=== PATIENT | male | born 1965 | race Caucasian/White ===

== ENCOUNTER 2019-04-20 06:48 | Emergency (ER) | payer MEDICAID, SELFPAY ==
[2019-04-20 06:56] VITALS: PULSE 108; RESP 20; TEMP 36.7; O2SAT 100; BMI 36.8
--- NOTE | 2019-04-20 07:01 | W.ED.AMS ---
HPI - Altered Mental Status General: Chief Complaint: Altered Mental Status Stated Complaint: falling/confused History of Present Illness: Associated symptoms: Deny auditory hallucinations, visual hallucinations, depression, homicidal ideation or suicidal ideation Review of Systems Const: Denies: fever, chills, body aches, fatigue, malaise or night sweats Eyes: Denies: change in vision or blurry vision ENMT: Denies: throat pain, oral sores/lesions, dental pain, nasal discharge or nasal congestion Card: Denies: chest pain, palpitations, irregular heart rhythm, edema, syncope, shortness of breath on exertion, shortness of breath when lying down or leg pain with exertion Resp: Denies: shortness of breath, productive cough, non-productive cough or wheezing GI: Denies: abdominal pain, nausea, vomiting, vomiting blood, coffee grounds in vomit, difficulty swallowing, heartburn/indigestion, diarrhea, constipation, cramping, blood in stool or black tarry stool : Denies: flank pain, difficulty urinating, painful urination, urinary frequency, urinary urgency, urinary incontinence or blood in urine Musc: Denies: neck pain, back pain, extremity pain, extremity swelling, joint pain or joint swelling Skin/Breast: Denies: rash, itching or redness Neuro: Denies: headache, numbness in extremities, weakness in extremities, changes in sensation, lack of coordination, difficulty walking, frequent falls, dizziness, vertigo or confusion Psych: Denies: anxiety, depression, loss of interest, visual hallucinations, auditory hallucinations, suicidal ideation or homicidal ideation Endo: Denies: excessive urination, excessive thirst, tired all the time or cold intolerance Say/Lymph: Denies: easy bruising, easy bleeding, petechiae, enlarged lymph nodes or tender lymph nodes PFSH ED PFSH: Statuses (acute, chronic, etc) shown below reflect problem list status as previously entered and may not be historically accurate Social History Smoking and tobacco status: current every day smoker Physical Exam Const: COMMON NORMALS: average body habitus and alert GENERAL APPEARANCE: cooperative, comfortable and well developed NUTRITIONAL APPEARANCE: obese ORIENTATION/CONSCIOUSNESS: Yes awake HENMT: COMMON NORMALS: normocephalic, head/scalp atraumatic, EAC's normal, TM's normal bilaterally, external nose normal, moist oral mucous membranes and oropharynx normal HEAD & SCALP: normocephalic and atraumatic NOSE: external nose normal EXTERNAL AUDITORY CANAL: EAC's normal TYMPANIC MEMBRANE: TM's normal bilaterally MOUTH: oral and palatal mucosa normal, lip normal and tongue normal THROAT: posterior oropharynx normal and tonsils normal Neck/C-Spine: COMMON NORMALS: full ROM, no lymphadenopathy, supple, no meningeal signs and thyroid normal THYROID: thyroid normal and asymmetrical Lymph: LYMPHATIC: no lymphadenopathy noted Resp: COMMON NORMALS: normal respiratory effort, no retractions, no use of accessory muscles and clear to auscultation bilaterally AUSCULTATION: clear to auscultation bilaterally Cardio: COMMON NORMALS: regular rate and regular rhythm RATE: regular rate RHYTHM: regular rhythm HEART SOUNDS: no murmurs GI: COMMON NORMALS: normal to inspection, nondistended, normoactive bowel sounds, soft to palpation and no hepatosplenomegaly PALPATION: Yes soft and Yes no hepatosplenomegaly : COMMON NORMALS: Yes no CVA tenderness BLADDER/KIDNEY EXAM: Yes no CVA tenderness Back/Pelvis: COMMON NORMALS: no CVA tenderness LUMBAR SPINE/LOWER BACK: Yes normal to inspection Extremity: COMMON NORMALS: no clubbing, cyanosis or edema, no calf tenderness and no pedal edema Neuro: SENSORIUM/ORIENTATION: Yes alert MENINGEAL SIGNS: Yes no meningeal signs Skin: COMMON NORMALS: no rashes or lesions noted and skin turgor normal GENERAL SKIN EXAM: no rashes or lesions noted and turgor normal Course ED course: I seen this patient a couple weeks ago at that time he refused to be admitted. He does seem to have a little more delirium today. His alcohol and ammonia levels are normal there is no significant medical finding on initial work-up. Organ to go ahead and admit him to hospitalist. I discussed Dr. Law is deferring to the hospitalist today. CT reviewed discussed with the patient's family. Vital Signs: Vital signs: Vital Signs Temperature 98.0 F 04/20/19 06:56 Pulse Rate 97 04/20/19 13:38 Respiratory Rate 13 04/20/19 13:38 Blood Pressure 163/92 04/20/19 13:38 Pulse Oximetry 99 04/20/19 13:38 MDM - Altered Mental Status Lab Data: Labs: Lab Results 04/20/19 04/20/19 04/20/19 Range/Units 07:20 07:20 07:20 WBC 11.8 H (4.0-10.0) 10^3/ uL RBC 3.94 L (4.1-5.3) 10^6/u L Hgb 12.6 (11.7-16.6) g/dL Hct 36.5 L (42.0-52.0) % MCV 92.6 (80-94) fL MCH 32.0 (28.0-34.0) pg MCHC 34.5 (30.0-36.0) g/dL RDW 15.7 H (12.1-15.1) % Plt Count 382 (130-400) 10^3/c mm MPV 8.8 (7.4-10.4) fL Neut % (Auto) 75.1 % Lymph % (Auto) 16.9 % Jessamine % (Auto) 5.5 % Eos % (Auto) 1.4 % Baso % (Auto) 0.7 % Neut # (Auto) 8.9 H (1.8-7.7) 10^3/u L Lymph # (Auto) 2.0 (0.8-4.8) 10^3/u L Jessamine # (Auto) 0.7 (0.2-0.9) 10^3/u L Eos # (Auto) 0.2 (0.0-0.8) 10^3/u L Baso # (Auto) 0.1 (0.0-0.1) 10^3/u L Nucleated RBC % (a uto) 0 % Nucleated RBCs # 0.0 /100WBC PT 14.40 H (10.5-13.3) SECO NDS INR 1.09 (0.8-1.2) APTT 29.5 (23.9-36.7) SECO NDS Specimen Type Sample Site ABG pH (7.35-7.45) ABG pCO2 (35-45) mmHg ABG pO2 (80.0-100.0) mmH g ABG HCO3 (22-26) mmol/L ABG Base Excess (-2.0-2.0) mmol/ L Scott Test Hematocrit (42-52) % O2 Delivery Device FiO2 % Mode BiPAP Specimen Drawn By Entry Level Marketing Representative ID Sodium 124 L (136-145) mmol/L Potassium 4.9 (3.5-5.1) mmol/L Chloride 88 L (98-107) mmol/L Carbon Dioxide 22 (22-29) mmol/L Anion Gap 18.9 (5-19) BUN 9 (6-20) mg/dL Creatinine 0.6 L (0.7-1.2) mg/dL GFR Calculation 139.9 H (90-130) mL/min Glucose 153 H (74-109) mg/dL Lactate (0.5-2.2) mmol/L Calcium 10.4 H (8.6-10.0) mg/Dl Total Bilirubin 0.8 (0.15-1.2) mg/dL AST 29 (0-40) U/L ALT 17 (0-41) U/L Alkaline Phosphata se 122 (40-130) IU/L Ammonia (16-60) umol/L Total Protein 7.5 (6.6-8.7) g/dL Albumin 5.0 (3.5-5.2) g/dL Globulin 2.5 (1.3-4.6) g/dL Urine Color (Yellow) Urine Appearance (CLEAR) Urine pH (5-7) Ur Specific Gravit y (1.005-1.030) Urine Protein (Negative) Urine Glucose (UA) (Normal) Urine Ketones (Negative) Urine Occult Blood (Negative) Urine Nitrate (Negative) Urine Bilirubin (Negative) Urine Urobilinogen (Negative) mg/dL Ur Leukocyte Laura ase (Negative) Salicylates < 0.3 L (3-10) mg/dL Acetaminophen < 5.0 L (10-30) ug/mL Ethyl Alcohol < 10 (0-10) mg/dL Serum Ketones (Negative) 04/20/19 04/20/19 04/20/19 Range/Units 07:20 07:23 09:41 WBC (4.0-10.0) 10^3/ uL RBC (4.1-5.3) 10^6/u L Hgb (11.7-16.6) g/dL Hct (42.0-52.0) % MCV (80-94) fL MCH (28.0-34.0) pg MCHC (30.0-36.0) g/dL RDW (12.1-15.1) % Plt Count (130-400) 10^3/c mm MPV (7.4-10.4) fL Neut % (Auto) % Lymph % (Auto) % Jessamine % (Auto) % Eos % (Auto) % Baso % (Auto) % Neut # (Auto) (1.8-7.7) 10^3/u L Lymph # (Auto) (0.8-4.8) 10^3/u L Jessamine # (Auto) (0.2-0.9) 10^3/u L Eos # (Auto) (0.0-0.8) 10^3/u L Baso # (Auto) (0.0-0.1) 10^3/u L Nucleated RBC % (a uto) % Nucleated RBCs # /100WBC PT (10.5-13.3) SECO NDS INR (0.8-1.2) APTT (23.9-36.7) SECO NDS Specimen Type Arterial Sample Site Radial, left ABG pH 7.46 H (7.35-7.45) ABG pCO2 28.5 L (35-45) mmHg ABG pO2 94.0 (80.0-100.0) mmH g ABG HCO3 20.2 L (22-26) mmol/L ABG Base Excess -2.5 L (-2.0-2.0) mmol/ L Scott Test Pos Hematocrit 38.7 L (42-52) % O2 Delivery Device Ra FiO2 21.0 % Mode BiPAP Not Reportable Specimen Drawn By Ck Entry Level Marketing Representative ID cak Sodium (136-145) mmol/L Potassium (3.5-5.1) mmol/L Chloride (98-107) mmol/L Carbon Dioxide (22-29) mmol/L Anion Gap (5-19) BUN (6-20) mg/dL Creatinine (0.7-1.2) mg/dL GFR Calculation (90-130) mL/min Glucose (74-109) mg/dL Lactate 2.7 H (0.5-2.2) mmol/L Calcium (8.6-10.0) mg/Dl Total Bilirubin (0.15-1.2) mg/dL AST (0-40) U/L ALT (0-41) U/L Alkaline Phosphata se (40-130) IU/L Ammonia 10 L (16-60) umol/L Total Protein (6.6-8.7) g/dL Albumin (3.5-5.2) g/dL Globulin (1.3-4.6) g/dL Urine Color Sophia (Yellow) Urine Appearance Clear (CLEAR) Urine pH 6.5 (5-7) Ur Specific Gravit y 1.015 (1.005-1.030) Urine Protein Neg (Negative) Urine Glucose (UA) Norm (Normal) Urine Ketones Negative (Negative) Urine Occult Blood Neg (Negative) Urine Nitrate Negative (Negative) Urine Bilirubin Neg (Negative) Urine Urobilinogen 1 H (Negative) mg/dL Ur Leukocyte Laura ase Negative (Negative) Salicylates (3-10) mg/dL Acetaminophen (10-30) ug/mL Ethyl Alcohol (0-10) mg/dL Serum Ketones Negative (Negative) Discharge Plan Discharge Patient Disposition: Admitted As Inpatient Clinical Impression: Delirium due to general medical condition Altered mental status Qualifiers: Altered mental status type: delirium Qualified Code(s): R41.0 - Disorientation, unspecified Dementia Qualifiers: Alzheimer's disease onset: early-onset Dementia behavioral disturbance: without behavioral disturbance Condition: Stable Referrals: Rory Law MD [Primary Care Provider] - Coding Level of Care Code ED [employer] for [facility] Fwd Exam Problem Focused
--- NOTE | 2019-04-20 07:10 | XR_ITS ---
WS: [id number] CHEST XRAY TECHNIQUE: Portable chest. CLINICAL INFORMATION: alterd mental status COMPARISON: FINDINGS: Heart: Normal cardiac silhouette. Lungs: Lungs are clear. No consolidation or pleural effusion. Bones: Normal visualized bony structures. XR/XR chest 1V portable [id number] IMPRESSION: Normal chest
[2019-04-20 07:28] LABS: Add RBC Morph No
[2019-04-20 07:31] LABS: Basophils # 0.1 10^3/uL (0.0-0.1); Basophils % 0.7 %; Eosinophils # 0.2 10^3/uL (0.0-0.8); Eosinophils % 1.4 %; Hematocrit 36.5 % (42.0-52.0); Hemoglobin 12.6 g/dL (11.7-16.6); Lymphocytes % 16.9 %; Mean Corpuscular HGB Conc 34.5 g/dL (30.0-36.0); Mean Corpuscular Volume 92.6 fL (80-94); Mean Platelet Volume 8.8 fL (7.4-10.4); Monocytes # 0.7 10^3/uL (0.2-0.9); Monocytes % 5.5 %; Neutrophils # 8.9 10^3/uL (1.8-7.7); Neutrophils % 75.1 %; Nucleated Red Blood Cells % 0 %; Platelet Count 382 10^3/cmm (130-400); Red Blood Count 3.94 10^6/uL (4.1-5.3); Red Cell Distribution Width 15.7 % (12.1-15.1); White Blood Count 11.8 10^3/uL (4.0-10.0)
[2019-04-20 07:34] LABS: ABG PCO2 28.5 mmHg (35-45); ABG PH Result 7.46 (7.35-7.45); Arterial Blood Gas Hematocrit 38.7 % (42-52); Base Excess ABG -2.5 mmol/L (-2.0-2.0); Blood Gas Allen Test Pos; Blood Gas Sample Site Radial, left; Blood Gas Sample Type Arterial; HCO3 ABG 20.2 mmol/L (22-26)
[2019-04-20 07:39] LABS: INR 1.09 (0.8-1.2)
[2019-04-20 07:40] LABS: Partial Thromboplastin Time 29.5 SECONDS (23.9-36.7)
[2019-04-20 07:50] LABS: Ketone (Acetest) Serum Negative (Negative)
[2019-04-20 07:54] LABS: Lactate (Lactic Acid level) 2.7 mmol/L (0.5-2.2)
[2019-04-20 07:59] LABS: Alanine Aminotransferase 17 U/L (0-41); Alkaline Phosphatase 122 IU/L (40-130); Anion Gap 18.9 (5-19); Aspartate Amino Transferase 29 U/L (0-40); Blood Urea Nitrogen 9 mg/dL (6-20); Calcium 10.4 mg/Dl (8.6-10.0); Carbon Dioxide 22 mmol/L (22-29); Chloride 88 mmol/L (98-107); Globulin 2.5 g/dL (1.3-4.6); Glomerular Filtration Rate 139.9 mL/min (90-130); Glucose 153 mg/dL (74-109); Potassium 4.9 mmol/L (3.5-5.1); Sodium 124 mmol/L (136-145); Total Bilirubin 0.8 mg/dL (0.15-1.2); Total Protein 7.5 g/dL (6.6-8.7)
[2019-04-20 08:07] LABS: Acetaminophen < 5.0 ug/mL (10-30); Alcohol Level < 10 mg/dL (0-10); Ammonia 10 umol/L (16-60); Salicylate < 0.3 mg/dL (3-10)
--- NOTE | 2019-04-20 08:15 | CT_ITS ---
WS: [id number] CT HEAD TECHNIQUE: Noncontrast CT of the head obtained from the skullbase to the vertex. CLINICAL INFORMATION: AMS COMPARISON: DLP: [id number] scans at [facility] use at least one of these dose optimization techniques: automat ed exposure control; mA and/or kV adjustment per patient size (includes targeted exams where dose is matched to clinical indication); or iterative reconstruction. FINDINGS: No evidence of intracranial hemorrhage or mass effect. Ventricular system and basal cisterns are bowers nt. Mild small vessel changes with mild parenchymal volume loss. Chronic lacunar infarct right latera l basal ganglia is unchanged. No extra-axial fluid collections. No evidence of mass or mass effect. N ormal kat-white differentiation. Paranasal sinuses and mastoid air cells are well aerated. .Normal visualized soft tissues. CT/CT head wo con* [id number] IMPRESSION: 1. No evidence of intracranial hemorrhage or mass effect. 2. Mild small vessel changes with mild parenchymal volume loss. 3. Chronic lacunar infarct right lateral basal ganglia is unchanged. 4. No acute intracranial findings.
[2019-04-20] MEDS: sodium chloride 0.9% 500 ML 999 ML IV (10:05)
[2019-04-20] MEDS: sodium chloride 0.9% 1,000 ML 125 ML IV (10:08)
[2019-04-20 11:23] LABS: Add Urine Microscopic? NO
[2019-04-20 11:39] LABS: Bilirubin Urine Neg (Negative); Blood Urine Neg (Negative); Glucose Urine UA Norm (Normal); Ketones Urine Negative (Negative); Leukocyte Esterase Urine Negative (Negative); Nitrate Urine Negative (Negative); Protein Urine Neg (Negative); Specific Gravity, Urine 1.015 (1.005-1.030); Urine Appearance Clear (CLEAR); Urine Color Amber (Yellow); Urobilinogen Urine 1 mg/dL (Negative); pH Urine 6.5 (5-7)
[2019-04-20 12:38] LABS: Oxygen Device RA
[2019-04-20] MEDS: LORazepam 2 mg/mL INJ 1 mL 0.5 MG IVP (12:44)
[2019-04-20 12:47] LABS: Blood Gas Drawn By CK
[2019-04-20 13:38] VITALS: BP 163/92; PULSE 97; RESP 13; O2SAT 99
[2019-04-20] MEDS: nicotine 21 mg Patch 1 PATCH TRANSDERMA (15:12)
--- NOTE | 2019-04-20 16:17 | ED_ITS ---
HPI - Altered Mental Status General: Chief Complaint: Altered Mental Status Stated Complaint: falling/confused History of Present Illness: HPI narrative: This is a 53-year-old male with a past medical history of hypertension, type 2 diabetes mellitus who presents to the emergency room due to complaints of confusion. Patient states that he is here in the ER as he does not feel well, his parents a year ago, and he misses them a lot. Patient states that his mom and dad passed roughly a year ago, and since then he is just not been feeling well, feels down, depressed, denies loss of interest, denies guilty feelings, denies lack of energy, denies f light of ideas, denies changes in appetite denies homicidal ideation, denies suicidal ideation, denies guns being at home. Patient denies fevers, chills, nausea, vomiting, lightheadedness, dizziness, blurry vision, headaches, chest pain, palpitations, shortness of breath, wheezing, abdominal pain, diarrhea, dysuria, hematuria. 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 Patient states that he is , has a , lives not too far for [facility]. Patient states that he really wants to go home, does not know why he is here. I spoke to patient's over the phone, patient's states that for the past year since his parents passing, he is not been taking care of himself, has not been eating and drinking well, does not take care of himself, has not been working for the last year, he drinks whiskey daily, smokes daily, has trouble walking at times, has trouble ambulating him. Patient's states that she cannot take care of him anymore. Associated symptoms: Reports depression; Deny auditory hallucinations, visual hallucinations, homicidal ideation or suicidal ideation Review of Systems Const: Denies: fever, chills, body aches, change in appetite, change in weight, fatigue or malaise Eyes: Denies: change in vision or blurry vision ENMT: Denies: painful swallowing, swelling of lips/tongue or nasal discharge Card: Denies: chest pain or palpitations Resp: Denies: shortness of breath or productive cough GI: Denies: abdominal pain, nausea or vomiting : Denies: flank pain, painful urination, urinary frequency, urinary urgency, urinary hesitancy, urinary dribbling, difficulty starting urination, urinary incontinence or blood in urine Musc: Denies: neck pain or back pain Skin/Breast: Denies: rash, itching or redness Neuro: Denies: headache, numbness in extremities, weakness in extremities, changes in sensation, lack of coordination, difficulty walking, frequent falls, dizziness, vertigo, confusion, behavioral changes, slurred speech, difficulty communicating thoughts, seizure-like activity or involuntary movements Psych: Reports: anxiety, depression and sleeping less; Denies: mood swings, panic attacks, sleeping more, hopelessness, loss of interest, change in appetite, irritability, memory loss, difficulty concentrating, visual hallucinations, auditory hallucinations, tactile hallucinations, suicidal ideation or homicidal ideation Endo: Denies: excessive urination, excessive thirst or excessive sweating PFSH ED PFSH: Statuses (acute, chronic, etc) shown below reflect problem list status as previously entered and may not be historically accurate Medical History (Updated 04/20/19 @ 16:27 by Sp Gaston MD) Alcohol abuse (Acute) Hypertension (Acute) Hyponatremia (Acute) Type 2 diabetes mellitus (Acute) Surgical History (Updated 04/20/19 @ 16:27 by Sp Gaston MD) H/O skin graft (Acute) Hx of tonsillectomy (Acute) Family History (Updated 04/20/19 @ 16:28 by Sp Gaston MD) Other CAD (coronary artery disease) Diabetes Denies family history of Dementia Psychiatric illness Social History (Updated 04/20/19 @ 16:28 by Sp Gaston MD) Smoking and tobacco status: current every day smoker Alcohol intake: current Substance/Drug Use: current Substance/Drug use type: Marijuana Desire information about substance/drug rehabilitation?: No Counseling given: Yes Adopted: No Household members: spouse Current occupational status: unemployed History of recent travel: No Physical Exam Const: COMMON NORMALS: no apparent distress, oriented x3 and no limitations EXAM LIMITATIONS: no altered mental status, no behavioral limitations and no language barrier GENERAL APPEARANCE: cooperative, comfortable and disheveled NUTRITIONAL APPEARANCE: overweight HENMT: COMMON NORMALS: normocephalic HEAD & SCALP: normocephalic Eye: COMMON NORMALS: PERRL PUPIL: Yes PERRL Neck/C-Spine: COMMON NORMALS: full ROM, no JVD and thyroid normal THYROID: thyroid normal Lymph: LYMPHATIC: no lymphadenopathy noted Chest: COMMONS NORMALS: inspection of chest normal Resp: COMMON NORMALS: normal respiratory effort, no retractions, no use of accessory muscles and clear to auscultation bilaterally AUSCULTATION: clear to auscultation bilaterally Cardio: COMMON NORMALS: no JVD, regular rate, regular rhythm, S1 normal heart sound, S2 normal heart sound, no gallops, no clicks, no murmurs and no rub RATE: regular rate RHYTHM: regular rhythm HEART SOUNDS: S1 normal and S2 normal GI: COMMON NORMALS: normal to inspection, nondistended, normoactive bowel sounds, soft to palpation, non-tender, no hepatosplenomegaly, no masses and no bruits PALPATION: Yes soft and Yes no hepatosplenomegaly : COMMON NORMALS: Yes no CVA tenderness BLADDER/KIDNEY EXAM: Yes no CVA tenderness Back/Pelvis: COMMON NORMALS: no CVA tenderness Extremity: COMMON NORMALS: normal to inspection, full ROM, normal capillary refill, no joint enlargement, no clubbing, cyanosis or edema, no calf tenderness and no pedal edema Neuro: COMMON NORMALS: oriented x3, CN's II-XII intact bilaterally, moves all extremities, no focal motor deficits and no sensory deficits noted Psych: COMMON NORMALS: mental status grossly normal, thought process normal, cooperative, affect normal, speech normal, activity/motor behavior normal, denies hallucinations, denies homicidal ideation and denies suicidal ideation SPEECH: Yes normal speech MOOD & AFFECT: Yes irritable, Yes labile affect and Yes flat affect THOUGHT PROCESS: normal thought process THOUGHT CONTENT: Yes normal thought content MEMORY/COGNITION: Yes memory grossly intact INSIGHT: insight good JUDGEMENT: judgment good Skin: COMMON NORMALS: no rashes or lesions noted GENERAL SKIN EXAM: no rashes or lesions noted Urinary Catheter Management^: [place]: Cath Placed During This Visit: no Course ED course: In the emergency room patient was found to have a sodium level of 124, status post 1 L bolus normal saline, chronically patient's sodium levels 129-130. 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, no other acute findings -We will recheck sodium level, if improved, will discharge with instructions to drink Gatorade, recheck sodium levels tomorrow, abstain from alcohol -Also stop lisinopril, increase Norvasc to 10 mg once daily -If sodium levels remain low, and advised for admission -Patient sodium levels remain 124, I advised patient that he should be admitted, for IV hydration, -However patient wants to leave AGAINST MEDICAL ADVICE, patient advised risks of leaving AGAINST MEDICAL ADVICE, patient advised of significant risk of morbidity and mortality, advised the risk of , advised of risk of seizures, cerebral edema, falls. Patient accepted all these risks, voiced understanding, wants to leave AGAINST MEDICAL ADVICE For his depression anxiety, patient refuses inpatient admission to Neuropsych Unit, clearly patient is depressed and anxious, has not been taking care of himself, has not been working for the past year, looks disheveled, labile, poor eye contact -Denies suicidal homicidal ideation -Agreeable to follow-up with Dr. Law, agreeable to start medications Vital Signs: Vital signs: Vital Signs Temperature 98.0 F 04/20/19 06:56 Pulse Rate 97 04/20/19 13:38 Respiratory Rate 13 04/20/19 13:38 Blood Pressure 163/92 04/20/19 13:38 Pulse Oximetry 99 04/20/19 13:38 MDM - Altered Mental Status Lab Data: Labs: Lab Results 04/20/19 04/20/19 04/20/19 Range/Units 07:20 07:20 07:20 WBC 11.8 H (4.0-10.0) 10^3/ uL RBC 3.94 L (4.1-5.3) 10^6/u L Hgb 12.6 (11.7-16.6) g/dL Hct 36.5 L (42.0-52.0) % MCV 92.6 (80-94) fL MCH 32.0 (28.0-34.0) pg MCHC 34.5 (30.0-36.0) g/dL RDW 15.7 H (12.1-15.1) % Plt Count 382 (130-400) 10^3/c mm MPV 8.8 (7.4-10.4) fL Neut % (Auto) 75.1 % Lymph % (Auto) 16.9 % Wayne % (Auto) 5.5 % Eos % (Auto) 1.4 % Baso % (Auto) 0.7 % Neut # (Auto) 8.9 H (1.8-7.7) 10^3/u L Lymph # (Auto) 2.0 (0.8-4.8) 10^3/u L Wayne # (Auto) 0.7 (0.2-0.9) 10^3/u L Eos # (Auto) 0.2 (0.0-0.8) 10^3/u L Baso # (Auto) 0.1 (0.0-0.1) 10^3/u L Nucleated RBC % (a uto) 0 % Nucleated RBCs # 0.0 /100WBC PT 14.40 H (10.5-13.3) SECO NDS INR 1.09 (0.8-1.2) APTT 29.5 (23.9-36.7) SECO NDS Specimen Type Sample Site ABG pH (7.35-7.45) ABG pCO2 (35-45) mmHg ABG pO2 (80.0-100.0) mmH g ABG HCO3 (22-26) mmol/L ABG Base Excess (-2.0-2.0) mmol/ L Scott Test Hematocrit (42-52) % O2 Delivery Device FiO2 % Mode BiPAP Specimen Drawn By Tubing Machine Tender ID Sodium 124 L (136-145) mmol/L Potassium 4.9 (3.5-5.1) mmol/L Chloride 88 L (98-107) mmol/L Carbon Dioxide 22 (22-29) mmol/L Anion Gap 18.9 (5-19) BUN 9 (6-20) mg/dL Creatinine 0.6 L (0.7-1.2) mg/dL GFR Calculation 139.9 H (90-130) mL/min Glucose 153 H (74-109) mg/dL Lactate (0.5-2.2) mmol/L Calcium 10.4 H (8.6-10.0) mg/Dl Total Bilirubin 0.8 (0.15-1.2) mg/dL AST 29 (0-40) U/L ALT 17 (0-41) U/L Alkaline Phosphata se 122 (40-130) IU/L Ammonia (16-60) umol/L Total Protein 7.5 (6.6-8.7) g/dL Albumin 5.0 (3.5-5.2) g/dL Globulin 2.5 (1.3-4.6) g/dL Urine Color (Yellow) Urine Appearance (CLEAR) Urine pH (5-7) Ur Specific Gravit y (1.005-1.030) Urine Protein (Negative) Urine Glucose (UA) (Normal) Urine Ketones (Negative) Urine Occult Blood (Negative) Urine Nitrate (Negative) Urine Bilirubin (Negative) Urine Urobilinogen (Negative) mg/dL Ur Leukocyte Laura ase (Negative) Salicylates < 0.3 L (3-10) mg/dL Acetaminophen < 5.0 L (10-30) ug/mL Ethyl Alcohol < 10 (0-10) mg/dL Serum Ketones (Negative) 04/20/19 04/20/19 04/20/19 Range/Units 07:20 07:23 09:41 WBC (4.0-10.0) 10^3/ uL RBC (4.1-5.3) 10^6/u L Hgb (11.7-16.6) g/dL Hct (42.0-52.0) % MCV (80-94) fL MCH (28.0-34.0) pg MCHC (30.0-36.0) g/dL RDW (12.1-15.1) % Plt Count (130-400) 10^3/c mm MPV (7.4-10.4) fL Neut % (Auto) % Lymph % (Auto) % Wayne % (Auto) % Eos % (Auto) % Baso % (Auto) % Neut # (Auto) (1.8-7.7) 10^3/u L Lymph # (Auto) (0.8-4.8) 10^3/u L Wayne # (Auto) (0.2-0.9) 10^3/u L Eos # (Auto) (0.0-0.8) 10^3/u L Baso # (Auto) (0.0-0.1) 10^3/u L Nucleated RBC % (a uto) % Nucleated RBCs # /100WBC PT (10.5-13.3) SECO NDS INR (0.8-1.2) APTT (23.9-36.7) SECO NDS Specimen Type Arterial Sample Site Radial, left ABG pH 7.46 H (7.35-7.45) ABG pCO2 28.5 L (35-45) mmHg ABG pO2 94.0 (80.0-100.0) mmH g ABG HCO3 20.2 L (22-26) mmol/L ABG Base Excess -2.5 L (-2.0-2.0) mmol/ L Scott Test Pos Hematocrit 38.7 L (42-52) % O2 Delivery Device Ra FiO2 21.0 % Mode BiPAP Not Reportable Specimen Drawn By Ck Tubing Machine Tender ID cak Sodium (136-145) mmol/L Potassium (3.5-5.1) mmol/L Chloride (98-107) mmol/L Carbon Dioxide (22-29) mmol/L Anion Gap (5-19) BUN (6-20) mg/dL Creatinine (0.7-1.2) mg/dL GFR Calculation (90-130) mL/min Glucose (74-109) mg/dL Lactate 2.7 H (0.5-2.2) mmol/L Calcium (8.6-10.0) mg/Dl Total Bilirubin (0.15-1.2) mg/dL AST (0-40) U/L ALT (0-41) U/L Alkaline Phosphata se (40-130) IU/L Ammonia 10 L (16-60) umol/L Total Protein (6.6-8.7) g/dL Albumin (3.5-5.2) g/dL Globulin (1.3-4.6) g/dL Urine Color Sophia (Yellow) Urine Appearance Clear (CLEAR) Urine pH 6.5 (5-7) Ur Specific Gravit y 1.015 (1.005-1.030) Urine Protein Neg (Negative) Urine Glucose (UA) Norm (Normal) Urine Ketones Negative (Negative) Urine Occult Blood Neg (Negative) Urine Nitrate Negative (Negative) Urine Bilirubin Neg (Negative) Urine Urobilinogen 1 H (Negative) mg/dL Ur Leukocyte Laura ase Negative (Negative) Salicylates (3-10) mg/dL Acetaminophen (10-30) ug/mL Ethyl Alcohol (0-10) mg/dL Serum Ketones Negative (Negative) 04/20/19 Range/Units 16:20 WBC (4.0-10.0) 10^3/ uL RBC (4.1-5.3) 10^6/u L Hgb (11.7-16.6) g/dL Hct (42.0-52.0) % MCV (80-94) fL MCH (28.0-34.0) pg MCHC (30.0-36.0) g/dL RDW (12.1-15.1) % Plt Count (130-400) 10^3/c mm MPV (7.4-10.4) fL Neut % (Auto) % Lymph % (Auto) % Wayne % (Auto) % Eos % (Auto) % Baso % (Auto) % Neut # (Auto) (1.8-7.7) 10^3/u L Lymph # (Auto) (0.8-4.8) 10^3/u L Wayne # (Auto) (0.2-0.9) 10^3/u L Eos # (Auto) (0.0-0.8) 10^3/u L Baso # (Auto) (0.0-0.1) 10^3/u L Nucleated RBC % (a uto) % Nucleated RBCs # /100WBC PT (10.5-13.3) SECO NDS INR (0.8-1.2) APTT (23.9-36.7) SECO NDS Specimen Type Sample Site ABG pH (7.35-7.45) ABG pCO2 (35-45) mmHg ABG pO2 (80.0-100.0) mmH g ABG HCO3 (22-26) mmol/L ABG Base Excess (-2.0-2.0) mmol/ L Scott Test Hematocrit (42-52) % O2 Delivery Device FiO2 % Mode BiPAP Specimen Drawn By Tubing Machine Tender ID Sodium 124 L (136-145) mmol/L Potassium 5.2 H (3.5-5.1) mmol/L Chloride 91 L (98-107) mmol/L Carbon Dioxide 21 L (22-29) mmol/L Anion Gap 17.2 (5-19) BUN 7 (6-20) mg/dL Creatinine 0.4 L (0.7-1.2) mg/dL GFR Calculation 223.3 H (90-130) mL/min Glucose 122 H (74-109) mg/dL Lactate (0.5-2.2) mmol/L Calcium 10.1 H (8.6-10.0) mg/Dl Total Bilirubin 0.7 (0.15-1.2) mg/dL AST 27 (0-40) U/L ALT 16 (0-41) U/L Alkaline Phosphata se 117 (40-130) IU/L Ammonia (16-60) umol/L Total Protein 7.8 (6.6-8.7) g/dL Albumin 4.2 (3.5-5.2) g/dL Globulin 3.6 (1.3-4.6) g/dL Urine Color (Yellow) Urine Appearance (CLEAR) Urine pH (5-7) Ur Specific Gravit y (1.005-1.030) Urine Protein (Negative) Urine Glucose (UA) (Normal) Urine Ketones (Negative) Urine Occult Blood (Negative) Urine Nitrate (Negative) Urine Bilirubin (Negative) Urine Urobilinogen (Negative) mg/dL Ur Leukocyte Laura ase (Negative) Salicylates (3-10) mg/dL Acetaminophen (10-30) ug/mL Ethyl Alcohol (0-10) mg/dL Serum Ketones (Negative) Discharge Plan Discharge Patient Disposition: Left Against Medical Advice Clinical Impression: Altered mental status, Delirium due to general medical condition, Dementia Condition: Stable Prescriptions: No Action lisinopril 20 mg tablet 20 mg PO DAILY RF: 0 amlodipine 5 mg tablet 5 mg PO DAILY RF: 0 metformin 1,000 mg Tablet 1,000 mg PO BID RF: 0 Excedrin Migraine 250-250-65 mg Tablet 2 tab PO DAILY PRN (Reason: Headache) RF: 0 Referrals: Rory Law MD [Primary Care Provider] - Discharge Activity: Left AGAINST MEDICAL ADVICE Coding Level of Care Code ED Revenue Analyst for g Fwd Exam Problem Focused
[2019-04-20 16:47] LABS: Alanine Aminotransferase 16 U/L (0-41); Albumin Level 4.2 g/dL (3.5-5.2); Alkaline Phosphatase 117 IU/L (40-130); Anion Gap 17.2 (5-19); Aspartate Amino Transferase 27 U/L (0-40); Blood Urea Nitrogen 7 mg/dL (6-20); Calcium 10.1 mg/Dl (8.6-10.0); Carbon Dioxide 21 mmol/L (22-29); Chloride 91 mmol/L (98-107); Globulin 3.6 g/dL (1.3-4.6); Glomerular Filtration Rate 223.3 mL/min (90-130); Glucose 122 mg/dL (74-109); Potassium 5.2 mmol/L (3.5-5.1); Sodium 124 mmol/L (136-145); Total Bilirubin 0.7 mg/dL (0.15-1.2); Total Protein 7.8 g/dL (6.6-8.7)
--- NOTE | 2019-04-20 17:37 | W.ED.AMS ---
HPI - Altered Mental Status General: Chief Complaint: Altered Mental Status Stated Complaint: falling/confused Review of Systems Const: Denies: fever, chills, body aches, fatigue, malaise or night sweats Eyes: Denies: change in vision or blurry vision ENMT: Denies: throat pain, oral sores/lesions, dental pain, nasal discharge or nasal congestion Card: Denies: chest pain, palpitations, irregular heart rhythm, edema, syncope, shortness of breath on exertion, shortness of breath when lying down or leg pain with exertion Resp: Denies: shortness of breath, productive cough, non-productive cough or wheezing GI: Denies: abdominal pain, nausea, vomiting, vomiting blood, coffee grounds in vomit, difficulty swallowing, heartburn/indigestion, diarrhea, constipation, cramping, blood in stool or black tarry stool : Denies: flank pain, difficulty urinating, painful urination, urinary frequency, urinary urgency, urinary incontinence or blood in urine Musc: Denies: neck pain, back pain, extremity pain, extremity swelling, joint pain or joint swelling Skin/Breast: Denies: rash, itching or redness Neuro: Denies: headache, numbness in extremities, weakness in extremities, changes in sensation, lack of coordination, difficulty walking, frequent falls, dizziness, vertigo or confusion Endo: Denies: excessive urination, excessive thirst, tired all the time or cold intolerance Say/Lymph: Denies: easy bruising, easy bleeding, petechiae, enlarged lymph nodes or tender lymph nodes PFSH ED PFSH: Statuses (acute, chronic, etc) shown below reflect problem list status as previously entered and may not be historically accurate Medical History Alcohol abuse (Acute) Hypertension (Acute) Hyponatremia (Acute) Type 2 diabetes mellitus (Acute) Surgical History H/O skin graft (Acute) Hx of tonsillectomy (Acute) Family History Other CAD (coronary artery disease) Diabetes Denies family history of Dementia Psychiatric illness Social History Smoking and tobacco status: current every day smoker Alcohol intake: current Substance/Drug Use: current Substance/Drug use type: Marijuana Desire information about substance/drug rehabilitation?: No Counseling given: Yes Adopted: No Household members: spouse Current occupational status: unemployed History of recent travel: No Physical Exam Const: COMMON NORMALS: average body habitus and alert GENERAL APPEARANCE: cooperative, comfortable, well kempt and well developed NUTRITIONAL APPEARANCE: obese ORIENTATION/CONSCIOUSNESS: Yes awake, Yes oriented to person and Yes oriented to place HENMT: COMMON NORMALS: normocephalic, head/scalp atraumatic, EAC's normal, TM's normal bilaterally, external nose normal, moist oral mucous membranes and oropharynx normal HEAD & SCALP: normocephalic and atraumatic NOSE: external nose normal EXTERNAL AUDITORY CANAL: EAC's normal TYMPANIC MEMBRANE: TM's normal bilaterally MOUTH: oral and palatal mucosa normal, lip normal and tongue normal THROAT: posterior oropharynx normal and tonsils normal Eye: COMMON NORMALS: PERRL, EOMs intact bilaterally, conjunctivae normal and no scleral icterus CONJUNCTIVA: Yes conjunctivae normal PUPIL: Yes PERRL Neck/C-Spine: COMMON NORMALS: full ROM, no lymphadenopathy, supple, no meningeal signs and thyroid normal THYROID: thyroid normal and asymmetrical Lymph: LYMPHATIC: no lymphadenopathy noted Resp: COMMON NORMALS: normal respiratory effort, no retractions, no use of accessory muscles and clear to auscultation bilaterally AUSCULTATION: clear to auscultation bilaterally Cardio: COMMON NORMALS: regular rate and regular rhythm RATE: regular rate RHYTHM: regular rhythm HEART SOUNDS: no murmurs GI: COMMON NORMALS: normal to inspection, nondistended, normoactive bowel sounds, soft to palpation and no hepatosplenomegaly PALPATION: Yes soft and Yes no hepatosplenomegaly : COMMON NORMALS: Yes no CVA tenderness BLADDER/KIDNEY EXAM: Yes no CVA tenderness Back/Pelvis: COMMON NORMALS: no CVA tenderness LUMBAR SPINE/LOWER BACK: Yes normal to inspection Extremity: COMMON NORMALS: no clubbing, cyanosis or edema, no calf tenderness and no pedal edema Neuro: SENSORIUM/ORIENTATION: Yes alert, Yes oriented to person and Yes oriented to place MENINGEAL SIGNS: Yes no meningeal signs Psych: APPEARANCE: Yes well kempt Skin: COMMON NORMALS: no rashes or lesions noted and skin turgor normal GENERAL SKIN EXAM: no rashes or lesions noted and turgor normal Urinary Catheter Management^: [place]: Cath Placed During This Visit: no Course Vital Signs: Vital signs: Vital Signs Temperature 98.0 F 04/20/19 06:56 Pulse Rate 97 04/20/19 13:38 Respiratory Rate 13 04/20/19 13:38 Blood Pressure 163/92 04/20/19 13:38 Pulse Oximetry 99 04/20/19 13:38 MDM - Altered Mental Status Lab Data: Labs: Lab Results 04/20/19 04/20/19 04/20/19 Range/Units 07:20 07:20 07:20 WBC 11.8 H (4.0-10.0) 10^3/ uL RBC 3.94 L (4.1-5.3) 10^6/u L Hgb 12.6 (11.7-16.6) g/dL Hct 36.5 L (42.0-52.0) % MCV 92.6 (80-94) fL MCH 32.0 (28.0-34.0) pg MCHC 34.5 (30.0-36.0) g/dL RDW 15.7 H (12.1-15.1) % Plt Count 382 (130-400) 10^3/c mm MPV 8.8 (7.4-10.4) fL Neut % (Auto) 75.1 % Lymph % (Auto) 16.9 % Woodward % (Auto) 5.5 % Eos % (Auto) 1.4 % Baso % (Auto) 0.7 % Neut # (Auto) 8.9 H (1.8-7.7) 10^3/u L Lymph # (Auto) 2.0 (0.8-4.8) 10^3/u L Woodward # (Auto) 0.7 (0.2-0.9) 10^3/u L Eos # (Auto) 0.2 (0.0-0.8) 10^3/u L Baso # (Auto) 0.1 (0.0-0.1) 10^3/u L Nucleated RBC % (a uto) 0 % Nucleated RBCs # 0.0 /100WBC PT 14.40 H (10.5-13.3) SECO NDS INR 1.09 (0.8-1.2) APTT 29.5 (23.9-36.7) SECO NDS Specimen Type Sample Site ABG pH (7.35-7.45) ABG pCO2 (35-45) mmHg ABG pO2 (80.0-100.0) mmH g ABG HCO3 (22-26) mmol/L ABG Base Excess (-2.0-2.0) mmol/ L Scott Test Hematocrit (42-52) % O2 Delivery Device FiO2 % Mode BiPAP Specimen Drawn By Director Of Business Applications ID Sodium 124 L (136-145) mmol/L Potassium 4.9 (3.5-5.1) mmol/L Chloride 88 L (98-107) mmol/L Carbon Dioxide 22 (22-29) mmol/L Anion Gap 18.9 (5-19) BUN 9 (6-20) mg/dL Creatinine 0.6 L (0.7-1.2) mg/dL GFR Calculation 139.9 H (90-130) mL/min Glucose 153 H (74-109) mg/dL Lactate (0.5-2.2) mmol/L Calcium 10.4 H (8.6-10.0) mg/Dl Total Bilirubin 0.8 (0.15-1.2) mg/dL AST 29 (0-40) U/L ALT 17 (0-41) U/L Alkaline Phosphata se 122 (40-130) IU/L Ammonia (16-60) umol/L Total Protein 7.5 (6.6-8.7) g/dL Albumin 5.0 (3.5-5.2) g/dL Globulin 2.5 (1.3-4.6) g/dL Urine Color (Yellow) Urine Appearance (CLEAR) Urine pH (5-7) Ur Specific Gravit y (1.005-1.030) Urine Protein (Negative) Urine Glucose (UA) (Normal) Urine Ketones (Negative) Urine Occult Blood (Negative) Urine Nitrate (Negative) Urine Bilirubin (Negative) Urine Urobilinogen (Negative) mg/dL Ur Leukocyte Laura ase (Negative) Salicylates < 0.3 L (3-10) mg/dL Acetaminophen < 5.0 L (10-30) ug/mL Ethyl Alcohol < 10 (0-10) mg/dL Serum Ketones (Negative) 04/20/19 04/20/19 04/20/19 Range/Units 07:20 07:23 09:41 WBC (4.0-10.0) 10^3/ uL RBC (4.1-5.3) 10^6/u L Hgb (11.7-16.6) g/dL Hct (42.0-52.0) % MCV (80-94) fL MCH (28.0-34.0) pg MCHC (30.0-36.0) g/dL RDW (12.1-15.1) % Plt Count (130-400) 10^3/c mm MPV (7.4-10.4) fL Neut % (Auto) % Lymph % (Auto) % Woodward % (Auto) % Eos % (Auto) % Baso % (Auto) % Neut # (Auto) (1.8-7.7) 10^3/u L Lymph # (Auto) (0.8-4.8) 10^3/u L Woodward # (Auto) (0.2-0.9) 10^3/u L Eos # (Auto) (0.0-0.8) 10^3/u L Baso # (Auto) (0.0-0.1) 10^3/u L Nucleated RBC % (a uto) % Nucleated RBCs # /100WBC PT (10.5-13.3) SECO NDS INR (0.8-1.2) APTT (23.9-36.7) SECO NDS Specimen Type Arterial Sample Site Radial, left ABG pH 7.46 H (7.35-7.45) ABG pCO2 28.5 L (35-45) mmHg ABG pO2 94.0 (80.0-100.0) mmH g ABG HCO3 20.2 L (22-26) mmol/L ABG Base Excess -2.5 L (-2.0-2.0) mmol/ L Scott Test Pos Hematocrit 38.7 L (42-52) % O2 Delivery Device Ra FiO2 21.0 % Mode BiPAP Not Reportable Specimen Drawn By Ck Director Of Business Applications ID cak Sodium (136-145) mmol/L Potassium (3.5-5.1) mmol/L Chloride (98-107) mmol/L Carbon Dioxide (22-29) mmol/L Anion Gap (5-19) BUN (6-20) mg/dL Creatinine (0.7-1.2) mg/dL GFR Calculation (90-130) mL/min Glucose (74-109) mg/dL Lactate 2.7 H (0.5-2.2) mmol/L Calcium (8.6-10.0) mg/Dl Total Bilirubin (0.15-1.2) mg/dL AST (0-40) U/L ALT (0-41) U/L Alkaline Phosphata se (40-130) IU/L Ammonia 10 L (16-60) umol/L Total Protein (6.6-8.7) g/dL Albumin (3.5-5.2) g/dL Globulin (1.3-4.6) g/dL Urine Color Sophia (Yellow) Urine Appearance Clear (CLEAR) Urine pH 6.5 (5-7) Ur Specific Gravit y 1.015 (1.005-1.030) Urine Protein Neg (Negative) Urine Glucose (UA) Norm (Normal) Urine Ketones Negative (Negative) Urine Occult Blood Neg (Negative) Urine Nitrate Negative (Negative) Urine Bilirubin Neg (Negative) Urine Urobilinogen 1 H (Negative) mg/dL Ur Leukocyte Laura ase Negative (Negative) Salicylates (3-10) mg/dL Acetaminophen (10-30) ug/mL Ethyl Alcohol (0-10) mg/dL Serum Ketones Negative (Negative) 04/20/19 Range/Units 16:20 WBC (4.0-10.0) 10^3/ uL RBC (4.1-5.3) 10^6/u L Hgb (11.7-16.6) g/dL Hct (42.0-52.0) % MCV (80-94) fL MCH (28.0-34.0) pg MCHC (30.0-36.0) g/dL RDW (12.1-15.1) % Plt Count (130-400) 10^3/c mm MPV (7.4-10.4) fL Neut % (Auto) % Lymph % (Auto) % Woodward % (Auto) % Eos % (Auto) % Baso % (Auto) % Neut # (Auto) (1.8-7.7) 10^3/u L Lymph # (Auto) (0.8-4.8) 10^3/u L Woodward # (Auto) (0.2-0.9) 10^3/u L Eos # (Auto) (0.0-0.8) 10^3/u L Baso # (Auto) (0.0-0.1) 10^3/u L Nucleated RBC % (a uto) % Nucleated RBCs # /100WBC PT (10.5-13.3) SECO NDS INR (0.8-1.2) APTT (23.9-36.7) SECO NDS Specimen Type Sample Site ABG pH (7.35-7.45) ABG pCO2 (35-45) mmHg ABG pO2 (80.0-100.0) mmH g ABG HCO3 (22-26) mmol/L ABG Base Excess (-2.0-2.0) mmol/ L Scott Test Hematocrit (42-52) % O2 Delivery Device FiO2 % Mode BiPAP Specimen Drawn By Director Of Business Applications ID Sodium 124 L (136-145) mmol/L Potassium 5.2 H (3.5-5.1) mmol/L Chloride 91 L (98-107) mmol/L Carbon Dioxide 21 L (22-29) mmol/L Anion Gap 17.2 (5-19) BUN 7 (6-20) mg/dL Creatinine 0.4 L (0.7-1.2) mg/dL GFR Calculation 223.3 H (90-130) mL/min Glucose 122 H (74-109) mg/dL Lactate (0.5-2.2) mmol/L Calcium 10.1 H (8.6-10.0) mg/Dl Total Bilirubin 0.7 (0.15-1.2) mg/dL AST 27 (0-40) U/L ALT 16 (0-41) U/L Alkaline Phosphata se 117 (40-130) IU/L Ammonia (16-60) umol/L Total Protein 7.8 (6.6-8.7) g/dL Albumin 4.2 (3.5-5.2) g/dL Globulin 3.6 (1.3-4.6) g/dL Urine Color (Yellow) Urine Appearance (CLEAR) Urine pH (5-7) Ur Specific Gravit y (1.005-1.030) Urine Protein (Negative) Urine Glucose (UA) (Normal) Urine Ketones (Negative) Urine Occult Blood (Negative) Urine Nitrate (Negative) Urine Bilirubin (Negative) Urine Urobilinogen (Negative) mg/dL Ur Leukocyte Laura ase (Negative) Salicylates (3-10) mg/dL Acetaminophen (10-30) ug/mL Ethyl Alcohol (0-10) mg/dL Serum Ketones (Negative) Discharge Plan Discharge Patient Disposition: Left Against Medical Advice Clinical Impression: Delirium due to general medical condition Altered mental status Qualifiers: Altered mental status type: delirium Qualified Code(s): R41.0 - Disorientation, unspecified Dementia Qualifiers: Alzheimer's disease onset: early-onset Dementia behavioral disturbance: without behavioral disturbance Condition: Stable Prescriptions: No Action lisinopril 20 mg tablet 20 mg PO DAILY RF: 0 amlodipine 5 mg tablet 5 mg PO DAILY RF: 0 metformin 1,000 mg Tablet 1,000 mg PO BID RF: 0 Excedrin Migraine 250-250-65 mg Tablet 2 tab PO DAILY PRN (Reason: Headache) RF: 0 Referrals: Rory Law MD [Primary Care Provider] - Discharge Activity: Left AGAINST MEDICAL ADVICE Coding Level of Care Code ED Can Top Setter for Francia Larry
== END 2019-04-20 18:00 | disposition left against medical advice (07) ==
PROVIDERS: Family Medicine; Emergency Provider Family Medicine; Family Provider Family Medicine; PCP Family Medicine
DX: G30.0 Alzheimer's disease with early onset (principal); F02.80 Dementia in other diseases classified elsewhere, unspecified severity, without behavioral disturbance, psychotic disturbance, mood disturbance, and anxiety; F17.210 Nicotine dependence, cigarettes, uncomplicated
CPT/HCPCS: 36415; 36600; 51702; 70450; 71045; 80053; 80307; 81003; 82009; 82140; 82803; 83605; 85025; 85610; 85730; 96360; 96361; 96374; 99000; 99282; 99284; J2060; J7030; J7040

== ENCOUNTER 2019-05-10 23:09 | Inpatient (IN) | payer MEDICAID, SELFPAY ==
[2019-05-10] VITALS (8 sets, daily range): BP systolic 65–114; BP diastolic 38–75; PULSE 106–115; RESP 16–27; TEMP 36.7; O2SAT 92–99; BMI 31.5
--- NOTE | 2019-05-10 23:11 | ED_ITS ---
Entered by Abida Finley, acting as scribe for Jennifer Ferro HPI - Alcohol General: Chief Complaint: Altered Mental Status Stated Complaint: AMS Time Seen by Provider: 05/10/19 23:10 Source: EMS Mode of arrival: EMS History of Present Illness: HPI narrative: 53 y/o male presents to the ED with complaint of AMS. Pt has been drinking this evening and his friend called EMS to get him some help. Pt smells stongly of ETOH but states he has only had a few sips. Pt has been under increased stress and has been unable to cope with the passing of his father. Pts is a chronic alcoholic and EMS suspects he is as well. There were empty whiskey bottles all over the residence. Pts father passed about a year ago but he believes it was today or yesterday. Pt also believes Fredi is still the president. MD complaint: alcohol intoxication (AMS) Last drink: Just [employer] Chronic alcohol use: Yes Recent trauma: No Associated symptoms: Deny abdominal pain, diaphoresis, hematemesis, melena, nausea, syncope or vomiting Treatments prior to arrival: none Review of Systems Const: Denies: fever, chills, body aches, fatigue, malaise or diaphoresis Eyes: Denies: change in vision or blurry vision ENMT: Denies: throat pain, painful swallowing, hoarseness, ear pain, ear discharge, Change in hearing or nasal discharge Card: Denies: chest pain, palpitations, irregular heart rhythm, syncope, pre- syncope, shortness of breath on exertion or shortness of breath when lying down Resp: Denies: shortness of breath, productive cough, non-productive cough, wheezing, coughing up blood or chest congestion GI: Denies: abdominal pain, nausea, vomiting, vomiting blood, coffee grounds in vomit, diarrhea, constipation, cramping, blood in stool or black tarry stool : Denies: flank pain, difficulty urinating, painful urination, urinary frequency, urinary urgency, decreased urine ouput, urinary incontinence or blood in urine Musc: Denies: neck pain, back pain, extremity pain, extremity swelling, joint pain, joint swelling, joint warmth or joint stiffness Skin/Breast: Denies: rash, skin tenderness or yellow skin Neuro: Denies: headache, numbness in extremities, weakness in extremities, changes in sensation, lack of coordination, difficulty walking, dizziness, vertigo or confusion Endo: Denies: excessive thirst, tired all the time, cold intolerance, excessive sweating, flushing or hot flashes Say/Lymph: Denies: easy bruising, easy bleeding, petechiae or enlarged lymph nodes All/Imm: Denies: hives, throat swelling, tongue swelling, facial swelling or acute wheezing PFSH ED PFSH: Statuses (acute, chronic, etc) shown below reflect problem list status as previously entered and may not be historically accurate Medical History Alcohol abuse (Acute) Hypertension (Acute) Hyponatremia (Acute) Type 2 diabetes mellitus (Acute) Surgical History H/O skin graft (Acute) Hx of tonsillectomy (Acute) Social History Smoking and tobacco status: current every day smoker Alcohol intake: current Desire information about substance/drug rehabilitation?: No Counseling given: Yes Adopted: No Household members: spouse Current occupational status: unemployed History of recent travel: No Physical Exam HENMT: COMMON NORMALS: normocephalic, head/scalp atraumatic, hearing grossly normal bilaterally, external ears normal, EAC's normal, external nose normal and moist oral mucous membranes HEAD & SCALP: normal to inspection, normocephalic and atraumatic FACE & SINUS: normal facial exam and face symmetric NOSE: external nose normal and nares normal EXTERNAL EAR: Yes external ears normal EXTERNAL AUDITORY CANAL: EAC's normal MOUTH: oral and palatal mucosa normal and tongue normal Eye: COMMON NORMALS: PERRL, EOMs intact bilaterally, conjunctivae normal and no scleral icterus GENERAL EYE: normal appearance of both eyes and normal light reflex CONJUNCTIVA: Yes conjunctivae normal SCLERA: sclerae normal CORNEA: Yes corneas normal PUPIL: Yes PERRL DIRECT OPHTHALMOSCOPY: Yes normal light reflex Neck/C-Spine: COMMON NORMALS: full ROM, no lymphadenopathy, supple, no meningeal signs and no JVD GENERAL: Yes normal visual inspection and Yes trachea midline CERVICAL SPINE: Yes cervical ROM normal Chest: COMMONS NORMALS: inspection of chest normal and palpation of chest normal Resp: COMMON NORMALS: normal respiratory effort, no retractions, no use of accessory muscles and clear to auscultation bilaterally EFFORT & INSPECTION: Yes able to speak in complete sentences AUSCULTATION: clear to auscultation bilaterally Cardio: COMMON NORMALS: no JVD, regular rate, regular rhythm, S1 normal heart sound, S2 normal heart sound, no gallops, no clicks, no murmurs and no rub JUGULAR VENOUS DISTENTION: no JVD RATE: regular rate RHYTHM: regular rhythm HEART SOUNDS: S1 normal and S2 normal GI: COMMON NORMALS: soft to palpation, non-tender, no hepatosplenomegaly and no masses INSPECTION: Yes normal to inspection PALPATION: Yes soft and Yes no hepatosplenomegaly : COMMON NORMALS: Yes no CVA tenderness BLADDER/KIDNEY EXAM: Yes no CVA tenderness Back/Pelvis: COMMON NORMALS: no CVA tenderness, thoracic and lumbar spine normal to inspection, no thoracic nor lumbar tenderness and thoraco-lumbar ROM normal Extremity: COMMON NORMALS: normal to inspection, full ROM, normal capillary refill, no joint enlargement, no clubbing, cyanosis or edema and no calf tenderness Neuro: COMMON NORMALS: CN's II-XII intact bilaterally, moves all extremities, no focal motor deficits and no sensory deficits noted MENINGEAL SIGNS: Yes no meningeal signs Skin: COMMON NORMALS: no rashes or lesions noted, skin turgor normal, no jaundice, no petechiae and no mottling GENERAL SKIN EXAM: no rashes or lesions noted and turgor normal Course Vital Signs: Vital signs: Vital Signs Temperature 98.6 F 05/12/19 16:00 Pulse Rate 89 05/12/19 16:00 Respiratory Rate 18 05/12/19 16:00 Blood Pressure 148/88 05/12/19 16:00 Pulse Oximetry 98 05/12/19 16:00 MDM - Alcohol MDM Narrative: Medical decision making narrative: Case is reviewed with Dr. Law. The patient is orthostatic and very intoxicated. There is no obvious other abnormality that can be discovered at this time but I believe we should admit for observation to make certain no other signs or symptoms develop. Dr. Soni is in agreement. Lab Data: Labs: Lab Results 05/10/19 05/10/19 05/10/19 Range/Units 00:10 23:23 23:38 WBC 8.3 (4.0-10.0) 10^3/ uL RBC 3.89 L (4.1-5.3) 10^6/u L Hgb 13.2 (11.7-16.6) g/dL Hct 37.4 L (42.0-52.0) % MCV 96.1 H (80-94) fL MCH 33.9 (28.0-34.0) pg MCHC 35.3 (30.0-36.0) g/dL RDW 15.1 (12.1-15.1) % Plt Count 296 (130-400) 10^3/c mm MPV 8.2 (7.4-10.4) fL Neut % (Auto) 63.0 % Lymph % (Auto) 26.4 % [place] % (Auto) 6.9 % Eos % (Auto) 2.5 % Baso % (Auto) 1.0 % Neut # (Auto) 5.2 (1.8-7.7) 10^3/u L Lymph # (Auto) 2.2 (0.8-4.8) 10^3/u L [place] # (Auto) 0.6 (0.2-0.9) 10^3/u L Eos # (Auto) 0.2 (0.0-0.8) 10^3/u L Baso # (Auto) 0.1 (0.0-0.1) 10^3/u L Nucleated RBC % (a uto) 0 % Nucleated RBCs # 0.0 /100WBC PT (10.5-13.3) SECO NDS INR (0.8-1.2) Specimen Type Arterial Sample Site Radial, right ABG pH 7.43 (7.35-7.45) ABG pCO2 31.0 L (35-45) mmHg ABG pO2 66.6 L (80.0-100.0) mmH g ABG HCO3 20.8 L (22-26) mmol/L ABG Base Excess -2.5 L (-2.0-2.0) mmol/ L Scott Test Pos Hematocrit 40.4 L (42-52) % O2 Delivery Device None FiO2 21.0 % Time Clock Inspector ID [id number] Sodium (136-145) mmol/L Potassium (3.5-5.1) mmol/L Chloride (98-107) mmol/L Carbon Dioxide (22-29) mmol/L Anion Gap (5-19) BUN (6-20) mg/dL Creatinine (0.7-1.2) mg/dL GFR Calculation (90-130) mL/min Glucose (74-109) mg/dL POC Glucose (70-110) mg/dL Lactic Acid (0.5-2.2) mmol/L Calcium (8.6-10.0) mg/Dl Phosphorus (2.5-4.5) mg/dL Magnesium (1.7-2.3) mg/dL Total Bilirubin (0.15-1.2) mg/dL AST (0-40) U/L ALT (0-41) U/L Alkaline Phosphata se (40-130) IU/L Ammonia (16-60) umol/L Creatine Kinase (39-308) U/L C-React Prot High Sens (0.0-0.3) mg/dL NT-Pro-B Natriuret Pep (0-125) pg/mL Total Protein (6.6-8.7) g/dL Albumin (3.5-5.2) g/dL Globulin (1.3-4.6) g/dL Lipase (13-60) U/L Urine Color (Yellow) Urine Appearance (CLEAR) Urine pH (5-7) Ur Specific Gravit y (1.005-1.030) Urine Protein (Negative) Urine Glucose (UA) (Normal) Urine Ketones (Negative) Urine Occult Blood (Negative) Urine Nitrate (Negative) Urine Bilirubin (NEGATIVE) Urine Urobilinogen (Negative) mg/dL Ur Leukocyte Laura ase (Negative) Urine RBC (0-2) /hpf Urine WBC (0-5) /hpf Ur Squamous Epith Cells (0-5) Urine Bacteria (NONE) Urine Mucus Urine Opiates Scre en (Negative) ng/mL Ur Barbiturates Sc reen (Negative) ng/mL Ur Phencyclidine S crn (Negative) ng/mL Ur Amphetamines Sc reen (Negative) ng/mL U Benzodiazepines Scrn (Negative) ng/mL Urine Cocaine Scre en (Negative) ng/mL U Marijuana (THC) Screen (Negative) ng/mL Ethyl Alcohol (0-10) mg/dL Serum Ketones (Negative) Influenza Type A A g Negative (Negative) POC Influenza B Ag Negative (Negative) 05/10/19 05/10/19 05/10/19 Range/Units 23:38 23:38 23:38 WBC (4.0-10.0) 10^3/ uL RBC (4.1-5.3) 10^6/u L Hgb (11.7-16.6) g/dL Hct (42.0-52.0) % MCV (80-94) fL MCH (28.0-34.0) pg MCHC (30.0-36.0) g/dL RDW (12.1-15.1) % Plt Count (130-400) 10^3/c mm MPV (7.4-10.4) fL Neut % (Auto) % Lymph % (Auto) % [place] % (Auto) % Eos % (Auto) % Baso % (Auto) % Neut # (Auto) (1.8-7.7) 10^3/u L Lymph # (Auto) (0.8-4.8) 10^3/u L [place] # (Auto) (0.2-0.9) 10^3/u L Eos # (Auto) (0.0-0.8) 10^3/u L Baso # (Auto) (0.0-0.1) 10^3/u L Nucleated RBC % (a uto) % Nucleated RBCs # /100WBC PT 15.10 H (10.5-13.3) SECO NDS INR 1.15 (0.8-1.2) Specimen Type Sample Site ABG pH (7.35-7.45) ABG pCO2 (35-45) mmHg ABG pO2 (80.0-100.0) mmH g ABG HCO3 (22-26) mmol/L ABG Base Excess (-2.0-2.0) mmol/ L Scott Test Hematocrit (42-52) % O2 Delivery Device FiO2 % Time Clock Inspector ID Sodium 132 L (136-145) mmol/L Potassium 4.0 (3.5-5.1) mmol/L Chloride 94 L (98-107) mmol/L Carbon Dioxide 23 (22-29) mmol/L Anion Gap 19.0 (5-19) BUN 8 (6-20) mg/dL Creatinine 0.6 L (0.7-1.2) mg/dL GFR Calculation 139.9 H (90-130) mL/min Glucose 117 H (74-109) mg/dL POC Glucose (70-110) mg/dL Lactic Acid (0.5-2.2) mmol/L Calcium 10.1 H (8.6-10.0) mg/Dl Phosphorus (2.5-4.5) mg/dL Magnesium 2.1 (1.7-2.3) mg/dL Total Bilirubin 0.7 (0.15-1.2) mg/dL AST 26 (0-40) U/L ALT 18 (0-41) U/L Alkaline Phosphata se 118 (40-130) IU/L Ammonia 56 (16-60) umol/L Creatine Kinase 14 L (39-308) U/L C-React Prot High Sens (0.0-0.3) mg/dL NT-Pro-B Natriuret Pep (0-125) pg/mL Total Protein 8.5 (6.6-8.7) g/dL Albumin 4.4 (3.5-5.2) g/dL Globulin 4.1 (1.3-4.6) g/dL Lipase 22 (13-60) U/L Urine Color (Yellow) Urine Appearance (CLEAR) Urine pH (5-7) Ur Specific Gravit y (1.005-1.030) Urine Protein (Negative) Urine Glucose (UA) (Normal) Urine Ketones (Negative) Urine Occult Blood (Negative) Urine Nitrate (Negative) Urine Bilirubin (NEGATIVE) Urine Urobilinogen (Negative) mg/dL Ur Leukocyte Laura ase (Negative) Urine RBC (0-2) /hpf Urine WBC (0-5) /hpf Ur Squamous Epith Cells (0-5) Urine Bacteria (NONE) Urine Mucus Urine Opiates Scre en (Negative) ng/mL Ur Barbiturates Sc reen (Negative) ng/mL Ur Phencyclidine S crn (Negative) ng/mL Ur Amphetamines Sc reen (Negative) ng/mL U Benzodiazepines Scrn (Negative) ng/mL Urine Cocaine Scre en (Negative) ng/mL U Marijuana (THC) Screen (Negative) ng/mL Ethyl Alcohol 157 H (0-10) mg/dL Serum Ketones (Negative) Influenza Type A A g (Negative) POC Influenza B Ag (Negative) 05/10/19 05/10/19 05/10/19 Range/Units 23:38 23:38 23:43 WBC (4.0-10.0) 10^3/ uL RBC (4.1-5.3) 10^6/u L Hgb (11.7-16.6) g/dL Hct (42.0-52.0) % MCV (80-94) fL MCH (28.0-34.0) pg MCHC (30.0-36.0) g/dL RDW (12.1-15.1) % Plt Count (130-400) 10^3/c mm MPV (7.4-10.4) fL Neut % (Auto) % Lymph % (Auto) % [place] % (Auto) % Eos % (Auto) % Baso % (Auto) % Neut # (Auto) (1.8-7.7) 10^3/u L Lymph # (Auto) (0.8-4.8) 10^3/u L [place] # (Auto) (0.2-0.9) 10^3/u L Eos # (Auto) (0.0-0.8) 10^3/u L Baso # (Auto) (0.0-0.1) 10^3/u L Nucleated RBC % (a uto) % Nucleated RBCs # /100WBC PT (10.5-13.3) SECO NDS INR (0.8-1.2) Specimen Type Sample Site ABG pH (7.35-7.45) ABG pCO2 (35-45) mmHg ABG pO2 (80.0-100.0) mmH g ABG HCO3 (22-26) mmol/L ABG Base Excess (-2.0-2.0) mmol/ L Scott Test Hematocrit (42-52) % O2 Delivery Device FiO2 % Time Clock Inspector ID Sodium (136-145) mmol/L Potassium (3.5-5.1) mmol/L Chloride (98-107) mmol/L Carbon Dioxide (22-29) mmol/L Anion Gap (5-19) BUN (6-20) mg/dL Creatinine (0.7-1.2) mg/dL GFR Calculation (90-130) mL/min Glucose (74-109) mg/dL POC Glucose (70-110) mg/dL Lactic Acid 3.2 H (0.5-2.2) mmol/L Calcium (8.6-10.0) mg/Dl Phosphorus (2.5-4.5) mg/dL Magnesium (1.7-2.3) mg/dL Total Bilirubin (0.15-1.2) mg/dL AST (0-40) U/L ALT (0-41) U/L Alkaline Phosphata se (40-130) IU/L Ammonia (16-60) umol/L Creatine Kinase (39-308) U/L C-React Prot High Sens (0.0-0.3) mg/dL NT-Pro-B Natriuret Pep (0-125) pg/mL Total Protein (6.6-8.7) g/dL Albumin (3.5-5.2) g/dL Globulin (1.3-4.6) g/dL Lipase (13-60) U/L Urine Color Dark yellow (Yellow) Urine Appearance Sl hazy (CLEAR) Urine pH 5 (5-7) Ur Specific Gravit y 1.025 (1.005-1.030) Urine Protein 1+ H (Negative) Urine Glucose (UA) Norm (Normal) Urine Ketones 1+ H (Negative) Urine Occult Blood Neg (Negative) Urine Nitrate Negative (Negative) Urine Bilirubin 1+ H (NEGATIVE) Urine Urobilinogen 1 H (Negative) mg/dL Ur Leukocyte Laura ase Negative (Negative) Urine RBC None (0-2) /hpf Urine WBC 0-4 H (0-5) /hpf Ur Squamous Epith Cells None (0-5) Urine Bacteria 3+ H (NONE) Urine Mucus 1+ Urine Opiates Scre en (Negative) ng/mL Ur Barbiturates Sc reen (Negative) ng/mL Ur Phencyclidine S crn (Negative) ng/mL Ur Amphetamines Sc reen (Negative) ng/mL U Benzodiazepines Scrn (Negative) ng/mL Urine Cocaine Scre en (Negative) ng/mL U Marijuana (THC) Screen (Negative) ng/mL Ethyl Alcohol (0-10) mg/dL Serum Ketones Negative (Negative) Influenza Type A A g (Negative) POC Influenza B Ag (Negative) 05/10/19 05/11/19 05/11/19 Range/Units 23:43 06:05 06:05 WBC 7.5 (4.0-10.0) 10^3/ uL RBC 3.83 L (4.1-5.3) 10^6/u L Hgb 13.2 (11.7-16.6) g/dL Hct 37.5 L (42.0-52.0) % MCV 97.9 H (80-94) fL MCH 34.5 H (28.0-34.0) pg MCHC 35.2 (30.0-36.0) g/dL RDW 14.9 (12.1-15.1) % Plt Count 300 (130-400) 10^3/c mm MPV 8.6 (7.4-10.4) fL Neut % (Auto) 94.7 % Lymph % (Auto) 4.0 % [place] % (Auto) 0.5 % Eos % (Auto) 0.0 % Baso % (Auto) 0.4 % Neut # (Auto) 7.1 (1.8-7.7) 10^3/u L Lymph # (Auto) 0.3 L (0.8-4.8) 10^3/u L [place] # (Auto) 0.0 L (0.2-0.9) 10^3/u L Eos # (Auto) 0.0 (0.0-0.8) 10^3/u L Baso # (Auto) 0.0 (0.0-0.1) 10^3/u L Nucleated RBC % (a uto) 0 % Nucleated RBCs # 0.0 /100WBC PT (10.5-13.3) SECO NDS INR (0.8-1.2) Specimen Type Sample Site ABG pH (7.35-7.45) ABG pCO2 (35-45) mmHg ABG pO2 (80.0-100.0) mmH g ABG HCO3 (22-26) mmol/L ABG Base Excess (-2.0-2.0) mmol/ L Scott Test Hematocrit (42-52) % O2 Delivery Device FiO2 % Time Clock Inspector ID Sodium 128 L (136-145) mmol/L Potassium 4.2 (3.5-5.1) mmol/L Chloride 94 L (98-107) mmol/L Carbon Dioxide 17 L (22-29) mmol/L Anion Gap 21.2 H (5-19) BUN 9 (6-20) mg/dL Creatinine 0.5 L (0.7-1.2) mg/dL GFR Calculation 172.6 H (90-130) mL/min Glucose 228 H (74-109) mg/dL POC Glucose (70-110) mg/dL Lactic Acid (0.5-2.2) mmol/L Calcium 9.5 (8.6-10.0) mg/Dl Phosphorus (2.5-4.5) mg/dL Magnesium (1.7-2.3) mg/dL Total Bilirubin 0.8 (0.15-1.2) mg/dL AST 24 (0-40) U/L ALT 17 (0-41) U/L Alkaline Phosphata se 118 (40-130) IU/L Ammonia (16-60) umol/L Creatine Kinase (39-308) U/L C-React Prot High Sens (0.0-0.3) mg/dL NT-Pro-B Natriuret Pep (0-125) pg/mL Total Protein 8.0 (6.6-8.7) g/dL Albumin 4.2 (3.5-5.2) g/dL Globulin 3.8 (1.3-4.6) g/dL Lipase (13-60) U/L Urine Color (Yellow) Urine Appearance (CLEAR) Urine pH (5-7) Ur Specific Gravit y (1.005-1.030) Urine Protein (Negative) Urine Glucose (UA) (Normal) Urine Ketones (Negative) Urine Occult Blood (Negative) Urine Nitrate (Negative) Urine Bilirubin (NEGATIVE) Urine Urobilinogen (Negative) mg/dL Ur Leukocyte Laura ase (Negative) Urine RBC (0-2) /hpf Urine WBC (0-5) /hpf Ur Squamous Epith Cells (0-5) Urine Bacteria (NONE) Urine Mucus Urine Opiates Scre en Negative (Negative) ng/mL Ur Barbiturates Sc reen Negative (Negative) ng/mL Ur Phencyclidine S crn Negative (Negative) ng/mL Ur Amphetamines Sc reen Negative (Negative) ng/mL U Benzodiazepines Scrn Negative (Negative) ng/mL Urine Cocaine Scre en Negative (Negative) ng/mL U Marijuana (THC) Screen Negative (Negative) ng/mL Ethyl Alcohol (0-10) mg/dL Serum Ketones (Negative) Influenza Type A A g (Negative) POC Influenza B Ag (Negative) 05/11/19 05/11/19 05/12/19 Range/Units 16:49 21:27 05:00 WBC 12.5 H (4.0-10.0) 10^3/ uL RBC 3.64 L (4.1-5.3) 10^6/u L Hgb 12.4 (11.7-16.6) g/dL Hct 34.9 L (42.0-52.0) % MCV 95.9 H (80-94) fL MCH 34.1 H (28.0-34.0) pg MCHC 35.5 (30.0-36.0) g/dL RDW 14.7 (12.1-15.1) % Plt Count 275 (130-400) 10^3/c mm MPV 9.1 (7.4-10.4) fL Neut % (Auto) 78.6 % Lymph % (Auto) 14.6 % [place] % (Auto) 6.1 % Eos % (Auto) 0.2 % Baso % (Auto) 0.1 % Neut # (Auto) 9.9 H (1.8-7.7) 10^3/u L Lymph # (Auto) 1.8 (0.8-4.8) 10^3/u L [place] # (Auto) 0.8 (0.2-0.9) 10^3/u L Eos # (Auto) 0.0 (0.0-0.8) 10^3/u L Baso # (Auto) 0.0 (0.0-0.1) 10^3/u L Nucleated RBC % (a uto) 0 % Nucleated RBCs # 0.0 /100WBC PT (10.5-13.3) SECO NDS INR (0.8-1.2) Specimen Type Sample Site ABG pH (7.35-7.45) ABG pCO2 (35-45) mmHg ABG pO2 (80.0-100.0) mmH g ABG HCO3 (22-26) mmol/L ABG Base Excess (-2.0-2.0) mmol/ L Scott Test Hematocrit (42-52) % O2 Delivery Device FiO2 % Time Clock Inspector ID Sodium (136-145) mmol/L Potassium (3.5-5.1) mmol/L Chloride (98-107) mmol/L Carbon Dioxide (22-29) mmol/L Anion Gap (5-19) BUN (6-20) mg/dL Creatinine (0.7-1.2) mg/dL GFR Calculation (90-130) mL/min Glucose (74-109) mg/dL POC Glucose 218 194 (70-110) mg/dL Lactic Acid (0.5-2.2) mmol/L Calcium (8.6-10.0) mg/Dl Phosphorus (2.5-4.5) mg/dL Magnesium (1.7-2.3) mg/dL Total Bilirubin (0.15-1.2) mg/dL AST (0-40) U/L ALT (0-41) U/L Alkaline Phosphata se (40-130) IU/L Ammonia (16-60) umol/L Creatine Kinase (39-308) U/L C-React Prot High Sens (0.0-0.3) mg/dL NT-Pro-B Natriuret Pep (0-125) pg/mL Total Protein (6.6-8.7) g/dL Albumin (3.5-5.2) g/dL Globulin (1.3-4.6) g/dL Lipase (13-60) U/L Urine Color (Yellow) Urine Appearance (CLEAR) Urine pH (5-7) Ur Specific Gravit y (1.005-1.030) Urine Protein (Negative) Urine Glucose (UA) (Normal) Urine Ketones (Negative) Urine Occult Blood (Negative) Urine Nitrate (Negative) Urine Bilirubin (NEGATIVE) Urine Urobilinogen (Negative) mg/dL Ur Leukocyte Laura ase (Negative) Urine RBC (0-2) /hpf Urine WBC (0-5) /hpf Ur Squamous Epith Cells (0-5) Urine Bacteria (NONE) Urine Mucus Urine Opiates Scre en (Negative) ng/mL Ur Barbiturates Sc reen (Negative) ng/mL Ur Phencyclidine S crn (Negative) ng/mL Ur Amphetamines Sc reen (Negative) ng/mL U Benzodiazepines Scrn (Negative) ng/mL Urine Cocaine Scre en (Negative) ng/mL U Marijuana (THC) Screen (Negative) ng/mL Ethyl Alcohol (0-10) mg/dL Serum Ketones (Negative) Influenza Type A A g (Negative) POC Influenza B Ag (Negative) 05/12/19 05/12/19 05/12/19 Range/Units 05:00 05:00 06:43 WBC (4.0-10.0) 10^3/ uL RBC (4.1-5.3) 10^6/u L Hgb (11.7-16.6) g/dL Hct (42.0-52.0) % MCV (80-94) fL MCH (28.0-34.0) pg MCHC (30.0-36.0) g/dL RDW (12.1-15.1) % Plt Count (130-400) 10^3/c mm MPV (7.4-10.4) fL Neut % (Auto) % Lymph % (Auto) % [place] % (Auto) % Eos % (Auto) % Baso % (Auto) % Neut # (Auto) (1.8-7.7) 10^3/u L Lymph # (Auto) (0.8-4.8) 10^3/u L [place] # (Auto) (0.2-0.9) 10^3/u L Eos # (Auto) (0.0-0.8) 10^3/u L Baso # (Auto) (0.0-0.1) 10^3/u L Nucleated RBC % (a uto) % Nucleated RBCs # /100WBC PT 14.70 H (10.5-13.3) SECO NDS INR 1.11 (0.8-1.2) Specimen Type Sample Site ABG pH (7.35-7.45) ABG pCO2 (35-45) mmHg ABG pO2 (80.0-100.0) mmH g ABG HCO3 (22-26) mmol/L ABG Base Excess (-2.0-2.0) mmol/ L Scott Test Hematocrit (42-52) % O2 Delivery Device FiO2 % Time Clock Inspector ID Sodium 130 L (136-145) mmol/L Potassium 3.6 (3.5-5.1) mmol/L Chloride 94 L (98-107) mmol/L Carbon Dioxide 24 (22-29) mmol/L Anion Gap 15.6 (5-19) BUN 12 (6-20) mg/dL Creatinine 0.5 L (0.7-1.2) mg/dL GFR Calculation 172.6 H (90-130) mL/min Glucose 167 H (74-109) mg/dL POC Glucose 287 (70-110) mg/dL Lactic Acid (0.5-2.2) mmol/L Calcium 10.0 (8.6-10.0) mg/Dl Phosphorus 2.5 (2.5-4.5) mg/dL Magnesium 2.0 (1.7-2.3) mg/dL Total Bilirubin 0.9 (0.15-1.2) mg/dL AST 19 (0-40) U/L ALT 16 (0-41) U/L Alkaline Phosphata se 107 (40-130) IU/L Ammonia (16-60) umol/L Creatine Kinase (39-308) U/L C-React Prot High Sens 0.280 (0.0-0.3) mg/dL NT-Pro-B Natriuret Pep 975 H (0-125) pg/mL Total Protein 7.8 (6.6-8.7) g/dL Albumin 4.1 (3.5-5.2) g/dL Globulin 3.7 (1.3-4.6) g/dL Lipase (13-60) U/L Urine Color (Yellow) Urine Appearance (CLEAR) Urine pH (5-7) Ur Specific Gravit y (1.005-1.030) Urine Protein (Negative) Urine Glucose (UA) (Normal) Urine Ketones (Negative) Urine Occult Blood (Negative) Urine Nitrate (Negative) Urine Bilirubin (NEGATIVE) Urine Urobilinogen (Negative) mg/dL Ur Leukocyte Laura ase (Negative) Urine RBC (0-2) /hpf Urine WBC (0-5) /hpf Ur Squamous Epith Cells (0-5) Urine Bacteria (NONE) Urine Mucus Urine Opiates Scre en (Negative) ng/mL Ur Barbiturates Sc reen (Negative) ng/mL Ur Phencyclidine S crn (Negative) ng/mL Ur Amphetamines Sc reen (Negative) ng/mL U Benzodiazepines Scrn (Negative) ng/mL Urine Cocaine Scre en (Negative) ng/mL U Marijuana (THC) Screen (Negative) ng/mL Ethyl Alcohol (0-10) mg/dL Serum Ketones (Negative) Influenza Type A A g (Negative) POC Influenza B Ag (Negative) 05/12/19 Range/Units 11:42 WBC (4.0-10.0) 10^3/ uL RBC (4.1-5.3) 10^6/u L Hgb (11.7-16.6) g/dL Hct (42.0-52.0) % MCV (80-94) fL MCH (28.0-34.0) pg MCHC (30.0-36.0) g/dL RDW (12.1-15.1) % Plt Count (130-400) 10^3/c mm MPV (7.4-10.4) fL Neut % (Auto) % Lymph % (Auto) % [place] % (Auto) % Eos % (Auto) % Baso % (Auto) % Neut # (Auto) (1.8-7.7) 10^3/u L Lymph # (Auto) (0.8-4.8) 10^3/u L [place] # (Auto) (0.2-0.9) 10^3/u L Eos # (Auto) (0.0-0.8) 10^3/u L Baso # (Auto) (0.0-0.1) 10^3/u L Nucleated RBC % (a uto) % Nucleated RBCs # /100WBC PT (10.5-13.3) SECO NDS INR (0.8-1.2) Specimen Type Sample Site ABG pH (7.35-7.45) ABG pCO2 (35-45) mmHg ABG pO2 (80.0-100.0) mmH g ABG HCO3 (22-26) mmol/L ABG Base Excess (-2.0-2.0) mmol/ L Scott Test Hematocrit (42-52) % O2 Delivery Device FiO2 % Time Clock Inspector ID Sodium (136-145) mmol/L Potassium (3.5-5.1) mmol/L Chloride (98-107) mmol/L Carbon Dioxide (22-29) mmol/L Anion Gap (5-19) BUN (6-20) mg/dL Creatinine (0.7-1.2) mg/dL GFR Calculation (90-130) mL/min Glucose (74-109) mg/dL POC Glucose 151 (70-110) mg/dL Lactic Acid (0.5-2.2) mmol/L Calcium (8.6-10.0) mg/Dl Phosphorus (2.5-4.5) mg/dL Magnesium (1.7-2.3) mg/dL Total Bilirubin (0.15-1.2) mg/dL AST (0-40) U/L ALT (0-41) U/L Alkaline Phosphata se (40-130) IU/L Ammonia (16-60) umol/L Creatine Kinase (39-308) U/L C-React Prot High Sens (0.0-0.3) mg/dL NT-Pro-B Natriuret Pep (0-125) pg/mL Total Protein (6.6-8.7) g/dL Albumin (3.5-5.2) g/dL Globulin (1.3-4.6) g/dL Lipase (13-60) U/L Urine Color (Yellow) Urine Appearance (CLEAR) Urine pH (5-7) Ur Specific Gravit y (1.005-1.030) Urine Protein (Negative) Urine Glucose (UA) (Normal) Urine Ketones (Negative) Urine Occult Blood (Negative) Urine Nitrate (Negative) Urine Bilirubin (NEGATIVE) Urine Urobilinogen (Negative) mg/dL Ur Leukocyte Laura ase (Negative) Urine RBC (0-2) /hpf Urine WBC (0-5) /hpf Ur Squamous Epith Cells (0-5) Urine Bacteria (NONE) Urine Mucus Urine Opiates Scre en (Negative) ng/mL Ur Barbiturates Sc reen (Negative) ng/mL Ur Phencyclidine S crn (Negative) ng/mL Ur Amphetamines Sc reen (Negative) ng/mL U Benzodiazepines Scrn (Negative) ng/mL Urine Cocaine Scre en (Negative) ng/mL U Marijuana (THC) Screen (Negative) ng/mL Ethyl Alcohol (0-10) mg/dL Serum Ketones (Negative) Influenza Type A A g (Negative) POC Influenza B Ag (Negative) Discharge Plan Discharge Patient Disposition: Admitted As Inpatient Admit Provider: Rory Law Clinical Impression: Alcohol abuse Condition: Stable Interventions: ED Discharge Assessment Last Done: 05/11/19 02:34 Discharge Date/Time: 05/11/19 02:40 Coding Level of Care Code ED [employer] Service Representative for Chg Fwd The documentation recorded by the Tushar cuevas Ashley, accurately reflects the service I personally performed and the decisions made by Pillo sanford Eli N May 10, 2019 23:09
--- NOTE | 2019-05-10 23:14 | XR_ITS ---
WS: [id number] CHEST XRAY TECHNIQUE: Portable chest. CLINICAL INFORMATION: cough COMPARISON: April 20, 2019 FINDINGS: Heart: Normal cardiac silhouette. Lungs: Mild chronic emphysematous changes. Suggestion of pleural thickening or pleural-based opacity left lung base laterally. This can be further evaluated with chest CT and may be partially calcified. Otherwise lungs are well aerated. No acute pulmonary infiltrates. Bones: Normal visualized bony structures. XR/XR chest 1V portable [id number] IMPRESSION: 1. Pleural thickening or pleural-based opacity left lung base laterally which may be partially calcified. This could be further evaluated with chest CT for b shawanda anatomic detail 2. Otherwise lungs are well aerated with no acute pulmonary infiltrates.
--- NOTE | 2019-05-10 23:14 | CTR_ITS ---
PROCEDURE INFORMATION: Exam: CT Head Without Contrast Exam date and time: 05/10/2019 11:16 PM Age: 53 years old Clinical indication: Pain; Altered mental status/memory loss; Headache not specified; Additional info: Villanueva/ams TECHNIQUE: Imaging protocol: Computed tomography of the head without contrast. Total DLP: 933.11 mGy-cm Radiation optimization: All CT scans at this facility use at least one of these dose optimization techniques: automated exposure control; mA and/or kV adjustment per patient size (includes targeted exams where dose is matched to clinical indication); or iterative reconstruction. COMPARISON: CT head wo con* [id number] 04/20/2019 8:37 AM FINDINGS: Brain: No acute intracranial hemorrhage or mass effect. There is mild decreased attenuation in the periventricular white matter, likely from microvascular disease. There is a small old lacunar infarct in the right basal ganglia region, unchanged. No definite acute infarct by CT. MRI could be more sensitive/specific for detection, as clinically directed. Ventricles: Ventricle size is normal for age. Bones/joints: No definite acute skull fracture. Sinuses: Minimal mucosal thickening in the left maxillary sinus. Included paranasal sinuses otherwise appear essentially clear. Mastoid air cells: No significant acute finding. Vasculature: Vascular calcifications in the internal carotid arteries. CT/CT head wo con* [id number] IMPRESSION: 1. No acute intracranial hemorrhage or mass effect. 2. Changes of microvascular disease, and small old right lacunar infarct. 3. No definite acute infarct by CT, see above. 4. Other findings discussed above. Radiation Dose CTDIVOL = (mGy): DLP = 933.11 (mGy-cm)
[2019-05-10 23:45] LABS: Basophils # 0.1 10^3/uL (0.0-0.1); Eosinophils # 0.2 10^3/uL (0.0-0.8); Eosinophils % 2.5 %; Hematocrit 37.4 % (42.0-52.0); Hemoglobin 13.2 g/dL (11.7-16.6); Lymphocytes # 2.2 10^3/uL (0.8-4.8); Lymphocytes % 26.4 %; Mean Corpuscular HGB Conc 35.3 g/dL (30.0-36.0); Mean Corpuscular Hemoglobin 33.9 pg (28.0-34.0); Mean Corpuscular Volume 96.1 fL (80-94); Mean Platelet Volume 8.2 fL (7.4-10.4); Monocytes # 0.6 10^3/uL (0.2-0.9); Monocytes % 6.9 %; Neutrophils # 5.2 10^3/uL (1.8-7.7); Nucleated Red Blood Cells % 0 %; Platelet Count 296 10^3/cmm (130-400); Red Blood Count 3.89 10^6/uL (4.1-5.3); Red Cell Distribution Width 15.1 % (12.1-15.1); White Blood Count 8.3 10^3/uL (4.0-10.0)
[2019-05-10 23:46] LABS: Influenza A by IFA Negative (Negative); Influenza B by IFA Negative (Negative)
[2019-05-10 23:51] LABS: INR 1.15 (0.8-1.2)
[2019-05-10 23:55] LABS: Specific Gravity, Urine 1.025 (1.005-1.030); Urine Appearance SL Hazy (CLEAR); Urine Color Dark Yellow (Yellow); pH Urine 5 (5-7)
[2019-05-10 23:56] LABS: Bilirubin Urine 1+ (NEGATIVE); Blood Urine Neg (Negative); Glucose Urine UA Norm (Normal); Ketones Urine 1+ (Negative); Leukocyte Esterase Urine Negative (Negative); Nitrate Urine Negative (Negative); Protein Urine 1+ (Negative); Urobilinogen Urine 1 mg/dL (Negative)
[2019-05-10 23:58] LABS: Bacteria Urine 3+; Mucus Urine 1+; WBC Urine 0-4 /hpf (0-5)
[2019-05-10 23:59] LABS: Amphetamines Screen Urine Negative (Negative); Barbiturates Screen Urine Negative (Negative); Benzodiazepines Screen Urine Negative (Negative); Cocaine Screen Urine Negative (Negative); Opiate Screen Urine Negative (Negative); PCP Screen Urine Negative (Negative); THC Screen Urine Negative (Negative)
[2019-05-11] VITALS (33 sets, daily range): BP systolic 103–163; BP diastolic 73–99; PULSE 96–116; RESP 14–23; TEMP 36.3–37.4; O2SAT 92–99
[2019-05-11] LABS: Ketone (Acetest) Serum Negative (Negative)
[2019-05-11 00:01] LABS: Lactic Sepsis W/Reflex 3.2 mmol/L (0.5-2.2)
[2019-05-11] MEDS: ondansetron 2 mg/ML SDV 2 mL 4 MG IVP (00:01)
[2019-05-11 00:02] LABS: Alanine Aminotransferase 18 U/L (0-41); Albumin Level 4.4 g/dL (3.5-5.2); Alcohol Level 157 mg/dL (0-10); Alkaline Phosphatase 118 IU/L (40-130); Aspartate Amino Transferase 26 U/L (0-40); Blood Urea Nitrogen 8 mg/dL (6-20); Calcium 10.1 mg/Dl (8.6-10.0); Carbon Dioxide 23 mmol/L (22-29); Chloride 94 mmol/L (98-107); Creatine Phosphokinase 14 U/L (39-308); Globulin 4.1 g/dL (1.3-4.6); Glomerular Filtration Rate 139.9 mL/min (90-130); Glucose 117 mg/dL (74-109); Lipase 22 U/L (13-60); Magnesium 2.1 mg/dL (1.7-2.3); Sodium 132 mmol/L (136-145); Total Bilirubin 0.7 mg/dL (0.15-1.2); Total Protein 8.5 g/dL (6.6-8.7)
[2019-05-11] MEDS: ipratropium-albuterol 3 mL Neb 9 ML INHALATION (00:04)
[2019-05-11 00:14] LABS: Ammonia 56 umol/L (16-60)
[2019-05-11 00:19] LABS: ABG PH Result 7.43 (7.35-7.45); Arterial Blood Gas Hematocrit 40.4 % (42-52); Base Excess ABG -2.5 mmol/L (-2.0-2.0); Blood Gas Allen Test Pos; Blood Gas Sample Site Radial, right; Blood Gas Sample Type Arterial; HCO3 ABG 20.8 mmol/L (22-26); PO2 ABG 66.6 mmHg (80.0-100.0)
[2019-05-11] MEDS: dextrose 5% 1,000 ML 150 ML IV (00:49)
[2019-05-11] MEDS: dextrose 5%-sod chloride 0.45% 1,000 ML 150 ML IV ×2 (04:00→14:57)
[2019-05-11 06:13] LABS: Basophils % 0.4 %; Hematocrit 37.5 % (42.0-52.0); Hemoglobin 13.2 g/dL (11.7-16.6); Lymphocytes # 0.3 10^3/uL (0.8-4.8); Mean Corpuscular HGB Conc 35.2 g/dL (30.0-36.0); Mean Corpuscular Hemoglobin 34.5 pg (28.0-34.0); Mean Corpuscular Volume 97.9 fL (80-94); Mean Platelet Volume 8.6 fL (7.4-10.4); Monocytes % 0.5 %; Neutrophils # 7.1 10^3/uL (1.8-7.7); Neutrophils % 94.7 %; Nucleated Red Blood Cells % 0 %; Platelet Count 300 10^3/cmm (130-400); Red Blood Count 3.83 10^6/uL (4.1-5.3); Red Cell Distribution Width 14.9 % (12.1-15.1); White Blood Count 7.5 10^3/uL (4.0-10.0)
[2019-05-11 06:30] LABS: Alanine Aminotransferase 17 U/L (0-41); Albumin Level 4.2 g/dL (3.5-5.2); Alkaline Phosphatase 118 IU/L (40-130); Anion Gap 21.2 (5-19); Aspartate Amino Transferase 24 U/L (0-40); Blood Urea Nitrogen 9 mg/dL (6-20); Calcium 9.5 mg/Dl (8.6-10.0); Carbon Dioxide 17 mmol/L (22-29); Chloride 94 mmol/L (98-107); Globulin 3.8 g/dL (1.3-4.6); Glomerular Filtration Rate 172.6 mL/min (90-130); Glucose 228 mg/dL (74-109); Potassium 4.2 mmol/L (3.5-5.1); Sodium 128 mmol/L (136-145); Total Bilirubin 0.8 mg/dL (0.15-1.2)
[2019-05-11] MEDS: thiamine 100 mg Tablet PO (08:08)
[2019-05-11] MEDS: multivitamin therapeutic Tablet 1 TAB PO (08:08)
[2019-05-11] MEDS: folic acid 1 mg Tablet PO (08:08)
--- NOTE | 2019-05-11 09:02 | PC.NURSE ---
Pt sitting up on side of bed. Pt tearful. Denies any pain, states I dont know anyone here, I'm scared Pt reassured at this time. Call light in reach, bed alarm on
--- NOTE | 2019-05-11 09:56 | PC.NURSE ---
Pt resting in bed with eyes close. 0 s/s of distress noted.
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
--- NOTE | 2019-05-11 13:05 | PC.NURSE ---
Pt resting in bed with eyes closed. Resp even and unlabored. 0 s/s of distress noted. Bed in low locked position, side rails up x2, bed alarm on.
--- NOTE | 2019-05-11 14:02 | PC.NURSE ---
Dr Law in patients room at this time discussing plan of care with patient.
--- NOTE | 2019-05-11 14:20 | CTR_ITS ---
PROCEDURE INFORMATION: Exam: CT Chest With Contrast Exam date and time: 05/11/2019 3:26 PM Age: 53 years old Clinical indication: Condition or disease; Other: Pleural thickening on cxr TECHNIQUE: Imaging protocol: Computed tomography of the chest with intravenous contrast. Total DLP: 779.47 mGy-cm Radiation optimization: All CT scans at this facility use at least one of these dose optimization techniques: automated exposure control; mA and/or kV adjustment per patient size (includes targeted exams where dose is matched to clinical indication); or iterative reconstruction. Contrast material: OMNI 300; Contrast volume: 95 ml; Contrast route: IV; COMPARISON: CR XR chest 1V portable [id number] 05/10/2019 11:39 PM FINDINGS: Lungs: Unremarkable. No consolidation. No masses. Pleural space: Unremarkable. No pneumothorax. No pleural effusion. Heart: Unremarkable. No cardiomegaly. No pericardial effusion. Aorta: Unremarkable. No aortic aneurysm. Lymph nodes: Unremarkable. No enlarged lymph nodes. Bones/joints: There are healing fractures of the anterior left 4th through 7th ribs. The callus formation and sclerosis at the fracture sites is the cause for the pleural based densities described on the chest radiograph report of 05/10/2019. There is also healing fracture of the posterior right 9th rib. Soft tissues: Unremarkable. CT/CT chest w con* [id number] IMPRESSION: 1. Healing rib fractures 2. No acute finding Radiation Dose CTDIVOL = (mGy): DLP = 779.47 (mGy-cm)
--- NOTE | 2019-05-11 14:25 | PM.HP ---
Providers/Chief Complaint Admitting Physician: Rory Lwa MD Primary Care Provider: Rory Law MD Chief Complaint: DEHYDRATION, ETOH History of Present Illness Roderick French is a 53 year old male with past medical history of diabetes mellitus, hyponatremia, hypertension, alcohol abuse, and schizophrenia. The patient presented to the emergency department overnight with altered mental status, confusion and elevated alcohol levels in his system. The patient was significantly confused and was admitted for observation. Currently the patient continues to be confused and is not alert and oriented to time or place. He says that he feels very confused as well and is severely depressed. At one point he stated that he thinks his mom yesterday, but does not know. He then went on to say that he has the best parents in the world and that they are both living. The patient denies any suicidal ideation. Review of Systems Narrative: The patient denies fever, chest pains, shortness of breath, nausea, vomiting, diarrhea, dysuria, suicidal ideations. The patient admits to constipation. Medications/Allergies Allergies Allergy/AdvReac Type Severity Reaction Status Date / Time No Known Allergies Allergy Verified 04/20/19 07:00 PFSH Acute PFSH: Statuses (acute, chronic, etc) shown below reflect problem list status as previously entered and may not be historically accurate Medical History Alcohol abuse (Acute) Hypertension (Acute) Hyponatremia (Acute) Type 2 diabetes mellitus (Acute) Surgical History H/O skin graft (Acute) Hx of tonsillectomy (Acute) Social History Smoking and tobacco status: current every day smoker Alcohol intake: current Desire information about substance/drug rehabilitation?: No Counseling given: Yes Adopted: No Household members: spouse Current occupational status: unemployed History of recent travel: No Vitals/I&O/Wt Last Vital Signs Temp 99.3 F 05/11/19 11:08 Pulse 116 H 05/11/19 11:08 Resp 18 05/11/19 11:08 BP 163/91 05/11/19 11:08 Pulse Ox 99 05/11/19 11:08 05/10/19 05/11/19 05/11/19 22:59 06:59 14:59 Intake Total 3471.2 / 3471.2 120 / 120 Output Total 250 / 250 200 / 200 Balance 3221.2 / 3221.2 -80 / -80 Weight last 48 hrs Weight 99.79 kg Physical Exam Narrative: EXAM NARRATIVE: General: Alert, disoriented to time and place. He states that he thinks he is in [place] and that the year is 2017 Eyes: Pupils equal, round and reactive to light and accommodation, extraocular muscles intact Mouth: Edentulous, no lesions noted Cardiac: Mild tachycardia with regular rhythm and no murmurs Lungs: Clear to auscultation bilaterally without wheezes, crackles or rhonchi Abdomen: Soft, nontender, no hepatosplenomegaly appreciated Extremities: Trace edema in the bilateral lower extremities Psychiatric: The patient is confused, depressed at times and withdrawn. Data : 05/11/19 06:05 05/11/19 06:05 A&P Additional A&P Information 1. Altered mental status -the patient is certainly altered at this time. This could be due to alcohol withdrawal. We will watch for signs of this and continue with the [facility] protocol. CT head did not show any signs of significant findings other than an old lacunar infarct. 2. Alcohol abuse -the patient had alcohol in his system upon admission. The patient denies drinking alcohol on a regular basis, however has had consistent elevated levels when in the ER. Continue with [facility] protocol. 3. Diabetes mellitus -insulin sliding scale 4. Hypertension -his blood pressures are starting to increase, we will continue with atenolol per protocol. 5. Hyponatremia -patient sodium levels are continuing to be low. This could be secondary to alcohol, blood sugar levels. We will get a CT chest for thickening in the diaphragm and follow. 6. Smoker -patient was advised to quit. The patient will get a nicotine patch to help with withdrawal symptoms. He asked multiple times if he could sneak outside and smoke a cigarette, to which I let him know that we cannot allow him to do that. 7. Thickening in the diaphragm on chest x-ray -the patient has thickening on his diaphragm on chest x-ray and we will get a CT scan to further evaluate. It does not appear that he has had this done in the past. 8. Depression -the patient is tearful at times and this could be related to his confusion, however he has underlying psychiatric issues most consistent with schizophrenia and/or bipolar disease based on prior interactions. Certainly alcohol can be playing a part. We will start the patient on Depakote to see if this can help to stabilize his mood and hold off on an SSRI at this point secondary to his hyponatremia. If not improving, we will have psychiatry see him while inpatient if possible. The patient certainly needs psychiatric evaluation as an outpatient, however he has had difficulties with getting this done on his own. 9. Prophylaxis -Lovenox Attestations Medical Necessity Statement*: The patient was admitted secondary to altered mental status and his stay will require greater than 2 midnights. We will see how he is doing tomorrow and follow. Coding Level of Care Code Acute Pneumatic Jack Operator for Francia Larry
[2019-05-11] MEDS: lactulose oral liq 20 gm/30 mL UDC 30 GM PO (14:58)
[2019-05-11] MEDS: enoxaparin 40 mg/0.4 mL Syringe SUBCUT (14:59)
[2019-05-11] MEDS: iohexol 300 mg/mL 100 mL Btl IV (15:35)
[2019-05-11 16:55] LABS: Glucose Point of Care 218 mg/dL (70-110)
--- NOTE | 2019-05-11 18:12 | PC.NURSE ---
Pt sitting up on side of bed at this time. 0 s/s of distress noted. Pt remains slightly anxious. CIWA has remained 6 t/o shift
[2019-05-11 21:43] LABS: Glucose Point of Care 194 mg/dL (70-110)
[2019-05-11] MEDS: divalproex ER 250 mg Tablet (24H) PO (21:58)
[2019-05-12] VITALS: BP 155/87; PULSE 96; RESP 20; TEMP 36.9; O2SAT 98
[2019-05-12] MEDS: nicotine 21 mg Patch 1 PATCH TRANSDERMA (00:10)
[2019-05-12 04:00] VITALS: BP 125/73; PULSE 105; RESP 20; TEMP 36.6; O2SAT 100
[2019-05-12 05:32] LABS: Basophils % 0.1 %; Eosinophils % 0.2 %; Hematocrit 34.9 % (42.0-52.0); Hemoglobin 12.4 g/dL (11.7-16.6); Lymphocytes # 1.8 10^3/uL (0.8-4.8); Lymphocytes % 14.6 %; Mean Corpuscular HGB Conc 35.5 g/dL (30.0-36.0); Mean Corpuscular Hemoglobin 34.1 pg (28.0-34.0); Mean Corpuscular Volume 95.9 fL (80-94); Mean Platelet Volume 9.1 fL (7.4-10.4); Monocytes # 0.8 10^3/uL (0.2-0.9); Monocytes % 6.1 %; Neutrophils # 9.9 10^3/uL (1.8-7.7); Neutrophils % 78.6 %; Nucleated Red Blood Cells % 0 %; Platelet Count 275 10^3/cmm (130-400); Red Blood Count 3.64 10^6/uL (4.1-5.3); Red Cell Distribution Width 14.7 % (12.1-15.1); White Blood Count 12.5 10^3/uL (4.0-10.0)
[2019-05-12 05:51] LABS: INR 1.11 (0.8-1.2)
[2019-05-12 06:05] LABS: Alanine Aminotransferase 16 U/L (0-41); Albumin Level 4.1 g/dL (3.5-5.2); Alkaline Phosphatase 107 IU/L (40-130); Anion Gap 15.6 (5-19); Aspartate Amino Transferase 19 U/L (0-40); Blood Urea Nitrogen 12 mg/dL (6-20); Carbon Dioxide 24 mmol/L (22-29); Chloride 94 mmol/L (98-107); Globulin 3.7 g/dL (1.3-4.6); Glomerular Filtration Rate 172.6 mL/min (90-130); Glucose 167 mg/dL (74-109); NT Pro B Type Natriuretic Pept 975 pg/mL (0-125); Phosphorus 2.5 mg/dL (2.5-4.5); Potassium 3.6 mmol/L (3.5-5.1); Sodium 130 mmol/L (136-145); Total Bilirubin 0.9 mg/dL (0.15-1.2); Total Protein 7.8 g/dL (6.6-8.7)
[2019-05-12 06:58] LABS: Glucose Point of Care 287 mg/dL (70-110)
[2019-05-12 08:00] VITALS: BP 121/76; PULSE 110; RESP 20; TEMP 36.4; O2SAT 97
--- NOTE | 2019-05-12 08:13 | PM.PN ---
Subjective Subjective: Interval history: The patient is very confused today. He says that he needs to figure out what is going on. He is not sure where his wallet is where his phone and this is very concerning to him. The patient seemed confused about whether his parents are around or not. When offered to call his to ask where his belongings may be, he was not sure that he wanted to. Vitals/I&O/Wt Last Vital Signs Temp 97.5 F L 05/12/19 08:00 Pulse 110 H 05/12/19 08:00 Resp 20 H 05/12/19 08:00 BP 121/76 05/12/19 08:00 Pulse Ox 97 05/12/19 08:00 05/11/19 05/12/19 05/12/19 22:59 06:59 14:59 Intake Total 100 / 1220 200 / 1420 320 / 320 Output Total 300 / 500 Balance 100 / 1020 -100 / 920 320 / 320 Weight last 48 hrs Weight 99.79 kg Physical Exam Narrative: EXAM NARRATIVE: General: Patient is alert, however not oriented to time or place. Cardiac: Regular rate and rhythm without murmurs Lungs: Clear to auscultation bilaterally without wheezes, crackles or rhonchi. Abdomen: Soft, nontender without masses appreciated. Extremities: Trace edema Data : 05/13/19 05:05 05/13/19 05:05 A&P Additional A&P Information 1. Altered mental status -the patient continues to be altered at this time. This could be due to alcohol withdrawal, however he is not grading high on the CIWA scale. CT head did not show any signs of significant findings other than an old lacunar infarct. We will plan to get an MRI to further evaluate. The patient could have Wernicke's encephalopathy. 2. Alcohol abuse -the patient had alcohol in his system upon admission. The patient denies drinking alcohol on a regular basis, however has had consistent elevated levels when in the ER. Continue with CI[facility] protocol. The patient's urine drug screen was negative upon admission for other drugs. 3. Diabetes mellitus -insulin sliding scale while here, and we can start metformin upon discharge. 4. Hypertension -his blood pressures are starting to increase, we will continue with atenolol per protocol. 5. Hyponatremia -patient sodium levels are starting to improve. We will follow. 6. Smoker -patient was advised to quit. The patient has a nicotine patch on and continues to ask to go outside to be able to smoke. 7. Thickening in the diaphragm on chest x-ray -CT scan does not show any signs of a mass and that he has multiple healing rib fractures that cause this finding on x-ray. 8. Depression -the patient is tearful at times and this could be related to his confusion, however he has underlying psychiatric issues most consistent with schizophrenia and/or bipolar disease based on prior interactions. Certainly alcohol can be playing a part. The patient has been started on Depakote to see if this can help to stabilize his mood and hold off on an SSRI at this point secondary to his hyponatremia. The patient is willing to see psychiatry for evaluation. He denies suicidal thoughts, however I am concerned about his underlying possible risk to himself. We will follow based on psychiatry's recommendations. 9. Prophylaxis -Lovenox Attestations Medical Necessity Statement*: The patient will be here for greater than 2 midnights due to continued altered mental status and further work-up to rule out underlying causes. Coding Level of Care Code Acute A/C Technician for Francia Larry
[2019-05-12] MEDS: folic acid 1 mg Tablet PO (08:46)
[2019-05-12] MEDS: LORazepam 2 mg/mL INJ 1 mL IM ×3 (08:46→22:51)
[2019-05-12] MEDS: thiamine 100 mg Tablet PO (08:46)
[2019-05-12] MEDS: multivitamin therapeutic Tablet 1 TAB PO (08:46)
[2019-05-12] MEDS: lactulose oral liq 20 gm/30 mL UDC 30 GM PO ×3 (08:47→21:31)
[2019-05-12] MEDS: dextrose 5%-sod chloride 0.45% 1,000 ML 150 ML IV ×3 (08:56→23:13)
--- NOTE | 2019-05-12 11:33 | PC.CHAP ---
Pastoral Care Encounter/Spiritual Assessment Type of Contact [] Declined model technician visit [] Patient/Family/Request visit [] Outpatient visit [] Follow-up visit [] Physician referral [] Code/Alert [x] Routine visit [] Staff referral [] Actively dying [] Patient sleeping [] Family support [] [] Out of room [] Palliative care [] [] Receiving care in room [] Pre-surgical visit [] Trauma [] Long length of stay [] ICU visit [] Other: Relational/Emotional Strength [] Patient feels connected with others/family/visitors/staff [x] Distress [x] Loneliness/isolation [] Abandonment Spirituality of Patient [x] Person of [place] [x] Attends [employer] of their [place] [x] Believes in Prayer [] Reads Bible or Uatsdin materials [] There are Spiritual issues to be addressed Production Superintendent Interventions [x] Prayer [x] Active listening [] Non-anxious presence [x] Spiritual/emotional support [] Crisis/trauma care [x] Spiritual counseling [] Bereavement support [] Provided bereavement packet [] Provided Bible/devotional materials [] Provided toy/stuffed animal, coloring book to patient or family member [x] Completed spiritual assessment [] Provided Communion [] Anointing/[place] [] Salvation [] Other: Impact on Illness or Injury [] Angry [x] Fearful [] Anxious [x] Often cries [] Exhaustion [] Unable to work [] Unable to attend taoism [] Unable to walk/stand [] Unable to read [] Unable to drive [] Unable to eat/drink [] Unable to sleep [] Unable to be with family [] Other: Summary patient very confused and unsure whats going on wanted to get out of bed tracy feels patient need alots of help Time spent with patient 15 min
[2019-05-12 11:44] VITALS: BP 108/70; PULSE 87; RESP 20; TEMP 36.9; O2SAT 97
[2019-05-12 11:48] LABS: Glucose Point of Care 151 mg/dL (70-110)
[2019-05-12] MEDS: enoxaparin 40 mg/0.4 mL Syringe SUBCUT (15:49)
[2019-05-12 16:00] VITALS: BP 148/88; PULSE 89; RESP 18; TEMP 37; O2SAT 98
--- NOTE | 2019-05-12 16:12 | XRR_ITS ---
PROCEDURE INFORMATION: Exam: XR Bilateral Eye for Foreign Body Exam date and time: 05/12/2019 4:58 PM Age: 53 years old Clinical indication: Screening exam; Scheduled mri; Additional info: Mri screening TECHNIQUE: Imaging protocol: XR of the Bilateral eye for foreign body. COMPARISON: No relevant prior studies available. FINDINGS: Sinuses: Well aerated. No opacification. Bones/joints: No fracture. Soft tissues: Unremarkable. XR/XR eye foreign body [id number] IMPRESSION: Unremarkable.
[2019-05-12 17:02] LABS: Glucose Point of Care 139 mg/dL (70-110)
[2019-05-12 20:00] VITALS: BP 149/98; PULSE 129; RESP 22; TEMP 36.9; O2SAT 100
[2019-05-12] MEDS: divalproex ER 250 mg Tablet (24H) PO (21:31)
[2019-05-12 21:39] LABS: Glucose Point of Care 172 mg/dL (70-110)
[2019-05-13] VITALS (7 sets, daily range): BP systolic 129–191; BP diastolic 84–98; PULSE 100–118; RESP 18–20; TEMP 36.4–36.9; O2SAT 95–99
[2019-05-13 06:01] LABS: Basophils # 0.1 10^3/uL (0.0-0.1); Basophils % 0.6 %; Eosinophils # 0.1 10^3/uL (0.0-0.8); Eosinophils % 1.3 %; Hematocrit 33.6 % (42.0-52.0); Hemoglobin 11.7 g/dL (11.7-16.6); Lymphocytes # 1.7 10^3/uL (0.8-4.8); Lymphocytes % 21.6 %; Mean Corpuscular HGB Conc 34.8 g/dL (30.0-36.0); Mean Corpuscular Hemoglobin 33.7 pg (28.0-34.0); Mean Corpuscular Volume 96.8 fL (80-94); Mean Platelet Volume 9.3 fL (7.4-10.4); Monocytes # 0.5 10^3/uL (0.2-0.9); Monocytes % 6.6 %; Neutrophils # 5.5 10^3/uL (1.8-7.7); Neutrophils % 69.5 %; Nucleated Red Blood Cells % 0 %; Platelet Count 253 10^3/cmm (130-400); Red Blood Count 3.47 10^6/uL (4.1-5.3); Red Cell Distribution Width 14.6 % (12.1-15.1); White Blood Count 7.9 10^3/uL (4.0-10.0)
[2019-05-13 06:16] LABS: Alanine Aminotransferase 19 U/L (0-41); Albumin Level 3.9 g/dL (3.5-5.2); Alkaline Phosphatase 93 IU/L (40-130); Anion Gap 16.9 (5-19); Blood Urea Nitrogen 8 mg/dL (6-20); Calcium 9.8 mg/dL (8.5-10.5); Carbon Dioxide 23 mmol/L (22-29); Chloride 99 mmol/L (98-107); Globulin 3.3 g/dL (1.3-4.6); Glomerular Filtration Rate 172.6 mL/min (90-130); Glucose 165 mg/dL (74-109); Magnesium 1.8 mg/dL (1.7-2.3); Potassium 3.9 mmol/L (3.5-5.1); Sodium 135 mmol/L (136-145); Total Bilirubin 0.5 mg/dL (0.15-1.2); Total Protein 7.2 g/dL (6.6-8.7)
[2019-05-13 06:32] LABS: Aspartate Amino Transferase 37 U/L (0-40)
[2019-05-13 06:43] LABS: Glucose Point of Care 152 mg/dL (70-110)
--- NOTE | 2019-05-13 08:00 | MR_ITS ---
WS: [id number] MRI BRAIN WITH AND WITHOUT CONTRAST HISTORY: CONFUSION, AMS COMPARISON: CT head 05/09/2019 TECHNIQUE: Multiplanar imaging performed through the brain with Prohance 17 ml's IV. Quality examination is limited by motion. No acute infarcts are seen. Bravo-white matter differentiation is well preserved. Mild atrophy and mil d chronic microvascular ischemic disease. No prior infarcts. No susceptibility artifacts or prior lacunar infarcts. Ventricles and extra-axial spaces are normal. Clivus and pituitary gland are normal. Visualized posterior fossa and brainstem are also normal. Postcontrast images are negative for masses or vascular malformations. Dural venous sinuses are normal. Paranasal sinuses: Well aerated with no significant disease. Mastoid air cells: Normal. Calvarium and scalp: Normal. MR/MR head wo/w con [id number] IMPRESSION: 1. Study is limited by motion artifact. 2. No acute infarct or mass. 3. Mild atrophy and very mild chronic microvascular ischemic disease. No prior infarct.
[2019-05-13 11:56] LABS: Glucose Point of Care 220 mg/dL (70-110)
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
[2019-05-13] MEDS: lactulose oral liq 20 gm/30 mL UDC 30 GM PO ×3 (12:23→21:43)
[2019-05-13] MEDS: folic acid 1 mg Tablet PO (12:23)
[2019-05-13] MEDS: thiamine 100 mg Tablet PO (12:24)
[2019-05-13] MEDS: multivitamin therapeutic Tablet 1 TAB PO (12:24)
[2019-05-13] MEDS: nicotine 21 mg Patch 1 PATCH TRANSDERMA (12:24)
--- NOTE | 2019-05-13 13:02 | P.CONIM_ITS ---
Providers/Reason for Consult Consulting Physican/Specialty*: Rodri Melvin MD - psychiatry Reason for Consult*: Diagnostic assessment and recommendations regarding imminent danger to self or others. Attending Physician: Rory Law MD Primary Care Provider: Rory Law MD Psych Consult HPI History of Present Illness Roderick French is a 53 year old male Who was admitted following his second presentation in one month in a state of confusion. According to records, He presented on 04/07/2019:: Chief Complaint: DEPRESSED and (stress, confusion, fall). This started several days ago. (53 yo male presents with increased stress from of parents. pt states he has been more confused lately. pt has had diarrhea. pt has had a fall yesterday but states its due to neuropathy. pt denies any other symptoms at this time.). No blood alcohol level or urine drug screen was done at the time. The patient has experienced situational problems (many deaths in the family). He has not exhibited a behavior change, was not found wandering and is compliant with medication. Has been depressed but eating or sleeping. No anxiety, anger, unusual behavior, paranoia or delusions. No suicidal thoughts, self-injury inflicted or hallucinations. Course of Care: Reviewed findings with the patient. He does not want to stay he is not an immediate danger to himself or others he is awake and alert. He is somewhat confused but he states this is due to stress. I do not have enough to keep him on a 96-hour hold. I do think he should get further evaluation from neurology including potentially an MRI of the head. If he has any worsening or changes she should return. We will have case management make an arrangement to see neurology. he presented on 04/20/2019: HPI narrative: This is a 53-year-old male with a past medical history of hypertension, type 2 diabetes mellitus who presents to the emergency room due to complaints of confusion. Patient states that he is here in the ER as he does not feel well, his parents a year ago, and he misses them a lot. Patient states that his mom and dad passed roughly a year ago, and since then he is just not been feeling well, feels down, depressed, denies loss of interest, denies guilty feelings, denies lack of energy, denies flight of ideas, denies changes in appetite denies homicidal ideation, denies suicidal ideation, denies guns being at home. Patient denies fevers, chills, nausea, vomiting, lightheadedness, dizziness, blurry vision, headaches, chest pain, palpitations, shortness of breath, wheezing, abdominal pain, diarrhea, dysuria, hematuria. 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 Patient states that he is , has a , lives not too far for [facility]. Patient states that he really wants to go home, does not know why he is here. I spoke to patient's over the phone, patient's states that for the past year since his parents passing, he is not been taking care of himself, has not been eating and drinking well, does not take care of himself, has not been working for the last year, he drinks whiskey daily, smokes daily, has trouble walking at times, has trouble ambulating him. Patient's states that she cannot take care of him anymore. And attempt was made to admit him but he left AGAINST MEDICAL ADVICE. He again presented on 05/11/2019: HPI narrative: 53 y/o male presents to the ED with complaint of AMS. Pt has been drinking this evening and his friend called EMS to get him some help. Pt smells stongly of ETOH but states he has only had a few sips. Pt has been under increased stress and has been unable to cope with the passing of his father. Pts is a chronic alcoholic and EMS suspects he is as well. There were empty whiskey bottles all over the residence. Pts father passed about a year ago but he believes it was today or yesterday. Pt also believes Fredi is still the president. He is on hospital day 3 on the medical unit being treated for hyponatremian, Hypertension, and type II diabetes. Progression of pertinent labs over his admission: Laboratory Tests 05/11/19 05/13/19 06:05 05:05 Sodium 128 L 135 L Potassium 4.2 3.9 Glucose 228 H [address]: IMPRESSION: 1. No acute intracranial hemorrhage or mass effect. 2. Changes of microvascular disease, and small old right lacunar infarct. 3. No definite acute infarct by CT, see above. 4. Other findings discussed above. On interview, the patient states that he is in the hospital because he has the flu. He says they haven't done anything for him because he still has the flu. He says as soon as he gets rid of the flu that he'll go home. He says that otherwise he is in good medical health. When asked about his alcohol intake, he says yes I drink. who doesn't? He says that he is not working. He feels that it is a problem. He has never had problems from that he has never had any URIs. Adversely impacted his employment, his income, or his social life.He did report that he had a DUI loss long ago . Review of public record does indicate that he had a DUI in 1993. He does not estimate how much he drinks or purchases. His answers are all approximate. By his report, he has never seen a psychiatrist before. He is never been a psychiatric unit before. However he does admit to being depressed. When asked about that, he states that he misses his mother and father. They were the best mother and father anybody could ever want. He tells a story where mother had a disabling chronic illness and father took care of her. At one point he refers to them as though that they have both but later he talks about his father being alive and living in [place]. He tells a family history that is linear beginning in the [facility] and he widely moving to see more when he is in sixth grade. Father was a builder and he literally built half of [place]. He truly was a truly great man. 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 He says that he has enough work to keep him financially stable but his work is sporadic because of it being a job oriented task. He is actively employed. He has never been . He has a one son in [place] who he seldom sees. He reports himself as being frequently sad and blue. He describes himself as being depressed. He denies ever having suicidal or homicidal thoughts because that would be against the Bible. He does not attend episcopal. He admits that he is sad and blue troubled by thoughts of his parents. He ruminates over frequently. Discussed signs and symptoms of clinical depression and medications that might help with that. He acknowledged that that was true and that in the past he has been treated for depression successfully with Xanax and Valium. He had has no history of auditory or visual hallucinations. He denies that he is socially isolated but cannot name any close friends and that his car broke down in the middle night he would call a tow truck rather than calling a friend because What would that do. He can name no activities which bring him Enjoyment. He says that he never has free time because he works such long hours. But later also states that his work is very sporadic. He reports family psychiatric history is negative. Mental status exam: The patient is encountered in his hospital bed. He is slumped over to the side. He is in no apparent physical distress. He keeps picking at his head and saying that he has a tick up there. When examined, he has what appears to be a healing scar from his constant picking. There is no tic. However he referred to there being a tick There are multiple occasions. Eye contact is good. There is no attention to internal stimuli. There is no indication of auditory or visual hallucinations. His affect is flat almost becoming tearful at times. His mood is depressed. He denies suicidal or homicidal ideation. His speech is of normal rate and rhythm and easily understood. His information is internally consistent and generally logical. Ho wever we have no way of corroborating the information that he provides. He is oriented to person place and time and situation. I am unable to assess his memory. I have no corroborating information. It is generally linear and internally consistent. However it is noteworthy that he insists that he is in the hospital because he has the flu. Eye contact is good. Psychomotoric activity is unremarkable. His manner is interpersonally engaged to the point where he wants this physician to stay and talk to him and is quite despondent when the physician. He is willing to come to the psychiatric unit primarily because he feels like he needs to talk about things that are going on in his life. However he is not an imminent risk to self or others. Assessment: At this point Roderick French is not an imminent risk to self or others. We have a documented history that he has a problem with alcohol abuse. His demeanor and presentation are consistent with depression.However he is reluctant to engage in outpatient talking therapy and his standing medications for depression revolve around sedating benzodiazepines. It is difficult to assess his reality testing without a collateral source of information. Some of his stories seem a bit exaggerated and we are unable to even identify whether father is still living. He certainly presents with symptoms of a grief response. Diagnoses: Alcohol intoxication Alcohol abuse disorder Visional?alcohol dependence Grief response Major depression?single episode, moderate severity Rule out?Wernicke's encephalopathy Rule out dementia of unknown etiology Recommendations: While the patient is not an imminent risk to self or others, there is benefit in putting him into the psychiatric unit if he is agreeable. An attempt was made to explain potential benefits but he stated his desire simply to go home. He would clearly benefit from participating in individual psychotherapy both from the standpoint of adjustment to grief but also for assessment of his thought processes and possible memory deficits.I would be hesitant to initiate medication for depression without his engagement and appropriate follow-up where the other diagnoses can also be co-morbidly evaluated. Meds Current Medications: Current Medications Generic Name Dose Route Start Last Admin Trade Name Freq PRN Reason Stop Dose Admin Divalproex Sodium 250 mg 05/11/19 21:00 05/12/19 21:31 Depakote Er PO 250 mg BEDTIME BROOKE Administration Enoxaparin Sodium 40 mg 05/11/19 14:45 05/12/19 15:49 Lovenox SUBCUT 40 mg Q24H BROOKE Administration Folic Acid 1 mg 05/11/19 09:00 05/13/19 12:23 Folic Acid PO 1 mg DAILY BROOKE Administration Dextrose/Sodium Ch loride 1,000 mls @ 150 m ls/hr 05/11/19 02:54 05/12/19 23:13 Dextrose 5%-Sod Chloride 0.45% IV 150 mls/hr .Q6H40M BROOKE Administration Insulin Aspart 0 unit 05/11/19 18:00 05/13/19 12:53 Novolog SUBCUT 6 unit WM&BEDTIME BROOKE Administration Protocol Lactulose 30 gm 05/11/19 15:00 05/13/19 12:23 Constulose PO 30 gm TID BROOKE Administration Lorazepam 2 mg 05/11/19 02:54 05/12/19 22:51 Ativan IM 2 mg PROTOCOL PRN Administration ALCOWD Protocol Multivitamins Ther apeutic 1 tab 05/11/19 09:00 05/13/19 12:24 Multivitamin Tab PO 1 tab DAILY BROOKE Administration Nicotine 1 patch 05/12/19 00:00 05/13/19 12:24 Nicoderm 21 Mg P atch TRANSDERMA 1 patch DAILY BROOKE Administration Thiamine Mononitra te 100 mg 05/11/19 09:00 05/13/19 12:24 Vitamin B-1 PO 100 mg DAILY BROOKE Administration PFSH NPU PFSH: Statuses (acute, chronic, etc) shown below reflect problem list status as previously entered and may not be historically accurate Medical History Alcohol abuse (Acute) Hypertension (Acute) Hyponatremia (Acute) Type 2 diabetes mellitus (Acute) Surgical History H/O skin graft (Acute) Hx of tonsillectomy (Acute) Social History Smoking and tobacco status: current every day smoker Alcohol intake: current Desire information about substance/drug rehabilitation?: No Counseling given: Yes Adopted: No Household members: spouse Current occupational status: unemployed History of recent travel: No Vitals/I&O/Wt Last Vital Signs Temp 98.0 F 05/13/19 11:47 Pulse 115 H 05/13/19 11:47 Resp 18 05/13/19 11:47 BP 138/98 05/13/19 11:47 Pulse Ox 99 05/13/19 11:47 05/12/19 05/13/19 05/13/19 22:59 06:59 14:59 Intake Total 1999 240 / 240 Output Total 220 / 220 180 / 400 Balance 1780 / 2400 -180 / 2220 240 / 240 Attestations NPU Medical Necessity Statement*: this was medially necessary because the physician of record requested an opinion outside his scope of practice. Length of stay is up to his discretion. Coding Level of Care Code Acute Campus Director for Francia Larry
[2019-05-13] MEDS: dextrose 5%-sod chloride 0.45% 1,000 ML 150 ML IV (16:32)
[2019-05-13] MEDS: enoxaparin 40 mg/0.4 mL Syringe SUBCUT (16:33)
[2019-05-13 17:16] LABS: Glucose Point of Care 240 mg/dL (70-110)
[2019-05-13 20:55] LABS: Glucose Point of Care 130 mg/dL (70-110)
[2019-05-13] MEDS: divalproex ER 250 mg Tablet (24H) PO (21:43)
[2019-05-14] VITALS: BP 155/99; PULSE 105; RESP 18; TEMP 36.4; O2SAT 100
[2019-05-14 04:00] VITALS: BP 152/96; PULSE 99; RESP 18; TEMP 36.6; O2SAT 95
[2019-05-14 06:46] LABS: Glucose Point of Care 148 mg/dL (70-110)
[2019-05-14 08:00] VITALS: BP 120/80; PULSE 108; RESP 18; TEMP 36.8; O2SAT 99
[2019-05-14] MEDS: thiamine 100 mg Tablet PO (08:17)
[2019-05-14] MEDS: multivitamin therapeutic Tablet 1 TAB PO (08:17)
[2019-05-14] MEDS: folic acid 1 mg Tablet PO (08:17)
[2019-05-14] MEDS: nicotine 21 mg Patch 1 PATCH TRANSDERMA (08:19)
[2019-05-14] MEDS: lactulose oral liq 20 gm/30 mL UDC 30 GM PO (08:21)
--- NOTE | 2019-05-14 09:49 | PM.DCS ---
Discharge Providers Date of Admission: 05/12/19 16:05 Date of Discharge: 05/14/19 Attending Provider at Admission: Rory Law MD Attending Provider at Discharge: William Gauthier MD Primary Care Provider: Rory Law MD Diagnoses at Discharge Discharge Diagnosis (1) Alcohol abuse: Status: Acute (2) Hyponatremia: Status: Acute Reason for Visit Reason for Visit: Reason For Visit: DEHYDRATION, ETOH Hospital Course Hospital Course: Patient was admitted to the hospital for alcohol intoxication. He is also got severe depression. Patient had Seawell protocol and required some Ativan. This was resolved by time of his discharge. He was having some confusion but not too bad. Psychiatry was consulted and felt like he would benefit from inpatient treatment. Patient is transferred to inpatient psychiatry for further care. Discharge Data Data Completed and Pending: Completed Studies During Hospitalization Category Date Time Status CT chest w con* 7 1260 Routine Cat Scan 05/11/19 14:[address] head wo con* 7 0450 Urgent Cat Scan 05/10/19 23:14 Completed XR chest 1V fred ble 12415 Stat Exams 05/10/19 23:14 [place] [id number] Routin e Exams 05/12/19 16:12 Completed MR head wo/w con [id number] Routine MRI 05/13/19 08:00 Completed Pending at discharge Category Date Time Status Vitamin B1 (Thaia mine) Routine Lab 05/12/19 08:50 Received Labs from last 24 hours 05/14/19 05/13/19 05/13/19 06:41 20:50 17:08 POC Glucose 148 130 240 05/13/19 11:51 POC Glucose 220 Vitals: Last Vital Signs Temp 98.3 F 05/14/19 08:00 Pulse 108 H 05/14/19 08:00 Resp 18 05/14/19 08:00 BP 120/80 05/14/19 08:00 Pulse Ox 99 05/14/19 08:00 Discharge Plan Discharge Patient Disposition: Xfer Psychiatric Hosp Condition: Stable Prescriptions: New Thera 400 mcg Tablet 1 tab PO DAILY Qty: 30 RF: 0 folic acid 1 mg Tablet 1 mg PO DAILY Qty: 30 RF: 0 Continued lisinopril 20 mg tablet 20 mg PO DAILY RF: 0 amlodipine 5 mg tablet 5 mg PO DAILY RF: 0 metformin 1,000 mg Tablet 1,000 mg PO BID RF: 0 Excedrin Migraine 250-250-65 mg Tablet 2 tab PO DAILY PRN (Reason: Headache) RF: 0 Discharge Orders: Discharge Order (Routine); Ordered 05/14/19 Ordered By: William Gauthier Discharge Diet: Regular Discharge Activity: Resume usual activity Activity Restrictions/Additional Instructions: Discharge to inpatient psychiatry with a psychiatrist as attending physician Discharge Attestations Time Spent in Discharge Care*: greater than 30 min Quality Metrics Clinical Quality Measures During this hospital stay, did patient experience: None Coding Level of Care Code Acute Roto Rooter Operator for Chg Fwd Diagnoses Alcohol abuse F10.10 Hyponatremia E87.1
--- NOTE | 2019-05-14 09:52 | PC.NURSE ---
Nurse rounded with Dr. Stover. Patient agreeable to go to NPU for therapy regarding Alcoholism. Discharge orders entered in error, corrected to inhouse transfer.
--- NOTE | 2019-05-14 10:43 | PC.NURSE ---
Report called to nurse in NPU. Patient escorted to NPU by security.
[2019-05-14 10:46] VITALS: BMI 31.5
[2019-05-14 11:24] VITALS: O2SAT 80
--- NOTE | 2019-05-14 13:53 | PM.NPN ---
Subjective NPU Subjective: Interval history: My mother last week. I think it's 2018. At 52 years old. He lives in [place]. Preventive height are all my life. I look forward to going back to work. Medications: Medication Review Details: Patient provides information that is inconsistent with that from yesterday. Yesterday he said he lived in [place]. Today he says he lives in [place]. 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 Today he is observed ambulating in the gandhi requiring 2 staff members to assist him with ambulation. Yesterday he said that his father just yesterday. Today he said that his mother last weekend. He said that he lives alone. The EMT reports say that there is a woman that lives with him who is a severe alcoholic. Mental Status Exam MSE Comments: Mental Status Exam: Patient is observed and the environmental emergencies assistant to staff. He appears quite frail. He is believed to be a reliable informant as there is very little internal consistency in details. However this appeared to be intentional obfuscation but more like confabulation. There are themes of grief and a long-term history themes that remain the same. However details are unclear. Appearance: hygiene is Poor; He requires assistance in ambulation. A IMS = 0. Speech: Speech is of Slow rate and rhythm and easily understood. Thought processes: Thought processes are Haslet. Judgment is adequate for safety. Associations: intact Psychotic processes: There is no indication of guarding or paranoia. There is no attention to the internal stimuli. Auditory and visual hallucinations are denied. Judgment: Insight is . Problem solving skills are adequate for safety. Orientation: The patient is oriented To person and situation. He believes he is in [place]. He knows that he is in the hospital but does not recall the events leading to his hospitalization. Memory: Memory is significantly impaired and is unclear what degree it is purely a memory deficit versus disorganized thinking. Attention: The patient is alert and interpersonally engaged. Language: Verbalizations are coherent. Fund of knowledge: Fund of knowledge is adequate. Affect/Mood: Affect is Tearful with a depressed mood. He denied suicidal ideation Affective range is Constricted Psychosis: perception Reality testing are significantly impaired more by disorganized thought processes and from cognitive distortion or cognitive limitation. Vitals/I&O/Wt Last Vital Signs Temp 98.3 F 05/14/19 08:00 Pulse 108 H 05/14/19 08:00 Resp 18 05/14/19 08:00 BP 120/80 05/14/19 08:00 Pulse Ox 80 L 05/14/19 11:24 05/13/19 05/14/19 05/14/19 22:59 06:59 14:59 Intake Total 327.5 / 567.5 1230 / 1797.5 960 / 960 Output Total 200 / 200 200 / 200 Balance 327.5 / 567.5 1030 / 1597.5 760 / 760 Weight last 48 hrs Weight 99.79 kg Data NPU : 05/13/19 05:05 05/13/19 05:05 A&P Additional A&P Information This clinical situation is very difficult to understand without collateral information. According to records, he was brought to the emergency room for not the first time in an inebriated state. Descriptions by insole lip turner indicate a domicile that would do so to severe alcohol abuse. He has minor medical problems that would be exacerbated by a neglectful and noncompliant lifestyle. However is nothing there to indicate chronic mental health problem other than addiction. Still, his degree of orientation and inconsistent memory recall are difficult to explain. Medical evaluation is negative. Encephalopathy is definitely in the differential diagnosis. Without cognitive testing, no accurate diagnosis can be made however further observation is reasonable. At this time, he does not present an imminent risk to self or others if she is able to establish a reasonable plan following discharge of how to get home and manage his own affairs. Plan: The patient does demonstrate difficulty with sleep and depression and will initiate Remeron 30 mg at bedtime. We'll also restart his metformin 500 mg twice a day and lisinopril 10 mg daily on the assumption that the severity of his blood sugar abnormalities and hypertension were largely due to neglect and poor health practices. Fasting blood sugar will be required tomorrow and suggest continued monitoring. Involuntary Hold Information 96 Hour Hold: 96 Hour Involuntary Admission: No Attestations NPU Medical Necessity Statement*: Patient will remain in the hospital another 3-4 days a while his diagnosis can be discovered. Coding Level of Care Code Acute Marketing Specialist for Francia Larry
[2019-05-14 14:00] VITALS: BP 120/81; PULSE 98; RESP 18; TEMP 36.8; O2SAT 98
[2019-05-14] MEDS: metformin 500 mg Tablet PO (17:30)
[2019-05-14 21:34] VITALS: BP 173/101; PULSE 104; RESP 22; TEMP 36.8; O2SAT 100
[2019-05-14] MEDS: polyethylene glycol 3350 Pkt 17 gm PO (21:34)
[2019-05-15 06:00] VITALS: BP 166/100; PULSE 105; RESP 20; TEMP 36.8; O2SAT 100
[2019-05-15 07:33] LABS: Glucose Fasting 140 mg/dL (74-109)
[2019-05-15] MEDS: metformin 500 mg Tablet PO ×2 (08:04→17:10)
--- NOTE | 2019-05-15 08:34 | P.PN_ITS ---
Subjective NPU Subjective: Interval history: The patient is very unsteady on his feet. His mood is profoundly as he contemplates the of his parents, both of them lost to Alzheimer's disease. He feels hopeless and does not see what life has to offer without them, with whom he had a very good relationship when they were not burdened with dementia. Mental Status Exam MSE Comments: The patient is alert and oriented to person, place, time and situation. Hygiene is disheveled. Sensorium is clear. The patient fails to maintain appropriate eye contact, looking down at the floor as he fights back to tears. Behavior shows some psychomotor agitation. Mood is clearly grief stricken. The patient describes hopelessness and sadness all mixed together. Affect is tearful, appropriate to his current mood. Thought processes are organized and free of racing, blocking or looseness of association. Speech is of normal rate and volume, but tends to be burdened with dysarthria. There is, however, no aprosody, pressure or inordinate latency of response. The patient denies auditory or visual hallucinations or delusions. The patient denies suicidal or homicidal ideation, plan or intent. Memory is intact for recent and remote events. The patient is cooperative and relates well to me. [facility] is adequate given vocabulary and reported educational level. Insight and judgment were deemed good given the patient's recognition of problems and desire for treatment. Vitals/I&O/Wt Last Vital Signs Temp 98.3 F 05/15/19 06:00 Pulse 105 H 05/15/19 06:00 Resp 20 H 05/15/19 06:00 BP 166/100 05/15/19 06:00 Pulse Ox 100 05/15/19 06:00 05/14/19 05/15/19 05/15/19 23:59 07:59 15:59 Intake Total 480 Output Total 200 Balance 280 Weight last 48 hrs Weight 198 lb 8 oz Weight 220 lb Physical Exam Narrative: EXAM NARRATIVE: EXAM NARRATIVE: General: Alert, not oriented to date. Cardiac: Tachycardia with regular rhythm without murmurs Lungs: Mild wheezes in the right lower lung without crackles or rhonchi. Abdomen: Soft, nontender without masses noted. Extremities: No edema Psychiatric: The patient is sorrowful and less confused. Data NPU : 05/13/19 05:05 05/13/19 05:05 A&P Assessment and plan (1) Alcohol abuse: Status: Acute Code(s): F10.10 - Alcohol abuse, uncomplicated (2) Hyponatremia: Status: Acute Code(s): E87.1 - Hypo-osmolality and hyponatremia (3) Type 2 diabetes mellitus: Status: Acute Code(s): E11.9 - Type 2 diabetes mellitus without complications (4) Hypertension: Status: Acute Code(s): I10 - Essential (primary) hypertension (5) Complicated grief: Status: Acute Code(s): F43.29 - Adjustment disorder with other symptoms Involuntary Hold Information 96 Hour Hold: 96 Hour Involuntary Admission: No Attestations NPU Medical Necessity Statement*: The patient is likely to stay for additional midnight. Coding Level of Care Code Acute Shank Cementer Hand for Francia Larry Diagnoses Alcohol abuse F10.10 Hyponatremia E87.1 Type 2 diabetes mellitus E11.9 Hypertension I10 Complicated grief F43.29
--- NOTE | 2019-05-15 09:00 | PC.NURSE ---
PT NICOTINE PATCH WAS CHANGED TO PRN. NOT ADMINISTERED.
[2019-05-15] MEDS: folic acid 1 mg Tablet PO (09:16)
[2019-05-15] MEDS: lisinopril 10 mg Tablet PO (09:16)
[2019-05-15] MEDS: multivitamin therapeutic Tablet 1 TAB PO (09:16)
[2019-05-15] MEDS: thiamine 100 mg Tablet PO (09:16)
[2019-05-15] MEDS: BuSPIRONE 5 mg Tablet PO ×3 (09:17→21:08)
--- NOTE | 2019-05-15 10:47 | PC.NURSE ---
PT.NOTE; PHYSICAL THERAPY NOTIFIED OF CONSULT PLACED FOR MR. PA FOR ASSISTANCE WITH A WALKER. PHYSICAL THERAPIST REPORTS THAT IT IS THE NURSES RESPONSIBILITY TO DETERMINE WHETHER OR NOT THE PT. REQUIRES A WALKER. UPON FURTHER QUESTIONING PHYSICAL THERAPIST RELUCTANTLY AGREES TO ASSESS PT. AFTER BEING INFORMED OF THE CONSULT PLACED BY DR. CASILLAS.
[2019-05-15 13:02] VITALS: BP 138/87; PULSE 89; RESP 18; TEMP 37.4; O2SAT 98
[2019-05-15] MEDS: nicotine 21 mg Patch 1 PATCH TRANSDERMA (14:01)
[2019-05-15 20:46] VITALS: BP 137/76; PULSE 96; RESP 17; TEMP 37.1; O2SAT 99
[2019-05-15] MEDS: mirtazapine 30 mg Tablet PO (21:08)
[2019-05-16 07:03] VITALS: BP 151/98; PULSE 96; RESP 18; TEMP 36.6; O2SAT 100
[2019-05-16] MEDS: metformin 500 mg Tablet PO ×2 (07:56→17:16)
[2019-05-16] MEDS: folic acid 1 mg Tablet PO (09:44)
[2019-05-16] MEDS: lisinopril 10 mg Tablet PO (09:44)
[2019-05-16] MEDS: thiamine 100 mg Tablet PO (09:44)
[2019-05-16] MEDS: multivitamin therapeutic Tablet 1 TAB PO (09:44)
[2019-05-16] MEDS: BuSPIRONE 5 mg Tablet PO ×3 (09:44→21:16)
[2019-05-16 13:01] LABS: Vitamin B1(Thiamin) Plas/Ser 21 nmol/L (8-30)
[2019-05-16 13:21] VITALS: BP 121/84; PULSE 104; RESP 18; TEMP 36.6
[2019-05-16 13:22] VITALS: O2SAT 100
[2019-05-16 15:31] VITALS: BP 121/84; PULSE 104; RESP 18; TEMP 36.6; O2SAT 100
[2019-05-16] MEDS: OLANZapine ODT 5 MG TABLET PO (15:42)
--- NOTE | 2019-05-16 15:42 | PC.NURSE ---
PRN ZYPREXA ZYDIS ZYPREXA ZYDIS 5MG PO FOR AGITATION/ANXIETY. PATIENT IN ROOM CURSING, PATIENT IS CONFUSED AND KEEPS ASKING FOR A CIGARETTE. STAFF HAS TOLD PATIENT THAT HE IS IN THE HOSPITAL AND THIS IS A NON SMOKING FACILITY AND HAS ASKED IF PATIENT WOULD LIKE A PATCH OR GUM, PATIENT REFUSED. WILL CONTINUE TO MONITOR FOR MEDICATION EFFECTIVENESS.
--- NOTE | 2019-05-16 16:50 | PC.NURSE ---
PRN ZYPREXA SUSHANTIS FOLLOW UP MEDICATION EFFECTIVE. PATIENT IS CALM AND COOPERATIVE.
--- NOTE | 2019-05-16 18:18 | PC.NURSE ---
CLOSED ROOM DUE TO AMS
--- NOTE | 2019-05-16 20:04 | PM.NPN ---
Subjective NPU Subjective: Interval history: The patient says her legs feel stiff and sore. On the other hand, he is clearer of thought. He is somewhat anxious because he wants to find his and he can locate her on the phone. Medications: Reviewed: Yes Mental Status Exam MSE Comments: The patient is alert and oriented to person, place, time, and situation. Hygiene is a bit windblown. Sensorium is shaky. The patient maintains appropriate eye contact, is cooperative and relates well to me. Behavior shows no psychomotor agitation. Mood is anxious and dysphoric. Affect is tense, appropriate to his mood. Thought processes are organized and free of racing, blocking or looseness of association. Speech is of normal rate and volume, without dysarthria, aprosody or pressure. There is no inordinate latency of response. The patient denies auditory or visual hallucinations or delusions. Thought processes are integrated and free of any racing, blocking or looseness of association. The patient denies suicidal or homicidal ideation, plan or intent. Memory is intact for recent and remote events. Fund of knowledge is adequate given vocabulary. Insight and judgment were deemed to be good given the recognition of problems and desire for treatment. Vitals/I&O/Wt Last Vital Signs Temp 97.9 F 05/16/19 15:31 Pulse 104 H 05/16/19 15:31 Resp 18 05/16/19 15:31 BP 121/84 05/16/19 15:31 Pulse Ox 100 05/16/19 15:31 Weight last 48 hrs Weight 198 lb 8 oz Physical Exam Narrative: EXAM NARRATIVE: The patient appeared thin but adequately nourished and normally developed. Vital signs as documented. Head exam is unremarkable. No scleral icterus or corneal arcus noted. Neck is without jugular venous distension, thyromegaly, or carotid bruits. Lungs are clear to auscultation and percussion. Heart normal sinus rhythm, no murmurs. Abdomen bland. Extremities no limitation of motion, no lower extremity edema. Neurological cranial nerves II to XII intact. No cerebellar, sensory or motor deficit noted. Mental status as above. Data NPU : 05/13/19 05:05 05/13/19 05:05 A&P Assessment and plan (1) Alcohol abuse: Status: Acute Code(s): F10.10 - Alcohol abuse, uncomplicated (2) Complicated grief: Status: Acute Code(s): F43.29 - Adjustment disorder with other symptoms Involuntary Hold Information 96 Hour Hold: 96 Hour Involuntary Admission: No Attestations NPU Medical Necessity Statement*: This patient remains in detox. I anticipate 2-3 additional midnights of hospitalization Time Spent in Patient Care: Greater than 35 minutes (>than 50% of time spent in counselling and/or direct pt care on unit). Coding Level of Care Code Acute Administrative Processor for Francia Larry Diagnoses Alcohol abuse F10.10 Complicated grief F43.29
[2019-05-16 20:59] VITALS: BP 166/107; PULSE 101; RESP 21; TEMP 37.1; O2SAT 100
[2019-05-16] MEDS: mirtazapine 30 mg Tablet PO (21:16)
[2019-05-17] MEDS: OLANZapine ODT 5 MG TABLET PO (00:09)
[2019-05-17] MEDS: trazodone 50 mg Tablet PO ×2 (00:10→21:25)
--- NOTE | 2019-05-17 00:12 | PC.NURSE ---
PT UP AT DESK CURSING AND YELING FOR A CIGARETTE. BECOMING ANGRY AFTER BEING TOLD THAT HE COULD NOT SMOKE HERE. INCREASINGLY CONFUSED AND AGITATED. REORIENTED FREQUENTLY BUT PT HARD TO REDIRECT. MEDICATED WITH TRAZODONE 50MGS PO AND ZYPREXA ZYDIS 5 MG PER PRN ORDERED. WILL CONTINUE TO MONITOR
--- NOTE | 2019-05-17 00:57 | PC.NURSE ---
PT WENT TO HIS ROOM AND LAYED DOWN SHORTLY AFTER RECEIVING HIS PRNS. APPEARS TO BE RESTING COMFORTABLY WITH EYES CLOSED. WILL CONTINUE TO MONITOR
[2019-05-17 06:00] VITALS: BP 112/74; PULSE 121; RESP 18; TEMP 36.2; O2SAT 100
[2019-05-17 06:53] LABS: Glucose Point of Care 145 mg/dL (70-110)
[2019-05-17] MEDS: BuSPIRONE 5 mg Tablet PO ×3 (08:43→21:25)
[2019-05-17] MEDS: metformin 500 mg Tablet PO ×2 (08:43→17:05)
[2019-05-17] MEDS: folic acid 1 mg Tablet PO (08:43)
[2019-05-17] MEDS: multivitamin therapeutic Tablet 1 TAB PO (08:44)
[2019-05-17] MEDS: thiamine 100 mg Tablet PO (08:44)
[2019-05-17] MEDS: lisinopril 10 mg Tablet PO (08:47)
[2019-05-17 14:00] VITALS: BP 149/90; PULSE 105; RESP 20; TEMP 36.4; O2SAT 98
--- NOTE | 2019-05-17 15:52 | PM.NPN ---
Subjective NPU Subjective: Interval history: The patient has been quiescent today. There is been no difficulty with him and he has had very little problems with detox. He has had no withdrawal complications. Medications: Reviewed: Yes Mental Status Exam MSE Comments: The patient is alert and oriented to person, place, time, and situation. Hygiene is disheveled. Sensorium is clear and he understands what we tell him and what's going on around him. The patient maintains appropriate eye contact, is cooperative and relates well. Behavior shows no psychomotor agitation. Mood is calm and euthymic. Affect is appropriate to his mood. Thought processes are organized and free of racing, blocking or looseness of association. Speech is of normal rate and volume, without dysarthria, aprosody or pressure. He has not much to say but there is no inordinate latency of response. The patient denies auditory or visual hallucinations or delusions. The patient denies suicidal or homicidal ideation, plan or intent. He is easily redirectable. Memory is intact for recent and remote events. Fund of knowledge is adequate given vocabulary. Insight and judgment were deemed to be good given the recognition of problems and desire for treatment. Vitals/I&O/Wt Last Vital Signs Temp 97.6 F 05/17/19 14:00 Pulse 105 H 05/17/19 14:00 Resp 20 H 05/17/19 14:00 BP 149/90 05/17/19 14:00 Pulse Ox 98 05/17/19 14:00 Physical Exam Narrative: EXAM NARRATIVE: The patient appeared thin but adequately nourished and normally developed. Vital signs as documented. Head exam is unremarkable. No scleral icterus or corneal arcus noted. Neck is without jugular venous distension, thyromegaly, or carotid bruits. Lungs are clear to auscultation and percussion. Heart normal sinus rhythm, no murmurs. Abdomen bland. Extremities no limitation of motion, no lower extremity edema. Neurological cranial nerves II to XII intact. No cerebellar, sensory or motor deficit noted. Mental status as above. Data NPU : 05/13/19 05:05 05/13/19 05:05 A&P Assessment and plan (1) Complicated grief: Referral for grief therapy Status: Acute Code(s): F43.29 - Adjustment disorder with other symptoms (2) Alcohol abuse: Referral to recovery resources. Status: Acute Code(s): F10.10 - Alcohol abuse, uncomplicated (3) Type 2 diabetes mellitus: Follow-up with primary care provider. Status: Acute Code(s): E11.9 - Type 2 diabetes mellitus without complications Involuntary Hold Information 96 Hour Hold: 96 Hour Involuntary Admission: No Attestations NPU Medical Necessity Statement*: The patient may soon be ready. His need axis close to its end. Coding Level of Care Code Acute Marble Machine Operator for [facility] Fwd Diagnoses Complicated grief F43.29 Alcohol abuse F10.10 Type 2 diabetes mellitus E11.9
[2019-05-17] MEDS: nicotine 21 mg Patch 1 PATCH TRANSDERMA (17:03)
[2019-05-17] MEDS: mirtazapine 30 mg Tablet PO (21:25)
[2019-05-17 22:00] VITALS: BP 118/74; PULSE 114; RESP 21; TEMP 37.1; O2SAT 98
[2019-05-18 06:00] VITALS: BP 121/77; PULSE 115; RESP 20; TEMP 36.7; O2SAT 99
[2019-05-18 08:42] LABS: Glucose Point of Care 162 mg/dL (70-110)
[2019-05-18] MEDS: lisinopril 10 mg Tablet PO (08:47)
[2019-05-18] MEDS: metformin 500 mg Tablet PO ×2 (08:47→17:05)
[2019-05-18] MEDS: thiamine 100 mg Tablet PO (08:48)
[2019-05-18] MEDS: multivitamin therapeutic Tablet 1 TAB PO (08:48)
[2019-05-18] MEDS: folic acid 1 mg Tablet PO (08:48)
[2019-05-18] MEDS: BuSPIRONE 5 mg Tablet PO ×3 (08:50→20:40)
[2019-05-18] MEDS: sennosides-docusate Tablet 1 TAB PO (11:37)
[2019-05-18] MEDS: nicotine 21 mg Patch 1 PATCH TRANSDERMA (13:32)
[2019-05-18 14:00] VITALS: BP 114/78; PULSE 110; RESP 20; TEMP 37.4; O2SAT 100
--- NOTE | 2019-05-18 14:12 | PM.NPN ---
Subjective NPU Subjective: Interval history: The patient was somewhat confused this morning. He thought he was in [place] but now recognizes that he is in [place] at [facility]. His conversation is lucid and he has clear recommendation that he cannot do drugs anymore nor can he drink. He has a plan for the future. Medications: Reviewed: Yes Mental Status Exam MSE Comments: The patient is alert and oriented to person, place, time, and situation. Hygiene is disheveled. Sensorium is clear and he engages in lucid conversation. The patient maintains appropriate eye contact, is cooperative and relates well to me. Behavior shows no psychomotor agitation. Mood is calm and euthymic. Affect is appropriate. Thought processes are linear and they are free of racing, blocking or looseness of association. Speech is of normal rate and volume, without dysarthria, aprosody or pressure. There is no inordinate latency of response. The patient denies auditory or visual hallucinations or delusions. The patient denies suicidal or homicidal ideation, plan or intent. He exhibits no assaultive behavior. Memory is intact for remote events. Fund of knowledge is adequate given vocabulary. Insight and judgment were deemed to be good given the recognition of problems and desire for treatment. Vitals/I&O/Wt Last Vital Signs Temp 98.1 F 05/18/19 06:00 Pulse 115 H 05/18/19 06:00 Resp 20 H 05/18/19 06:00 BP 121/77 05/18/19 06:00 Pulse Ox 99 05/18/19 06:00 Physical Exam Narrative: EXAM NARRATIVE: The patient appeared thin but adequately nourished and normally developed. Vital signs as documented. Head exam is unremarkable. No scleral icterus or corneal arcus noted. Neck is without jugular venous distension, thyromegaly, or carotid bruits. Lungs are clear to auscultation and percussion. Heart normal sinus rhythm, no murmurs. Abdomen bland. Extremities no limitation of motion, no lower extremity edema. Neurological cranial nerves II to XII intact. No cerebellar or sensory deficit noted. Gait is significantly impaired, requiring a walker. Mental status as above. Data NPU : 05/13/19 05:05 05/13/19 05:05 A&P Assessment and plan (1) Complicated grief: Status: Acute Code(s): F43.29 - Adjustment disorder with other symptoms (2) Alcohol abuse: Status: Acute Code(s): F10.10 - Alcohol abuse, uncomplicated Involuntary Hold Information 96 Hour Hold: 96 Hour Involuntary Admission: No Attestations NPU Medical Necessity Statement*: The patient is slowly regaining cognitive capacity. Placement will be an issue. I anticipate 4-5 midnights additional hospitalization. Coding Level of Care Code Acute User Experience Developer for [facility] Fwd Diagnoses Complicated grief F43.29 Alcohol abuse F10.10
[2019-05-18] MEDS: mirtazapine 30 mg Tablet PO (20:40)
[2019-05-18] MEDS: docusate sodium 100 mg Capsule PO (20:40)
[2019-05-18] MEDS: trazodone 50 mg Tablet PO (20:40)
[2019-05-18 21:31] VITALS: BP 120/78; PULSE 107; RESP 22; TEMP 37.3; O2SAT 98
[2019-05-19 05:53] VITALS: BP 125/78; PULSE 110; RESP 17; TEMP 36.9; O2SAT 97
[2019-05-19] MEDS: metformin 500 mg Tablet PO ×2 (07:50→17:22)
[2019-05-19] MEDS: folic acid 1 mg Tablet PO (08:06)
[2019-05-19] MEDS: BuSPIRONE 5 mg Tablet PO ×3 (08:06→20:37)
[2019-05-19] MEDS: thiamine 100 mg Tablet PO (08:06)
[2019-05-19] MEDS: sennosides-docusate Tablet 1 TAB PO (08:06)
[2019-05-19] MEDS: multivitamin therapeutic Tablet 1 TAB PO (08:06)
[2019-05-19] MEDS: lisinopril 10 mg Tablet PO (08:07)
--- NOTE | 2019-05-19 12:45 | P.PN_ITS ---
Subjective NPU Subjective: Interval history: Roderick presented today reporting that he was at work this morning and he started throwing up. He reports that he has the flu maybe and he had told the nurses here that he wasn't in any condition to go to work but they didn't listen to him. He reports that he knows his body and they none. Reports he went to work started throwing up and they sent him home. When asked whether he is in the hospital right now or not he identified that he has been for maybe a couple weeks may be less they give no explanation for how his story and that fact can be explained. We discussed the fact that he had a UDS when he came in and this publicity writer feels that he is delirious and we need to get a hospitalist involved. Mental Status Exam MSE Comments: This is a overweight white male with adequate dress, grooming and eye contact. No abnormal movements except for psychomotor retardation using a walker to ambulate. Cooperative with exam in no acute distress. Speech was decreased rate and volume. Mood described as okay affect congruent. Thought process disorganized. Thought content: Patient denied any suicidal or homicidal ideations, there were no delusions reported or noted, he denied any auditory or visual hallucinations. Attention and concentration appeared intact and memory was unreliable but none were formally tested. He is alert and intermittently or iented. Insight and judgment are impaired. Vitals/I&O/Wt Last Vital Signs Temp 98.5 F 05/19/19 05:53 Pulse 110 H 05/19/19 05:53 Resp 17 05/19/19 05:53 BP 125/78 05/19/19 05:53 Pulse Ox 97 05/19/19 05:53 05/18/19 05/19/19 05/19/19 22:59 06:59 14:59 Intake Total 480 / 480 Output Total 200 / 200 Balance 280 / 280 Data NPU : 05/13/19 05:05 05/13/19 05:05 A&P Assessment and plan (1) Delirium: This is a 53-year-old white male with significant alcohol use now in the hospital for 7 days with a UTI initially who presents seemingly worse than at admission with his confusion. 1. Continue current medication. 2. Get a hospitalist consult for delirium of possible different etiologies. 3. Will hold off on thoughts of a UDS, ammonia levels and other studies and deferred to the hospitalists suggestions to rule other causes other than wernicke. 4. Encourage individual, milieu and group therapy. 5. Continue every 15 minute checks for safety. Status: Acute Code(s): R41.0 - Disorientation, unspecified (2) Wernicke-Korsakoff syndrome (alcoholic): Status: Acute Code(s): F10.96 - Alcohol use, unspecified with alcohol-induced persisting amnestic disorder Involuntary Hold Information 96 Hour Hold: 96 Hour Involuntary Admission: No Attestations NPU Medical Necessity Statement*: Inpatient hospitalization is medically necessary and the clinically appropriate intervention at this time. We will explore causes of his confusion/delirium and treat appropriately. Likely length of stay 3-5 days. 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
[2019-05-19 13:33] VITALS: BP 144/92; PULSE 97; RESP 20; TEMP 36.9; O2SAT 99
--- NOTE | 2019-05-19 16:41 | XR_ITS ---
WS: [id number] Portable AP upright chest, 05/19/2019 Clinical Data: r/o pneumonia Comparison: Portable chest, 05/10/2019 Findings: No nodules, masses or effusions are seen. The heart is normal. The pulmonary vascularity is not increased. No pneumonia or pneumothorax is seen. There are healing fractures of the lateral and anterior aspects of the left 4-7 ribs causing extrapleural thickening. XR/XR chest 1V portable [id number] Impression: Negative for acute cardiopulmonary disease.
[2019-05-19 17:41] LABS: Add Urine Microscopic? NO
[2019-05-19 17:46] LABS: Basophils # 0.1 10^3/uL (0.0-0.1); Basophils % 0.5 %; Eosinophils # 0.2 10^3/uL (0.0-0.8); Eosinophils % 1.7 %; Hemoglobin 12.6 g/dL (11.7-16.6); Lymphocytes # 1.8 10^3/uL (0.8-4.8); Lymphocytes % 18.7 %; Mean Corpuscular HGB Conc 34.1 g/dL (30.0-36.0); Mean Corpuscular Hemoglobin 34.4 pg (28.0-34.0); Mean Corpuscular Volume 101.1 fL (80-94); Mean Platelet Volume 9.2 fL (7.4-10.4); Monocytes # 0.7 10^3/uL (0.2-0.9); Neutrophils # 6.9 10^3/uL (1.8-7.7); Neutrophils % 71.7 %; Nucleated Red Blood Cells % 0 %; Platelet Count 309 10^3/cmm (130-400); Red Blood Count 3.66 10^6/uL (4.1-5.3); Red Cell Distribution Width 14.7 % (12.1-15.1); White Blood Count 9.7 10^3/uL (4.0-10.0)
[2019-05-19 17:54] LABS: Ammonia 11 umol/L (16-60)
[2019-05-19 18:05] LABS: Alanine Aminotransferase 50 U/L (0-41); Albumin Level 4.1 g/dL (3.5-5.2); Alkaline Phosphatase 97 IU/L (40-130); Anion Gap 14.7 (5-19); Aspartate Amino Transferase 30 U/L (0-40); Blood Urea Nitrogen 21 mg/dL (6-20); Calcium 10.4 mg/dL (8.5-10.5); Carbon Dioxide 24 mmol/L (22-29); Chloride 102 mmol/L (98-107); Globulin 3.7 g/dL (1.3-4.6); Glomerular Filtration Rate 117.1 mL/min (90-130); Glucose 112 mg/dL (74-109); Potassium 4.7 mmol/L (3.5-5.1); Sodium 136 mmol/L (136-145); Thyroid Stimulating Hormone 5.85 uIU/mL (0.27-4.20); Total Bilirubin 0.7 mg/dL (0.15-1.2); Total Protein 7.8 g/dL (6.6-8.7)
[2019-05-19 18:33] LABS: Bilirubin Urine 1+ (NEGATIVE); Blood Urine Neg (Negative); Glucose Urine UA Norm (Normal); Ketones Urine Negative (Negative); Leukocyte Esterase Urine Negative (Negative); Nitrate Urine Negative (Negative); Protein Urine Neg (Negative); Urine Appearance Clear (CLEAR); Urine Color Yellow (Yellow); Urobilinogen Urine 1 mg/dL (Negative); pH Urine 6 (5-7)
[2019-05-19 18:41] LABS: HIV 1 & 2 Antibody Non-Reactive (Non-Reactiv); HIV 1 & 2 Antigen Non-Reactive (Non-Reactiv)
[2019-05-19 18:45] LABS: Rapid Plasma Reagin Syphilis Nonreactive (Nonreactive)
[2019-05-19 20:10] VITALS: BP 149/88; PULSE 97; RESP 18; TEMP 36.8; O2SAT 97
[2019-05-19] MEDS: mirtazapine 30 mg Tablet PO (20:36)
[2019-05-19] MEDS: trazodone 50 mg Tablet PO (20:37)
--- NOTE | 2019-05-19 20:40 | PC.NURSE ---
trazodone 50 mg po given to help sleep.
--- NOTE | 2019-05-19 20:54 | PM.CONSULT ---
Providers/Reason For Consult Consulting Physican/Specialty*: Ruba Langford MD, Internal Medicine Reason for Consult*: worsening confusion/ delirium Attending Physician: Rodri Melvin MD Primary Care Provider: Rory Law MD History of Present Illness History of Present Illness Roderick French is a 53 year old male with past medical history of diabetes mellitus, hyponatremia, hypertension, alcohol abuse, and schizophrenia who was admitted to the hospital on 05/11/19 with c/o altered mental status, confusion and elevated alcohol levels in his system. The patient was significantly confused at the time. He was admitted and monitored over the next few days for alcohol withdrwal but did not score very hig on the CIWA scale. MRI Brain showed Mild atrophy and very mild chronic microvascular ischemic disease. No prior infarct.. Other medical issues included hyponatremian, Hypertension, and type II diabetes.Amoonia level was WNL. His smentation imrpoved somewhat, though per review of prior records, it appears he continued to make inconsistent statements with regards to where he lives, is his father was still alive, coming down with the flu , etc. He was transferred to the inpatient psych unit for participation in individual psychotherapy both from the standpoint of adjustment to grief but also for assessment of his thought processes and possible memory deficits. While he was reportedly improving since transfer, over the last 2 days he is again noted to be getting more confused. Medicine service is consulted in view of concern for delirium. On my current interview, patient is able to correctly state his name, age and . He recognizes he is in [place], but does not know which city. When asked where he lives, he states his home is in [place], though per review of summary his address is listed as being in [place]. He is quite tearful during my interview and states he just wants to go home. He recognozes he has been in the hospital for a while' and was in a different unit before. When asked who should i call to pick him up, he states to call his father who lives in [place] and states that he lives in [place] with him. He tried to give me a phone number to call but then cannot recall the digits beyond [phone] I did attempt to call his listed contact, however got no response. He denies any c/o chest pain, dyspnea, cough, expectoration though insists he has the flu . He was noted to cough one time during my interview. Denies any c/o dysuria, abdominal pain, nausea, vomiting, diarrhea. Denies any focal motor deficits, LOC, seizures. Review of Systems General: Reports: 10 or more systems reviewed and unremarkable except in HPI and below Const: Denies: fever, chills or body aches Eyes: Denies: change in vision, blurry vision or photophobia ENMT: Reports: hoarseness; Denies: throat pain, enlarged tonsils, painful swallowing or nasal congestion Card: Denies: chest pain, palpitations, irregular heart rhythm, edema, swelling of feet/ankles, lightheadedness, pre-syncope, shortness of breath on exertion or shortness of breath when lying down Resp: Denies: shortness of breath, productive cough, non-productive cough, wheezing, stridor, pain on inspiration, change in phlegm color, coughing up blood or chest congestion GI: Denies: abdominal pain, nausea, vomiting, vomiting blood, coffee grounds in vomit, difficulty swallowing, heartburn/indigestion, diarrhea, constipation, cramping, change in stool character, blood in stool or black tarry stool : Denies: flank pain, painful urination, urinary frequency, urinary urgency, urinary hesitancy or blood in urine Musc: Denies: neck pain, back pain, extremity pain, joint swelling, joint warmth or deformity Neuro: Denies: headache, numbness in extremities, weakness in extremities, changes in sensation, difficulty walking, frequent falls, dizziness, vertigo, behavioral changes, slurred speech or seizure-like activity Psych: Denies: anxiety, depression, suicidal ideation or homicidal ideation Endo: Denies: excessive urination, excessive thirst, tired all the time, cold intolerance or hot flashes Say/Lymph: Denies: easy bruising or easy bleeding Meds/Allergies Home Medications and Allergies Home Medications Medication Instructions Recorded Confirmed Type amlodipine 5 mg PO DAILY 04/20/19 04/20/19 History vdrjoqy-[id number]-utpcymqc 2 tab PO DAILY PRN 04/20/19 04/20/19 History [Excedrin Migraine] lisinopril 20 mg PO DAILY 04/20/19 04/20/19 History metformin 1,000 mg PO BID 04/20/19 04/20/19 History Allergies Allergy/AdvReac Type Severity Reaction Status Date / Time No Known Allergies Allergy Verified 04/20/19 07:00 Current Medications Current Medications Generic Name Dose Route Start Last Admin Trade Name Freq PRN Reason Stop Dose Admin Buspirone HCl 5 mg 05/15/19 09:00 05/19/19 20:37 Buspar PO 5 mg TID BROOKE Administration Folic Acid 1 mg 05/11/19 09:00 05/19/19 08:06 Folic Acid PO 1 mg DAILY BROOKE Administration Lisinopril 10 mg 05/15/19 09:00 05/19/19 08:07 Prinivil PO 10 mg DAILY BROOKE Administration Metformin HCl 500 mg 05/14/19 18:00 05/19/19 17:22 Glucophage PO 500 mg BIDWM BROOKE Administration Mirtazapine 30 mg 05/15/19 21:00 05/19/19 20:36 Remeron PO 30 mg BEDTIME BROOKE Administration Multivitamins Therapeutic 1 tab 05/11/19 09:00 05/19/19 08:06 Multivitamin Tab PO 1 tab DAILY BROOKE Administration Nicotine 1 patch 05/15/19 13:54 05/18/19 13:32 Nicoderm 21 Mg Patch TRANSDERMA 1 patch DAILY PRN Administration NICOTINE WITHDRAWAL Olanzapine 5 mg 05/16/19 15:31 05/17/19 00:09 Zyprexa Zydis PO 5 mg Q4H PRN Administration Agitation/Psychosis Senna/Docusate Sodium 1 tab 05/18/19 11:30 05/19/19 08:06 Senna-S PO 1 tab DAILY BROOKE Administration Thiamine Mononitrate 100 mg 05/11/19 09:00 05/19/19 08:06 Vitamin B-1 PO 100 mg DAILY BROOKE Administration Trazodone HCl 50 mg 05/18/19 20:20 05/19/19 20:37 Desyrel PO 50 mg BEDTIME PRN Administration SLEEP PFSH Acute PFSH: Statuses (acute, chronic, etc) shown below reflect problem list status as previously entered and may not be historically accurate Medical History Alcohol abuse (Acute) Patient recognizes he will always be an alcoholic, which imposes upon him the 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 Hypertension (Acute) Hyponatremia (Acute) Type 2 diabetes mellitus (Acute) Surgical History H/O skin graft (Acute) Hx of tonsillectomy (Acute) Family History Other CAD (coronary artery disease) Diabetes Denies family history of Dementia Psychiatric illness Social History Smoking and tobacco status: current every day smoker Alcohol intake: current Desire information about substance/drug rehabilitation?: No Counseling given: Yes Adopted: No Household members: spouse Current occupational status: unemployed History of recent travel: No Vitals/I&O/Wt Last Vital Signs Temp 98.2 F 05/19/19 20:10 Pulse 97 05/19/19 20:10 Resp 18 05/19/19 20:10 BP 149/88 05/19/19 20:10 Pulse Ox 97 05/19/19 20:10 Physical Exam Narrative: EXAM NARRATIVE: GEN: Awake, alert and oriented, no acute physical distress but crying mutliple times during my interview. CVS: S1S2 N RS: CTA B/L Abd: Soft, nt/nd , bs+ DEICER TESTER: no focal neuro deficits A&P Assessment and plan (1) Wernicke-Korsakoff syndrome (alcoholic): Status: Acute Code(s): F10.96 - Alcohol use, unspecified with alcohol-induced persisting amnestic disorder (2) Hypertension: Status: Acute Code(s): I10 - Essential (primary) hypertension (3) Type 2 diabetes mellitus: Status: Acute Code(s): E11.9 - Type 2 diabetes mellitus without complications Additional A&P Information Based on patient's history, review of notes from this admission, patient's mental status appears to have been waxing and waning during the course, not too far away from what has been noted previously. Given lack of any focal neurological deficits, doubt a new process such as CVA. Recent MRI from 05/13 with chronic microvascular changes but no acute abnormalities. Overall picture appears most consistent with Wernicke-Korsakoff syndrome. However, given that he was noted to have some improvement with returning confusion and confabulation, will rule out metabolic abnormalities that may be contributing. Will check CBC to determine WBC. Check CXR as noted to have some cough. Check UA given recent h/o UTI. Check ammonia. CMP to r/o hyponatremia and uremia. Will additionally check TSH, B12 level, RPR and HIV screen to r/o other causes of dementia. Will follow with results of above testing. Unable to reach family members to confirm authenticity of statements pertaining ti living with father in [place], etc Coding Level of Care Code Acute Special Client Bus Driver for g Fwd Diagnoses Wernicke-Korsakoff syndrome (alcoholic) F10.96 Hypertension I10 Type 2 diabetes mellitus E11.9
[2019-05-20 01:31] LABS: Free T4 Free Thyroxine 1.15 ng/dL (0.82-1.77); T3 Free 3.2 PG/ML (2.0-4.4)
--- NOTE | 2019-05-20 01:59 | PC.NURSE ---
PT CALLING OUT FOR assistance. In the room pt had been incontinent of large amt of liquid stool. Pt cleaned and floors cleaned up. Linens changed and pt assisted back to bed. Housekeeping up to mop floor. Pt resting comfortably in bed at this time. Will continue to monitor.
[2019-05-20 03:09] LABS: Vitamin B12 414 pg/mL (232-1245)
[2019-05-20 06:00] VITALS: BP 153/97; PULSE 116; RESP 21; TEMP 36.4; O2SAT 99
[2019-05-20 06:14] LABS: Glucose Point of Care 135 mg/dL (70-110)
[2019-05-20] MEDS: metformin 500 mg Tablet PO ×2 (07:23→17:34)
[2019-05-20] MEDS: sennosides-docusate Tablet 1 TAB PO (08:27)
[2019-05-20] MEDS: lisinopril 10 mg Tablet PO (08:27)
[2019-05-20] MEDS: multivitamin therapeutic Tablet 1 TAB PO (08:27)
[2019-05-20] MEDS: BuSPIRONE 5 mg Tablet PO ×3 (08:27→20:50)
[2019-05-20] MEDS: folic acid 1 mg Tablet PO (08:27)
[2019-05-20] MEDS: thiamine 100 mg Tablet PO (08:27)
--- NOTE | 2019-05-20 11:59 | P.PN_ITS ---
Subjective NPU Subjective: Interval history: Roderick presents today reporting that he feels a little better. He continues to have some confusion but otherwise doesn't report any symptoms. He continues to say responses that don't make any sense for the circumstance but then later can realize that what he is saying does not make sense for the circumstance. We reviewed the lab work that have been done previously and there were no new findings or findings suggestive of something other than our main suspicion which is that it is the drinking and basically on a Wernicke Kosakoff presentation that we're dealing with. Mental Status Exam MSE Comments: This is a overweight white male with adequate dress, grooming and eye contact. No abnormal movements except for psychomotor retardation using a walker to ambulate. Cooperative with exam in no acute distress. Speech was decreased rate and volume. Mood described as not good affect congruent. Thought process disorganized. Thought content: Patient denied any suicidal or homicidal ideations, there were no delusions reported or noted, he denied any auditory or visual hallucinations. Attention and concentration appeared intact and memory was unreliable with confabulation present, but none were formally tested. He is alert and intermittently oriented. Insight and judgment are impaired. Vitals/I&O/Wt Last Vital Signs Data NPU : 05/19/19 17:29 05/19/19 17:29 A&P Additional A&P Information Delirium: This is a 53-year-old white male with significant alcohol use now in the hospital for 7 days with a UTI initially who presents seemingly worse than at admission with his confusion. 1. Continue current medication. 2. Review hospitalist findings determine if there is anything more we can do for his Wernickes 3. Will hold off on thoughts of a UDS, ammonia levels and other studies and deferred to the hospitalists suggestions to rule other causes other than w ernicke. 4. Encourage individual, milieu and group therapy. 5. Continue every 15 minute checks for safety. (2) Wernicke-Korsakoff syndrome (alcoholic): Involuntary Hold Information 96 Hour Hold: 96 Hour Involuntary Admission: No Attestations NPU Medical Necessity Statement*: Inpatient hospitalization is medically necessary and the clinically appropriate intervention at this time. We will explore safe discharge plan given the likely chronic outcome of his condition. Likely length of stay 3-5 days. Coding Level of Care Code Acute Soft Tile Setter for Francia Larry
--- NOTE | 2019-05-20 13:15 | PM.PN ---
Subjective Subjective: Interval history: I saw the patient in request for consultation secondary to change in patient's mental status. There was concern for increased confusion when he had been improving. I spoke with the patient today and compared to his prior exam, he did seem more clear headed, and that he knew he was in [place] and in the psychiatric unit, however he thought that it was March 2019. He continued to talk about how his father is in very poor health and about to go, and that his mother was not doing well. At times he recognized who I was as Dr. Law, however thought that we had also met years ago at his yarsanism. The patient has been less tearful, however continues to be down about his concern for his parents. Vitals/I&O/Wt Last Vital Signs Temp 97.6 F 05/20/19 06:00 Pulse 116 H 05/20/19 06:00 Resp 21 H 05/20/19 06:00 BP 153/97 05/20/19 06:00 Pulse Ox 99 05/20/19 06:00 Physical Exam Narrative: EXAM NARRATIVE: General: Alert and oriented to place, however not to time. Eyes: Nystagmus noted with testing of extraocular muscles. Mouth: Pharynx without erythema. Cardiac: Regular rate and rhythm without murmurs Lungs: Clear to auscultation bilaterally without wheezes, crackles or rhonchi Abdomen: Soft, nontender, no hepatosplenomegaly noted Extremities: No edema. Severe neuropathy noted in the bilateral lower extremities from the lower jansen down on the right and from the midfoot down on the left. Data : 05/19/19 17:29 05/19/19 17:29 A&P Additional A&P Information 1. Wernicke-Korsakoff syndrome -the patient has multiple symptoms consistent with Wernicke-Korsakoff syndrome including significant confusion, nystagmus noted on eye exam and neuropathy in his bilateral lower extremities. The patient was given thiamine in the ER via IM injection, and his thiamine levels in the blood were in the normal range, however this may not represent the levels in his brain. Because of this we will go ahead and treat with further IM injections of thiamine as his GI absorption may be poor. I would recommend that we give thiamine 200 mg IM for the next 5 days followed again by oral thiamine 100 mg daily. My hope is that this can help to resolve some of his symptoms, however this is not a certainty. A multitude of other labs were done yesterday to rule out other causes for confusion and delirium, and these have returned without significant findings. This includes his thyroid, B12 levels, sodium levels, ammonia levels and test for signs of infection including HIV and RPR. 2. Alcohol abuse -the patient has been on the CIWA protocol, however I do not see any signs of withdrawal at this time. It would be appropriate to continue with this and certainly alcohol withdrawal could be causing his confusion, however it seems like it would be awfully late by this time for this to be the cause. 3. Diabetes -stable at this time. Continue with metformin. 4. Hypertension -the patient is currently on lisinopril as he has diabetes. I have seen cases where lisinopril has caused significant neurologic issues, so we will try and switch this to atenolol. We will see if there are any improvements with this switch as well. 5. Peripheral neuropathy -the patient's vitamin B12 levels are in the normal range, however with his neuropathy, it would not hurt to elevate these levels especially in the light of elevated MCV. We will start vitamin B12 by mouth to help support his nerve health. 6. Depression -the patient clinically seems less depressed than during his visit. I appreciate psychiatry's treatment for this patient. I appreciate the opportunity to consult on this patient and give recommendations. If you have any further questions or needs, please feel free to let me know. For now I will sign off but I am happy to follow patient if there are further concerns. Attestations Medical Necessity Statement*: Per psychiatry. Coding Level of Care Code Acute Tax Associate Attorney for Francia Larry
[2019-05-20 14:00] VITALS: BP 82/62; PULSE 106; RESP 20; TEMP 37.1; O2SAT 96
[2019-05-20 18:45] VITALS: BP 132/92
[2019-05-20] MEDS: mirtazapine 30 mg Tablet PO (20:50)
[2019-05-21] MEDS: acetaminophen 325 mg Tablet 650 MG PO (00:28)
[2019-05-21 05:32] VITALS: BP 146/92; PULSE 97; RESP 18; TEMP 36.8; O2SAT 99
[2019-05-21 06:29] LABS: Glucose Point of Care 125 mg/dL (70-110)
[2019-05-21] MEDS: metformin 500 mg Tablet PO ×2 (07:51→17:13)
[2019-05-21] MEDS: nicotine 21 mg Patch 1 PATCH TRANSDERMA (07:59)
--- NOTE | 2019-05-21 08:03 | PC.NURSE ---
Nursing Note; random room inspection completed no contraband found.
[2019-05-21] MEDS: sennosides-docusate Tablet 1 TAB PO (08:45)
[2019-05-21] MEDS: atenolol 50 mg Tablet 25 MG PO (08:45)
[2019-05-21] MEDS: folic acid 1 mg Tablet PO (08:45)
[2019-05-21] MEDS: cyanocobalamin 1,000 mcg Tablet 1000 MCG PO (08:45)
[2019-05-21] MEDS: BuSPIRONE 5 mg Tablet PO ×3 (08:45→21:11)
[2019-05-21] MEDS: multivitamin therapeutic Tablet 1 TAB PO (08:46)
[2019-05-21] MEDS: hyDROXYzine 25 mg Capsule 50 MG PO (08:55)
--- NOTE | 2019-05-21 08:55 | PC.NURSE ---
PRN VISTARIL VISTARIL 50MG PO PER PT C/O ANXIETY. WILL CONTINUE TO MONITOR FOR MEDICATION EFFECTIVENESS.
--- NOTE | 2019-05-21 10:00 | PC.NURSE ---
PRN VISTARIL FOLLOW UP MEDICATION EFFECTIVE. PATIENT IS SITTING IN GROUP PARTICIPATING.
--- NOTE | 2019-05-21 10:30 | PC.NURSE ---
NURSES NOTE; CLIENT IN DAYROOM PARTICIPATING IN GROUP.
[2019-05-21 13:23] VITALS: BP 123/79; PULSE 88; RESP 19; TEMP 36.7; O2SAT 100
--- NOTE | 2019-05-21 16:49 | PM.NPN ---
Subjective NPU Subjective: Interval history: Roderick presents today extremely confused and showing all the telltale signs of Warneke Korsakoff syndrome. He has no idea what is real and what is not real but not in a psychotic sense in a confused sense where time is warped. During our conversation he believes his parents were alive and spoke about his father visiting earlier in the day, he spoke about being in the [facility] even though when we really challenge the thought he identified that he was only in the [facility] from [id number]. Even after identifying those facts later he swore that this was a [facility] hospital and that the people walking by outside of his door were [facility] officers/buddies that he knew. He assured me that we had been in a doctor-patient relationship in [facility] and he was astonished when I assured him I had never been there nor had at work in any facility there. He is gaining awareness of how confused he is but remains confused nonetheless. He seemed to get some peace and me remaining in the room for some time and offering him information based on the facts. Mental Status Exam MSE Comments: This is a overweight white male with adequate dress, grooming and eye contact. No abnormal movements except for psychomotor retardation using a walker to ambulate. Cooperative with exam in no acute distress. Speech was decreased rate and volume. Mood described as confused affect congruent. Thought process disorganized. Thought content: Patient denied any suicidal or homicidal ideations, there were no delusions reported or noted, but significant confabulations, he denied any auditory or visual hallucinations. Attention and concentration appeared intact and memory was unreliable with confabulation present, but none were formally tested. He is alert and intermittently oriented. Insight and judgment are impaired. Vitals/I&O/Wt Last Vital Signs Temp 98.1 F 05/21/19 13:23 Pulse 88 05/21/19 13:23 Resp 19 H 05/21/19 13:23 BP 123/79 05/21/19 13:23 Pulse Ox 100 05/21/19 13:23 Data NPU : 05/19/19 17:29 05/19/19 17:29 A&P Additional A&P Information This is a 53-year-old white male with significant alcohol use now in the hospital for over 7 days with a UTI initially who presents seemingly worse than at admission with his confusion. 1. Continue current medication. 2. Continue thiamine as advised in hopes is Warnicke Korsakoff's improves. 3. Encourage individual, milieu and group therapy. 4. Continue every 15 minute checks for safety. 5. Begin working with SW for discharge possibilities as home alone will not be safe. (2) Wernicke-Korsakoff syndrome (alcoholic): Involuntary Hold Information 96 Hour Hold: 96 Hour Involuntary Admission: No Attestations NPU Medical Necessity Statement*: Inpatient hospitalization is medically necessary and the clinically appropriate intervention at this time. We will explore safe discharge plan given the likely chronic outcome of his condition. Likely length of stay 3-5 days. Coding Level of Care Code Acute Board Finisher for Francia Larry
[2019-05-21 19:44] VITALS: BP 116/68; PULSE 95; RESP 18; TEMP 36.6; O2SAT 99
[2019-05-21] MEDS: trazodone 50 mg Tablet PO (21:11)
[2019-05-21] MEDS: mirtazapine 30 mg Tablet PO (21:11)
[2019-05-22 05:55] LABS: Glucose Point of Care 116 mg/dL (70-110)
[2019-05-22 06:00] VITALS: BP 120/82; PULSE 102; RESP 18; TEMP 36.5; O2SAT 99
[2019-05-22] MEDS: metformin 500 mg Tablet PO ×2 (07:38→17:19)
[2019-05-22] MEDS: cyanocobalamin 1,000 mcg Tablet 1000 MCG PO (08:55)
[2019-05-22] MEDS: atenolol 50 mg Tablet 25 MG PO (08:55)
[2019-05-22] MEDS: multivitamin therapeutic Tablet 1 TAB PO (08:55)
[2019-05-22] MEDS: sennosides-docusate Tablet 1 TAB PO (08:56)
[2019-05-22] MEDS: folic acid 1 mg Tablet PO (08:56)
[2019-05-22] MEDS: BuSPIRONE 5 mg Tablet PO ×3 (08:56→20:01)
--- NOTE | 2019-05-22 12:58 | PM.NPN ---
Subjective NPU Subjective: Interval history: Roderick presents today continuing to struggle with his memory and confabulation. He continues to get the IM thiamine in hopes of mitigating the impact of his Warnicke Korsakoff syndrome. I was able to talk to his girlfriend who filled in some of the blanks that he had been asking about. Namely he is in the [place] area because he owns a home with his girlfriend. The hospitalization started when he did not recognize her and became aggressive because a stranger was in his midst. He still has his own world that he exist then believing this is a [facility] and he is in the [place] no matter how many times I refresh his memory. His girlfriend is going to come over tomorrow during visiting hours and see if he recognizes her now. His best friend per his girlfriend is coming to but he could not give me his best friend's name or his girlfriend's name but when I mention the different names he did realize the 1 that was his girlfriend's name. She reports that she is 93 pounds and will not be able to manage him at home if he is irritable due to his absent memory like he is currently. Mental Status Exam MSE Comments: This is a overweight white male with adequate dress, grooming and eye contact. No abnormal movements except for psychomotor retardation using a walker to ambulate. Cooperative with exam in mild distress. Speech was decreased rate and volume. Mood described as confused affect congruent and tearful. Thought process disorganized. Thought content: Patient denied any suicidal or homicidal ideations, there were no delusions reported or noted, but significant confabulations, he denied any auditory or visual hallucinations. Attention and concentration appeared intact and memory was unreliable with confabulation present, but none were formally tested. He is alert and intermittently oriented. Insight and judgment are impaired. Vitals/I&O/Wt Last Vital Signs Temperature 98.1, pulse 86, respirations 20, pulse oximetry 96%, blood pressure 128/85. Weight last 48 hrs Weight 90.293 kg Data NPU : 05/19/19 17:29 05/19/19 17:29 A&P Additional A&P Information This is a 53-year-old white male with significant alcohol use now in the hospital for over 7 days with a UTI initially who presents seemingly worse than at admission with his confusion. 1. Continue current medication. 2. Continue thiamine as advised in hopes is Warnicke Korsakoff's improves. 3. Encourage individual, milieu and group therapy. 4. Continue every 15 minute checks for safety. 5. Begin working with SW for discharge possibilities as home alone will not be safe. Involuntary Hold Information 96 Hour Hold: 96 Hour Involuntary Admission: No Attestations NPU Medical Necessity Statement*: Inpatient hospitalization is medically necessary and the clinically appropriate intervention at this time. We will explore safe discharge plan given the likely chronic outcome of his condition. Likely length of stay 3-5 days. Coding Level of Care Code Acute Performance Management Consultant for Francia Larry
[2019-05-22] MEDS: nicotine 21 mg Patch 1 PATCH TRANSDERMA (13:33)
[2019-05-22 14:00] VITALS: BP 107/79; PULSE 92
[2019-05-22] MEDS: acetaminophen 325 mg Tablet 650 MG PO (14:38)
[2019-05-22] MEDS: trazodone 50 mg Tablet PO (20:01)
[2019-05-22] MEDS: mirtazapine 30 mg Tablet PO (20:01)
[2019-05-22 22:00] VITALS: BP 128/85; PULSE 86; RESP 20; TEMP 36.7; O2SAT 96
[2019-05-23 06:00] VITALS: BP 125/89; PULSE 95; RESP 19; TEMP 36.6; O2SAT 99
[2019-05-23] MEDS: metformin 500 mg Tablet PO ×2 (07:58→16:34)
[2019-05-23] MEDS: cyanocobalamin 1,000 mcg Tablet 1000 MCG PO (08:00)
[2019-05-23] MEDS: BuSPIRONE 5 mg Tablet PO ×3 (08:00→20:12)
[2019-05-23] MEDS: atenolol 50 mg Tablet 25 MG PO (08:00)
[2019-05-23] MEDS: folic acid 1 mg Tablet PO (08:00)
[2019-05-23] MEDS: sennosides-docusate Tablet 1 TAB PO ×2 (08:00→20:13)
[2019-05-23] MEDS: multivitamin therapeutic Tablet 1 TAB PO (08:00)
[2019-05-23 14:00] VITALS: BP 113/75; PULSE 82; RESP 20; TEMP 36.9; O2SAT 97
--- NOTE | 2019-05-23 16:16 | PC.SOCIAL ---
Marcy García [phone] sister called checking on patient. She said that she thinks he will have the means to go to a facility for income but she is unaware of him having insurance. Patient is his own legal guardian and she is unaware of him having durable surfacing technician papers.
--- NOTE | 2019-05-23 16:31 | P.PN_ITS ---
Subjective NPU Subjective: Interval history: Roderick presents today continuing to struggle with confabulation and confusion. His girlfriend and best friend visited him. Although I was not there to witness the reunion later he referred to them as his daughter and her boyfriend. We discussed the need for guardianship, and we reached out to his sister/next of kin as well as his girlfriend with whom he lives to try to figure out how really manage the logistical nature of transferring him to an appropriate facility. Mental Status Exam MSE Comments: This is a overweight white male with adequate dress, grooming and eye contact. No abnormal movements except for psychomotor retardation using a walker to ambulate. Cooperative with exam in mild distress. Speech was decreased rate and volume. Mood described as I think i am better affect congruent but still confused. Thought process disorganized. Thought content: Patient denied any suicidal or homicidal ideations, there were no delusions reported or noted, but significant confabulations exist, he denied any auditory or visual hallucinations. Attention and concentration appeared intact and memory was unreliable with confabulation present, but none were formally tested. He is alert and intermittently oriented. Insight and judgment are impaired. Vitals/I&O/Wt Last Vital Signs Temp 98.6 F 05/23/19 21:19 Pulse 93 05/23/19 21:19 Resp 17 05/23/19 21:19 BP 138/82 05/23/19 21:19 Pulse Ox 98 05/23/19 21:19 Data NPU : 05/19/19 17:29 05/19/19 17:29 A&P Additional A&P Information This is a 53-year-old white male with significant alcohol use now in the hospital for over 7 days with a UTI initially who presents seemingly worse than at admission with his confusion. 1. Continue current medication. 2. Continue thiamine as advised in hopes is Warnicke Korsakoff's improves. 3. Encourage individual, milieu and group therapy. 4. Continue every 15 minute checks for safety. 5. Begin working with SW for discharge possibilities as home alone or with GF will not be safe. Involuntary Hold Information 96 Hour Hold: 96 Hour Involuntary Admission: No Attestations NPU Medical Necessity Statement*: Inpatient hospitalization is medically necessary and the clinically appropriate intervention at this time. We will explore safe discharge plan given the likely chronic outcome of his condition. Likely length of stay 3-5 days. Coding Level of Care Code Acute Senior Contracts Administrator for Viviang Laron
[2019-05-23 19:39] LABS: Glucose Point of Care 189 mg/dL (70-110)
[2019-05-23] MEDS: mirtazapine 30 mg Tablet PO (20:12)
[2019-05-23] MEDS: trazodone 50 mg Tablet PO (21:12)
[2019-05-23 21:19] VITALS: BP 138/82; PULSE 93; RESP 17; TEMP 37; O2SAT 98
[2019-05-24 06:00] VITALS: BP 136/91; PULSE 98; RESP 18; TEMP 36.4; O2SAT 98
[2019-05-24] MEDS: sennosides-docusate Tablet 1 TAB PO ×2 (06:08→18:30)
[2019-05-24 06:24] LABS: Glucose Point of Care 120 mg/dL (70-110)
[2019-05-24] MEDS: metformin 500 mg Tablet PO ×2 (07:32→17:00)
[2019-05-24] MEDS: cyanocobalamin 1,000 mcg Tablet 1000 MCG PO (09:02)
[2019-05-24] MEDS: multivitamin therapeutic Tablet 1 TAB PO (09:03)
[2019-05-24] MEDS: atenolol 50 mg Tablet 25 MG PO (09:03)
[2019-05-24] MEDS: BuSPIRONE 5 mg Tablet PO ×3 (09:03→20:05)
[2019-05-24] MEDS: folic acid 1 mg Tablet PO (09:03)
--- NOTE | 2019-05-24 12:46 | P.PN_ITS ---
Subjective NPU Subjective: Interval history: Roderick presents today reporting that he is not sure what is going on. He continued to deny that his girlfriend was the person that visited.. He continues to believe that he is [place] [facility] and continues to get a little annoyed initially and then emotional when he realizes that how he is thinking is not accurate. He reports that he sleeping okay and is eating fine. Mental Status Exam MSE Comments: This is a overweight white male with adequate dress, grooming and eye contact. No abnormal movements except for psychomotor retardation using a walker to ambulate. Cooperative with exam in mild distress. Speech was decreased rate and volume. Mood described as good i think, affect congruent but still confused. Thought process disorganized. Thought content: Patient denied any suicidal or homicidal ideations, there were no delusions reported or noted, but significant confabulations exist, he denied any auditory or visual h allucinations. Attention and concentration appeared intact and memory was unreliable with confabulation present, but none were formally tested. He is alert and intermittently oriented. Insight and judgment are impaired. Vitals/I&O/Wt Last Vital Signs Temperature 97.6, pulse 98, respirations 18, pulse ox 98, blood pressure 136/91. Data NPU : 05/19/19 17:29 05/19/19 17:29 A&P Additional A&P Information This is a 53-year-old white male with significant alcohol use now in the hospital for over 7 days with a UTI initially who presents seemingly worse than at admission with his confusion. 1. Continue current medication. 2. Continue thiamine as advised in hopes is Warnicke Monicasakoff's improves. 3. Encourage individual, milieu and group therapy. 4. Continue every 15 minute checks for safety. 5. Begin working with SW for discharge possibilities as home alone or with GF will not be safe. Involuntary Hold Information 96 Hour Hold: 96 Hour Involuntary Admission: No Attestations NPU Medical Necessity Statement*: Inpatient hospitalization is medically necessary and the clinically appropriate intervention at this time. We will explore safe discharge plan given the likely chronic outcome of his condition. Likely length of stay 3-5 days. Coding Level of Care Code Acute Financial Compliance Examiner for Francia Larry
[2019-05-24 14:00] VITALS: BP 150/88; PULSE 83; RESP 20; TEMP 37.2; O2SAT 98
[2019-05-24] MEDS: trazodone 50 mg Tablet PO (20:05)
[2019-05-24] MEDS: mirtazapine 30 mg Tablet PO (20:05)
[2019-05-24 22:00] VITALS: BP 156/97; PULSE 88; RESP 20; TEMP 36.9; O2SAT 99
[2019-05-25] MEDS: acetaminophen 325 mg Tablet 650 MG PO ×2 (03:27→23:46)
[2019-05-25 06:00] VITALS: BP 129/74; PULSE 106; RESP 20; TEMP 36.7; O2SAT 98
[2019-05-25] MEDS: sennosides-docusate Tablet 1 TAB PO ×2 (06:06→18:48)
[2019-05-25 06:07] LABS: Glucose Point of Care 142 mg/dL (70-110)
[2019-05-25] MEDS: metformin 500 mg Tablet PO ×2 (07:54→17:34)
[2019-05-25] MEDS: cyanocobalamin 1,000 mcg Tablet 1000 MCG PO (09:01)
[2019-05-25] MEDS: BuSPIRONE 5 mg Tablet PO ×3 (09:01→21:06)
[2019-05-25] MEDS: folic acid 1 mg Tablet PO (09:01)
[2019-05-25] MEDS: atenolol 50 mg Tablet 25 MG PO (09:01)
[2019-05-25] MEDS: multivitamin therapeutic Tablet 1 TAB PO (09:01)
[2019-05-25 10:12] LABS: Glucose Point of Care 199 mg/dL (70-110)
[2019-05-25 14:00] VITALS: BP 121/85; PULSE 86; RESP 18; TEMP 36.4; O2SAT 100
[2019-05-25] MEDS: nicotine 21 mg Patch 1 PATCH TRANSDERMA (14:35)
--- NOTE | 2019-05-25 17:07 | P.PN_ITS ---
Subjective NPU Subjective: Interval history: Roderick spent much of the interview frustrated because he continues to struggle with the poor functioning of his memory. We talked about his father abdomen and him not recalling his father's but does recall going to his mother's . We had a discussion about the options of where he could go given his situation. He seemed to accept that in dependent living at this point would not be viable. We agreed to look at some verifiable information about his father tomorrow. Mental Status Exam MSE Comments: This is a overweight white male with adequate dress, grooming and eye contact. No abnormal movements except for mild psychomotor retardation using a walker to ambulate. Cooperative with exam in mild distress. Speech was decreased rate and volume. Mood described as not good, affect congruent but still confused and occasionally tearful. Thought process disorganized. Thought content: Patient denied any suicidal or homicidal ideations, there were no delusions reported or noted, but significant confabulations exist, he denied any auditory or visual hallucinations. Attention and concentration appeared intact and memory was unreliable with confabulation present, but none were formally tested. He is alert and intermittently oriented. Insight and judgment are impaired. Vitals/I&O/Wt Last Vital Signs Temp 99.3 F 05/25/19 22:00 Pulse 88 05/25/19 22:00 Resp 19 H 05/25/19 22:00 BP 116/77 05/25/19 22:00 Pulse Ox 100 05/25/19 22:00 Data NPU : 05/19/19 17:29 05/19/19 17:29 A&P Additional A&P Information This is a 53-year-old white male with significant alcohol use now in the hospital for over 7 days with a UTI initially who presents seemingly worse than at admission with his confusion. 1. Continue current medication. 2. Continue thiamine as advised in hopes is Warnicke Korsakoff's improves. 3. Encourage individual, milieu and group therapy. 4. Continue every 15 minute checks for safety. 5. Begin working with SW for discharge possibilities as home alone or with GF will not be safe. Involuntary Hold Information 96 Hour Hold: 96 Hour Involuntary Admission: No Attestations NPU Medical Necessity Statement*: Inpatient hospitalization is medically necessary and the clinically appropriate intervention at this time. We will explore safe discharge plan given the likely chronic outcome of his condition. Likely length of stay 3-5 days. Coding Level of Care Code Acute Babbitt Spinner for Francia Larry
[2019-05-25] MEDS: mirtazapine 30 mg Tablet PO (21:06)
[2019-05-25] MEDS: trazodone 50 mg Tablet PO (21:06)
[2019-05-25 22:00] VITALS: BP 116/77; PULSE 88; RESP 19; TEMP 37.4; O2SAT 100
[2019-05-26] MEDS: nicotine 2 mg Gum BUCCAL (01:13)
[2019-05-26 06:00] VITALS: BP 143/92; PULSE 97; RESP 20; TEMP 36.4; O2SAT 100
[2019-05-26 06:20] LABS: Glucose Point of Care 197 mg/dL (70-110)
[2019-05-26] MEDS: sennosides-docusate Tablet 1 TAB PO ×2 (06:56→22:09)
[2019-05-26] MEDS: BuSPIRONE 5 mg Tablet PO ×3 (08:44→22:08)
[2019-05-26] MEDS: multivitamin therapeutic Tablet 1 TAB PO (08:44)
[2019-05-26] MEDS: cyanocobalamin 1,000 mcg Tablet 1000 MCG PO (08:44)
[2019-05-26] MEDS: atenolol 50 mg Tablet 25 MG PO (08:45)
[2019-05-26] MEDS: metformin 500 mg Tablet PO ×2 (08:45→17:34)
[2019-05-26] MEDS: folic acid 1 mg Tablet PO (08:45)
--- NOTE | 2019-05-26 12:13 | PM.NPN ---
Subjective NPU Subjective: Interval history: Roderick presents today continuing to be profoundly deficient in his ability to recall events from the past. As he requested I showed him the obituary of his father from May 2017. He recalls his mother's but not his father's. After initially behaving as if he understood states that his sister noted this obituary and had written it and released into the home accidentally and prematurely and after releasing it their father came out of his condition. He reports that his father is still alive and this was an error. After he was shown a copy of an article that chronicled the because his father was a respected community contributor he was accepting of the information. But then about 4 minutes later he flagged me in the hallway to once again recount the story of how his father is still alive. He did however continue to except that he is no longer in the [place]. Mental Status Exam MSE Comments: This is a overweight white male with adequate dress, grooming and eye contact. No abnormal movements except for mild psychomotor retardation using a walker to ambulate. Cooperative with exam in mild distress. Speech was decreased rate and volume. Mood described as a little better, affect congruent but still confused and occasionally tearful. Thought process disorganized at times. Thought content: Patient denied any suicidal or homicidal ideations, there were no delusions reported or noted, but significant confabulations exist, he denied any auditory or visual hallucinations. Attention and concentration appeared intact and memory was unreliable with confabulation present, but none were formally tested. He is alert and intermittently oriented. Insight and judgment are impaired. Vitals/I&O/Wt Last Vital Signs Temperature 98.3, pulse of 84, respirations 17, pulse ox 98%, blood pressure 151/99. Data NPU : 05/19/19 17:29 05/19/19 17:29 A&P Additional A&P Information This is a 53-year-old white male with significant alcohol use now in the hospital for over 7 days with a UTI initially who presents seemingly worse than at admission with his confusion. 1. Continue current medication. 2. Continue thiamine as advised in hopes is Warnicke Korsakoff's improves. 3. Encourage individual, milieu and group therapy. 4. Continue every 15 minute checks for safety. 5. Begin working with SW for discharge possibilities as home alone or with GF will not be safe. Involuntary Hold Information 96 Hour Hold: 96 Hour Involuntary Admission: No Attestations NPU Medical Necessity Statement*: Inpatient hospitalization is medically necessary and the clinically appropriate intervention at this time. We will explore safe discharge plan given the likely chronic outcome of his condition. Likely length of stay 3-5 days. Coding Level of Care Code Acute Donkey Engine Firer/Fireman for Francia Larry
[2019-05-26 14:00] VITALS: BP 102/78; PULSE 87; RESP 20; TEMP 37; O2SAT 99
[2019-05-26 20:20] VITALS: BP 151/99; PULSE 84; RESP 17; TEMP 36.8; O2SAT 98
[2019-05-26] MEDS: mirtazapine 30 mg Tablet PO (22:08)
[2019-05-26] MEDS: trazodone 50 mg Tablet PO (22:08)
[2019-05-27 05:13] VITALS: BP 98/66; PULSE 108; RESP 17; O2SAT 99
--- NOTE | 2019-05-27 05:13 | PC.NURSE ---
VITAL SIGNS PATIENT REFUSED TEMP BUT ALLOWED STAFF TO PERFORM OTHER VITAL SIGNS.
[2019-05-27 06:18] LABS: Glucose Point of Care 125 mg/dL (70-110)
[2019-05-27] MEDS: metformin 500 mg Tablet PO ×2 (07:51→17:03)
[2019-05-27] MEDS: sennosides-docusate Tablet 1 TAB PO ×2 (07:52→18:41)
[2019-05-27] MEDS: cyanocobalamin 1,000 mcg Tablet 1000 MCG PO (09:13)
[2019-05-27] MEDS: atenolol 50 mg Tablet 25 MG PO (09:13)
[2019-05-27] MEDS: BuSPIRONE 5 mg Tablet PO ×3 (09:13→20:21)
[2019-05-27] MEDS: folic acid 1 mg Tablet PO (09:13)
[2019-05-27] MEDS: multivitamin therapeutic Tablet 1 TAB PO (09:13)
[2019-05-27] MEDS: acetaminophen 325 mg Tablet 650 MG PO (13:39)
[2019-05-27 14:00] VITALS: BP 110/75; PULSE 84; RESP 18; TEMP 37; O2SAT 100
[2019-05-27] MEDS: nicotine 21 mg Patch 1 PATCH TRANSDERMA (15:50)
--- NOTE | 2019-05-27 16:14 | P.PN_ITS ---
Subjective NPU Subjective: Interval history: Roderick presents today endorsing no significant changes. He had a fairly intense conversation with his girlfriend who there is some odd memory he has of her going by 1 name which she denies going by. She attempted to get him to come back. During the conversation. There is some economic and logistical issues because they are not officially but shared a home and he may have been a primary bill Per which puts her in an uncomfortable position. We discussed the fact and we do not know the situation but need to try to protect him given his cognitive status. There is some aspects of his life that are becoming a little clear to him but he still struggles with what year it is, what people in his life are still alive and things of that nature. Mental Status Exam MSE Comments: This is a overweight white male with adequate dress, grooming and eye contact. No abnormal movements except for mild psychomotor retardation using a walker to ambulate. Cooperative with exam in mild distress. Speech was decreased rate and volume. Mood described as frustrated, affect congruent but still confused and occasionally tearful. Thought process disorganized at times. Thought content: Patient denied any suicidal or homicidal ideations, there were no delusions reported or noted, but significant confabulations exist, he denied any auditory or visual hallucinations. Attention and concentration appeared intact and memory was unreliable with confabulation present, but none were formally tested. He is alert and intermittently oriented. Insight and judgment are impaired. Vitals/I&O/Wt Last Vital Signs temperature 98.6, pulse 84, respiration 18, pulse ox 100%, blood pressure 110/75. Data NPU : 05/19/19 17:29 05/19/19 17:29 A&P Additional A&P Information This is a 53-year-old white male with significant alcohol use now in the hospital for over a couple weeks with a UTI initially who presents seemingly worse than at admission with Warnicke Korsakoff. 1. Continue current medication. 2. Continue thiamine as advised in hopes is Warnicke Korsakoff's improves. 3. Encourage individual, milieu and group therapy. 4. Continue every 15 minute checks for safety. 5. Working with and hospital risk management for discharge possibilities as home alone or with GF will not be safe. Involuntary Hold Information 96 Hour Hold: 96 Hour Involuntary Admission: No Attestations NPU Medical Necessity Statement*: Inpatient hospitalization is medically necessary and the clinically appropriate intervention at this time. We will explore safe discharge plan given the likely chronic outcome of his condition. Likely length of stay 1-3 weeks. Coding Level of Care Code Acute Senior Hardware Design Engineer for Francia Larry
[2019-05-27] MEDS: trazodone 50 mg Tablet PO (20:21)
[2019-05-27] MEDS: mirtazapine 30 mg Tablet PO (20:21)
[2019-05-27 20:36] VITALS: BP 144/92; PULSE 81; RESP 23; TEMP 37; O2SAT 97
[2019-05-28] MEDS: trazodone 50 mg Tablet PO (00:04)
[2019-05-28 06:00] VITALS: BP 109/70; PULSE 113; RESP 20; TEMP 36.6; O2SAT 97
[2019-05-28 06:37] LABS: Glucose Point of Care 145 mg/dL (70-110)
[2019-05-28] MEDS: sennosides-docusate Tablet 1 TAB PO ×2 (07:04→18:55)
[2019-05-28] MEDS: metformin 500 mg Tablet PO ×2 (08:14→16:50)
[2019-05-28] MEDS: cyanocobalamin 1,000 mcg Tablet 1000 MCG PO (08:14)
[2019-05-28] MEDS: multivitamin therapeutic Tablet 1 TAB PO (08:14)
[2019-05-28] MEDS: atenolol 50 mg Tablet 25 MG PO (08:15)
[2019-05-28] MEDS: BuSPIRONE 5 mg Tablet PO ×3 (08:15→21:14)
[2019-05-28] MEDS: folic acid 1 mg Tablet PO (08:15)
[2019-05-28 14:00] VITALS: BP 150/94
--- NOTE | 2019-05-28 19:09 | P.PN_ITS ---
Subjective NPU Subjective: Interval history: Roderick presents today reporting that he does not recall his father's . He was able to get to the appropriate year but not month. He was trying hard to get me to call his sister so he wouldn't have to. He is accepting that he needs assistance in that he wants her to do it. He struggled with the idea of not being able to smoke. We were clearly he hasn't smoked for a couple weeks so he'll be fine. He was not even aware that he had the patch on. He began focusing on getting a job and having money. We discussed importance of not drinking which he reported he would be able to follow. Mental Status Exam MSE Comments: his is a overweight white male with adequate dress, grooming and eye contact. No abnormal movements except for mild psychomotor retardation using a walker to ambulate. Cooperative with exam in intermittent distress. Speech was normal rate and volume. Mood described as better than yesterday, affect congruent. Thought process organized. Thought content: Patient denied any suicidal or homicidal ideations, there were no delusions reported or noted, but significant confabulations exist, he denied any auditory or visual h allucinations. Attention and concentration appeared intact and memory was unreliable with confabulation present, but none were formally tested. He is alert and intermittently oriented. Insight and judgment are impaired. Vitals/I&O/Wt Last Vital Signs Temp 97.8 F 05/28/19 06:00 Pulse 113 H 05/28/19 06:00 Resp 20 H 05/28/19 06:00 BP 150/94 05/28/19 14:00 Pulse Ox 97 05/28/19 06:00 Data NPU : 05/19/19 17:29 05/19/19 17:29 A&P Additional A&P Information This is a 53-year-old white male with significant alcohol use now in the hospital for over a couple weeks with a UTI initially who presents seemingly worse than at admission with Warnicke Korsakoff. 1. Continue current medication. 2. Encourage individual, milieu and group therapy. 3. Continue every 15 minute checks for safety. 4. Working with and hospital risk management for discharge possibilities as home alone or with GF will not be safe. 5. Hospital exploring guardianship. Involuntary Hold Information 96 Hour Hold: 96 Hour Involuntary Admission: No Attestations NPU Medical Necessity Statement*: Inpatient hospitalization is medically necessary and the clinically appropriate intervention at this time. We will explore safe discharge plan given the likely chronic outcome of his condition. Likely length of stay 1-3 weeks. Coding Level of Care Code Acute Independent Insurance Adjuster for Francia Larry
[2019-05-28 20:37] VITALS: BP 114/76; PULSE 89; RESP 18; TEMP 36.6; O2SAT 98
[2019-05-28] MEDS: mirtazapine 30 mg Tablet PO (21:14)
[2019-05-29 05:13] VITALS: BP 138/94; PULSE 99; RESP 22; TEMP 36.9; O2SAT 99
[2019-05-29 06:00] VITALS: BMI 28.6
[2019-05-29 06:32] LABS: Glucose Point of Care 147 mg/dL (70-110)
[2019-05-29] MEDS: metformin 500 mg Tablet PO ×2 (07:26→16:57)
[2019-05-29] MEDS: cyanocobalamin 1,000 mcg Tablet 1000 MCG PO (08:57)
[2019-05-29] MEDS: folic acid 1 mg Tablet PO (08:57)
[2019-05-29] MEDS: atenolol 50 mg Tablet 25 MG PO (08:57)
[2019-05-29] MEDS: BuSPIRONE 5 mg Tablet PO ×3 (08:57→20:51)
[2019-05-29] MEDS: multivitamin therapeutic Tablet 1 TAB PO (08:57)
[2019-05-29 13:20] VITALS: BP 126/74
[2019-05-29 14:01] VITALS: BP 150/98; PULSE 85; RESP 18; TEMP 37.1; O2SAT 100
--- NOTE | 2019-05-29 14:04 | P.PN_ITS ---
Subjective NPU Subjective: Interval history: Roderick presented today initially saying those 2018 in January. He reported that the last president was Marie Rai, but he did identify the current president is Kian Barnes. He did come back with the right year but not the right month. He was aware that he is in the [facility], but believe that his home was in [facility]. When I told him his address, he said that was in [facility]. I showed him his home who are in my request and he did recognize it and identified that as his house and so he was orienting to the fact that that actually was in [place] and not elsewhere. He is eating and sleeping okay. Mental Status Exam MSE Comments: This is a overweight white male with adequate dress, grooming and eye contact. No abnormal movements except for mild psychomotor retardation using a walker to ambulate. Cooperative with exam in intermittent distress. Speech was normal rate and volume. Mood described as better, affect congruent. Thought process organized. Most poor but he identified being really confused. Thought content: Patient denied any suicidal or homicidal ideations, there were no delusions reported or noted, but significant confabulations exist, he denied any auditory or visual hallucinations. Attention and concentration appeared intact and memory was unreliable with confabulation present, but none were formally tested. He is alert and intermittently oriented. Insight and judgment are impaired. Vitals/I&O/Wt Last Vital Signs Temp 98.8 F 05/29/19 14:01 Pulse 85 05/29/19 14:01 Resp 18 05/29/19 14:01 BP 150/98 05/29/19 14:01 Pulse Ox 100 05/29/19 14:01 Weight last 48 hrs Weight 90.492 kg Data NPU : 05/19/19 17:29 05/19/19 17:29 A&P Additional A&P Information This is a 53-year-old white male with significant alcohol use now in the hospital for over a couple weeks with a UTI initially who presents seemingly worse than at admission with Warnicke Korsakoff. 1. Continue current medication. 2. Encourage individual, milieu and group therapy. 3. Continue every 15 minute checks for safety. 4. Working with and hospital risk management for discharge possibilities as home alone or with GF will not be safe. 5. Hospital exploring guardianship. Involuntary Hold Information 96 Hour Hold: 96 Hour Involuntary Admission: No Attestations NPU Medical Necessity Statement*: Inpatient hospitalization is medically necessary and the clinically appropriate intervention at this time. We will explore safe discharge plan given the likely chronic outcome of his condition. Likely length of stay 1-3 weeks. Coding Level of Care Code Acute Ornamental Brick Installer for Francia Laryr
[2019-05-29] MEDS: sennosides-docusate Tablet 1 TAB PO (16:57)
[2019-05-29] MEDS: trazodone 50 mg Tablet PO (20:51)
[2019-05-29] MEDS: mirtazapine 30 mg Tablet PO (20:51)
[2019-05-29] MEDS: neomycin-poly-bacitracin oint 28 gm 1 APPLIC TOPICAL (20:52)
[2019-05-29 21:38] VITALS: BP 130/83; PULSE 97; RESP 20; TEMP 36.8; O2SAT 100
--- NOTE | 2019-05-29 21:55 | PC.NURSE ---
20:51 Patient given PRN Trazodone for sleep
[2019-05-30 06:00] VITALS: BP 166/102; PULSE 90; RESP 18; TEMP 36.8; O2SAT 100
[2019-05-30 06:21] LABS: Glucose Point of Care 118 mg/dL (70-110)
[2019-05-30] MEDS: sennosides-docusate Tablet 1 TAB PO ×2 (06:31→18:10)
[2019-05-30] MEDS: metformin 500 mg Tablet PO ×2 (08:09→18:10)
[2019-05-30] MEDS: atenolol 50 mg Tablet 25 MG PO (09:11)
[2019-05-30] MEDS: cyanocobalamin 1,000 mcg Tablet 1000 MCG PO (09:12)
[2019-05-30] MEDS: folic acid 1 mg Tablet PO (09:12)
[2019-05-30] MEDS: thiamine 100 mg Tablet PO (09:12)
[2019-05-30] MEDS: BuSPIRONE 5 mg Tablet PO ×3 (09:12→20:29)
[2019-05-30] MEDS: multivitamin therapeutic Tablet 1 TAB PO (09:12)
[2019-05-30 14:00] VITALS: BP 136/89; PULSE 88; RESP 18; TEMP 36.8; O2SAT 99
--- NOTE | 2019-05-30 16:07 | P.PN_ITS ---
Subjective NPU Subjective: Interval history: Roderick presents today continuing to have the same challenges that he has had for weeks now. He spent most of the time asking questions about things that he has uncertainty about continuing to include the mortality of his parents. Today he cried for probably a minute or so after being advised that his parents were . Today however he turned his attention to other family members and how they were doing. He also was asking about his father's farm/property and his third of the inheritance. Mental Status Exam MSE Comments: This is a overweight white male with adequate dress, grooming and eye contact. No abnormal movements except for mild psychomotor retardation using a walker to ambulate. Cooperative with exam in intermittent distress. Speech was normal rate and volume. Mood described as OK, affect congruent but occasionally tearful. Thought process organized, improved but he identified being really confused. Thought content: Patient denied any suicidal or homicidal ideations, there were no delusions reported or noted, but significant confabulations exist, he denied any auditory or visual hallucinations. Attention and concentration appeared intact and memory was unreliable with confabulation present, but none were formally tested. He is alert and intermittently oriented. Insight and judgment are impaired. Vitals/I&O/Wt Last Vital Signs Temp 98.2 F 05/30/19 14:00 Pulse 88 05/30/19 14:00 Resp 18 05/30/19 14:00 BP 136/89 05/30/19 14:00 Pulse Ox 99 05/30/19 14:00 Weight last 48 hrs Weight 90.492 kg Data NPU : 05/19/19 17:29 05/19/19 17:29 A&P Additional A&P Information This is a 53-year-old white male with significant alcohol use now in the hospital for over a couple weeks with a UTI initially who presents seemingly worse than at admission with Warnicke Korsakoff. 1. Continue current medication. 2. Encourage individual, milieu and group therapy. 3. Continue every 15 minute checks for safety. 4. Working with and hospital risk management for discharge possibilities as home alone or with GF will not be safe. 5. Hospital exploring guardianship. Involuntary Hold Information 96 Hour Hold: 96 Hour Involuntary Admission: No Attestations NPU Medical Necessity Statement*: Inpatient hospitalization is medically necessary and the clinically appropriate intervention at this time. We will explore safe discharge plan given the likely chronic outcome of his condition. Likely length of stay 1-3 weeks. Coding Level of Care Code Acute Motor Vehicle Licence Examiner for Francia Larry
[2019-05-30] MEDS: neomycin-poly-bacitracin oint 28 gm 1 APPLIC TOPICAL (18:10)
[2019-05-30] MEDS: mirtazapine 30 mg Tablet PO (20:29)
[2019-05-30] MEDS: trazodone 50 mg Tablet PO (20:29)
--- NOTE | 2019-05-30 20:31 | PC.NURSE ---
TRAZODONE 50 MG PO GIVEN FOR SLEEP AIDE.
[2019-05-30 22:00] VITALS: BP 139/89; PULSE 88; RESP 19; TEMP 36.9; O2SAT 95
[2019-05-31 06:00] VITALS: BP 133/82; PULSE 102; RESP 20; TEMP 36.9; O2SAT 98
[2019-05-31 06:15] LABS: Glucose Point of Care 125 mg/dL (70-110)
[2019-05-31] MEDS: sennosides-docusate Tablet 1 TAB PO ×2 (07:40→17:14)
[2019-05-31] MEDS: metformin 500 mg Tablet PO ×2 (07:41→17:14)
[2019-05-31] MEDS: multivitamin therapeutic Tablet 1 TAB PO (09:03)
[2019-05-31] MEDS: BuSPIRONE 5 mg Tablet PO ×3 (09:03→20:18)
[2019-05-31] MEDS: cyanocobalamin 1,000 mcg Tablet 1000 MCG PO (09:03)
[2019-05-31] MEDS: atenolol 50 mg Tablet 25 MG PO (09:04)
[2019-05-31] MEDS: folic acid 1 mg Tablet PO (09:04)
[2019-05-31] MEDS: thiamine 100 mg Tablet PO (09:04)
--- NOTE | 2019-05-31 11:29 | P.PN_ITS ---
Subjective NPU Subjective: Interval history: Roderick presents today reporting that things are going fine he was particularly wanting to sit with me and not have me leave needy of and talk about the memories he cannot recall. He continues to struggle to maintain those memories the next day or even the next minute. Still struggles to embrace his father's but does recall his mother's . But he experiences them as if he is just being told for the first time. Mental Status Exam MSE Comments: This is a slightly disheveled overweight white male with adequate dress limited grooming and eye contact. No abnormal movements. Cooperative with exam in no acute distress. Speech was decreased rate and volume. Mood described as okay, affect slightly subdued. Thought process organized. Thought content: Patient denied any suicidal or homicidal ideations, there were no delusions reported or noted but his presentation is significant for confabulation and memory fill in, he denied any auditory or visual hallucinations. Attention and concentration were intact and memory was unreliable but none were formally tested. He is alert and oriented to person. Insight and judgment are impaired. Vitals/I&O/Wt Last Vital Signs Temp 97.9 F 06/01/19 06:00 Pulse 88 06/01/19 06:00 Resp 20 H 06/01/19 06:00 BP 157/87 06/01/19 06:00 Pulse Ox 100 06/01/19 06:00 Data NPU : 05/19/19 17:29 05/19/19 17:29 A&P Additional A&P Information This is a 53-year-old white male who is been in the hospital for over a month from the sequela of Warnicke Korsakoff syndrome with his memory being unreliable waking up each day with memories of having conversations for the first time. 1. Continue current medication regimen. 2. Encourage individual, group and milieu therapy. 3. Continue q. 15-minute checks for safety. 4. Work with social work to figure out an appropriate placement. Involuntary Hold Information 96 Hour Hold: 96 Hour Involuntary Admission: No Attestations NPU Medical Necessity Statement*: Inpatient hospitalization is medically necessary and the clinically appropriate intervention at this time. We will monitor medications and work for appropriate placement. Likely length of stay 7 to 10 days. Coding Level of Care Code Acute Chemical Treatment Plant Technician for Francia Larry
[2019-05-31] MEDS: nicotine 21 mg Patch 1 PATCH TRANSDERMA (12:44)
[2019-05-31 13:28] VITALS: BP 117/76; PULSE 86; RESP 18; TEMP 37.2; O2SAT 95
[2019-05-31] MEDS: neomycin-poly-bacitracin oint 28 gm 1 APPLIC TOPICAL (17:15)
[2019-05-31] MEDS: acetaminophen 325 mg Tablet 650 MG PO (19:26)
[2019-05-31] MEDS: mirtazapine 30 mg Tablet PO (20:18)
[2019-05-31] MEDS: trazodone 50 mg Tablet PO (20:18)
[2019-05-31 21:06] VITALS: BP 137/82; PULSE 99; RESP 22; TEMP 36.8; O2SAT 100
[2019-06-01 06:00] VITALS: BP 157/87; PULSE 88; RESP 20; TEMP 36.6; O2SAT 100
[2019-06-01] MEDS: sennosides-docusate Tablet 1 TAB PO ×2 (06:04→16:37)
[2019-06-01] MEDS: metformin 500 mg Tablet PO ×2 (07:43→16:36)
[2019-06-01] MEDS: folic acid 1 mg Tablet PO (07:43)
[2019-06-01] MEDS: BuSPIRONE 5 mg Tablet PO ×3 (07:43→20:25)
[2019-06-01] MEDS: atenolol 50 mg Tablet 25 MG PO (07:44)
[2019-06-01] MEDS: multivitamin therapeutic Tablet 1 TAB PO (07:44)
[2019-06-01] MEDS: thiamine 100 mg Tablet PO (07:44)
[2019-06-01] MEDS: cyanocobalamin 1,000 mcg Tablet 1000 MCG PO (07:44)
[2019-06-01] MEDS: neomycin-poly-bacitracin oint 28 gm 1 APPLIC TOPICAL ×2 (07:45→16:37)
--- NOTE | 2019-06-01 10:18 | P.PN_ITS ---
Subjective NPU Subjective: Interval history: The patient remains somewhat confused. 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 I suggested he and Dr. Arroyo would have that conversation. He is in no condition to do any of that. He was unable to remember who Dr. Arroyo is. 3 times I reminded him and 3 times he forgot. There may be some permanent Korsakoff damage. Medications: Reviewed: Yes Medication Review Details: I have my concerns as to whether outpatient compliance is even feasible at this point, what with his short-term memory deficits. Mental Status Exam MSE Comments: This is a 53-year-old male who presents approximately 10 years beyond his stated age. Mood is agitated, grief stricken, depressed. Affect is tense. Thought processes are scattered and it is difficult for him to focus or remember what the subject was even 3 or 4 sentences previously. Cognitive functions are clearly impaired. Insight and judgment likewise, as he has no understanding of the gravity of disease with which he is afflicted. Speech is of normal rate and volume and given to loose associations. He denies suicidal or homicidal ideation, plan or intent. Vitals/I&O/Wt Last Vital Signs Temp 97.9 F 06/01/19 06:00 Pulse 88 06/01/19 06:00 Resp 20 H 06/01/19 06:00 BP 157/87 06/01/19 06:00 Pulse Ox 100 06/01/19 06:00 Data NPU : 05/19/19 17:29 05/19/19 17:29 A&P Additional A&P Information Additional A&P Information This is a 53-year-old white male with significant alcohol use now in the hospital for over a couple weeks with a UTI initially who presents seemingly w orse than at admission with Warnicke Korsakoff. 1. Continue current medication. 2. Encourage individual, milieu and group therapy. 3. Continue every 15 minute checks for safety. 4. Working with and hospital risk management for discharge possibilities as home alone or with GF will not be safe. 5. Hospital exploring guardianship. Involuntary Hold Information 96 Hour Hold: 96 Hour Involuntary Admission: No Attestations NPU Medical Necessity Statement*: This patient is not safe to be discharged. He has significant memory deficits relative to Korsakoff's syndrome. I anticipate 5-7 midnights additional stay to effectuate a safe discharge plan and, possibly, acquisition of a guardian for this patient. Time Spent in Patient Care: Greater than 35 minutes (>than 50% of time spent in counselling and/or direct pt care on unit) . Coding Level of Care Code Acute Cannery Tender Engineer for Francia Larry
[2019-06-01 14:00] VITALS: BP 145/91; PULSE 91; RESP 20; TEMP 36.8; O2SAT 99
[2019-06-01] MEDS: acetaminophen 325 mg Tablet 650 MG PO (16:37)
[2019-06-01 19:50] VITALS: BP 138/89; PULSE 85; RESP 22; TEMP 36.7; O2SAT 100
[2019-06-01] MEDS: mirtazapine 30 mg Tablet PO (20:25)
[2019-06-01] MEDS: trazodone 50 mg Tablet PO (20:25)
[2019-06-02 05:29] LABS: Glucose Point of Care 125 mg/dL (70-110)
[2019-06-02 05:30] VITALS: BP 108/72; PULSE 114; RESP 21; TEMP 37.1; O2SAT 98
[2019-06-02] MEDS: sennosides-docusate Tablet 1 TAB PO ×2 (06:02→18:35)
[2019-06-02] MEDS: metformin 500 mg Tablet PO ×2 (08:29→17:07)
[2019-06-02] MEDS: folic acid 1 mg Tablet PO (08:30)
[2019-06-02] MEDS: atenolol 50 mg Tablet 25 MG PO (08:30)
[2019-06-02] MEDS: thiamine 100 mg Tablet PO (08:30)
[2019-06-02] MEDS: cyanocobalamin 1,000 mcg Tablet 1000 MCG PO (08:30)
[2019-06-02] MEDS: BuSPIRONE 5 mg Tablet PO ×3 (08:30→21:03)
[2019-06-02] MEDS: multivitamin therapeutic Tablet 1 TAB PO (08:30)
[2019-06-02] MEDS: nicotine 21 mg Patch 1 PATCH TRANSDERMA (12:36)
[2019-06-02 14:00] VITALS: BP 145/92; PULSE 90; RESP 18; TEMP 37; O2SAT 99
--- NOTE | 2019-06-02 16:45 | PM.NPN ---
Subjective NPU Subjective: Interval history: The patient remains somewhat confused. Mental Status Exam MSE Comments: This is a 53-year-old male who presents approximately 10 years beyond his stated age. Mood is agitated, grief stricken, depressed. Affect is tense. Thought processes are scattered and it is difficult for him to focus or remember what the subject was even 3 or 4 sentences previously. Cognitive functions are clearly impaired. Insight and judgment likewise, as he has no understanding of the gravity of disease with which he is afflicted. Speech is of normal rate and volume and given to loose associations. He denies suicidal or homicidal ideation, plan or intent. Cognition: Patient Appearance: Disheveled/Poor Hygiene Level of Consciousness: Awake and Follows Commands Patient Cognition Impaired: No Ability to Follow Directions: Excellent Patient Orientation (long list): Person Comprehension Ability: No Impairment Hallucination Type: None Delusion Description: Not Present Thought Process: Confused and Loose Associations Affect: Affect Description: Desha Behavior: Patient Behavior: Cooperative Speech Pattern: Clear Vitals/I&O/Wt Last Vital Signs Temp 98.6 F 06/02/19 14:00 Pulse 90 06/02/19 14:00 Resp 18 06/02/19 14:00 BP 145/92 06/02/19 14:00 Pulse Ox 99 06/02/19 14:00 Data NPU : 05/19/19 17:29 05/19/19 17:29 A&P Assessment and plan (1) Delirium: 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 1. Continue current medication. 4. Encourage individual, milieu and group therapy. 5. Continue every 15 minute checks for safety. 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 1. Continue current medication. 2. Encourage individual, milieu and group therapy. 3. Continue every 15 minute checks for safety. 4. Working with and hospital risk management for discharge possibilities as home alone or with GF will not be safe. 5. Hospital exploring guardianship. Involuntary Hold Information 96 Hour Hold: 96 Hour Involuntary Admission: No Attestations NPU Medical Necessity Statement*: patient will remain in the hospital another nine nights until we can find appropriate placement. Coding Level of Care Code Acute Staff Sonographer for [facility] Fwd Diagnoses Delirium R41.0 Wernicke-Korsakoff syndrome (alcoholic) F10.96
[2019-06-02 20:15] VITALS: BP 141/88; PULSE 90; RESP 17; TEMP 36.9; O2SAT 99
[2019-06-02] MEDS: mirtazapine 30 mg Tablet PO (21:03)
[2019-06-02] MEDS: trazodone 50 mg Tablet PO (21:03)
[2019-06-03 06:00] VITALS: BP 134/88; PULSE 98; RESP 16; TEMP 36.8; O2SAT 99
[2019-06-03] MEDS: sennosides-docusate Tablet 1 TAB PO ×2 (06:04→18:29)
[2019-06-03 06:23] LABS: Glucose Point of Care 126 mg/dL (70-110)
[2019-06-03] MEDS: thiamine 100 mg Tablet PO (08:55)
[2019-06-03] MEDS: cyanocobalamin 1,000 mcg Tablet 1000 MCG PO (08:55)
[2019-06-03] MEDS: folic acid 1 mg Tablet PO (08:55)
[2019-06-03] MEDS: metformin 500 mg Tablet PO ×2 (08:55→18:29)
[2019-06-03] MEDS: multivitamin therapeutic Tablet 1 TAB PO (08:56)
[2019-06-03] MEDS: atenolol 50 mg Tablet 25 MG PO (08:56)
[2019-06-03] MEDS: BuSPIRONE 5 mg Tablet PO ×3 (08:56→20:23)
--- NOTE | 2019-06-03 13:40 | P.PN_ITS ---
Subjective NPU Subjective: Interval history: The patient remains somewhat confused c/w alcoholic dementiia. Mental Status Exam MSE Comments: This is a 53-year-old male who presents approximately 10 years beyond his stated age. Mood is agitated, grief stricken, depressed. Affect is tense. Thought processes are scattered and it is difficult for him to focus or remember what the subject was even 3 or 4 sentences previously. Cognitive functions are clearly impaired. Insight and judgment likewise, as he has no understanding of the gravity of disease with which he is afflicted. Speech is of normal rate and volume and given to loose associations. He denies suicidal or homicidal ideation, plan or intent. Cognition: Patient Appearance: Disheveled/Poor Hygiene Level of Consciousness: Awake and Follows Commands Patient Cognition Impaired: No Ability to Follow Directions: Excellent Patient Orientation (long list): Person Comprehension Ability: No Impairment Hallucination Type: None Delusion Description: Not Present Thought Process: Confused Affect: Affect Description: Calm and Flat Behavior: Patient Behavior: Cooperative Speech Pattern: Clear Vitals/I&O/Wt Last Vital Signs Temp 98.3 F 06/03/19 06:00 Pulse 98 06/03/19 06:00 Resp 16 06/03/19 06:00 BP 134/88 06/03/19 06:00 Pulse Ox 99 06/03/19 06:00 Data NPU : 05/19/19 17:29 05/19/19 17:29 A&P Assessment and plan (1) Delirium: 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 1. Continue current medication. 4. Encourage individual, milieu and group therapy. 5. Continue every 15 minute checks for safety. 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 1. Continue current medication. 2. Encourage individual, milieu and group therapy. 3. Continue every 15 minute checks for safety. 4. Working with and hospital risk management for discharge possibilities as home alone or with GF will not be safe. 5. Hospital exploring guardianship. HD#[id number] - awaiting guardianship and then placement. No medication changes Involuntary Hold Information 96 Hour Hold: 96 Hour Involuntary Admission: No Attestations NPU Medical Necessity Statement*: pt to emain in hospital another 4 nights unteil the courst can determine guardianship. Coding Level of Care Code Acute Certified Medical Records Coder for g Fwd Diagnoses Delirium R41.0 Wernicke-Korsakoff syndrome (alcoholic) F10.96
[2019-06-03 14:00] VITALS: BP 156/103; PULSE 83; RESP 18; TEMP 36.8; O2SAT 99
[2019-06-03] MEDS: nicotine 21 mg Patch 1 PATCH TRANSDERMA (18:32)
[2019-06-03 20:12] VITALS: BP 141/100; PULSE 84; RESP 18; TEMP 37.1; O2SAT 97
[2019-06-03] MEDS: trazodone 50 mg Tablet PO (20:24)
[2019-06-03] MEDS: mirtazapine 30 mg Tablet PO (20:24)
[2019-06-04 06:00] VITALS: BP 117/78; PULSE 103; RESP 21; TEMP 36.9; O2SAT 99
[2019-06-04] MEDS: sennosides-docusate Tablet 1 TAB PO ×2 (06:10→18:47)
[2019-06-04 06:31] LABS: Glucose Point of Care 122 mg/dL (70-110)
[2019-06-04] MEDS: BuSPIRONE 5 mg Tablet PO ×3 (08:16→21:19)
[2019-06-04] MEDS: multivitamin therapeutic Tablet 1 TAB PO (08:16)
[2019-06-04] MEDS: folic acid 1 mg Tablet PO (08:17)
[2019-06-04] MEDS: atenolol 50 mg Tablet 25 MG PO (08:17)
[2019-06-04] MEDS: thiamine 100 mg Tablet PO (08:18)
[2019-06-04] MEDS: cyanocobalamin 1,000 mcg Tablet 1000 MCG PO (08:18)
[2019-06-04] MEDS: metformin 500 mg Tablet PO ×2 (08:19→17:32)
[2019-06-04] MEDS: neomycin-poly-bacitracin oint 28 gm 1 APPLIC TOPICAL ×2 (08:23→17:32)
--- NOTE | 2019-06-04 12:01 | PM.NPN ---
Subjective NPU Subjective: Interval history: The patient remains somewhat confused c/w alcoholic dementiia. Medications: Medication Review Details: Only prn medication in past 48 hours was trazodone at bedtime. Mental Status Exam MSE Comments: This is a 53-year-old male who presents approximately 10 years beyond his stated age. Mood is agitated, grief stricken, depressed. Affect is tense. Thought processes are scattered and it is difficult for him to focus or remember what the subject was even 3 or 4 sentences previously. Cognitive functions are clearly impaired. Insight and judgment likewise, as he has no understanding of the gravity of disease with which he is afflicted. Speech is of normal rate and volume and given to loose associations. He denies suicidal or homicidal ideation, plan or intent. Cognition: Patient Appearance: Appropriate Level of Consciousness: Awake and Follows Commands Patient Cognition Impaired: No Ability to Follow Directions: Excellent Patient Orientation (long list): Person Comprehension Ability: No Impairment Hallucination Type: None Delusion Description: Not Present Thought Process: Confused Affect: Affect Description: [place] Behavior: Patient Behavior: Appropriate Speech Pattern: Clear Vitals/I&O/Wt Last Vital Signs Temp 98.5 F 06/04/19 06:00 Pulse 103 H 06/04/19 06:00 Resp 21 H 06/04/19 06:00 BP 117/78 06/04/19 06:00 Pulse Ox 99 06/04/19 06:00 Data NPU : 05/19/19 17:29 05/19/19 17:29 A&P Assessment and plan (1) Delirium: 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 1. Continue current medication. 4. Encourage individual, milieu and group therapy. 5. Continue every 15 minute checks for safety. 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 1. Continue current medication. 2. Encourage individual, milieu and group therapy. 3. Continue every 15 minute checks for safety. 4. Working with SW and hospital risk management for discharge possibilities as home alone or with GF will not be safe. 5. Hospital exploring guardianship. HD#23 - awaiting guardianship and then placement. No medication changes HD#24 - awaiting guardianship and then placement. No medication changes Involuntary Hold Information 96 Hour Hold: 96 Hour Involuntary Admission: No Attestations NPU Medical Necessity Statement*: patient to remain in hospital another 5 nights until he receives guardianship andplacement can be found. 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
[2019-06-04 13:12] VITALS: BP 152/98
[2019-06-04] MEDS: nicotine 2 mg Gum BUCCAL (14:15)
[2019-06-04] MEDS: acetaminophen 325 mg Tablet 650 MG PO (18:47)
[2019-06-04 21:06] VITALS: BP 120/84; PULSE 91; RESP 18; TEMP 36.9; O2SAT 98
[2019-06-04] MEDS: mirtazapine 30 mg Tablet PO (21:18)
[2019-06-05 06:00] VITALS: BP 121/83; PULSE 92; RESP 20; TEMP 37.4; O2SAT 98
[2019-06-05] MEDS: metformin 500 mg Tablet PO ×2 (06:49→16:52)
[2019-06-05] MEDS: sennosides-docusate Tablet 1 TAB PO ×2 (06:49→16:53)
[2019-06-05 07:00] LABS: Glucose Point of Care 129 mg/dL (70-110)
[2019-06-05] MEDS: thiamine 100 mg Tablet PO (09:00)
[2019-06-05] MEDS: BuSPIRONE 5 mg Tablet PO ×3 (09:00→20:10)
[2019-06-05] MEDS: cyanocobalamin 1,000 mcg Tablet 1000 MCG PO (09:00)
[2019-06-05] MEDS: atenolol 50 mg Tablet 25 MG PO (09:00)
[2019-06-05] MEDS: neomycin-poly-bacitracin oint 28 gm 1 APPLIC TOPICAL ×2 (09:00→16:53)
[2019-06-05 13:56] VITALS: BP 120/80; PULSE 90; RESP 18; TEMP 37.2; O2SAT 94
--- NOTE | 2019-06-05 15:20 | PM.NPN ---
Subjective NPU Subjective: Interval history: Patient without complaint. Mental Status Exam MSE Comments: This is a 53-year-old male who presents approximately 10 years beyond his stated age. Mood is agitated, grief stricken, depressed. Affect is tense. Thought processes are scattered and it is difficult for him to focus or remember what the subject was even 3 or 4 sentences previously. Cognitive functions are clearly impaired. Insight and judgment likewise, as he has no understanding of the gravity of disease with which he is afflicted. Speech is of normal rate and volume and given to loose associations. He denies suicidal or homicidal ideation, plan or intent. Vitals/I&O/Wt Last Vital Signs Temp 98.9 F 06/05/19 13:56 Pulse 90 06/05/19 13:56 Resp 18 06/05/19 13:56 BP 120/80 06/05/19 13:56 Pulse Ox 94 06/05/19 13:56 Weight last 48 hrs Weight 90.9 kg Data NPU : 05/19/19 17:29 05/19/19 17:29 A&P Additional A&P Information (1) Delirium: 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 1. Continue current medication. 4. Encourage individual, milieu and group therapy. 5. Continue every 15 minute checks for safety. 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 1. Continue current medication. 2. Encourage individual, milieu and group therapy. 3. Continue every 15 minute checks for safety. 4. Working with and hospital risk management for discharge possibilities as home alone or with GF will not be safe. 5. Hospital exploring guardianship. HD#23 - awaiting guardianship and then placement. No medication changes HD#24 - awaiting guardianship and then placement. No medication changes Involuntary Hold Information 96 Hour Hold: 96 Hour Involuntary Admission: No Attestations NPU Medical Necessity Statement*: Pt to remain in the hospital 1-2 more nights to facilitate placement Coding Level of Care Code Acute Hvac Maintenance Technician for [facility]
[2019-06-05] MEDS: mirtazapine 30 mg Tablet PO (20:10)
[2019-06-05 21:33] VITALS: BP 177/96; PULSE 87; RESP 18; TEMP 37.1; O2SAT 98
[2019-06-06 05:54] LABS: Glucose Point of Care 110 mg/dL (70-110)
[2019-06-06 05:57] VITALS: BP 150/97; PULSE 92; RESP 18; TEMP 36.9; O2SAT 98
[2019-06-06] MEDS: sennosides-docusate Tablet 1 TAB PO ×2 (06:05→17:48)
[2019-06-06] MEDS: BuSPIRONE 5 mg Tablet PO ×3 (08:22→20:52)
[2019-06-06] MEDS: metformin 500 mg Tablet PO ×2 (08:22→17:48)
[2019-06-06] MEDS: atenolol 50 mg Tablet 25 MG PO (08:22)
[2019-06-06] MEDS: thiamine 100 mg Tablet PO (08:22)
[2019-06-06] MEDS: cyanocobalamin 1,000 mcg Tablet 1000 MCG PO (08:22)
[2019-06-06 13:45] VITALS: BP 149/96; PULSE 80; RESP 20; TEMP 36.4; O2SAT 98
[2019-06-06] MEDS: nicotine 21 mg Patch 1 PATCH TRANSDERMA (14:27)
--- NOTE | 2019-06-06 16:46 | PM.NPN ---
Subjective NPU Subjective: Interval history: Patient without complaint. Medications: Medication Review Details: . Mental Status Exam MSE Comments: This is a 53-year-old male who presents approximately 10 years beyond his stated age. Mood is agitated, grief stricken, depressed. Affect is tense. Thought processes are scattered and it is difficult for him to focus or remember what the subject was even 3 or 4 sentences previously. Cognitive functions are clearly impaired. Insight and judgment likewise, as he has no understanding of the gravity of disease with which he is afflicted. Speech is of normal rate and volume and given to loose associations. He denies suicidal or homicidal ideation, plan or intent. Cognition: Patient Appearance: Appropriate Level of Consciousness: Awake and Follows Commands Patient Cognition Impaired: No Ability to Follow Directions: Excellent Patient Orientation (long list): Person Comprehension Ability: No Impairment Hallucination Type: None Delusion Description: Not Present Thought Process: Confused Affect: Affect Description: Anxious Behavior: Patient Behavior: Appropriate Speech Pattern: Appropriate Vitals/I&O/Wt Last Vital Signs Temp 97.5 F L 06/06/19 13:45 Pulse 80 06/06/19 13:45 Resp 20 H 06/06/19 13:45 BP 149/96 06/06/19 13:45 Pulse Ox 98 06/06/19 13:45 Weight last 48 hrs Weight 90.9 kg Data NPU : 05/19/19 17:29 05/19/19 17:29 A&P Assessment and plan (1) Delirium: 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 1. Continue current medication. 4. Encourage individual, milieu and group therapy. 5. Continue every 15 minute checks for safety. 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 1. Continue current medication. 4. Encourage individual, milieu and group therapy. 5. Continue every 15 minute checks for safety. 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 1. Continue current medication. 2. Encourage individual, milieu and group therapy. 3. Continue every 15 minute checks for safety. 4. Working with and hospital risk management for discharge possibilities as home alone or with GF will not be safe. 5. Hospital exploring guardianship. HD#23 - awaiting guardianship and then placement. No medication changes HD#24 - awaiting guardianship and then placement. No medication changes HD#24 - awaiting guardianship and then placement. No medication changes Involuntary Hold Information 96 Hour Hold: 96 Hour Involuntary Admission: No Attestations NPU Medical Necessity Statement*: patient remained in the hospital another 5 more nights until he can find a place for him to go. 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
[2019-06-06] MEDS: neomycin-poly-bacitracin oint 28 gm 1 APPLIC TOPICAL (18:24)
[2019-06-06 20:13] VITALS: BP 172/118; PULSE 88; RESP 23; TEMP 36.9; O2SAT 98
[2019-06-06] MEDS: hyDROXYzine 25 mg Capsule 50 MG PO (20:52)
[2019-06-06] MEDS: mirtazapine 30 mg Tablet PO (20:52)
[2019-06-06] MEDS: trazodone 50 mg Tablet PO (22:43)
[2019-06-07] MEDS: hyDROXYzine 25 mg Capsule 50 MG PO (01:46)
[2019-06-07 05:34] LABS: Glucose Point of Care 116 mg/dL (70-110)
[2019-06-07 06:00] VITALS: BP 96/55; PULSE 113; RESP 18; TEMP 37.1; O2SAT 95
[2019-06-07] MEDS: BuSPIRONE 5 mg Tablet PO ×3 (08:16→20:14)
[2019-06-07] MEDS: atenolol 50 mg Tablet 25 MG PO (08:16)
[2019-06-07] MEDS: neomycin-poly-bacitracin oint 28 gm 1 APPLIC TOPICAL (08:16)
[2019-06-07] MEDS: metformin 500 mg Tablet PO ×2 (08:16→17:21)
[2019-06-07] MEDS: thiamine 100 mg Tablet PO (08:16)
[2019-06-07] MEDS: cyanocobalamin 1,000 mcg Tablet 1000 MCG PO (08:16)
--- NOTE | 2019-06-07 10:33 | P.PN_ITS ---
Subjective NPU Subjective: Interval history: Patient without complaint. Medications: Medication Review Details: .Selected Entries 06/05/19 13:56 06/05/19 21:33 06/06/19 05:57 Pulse Rate 90 87 92 Blood Pressure 120/80 177/96 150/97 06/06/19 13:45 06/06/19 20:13 06/07/19 06:00 Pulse Rate 80 88 113 H Blood Pressure 149/96 172/118 96/55 Mental Status Exam MSE Comments: This is a 53-year-old male who presents approximately 10 years beyond his stated age. Mood is agitated, grief stricken, depressed. Affect is tense. Thought processes are scattered and it is difficult for him to focus or remember what the subject was even 3 or 4 sentences previously. Cognitive functions are clearly impaired. Insight and judgment likewise, as he has no understanding of the gravity of disease with which he is afflicted. Speech is of normal rate and volume and given to loose associations. He denies suicidal or homicidal ideation, plan or intent. Cognition: Patient Appearance: Appropriate and Disheveled/Poor Hygiene Level of Consciousness: Awake and Follows Commands Patient Cognition Impaired: No Ability to Follow Directions: Excellent Patient Orientation (long list): Person Comprehension Ability: No Impairment Hallucination Type: None Delusion Description: Not Present Thought Process: Confused Affect: Affect Description: Appropriate Behavior: Patient Behavior: Appropriate Speech Pattern: Appropriate Vitals/I&O/Wt Last Vital Signs Temp 98.7 F 06/07/19 06:00 Pulse 113 H 06/07/19 06:00 Resp 18 06/07/19 06:00 BP 96/55 06/07/19 06:00 Pulse Ox 95 06/07/19 06:00 Data NPU : 05/19/19 17:29 05/19/19 17:29 A&P Assessment and plan (1) Delirium: 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 1. Continue current medication. 4. Encourage individual, milieu and group therapy. 5. Continue every 15 minute checks for safety. 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 No indication for adjustment in medication at this time but will continue observation. 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 1. Continue current medication. 4. Encourage individual, milieu and group therapy. 5. Continue every 15 minute checks for safety. 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 1. Continue current medication. 2. Encourage individual, milieu and group therapy. 3. Continue every 15 minute checks for safety. 4. Working with and hospital risk management for discharge possibilities as home alone or with GF will not be safe. 5. Hospital exploring guardianship. HD#23 - awaiting guardianship and then placement. No medication changes HD#24 - awaiting guardianship and then placement. No medication changes HD#24 - awaiting guardianship and then placement. No medication changes Involuntary Hold Information 96 Hour Hold: 96 Hour Involuntary Admission: No Attestations NPU Medical Necessity Statement*: patient to remain in the hospital another 5 nights until placement can be acquired. 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
[2019-06-07 13:29] VITALS: BP 145/96; PULSE 82; RESP 20; TEMP 36.9; O2SAT 100
[2019-06-07] MEDS: sennosides-docusate Tablet 1 TAB PO (17:21)
[2019-06-07 20:11] VITALS: BP 115/86; PULSE 88; RESP 19; TEMP 36.9; O2SAT 97
[2019-06-07] MEDS: mirtazapine 30 mg Tablet PO (20:14)
[2019-06-08 06:00] VITALS: BP 177/109; PULSE 91; RESP 20; TEMP 37.1; O2SAT 97
[2019-06-08] MEDS: hyDROXYzine 25 mg Capsule 50 MG PO ×2 (06:19→20:27)
--- NOTE | 2019-06-08 06:19 | PC.NURSE ---
PRN VISTARIL VISTARIL 50MG PO FOR ANXIETY. PATIENT IS SITTING IN ROOM CRYING AND CONFUSED. WILL CONTINUE TO MONITOR FOR MEDICATION EFFECTIVENESS.
[2019-06-08 06:31] LABS: Glucose Point of Care 116 mg/dL (70-110)
[2019-06-08] MEDS: atenolol 50 mg Tablet 25 MG PO (08:19)
[2019-06-08] MEDS: BuSPIRONE 5 mg Tablet PO ×3 (08:20→20:27)
[2019-06-08] MEDS: metformin 500 mg Tablet PO (08:20)
[2019-06-08] MEDS: thiamine 100 mg Tablet PO (08:20)
[2019-06-08] MEDS: cyanocobalamin 1,000 mcg Tablet 1000 MCG PO (08:20)
[2019-06-08 14:00] VITALS: BP 152/98; PULSE 79; RESP 16; TEMP 36.9; O2SAT 99
--- NOTE | 2019-06-08 15:55 | P.PN_ITS ---
Subjective NPU Subjective: Interval history: Horacio is without complaint. Medications: Medication Review Details: Current Medications Acetaminophen (Tylenol) 325 - 650 mg PO Q4H PRN PRN Reason: MILD PAIN OR INCREASE TEMP Last Admin: 07/12/19 20:58 Dose: 650 mg Documented by: Atenolol (Tenormin) 50 mg PO DAILY [facility] Last Admin: 07/13/19 08:19 Dose: 50 mg Documented by: Fluoxetine HCl (Prozac) 20 mg PO DAILY [facility] Last Admin: 07/13/19 08:19 Dose: 20 mg Documented by: Trazodone HCl (Desyrel) 50 mg PO BEDTIME PRN PRN Reason: SLEEP Last Admin: 07/12/19 20:46 Dose: 50 mg Documented by: Mental Status Exam MSE Comments: MSE Comments: This is a 53-year-old male who presents approximately 10 years beyond his stated age. Mood is agitated, grief stricken, depressed. Affect is tense. Thought processes are scattered and it is difficult for him to focus or remember what the subject was even 3 or 4 sentences previously. Cognitive functions are clearly impaired. Insight and judgment likewise, as he has no understanding of the gravity of disease with which he is afflicted. Speech is of normal rate and volume and given to loose associations. He denies suicidal or homicidal ideation, plan or intent. Cognition: Patient Appearance: Appropriate and Disheveled/Poor Hygiene Level of Consciousness: Awake and Follows Commands Patient Cognition Impaired: No Ability to Follow Directions: Excellent Patient Orientation (long list): Person Comprehension Ability: No Impairment Hallucination Type: None Delusion Description: Not Present Thought Process: Confused Affect: Affect Description: Appropriate Behavior: Patient Behavior: Appropriate Speech Pattern: Appropriate A&P Assessment and plan (1) Delirium: 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 1. Continue current medication. 4. Encourage individual, milieu and group therapy. 5. Continue every 15 minute checks for safety. 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 No indication for adjustment in medication at this time but will continue observation. Cognition: Patient Appearance: Disheveled/Poor Hygiene Level of Consciousness: Awake, Alert, Appropriate and Follows Commands Patient Cognition Impaired: No Ability to Follow Directions: Excellent Patient Orientation (long list): Person Comprehension Ability: No Impairment Hallucination Type: None Delusion Description: Paranoid Ideation Thought Process: Confused Affect: Affect Description: Appropriate and Calm Behavior: Patient Behavior: Cooperative Speech Pattern: Clear Vitals/I&O/Wt Last Vital Signs Temp 97.9 F 07/29/19 12:29 Pulse 75 07/29/19 12:29 Resp 16 07/29/19 12:29 BP 115/83 07/29/19 12:29 Pulse Ox 100 07/29/19 12:29 Data NPU : 06/18/19 06:43 06/18/19 06:43 A&P Assessment and plan (1) Wernicke-Korsakoff syndrome (alcoholic): (1) Delirium: 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 1. Continue current medication. 4. Encourage individual, milieu and group therapy. 5. Continue every 15 minute checks for safety. 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 1. Continue current medication. 2. Encourage individual, milieu and group therapy. 3. Continue every 15 minute checks for safety. 4. Working with and hospital risk management for discharge possibilities as home alone or with GF will not be safe. 5. Hospital exploring guardianship. HD#23 - awaiting guardianship and then placement. No medication changes HD#24 - awaiting guardianship and then placement. No medication changes HD#24 - awaiting guardianship and then placement. No medication changes HD#25 - awaiting guardianship and then placement. No medication changes Status: Chronic (2) Alcohol abuse: Status: Chronic (3) Complicated grief: Status: Acute Additional A&P Information (1) Wernicke-Korsakoff syndrome (alcoholic): This is a 53-year-old white male with Warnicke Korsakoff syndrome who presents with some slight improvement continuing with his short-term memory continuing to work with the treatment team and his guardian to find placement while he continues to try to improve enough to regain his independence. 1. Continue current medication. 2. Encourage individual, group and milieu therapy. 3. Continue to 15-minute checks for safety. 4. We will work with treatment team and guardian to find a place for continued convalescence. (2) Alcohol abuse: (3) Complicated grief: Involuntary Hold Information 96 Hour Hold: 96 Hour Involuntary Admission: No Attestations NPU Medical Necessity Statement*: I'm guessing he will be in the hospital for more than another month before placement can be found; Coding Level of Care Code Acute Passenger Service Supervisor for [facility] Fwd Diagnoses Wernicke-Korsakoff syndrome (alcoholic) F10.96 Alcohol abuse F10.10 Complicated grief F43.29
[2019-06-08 20:04] VITALS: BP 177/101; PULSE 85; RESP 20; TEMP 36.8; O2SAT 99
[2019-06-08] MEDS: mirtazapine 30 mg Tablet PO (20:27)
[2019-06-09 05:57] VITALS: BP 161/94; PULSE 85; RESP 22; TEMP 36.6; O2SAT 99
--- NOTE | 2019-06-09 09:24 | P.PN_ITS ---
Subjective NPU Subjective: Interval history: Patient without complaint. Medications: Medication Review Details: .Selected Entries 06/05/19 13:56 06/05/19 21:33 06/06/19 05:57 Pulse Rate 90 87 92 Blood Pressure 120/80 177/96 150/97 06/06/19 13:45 06/06/19 20:13 06/07/19 06:00 Pulse Rate 80 88 113 H Blood Pressure 149/96 172/118 96/55 Mental Status Exam MSE Comments: This is a 53-year-old male who presents approximately 10 years beyond his stated age. Mood is agitated, grief stricken, depressed. Affect is tense. Thought processes are scattered and it is difficult for him to focus or remember what the subject was even 3 or 4 sentences previously. Cognitive functions are clearly impaired. Insight and judgment likewise, as he has no understanding of the gravity of disease with which he is afflicted. Speech is of normal rate and volume and given to loose associations. He denies suicidal or homicidal ideation, plan or intent. Cognition: Patient Appearance: Disheveled/Poor Hygiene Level of Consciousness: Awake and Follows Commands Patient Cognition Impaired: No Ability to Follow Directions: Excellent Patient Orientation (long list): Person Comprehension Ability: No Impairment Hallucination Type: None Delusion Description: Not Present Thought Process: Confused Affect: Affect Description: Appropriate and Calm Behavior: Patient Behavior: Appropriate Speech Pattern: Clear Vitals/I&O/Wt Last Vital Signs Temp 97.9 F 06/09/19 05:57 Pulse 85 06/09/19 05:57 Resp 22 H 06/09/19 05:57 BP 161/94 06/09/19 05:57 Pulse Ox 99 06/09/19 05:57 Data NPU : 05/19/19 17:29 05/19/19 17:29 A&P Assessment and plan (1) Delirium: 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 1. Continue current medication. 4. Encourage individual, milieu and group therapy. 5. Continue every 15 minute checks for safety. 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 No indication for adjustment in medication at this time but will continue observation. 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 1. Continue current medication. 4. Encourage individual, milieu and group therapy. 5. Continue every 15 minute checks for safety. 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 1. Continue current medication. 2. Encourage individual, milieu and group therapy. 3. Continue every 15 minute checks for safety. 4. Working with and hospital risk management for discharge possibilities as home alone or with GF will not be safe. 5. Hospital exploring guardianship. HD#23 - awaiting guardianship and then placement. No medication changes HD#24 - awaiting guardianship and then placement. No medication changes HD#24 - awaiting guardianship and then placement. No medication changes HD#25 - awaiting guardianship and then placement. No medication changes Involuntary Hold Information 96 Hour Hold: 96 Hour Involuntary Admission: No Attestations NPU Medical Necessity Statement*: Patient remained in the hospital for 5 nights awaiting establishment of guardianship and placement. 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
[2019-06-09] MEDS: thiamine 100 mg Tablet PO (09:30)
[2019-06-09] MEDS: atenolol 50 mg Tablet 25 MG PO (09:30)
[2019-06-09] MEDS: cyanocobalamin 1,000 mcg Tablet 1000 MCG PO (09:30)
[2019-06-09] MEDS: BuSPIRONE 5 mg Tablet PO ×3 (09:30→20:40)
[2019-06-09] MEDS: neomycin-poly-bacitracin oint 28 gm 1 APPLIC TOPICAL (09:31)
[2019-06-09 14:00] VITALS: BP 159/84; PULSE 78; RESP 18; TEMP 36.9; O2SAT 98
[2019-06-09] MEDS: nicotine 21 mg Patch 1 PATCH TRANSDERMA (17:05)
[2019-06-09] MEDS: acetaminophen 325 mg Tablet 650 MG PO (18:51)
[2019-06-09] MEDS: mirtazapine 30 mg Tablet PO (20:40)
[2019-06-09 21:37] VITALS: BP 163/99; PULSE 78; RESP 19; TEMP 36.9; O2SAT 98
[2019-06-09] MEDS: trazodone 50 mg Tablet PO (23:45)
[2019-06-10] MEDS: acetaminophen 325 mg Tablet 650 MG PO (00:56)
[2019-06-10] MEDS: cloNIDine 0.1 mg Tablet PO (05:25)
[2019-06-10 06:00] VITALS: BP 191/115; PULSE 88; RESP 17; TEMP 36.5; O2SAT 100
[2019-06-10 06:29] VITALS: BP 104/71
[2019-06-10] MEDS: BuSPIRONE 5 mg Tablet PO ×3 (08:18→20:33)
[2019-06-10] MEDS: neomycin-poly-bacitracin oint 28 gm 1 APPLIC TOPICAL (08:18)
[2019-06-10] MEDS: cyanocobalamin 1,000 mcg Tablet 1000 MCG PO (08:18)
[2019-06-10] MEDS: atenolol 50 mg Tablet 25 MG PO ×2 (08:18→13:26)
[2019-06-10] MEDS: thiamine 100 mg Tablet PO (08:18)
--- NOTE | 2019-06-10 12:22 | P.PN_ITS ---
Subjective NPU Subjective: Interval history: Patient without complaint. Medications: Medication Review Details: .Patient has episodic complaints of not feeling well. he can be no more specific. Staff reports spurious BP elevations that do seem to have a pattern. Sleep report indicate that he is only sleeping 4 hours per night. Selected Entries 06/05/19 13:56 06/05/19 21:33 06/06/19 05:57 Pulse Rate 90 87 92 Blood Pressure 120/80 177/96 150/97 06/06/19 13:45 06/06/19 20:13 06/07/19 06:00 Pulse Rate 80 88 113 H Blood Pressure 149/96 172/118 96/55 Mental Status Exam MSE Comments: This is a 53-year-old male who presents approximately 10 years beyond his stated age. Mood is agitated, grief stricken, depressed. Affect is tense. Thought processes are scattered and it is difficult for him to focus or remember what the subject was even 3 or 4 sentences previously. Cognitive functions are clearly impaired. Insight and judgment likewise, as he has no understanding of the gravity of disease with which he is afflicted. Speech is of normal rate and volume and given to loose associations. He denies suicidal or homicidal ideation, plan or intent. Cognition: Patient Appearance: Appears Older than Age Level of Consciousness: Awake and Follows Commands Patient Cognition Impaired: No Ability to Follow Directions: Excellent Patient Orientation (long list): Person Comprehension Ability: No Impairment Hallucination Type: None Delusion Description: Not Present Thought Process: Confused Affect: Affect Description: Calm Behavior: Patient Behavior: Cooperative Speech Pattern: Clear Vitals/I&O/Wt Last Vital Signs Temp 97.7 F 06/10/19 06:00 Pulse 88 06/10/19 06:00 Resp 17 06/10/19 06:00 BP 104/71 06/10/19 06:29 Pulse Ox 100 06/10/19 06:00 Data NPU : 05/19/19 17:29 05/19/19 17:29 A&P Assessment and plan (1) Delirium: 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 1. Continue current medication. 4. Encourage individual, milieu and group therapy. 5. Continue every 15 minute checks for safety. 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 No indication for adjustment in medication at this time but will continue observation. 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 1. Continue current medication. 4. Encourage individual, milieu and group therapy. 5. Continue every 15 minute checks for safety. 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 1. Continue current medication. 2. Encourage individual, milieu and group therapy. 3. Continue every 15 minute checks for safety. 4. Working with and hospital risk management for discharge possibilities as home alone or with GF will not be safe. 5. Hospital exploring guardianship. HD#23 - awaiting guardianship and then placement. No medication changes HD#24 - awaiting guardianship and then placement. No medication changes HD#24 - awaiting guardianship and then placement. No medication changes HD#25 - awaiting guardianship and then placement. No medication changes HD#26 - .Patient has episodic complaints of not feeling well. he can be no more specific. Staff reports spurious BP elevations that do seem to have a pattern. Sleep report indicate that he is only sleeping 4 hours per night. PLAN: increase atenlol to 50 mg daily for hyperension and start clonazepam 1 mg at bedtime which may improve sleep time and also provide some anxiety relief (that may be an explanation for the tachypnea ) during the day. Involuntary Hold Information 96 Hour Hold: 96 Hour Involuntary Admission: No Attestations NPU Medical Necessity Statement*: pateint will remain n the hospital another 4-5 nights until guardainship is granted. Coding Level of Care Code Acute [employer] for Francia Larry Diagnoses Delirium R41.0 Wernicke-Korsakoff syndrome (alcoholic) F10.96
[2019-06-10 14:00] VITALS: BP 104/71; PULSE 85; RESP 20; TEMP 36.9; O2SAT 100
[2019-06-10] MEDS: CLONazepam 1 mg Tablet PO (20:33)
[2019-06-10] MEDS: trazodone 50 mg Tablet PO (20:33)
[2019-06-10] MEDS: mirtazapine 30 mg Tablet PO (20:33)
[2019-06-10 21:44] VITALS: BP 148/94; PULSE 85; RESP 22; TEMP 37; O2SAT 100
[2019-06-11 06:00] VITALS: BP 151/92; PULSE 83; RESP 20; TEMP 36.7; O2SAT 100
[2019-06-11 06:26] LABS: Glucose Point of Care 132 mg/dL (70-110)
--- NOTE | 2019-06-11 07:54 | PM.NPN ---
Subjective NPU Subjective: Interval history: Patient asked pertinent questions about why he is here. The same questions he askes periodically abut cannot recall the answers. However, his distant memory he is able to recall. Medications: Medication Review Details: Selected Entries 06/06/19 13:45 06/06/19 20:13 06/07/19 06:00 Respiratory Rate 20 H 23 H 18 Blood Pressure 149/96 172/118 96/55 06/07/19 13:29 06/07/19 20:11 06/08/19 06:00 Respiratory Rate 20 H 19 H 20 H Blood Pressure 145/96 115/86 177/109 06/08/19 14:00 06/08/19 20:04 06/09/19 05:57 Respiratory Rate 16 20 H 22 H Blood Pressure 152/98 177/101 161/94 06/09/19 14:00 06/09/19 21:37 06/10/19 06:00 Respiratory Rate 18 19 H Blood Pressure 159/84 163/99 191/115 06/10/19 06:29 06/10/19 14:00 06/10/19 21:44 Respiratory Rate 20 H 22 H Blood Pressure 104/71 104/71 148/94 06/11/19 06:00 Respiratory Rate 20 H Blood Pressure 151/92 Mental Status Exam MSE Comments: Mental Status Exam: Patient is alert and personally engaged. Eye contact is good. Appearance: hygiene is good; no gross neurological deficits., gait is unremarkable; AIMS=0 Speech: Speech is of normal rate and rhythm and easily understood. Thought processes: Thought processes are abstract. Judgment is not adequate for safety Because he does not have His storyreference to hold in memory that would allow him to not makes mistakes when she is made before i.e. drinking to inebriation on a daily basis.. Associations: intact Psychotic processes: There is no indication of guarding or paranoia. There is no attention to the internal stimuli. Auditory and visual hallucinations are denied. Judgment: Insight is fair. Problem solving skills are adequate for safety. Orientation: The patient is oriented to person, place time and situation. Memory: Memory is severely impaired. He does not appear to be able to lay down new memory and cannot recall that he has told me repeatedly times how his father was the driving force behind [facility] as a town. He tells me the story almost everyday. 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 Attention: The patient is alert and interpersonally engaged. Language: Verbalizations are coherent. Fund of knowledge: Fund of knowledge is adequate. Affect/Mood: Affect is consistent with a Mildlydepressed mood. He denied suicidal ideation Affective range is Constricted Psychosis: perception unimpaired except through cognitive distortion; reality testing intact. Cognition: Patient Appearance: Appears Older than Age Level of Consciousness: Awake and Follows Commands Patient Cognition Impaired: No Ability to Follow Directions: Excellent Patient Orientation (long list): Person Comprehension Ability: No Impairment Hallucination Type: None Delusion Description: Not Present Thought Process: Confused Affect: Affect Description: Calm Behavior: Patient Behavior: Appropriate Speech Pattern: Clear Vitals/I&O/Wt Last Vital Signs Temp 98.1 F 06/11/19 06:00 Pulse 83 06/11/19 06:00 Resp 20 H 06/11/19 06:00 BP 151/92 06/11/19 06:00 Pulse Ox 100 06/11/19 06:00 Data NPU : 05/19/19 17:29 05/19/19 17:29 A&P Assessment and plan (1) Delirium: 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 1. Continue current medication. 4. Encourage individual, milieu and group therapy. 5. Continue every 15 minute checks for safety. 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 No indication for adjustment in medication at this time but will continue observation. 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 1. Continue current medication. 4. Encourage individual, milieu and group therapy. 5. Continue every 15 minute checks for safety. 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 1. Continue current medication. 2. Encourage individual, milieu and group therapy. 3. Continue every 15 minute checks for safety. 4. Working with and hospital risk management for discharge possibilities as home alone or with GF will not be safe. 5. Hospital exploring guardianship. HD#23 - awaiting guardianship and then placement. No medication changes HD#24 - awaiting guardianship and then placement. No medication changes HD#24 - awaiting guardianship and then placement. No medication changes HD#25 - awaiting guardianship and then placement. No medication changes HD#26 - .Patient has episodic complaints of not feeling well. he can be no more specific. Staff reports spurious BP elevations that do seem to have a pattern. Sleep report indicate that he is only sleeping 4 hours per night. PLAN: increase atenlol to 50 mg daily for hyperension and start clonazepam 1 mg at bedtime which may improve sleep time and also provide some anxiety relief (that may be an explanation for the tachypnea ) during the day. Hospital day #27: She has tolerated the increase in the atenolol and sleep has improved. No further changes are indicated at this time and medication. It is suggested that he be provided with as many stimulating cognitive exercises as possible. He does not like word problems but other types of brain stimulation games he appreciates. Involuntary Hold Information 96 Hour Hold: 96 Hour Involuntary Admission: No Attestations NPU Medical Necessity Statement*: Patient will remain in the hospital another 4 or 5 nights until he can be placed in a location of safety. Coding Level of Care Code Acute Globe Tester for [facility] Fwd Diagnoses Delirium R41.0 Wernicke-Korsakoff syndrome (alcoholic) F10.96
[2019-06-11] MEDS: BuSPIRONE 5 mg Tablet PO ×3 (08:34→21:32)
[2019-06-11] MEDS: thiamine 100 mg Tablet PO (08:34)
[2019-06-11] MEDS: atenolol 50 mg Tablet PO (08:35)
[2019-06-11] MEDS: neomycin-poly-bacitracin oint 28 gm 1 APPLIC TOPICAL ×2 (08:35→17:31)
[2019-06-11] MEDS: cyanocobalamin 1,000 mcg Tablet 1000 MCG PO (08:35)
[2019-06-11] MEDS: nicotine 21 mg Patch 1 PATCH TRANSDERMA (12:32)
[2019-06-11 13:38] VITALS: BP 131/77; PULSE 78; RESP 17; TEMP 36.6; O2SAT 92
[2019-06-11] MEDS: CLONazepam 1 mg Tablet PO (21:32)
[2019-06-11] MEDS: trazodone 50 mg Tablet PO ×2 (21:32→23:29)
[2019-06-11] MEDS: mirtazapine 30 mg Tablet PO (21:32)
[2019-06-11 22:00] VITALS: BP 145/97; PULSE 82; RESP 22; TEMP 36.4; O2SAT 99
[2019-06-12 06:00] VITALS: BP 140/96; PULSE 89; RESP 20; TEMP 36.9; O2SAT 98
[2019-06-12] MEDS: atenolol 50 mg Tablet PO (08:33)
[2019-06-12] MEDS: thiamine 100 mg Tablet PO (08:33)
[2019-06-12] MEDS: BuSPIRONE 5 mg Tablet PO ×3 (08:33→20:25)
[2019-06-12] MEDS: cyanocobalamin 1,000 mcg Tablet 1000 MCG PO (08:33)
[2019-06-12 14:00] VITALS: BP 132/84; PULSE 89; RESP 17; TEMP 36.8; O2SAT 96
[2019-06-12] MEDS: neomycin-poly-bacitracin oint 28 gm 1 APPLIC TOPICAL (17:29)
--- NOTE | 2019-06-12 18:18 | P.PN_ITS ---
Subjective NPU Subjective: Interval history: Patient has not changed. He remains bereft of short-term memory. Dementia has clearly impaired his ability to understand the nature of his condition and to comply with intervention and treatment. I do not feel he can safely be discharged to anything but a long-term care facility. He says he does not need it but he would be the last person to know. Medications: Reviewed: Yes Mental Status Exam MSE Comments: This is a 53-year-old male who presents at a much older age. He is bent over and walks with a walker. Mood is disgruntled and affect is flat. Thought processes are limited and given to the demand, What you mean? 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 Finally, I pointed out that his short-term memory has not responded to sobriety and supportive measures. He wants to know what caused it and I tell him his drinking. Speech is of normal rate and volume, without dysarthria, aprosody or pressure. He denies suicidal or homicidal ideation, plan or intent. He remembers things from long ago but does not know who my predecessor, who saw him yesterday, is when I name him. 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 Involuntary Hold Information 96 Hour Hold: 96 Hour Involuntary Admission: No Attestations NPU Medical Necessity Statement*: This patient requires placement and a guardian. I anticipate 7-10 midnights additional hospitalization Time Spent in Patient Care: Greater than 35 minutes (>than 50% of time spent in counselling and/or direct pt care on unit) . Coding Level of Care Code Acute Straight Slicing Machine Operator for [facility] Fwd Diagnoses Wernicke-Korsakoff syndrome (alcoholic) F10.96
[2019-06-12] MEDS: trazodone 50 mg Tablet PO (20:25)
[2019-06-12] MEDS: mirtazapine 30 mg Tablet PO (20:25)
[2019-06-12] MEDS: CLONazepam 1 mg Tablet PO (20:25)
[2019-06-12 21:58] VITALS: BP 148/96; PULSE 81; RESP 20; TEMP 37; O2SAT 100
[2019-06-13] MEDS: hyDROXYzine 25 mg Capsule 50 MG PO (00:12)
--- NOTE | 2019-06-13 00:13 | PC.NURSE ---
C/O NOT RESTING AND ALL OVER THE BED. GAVE VISTARIL 50 MG PO FOR ANXIETY.
[2019-06-13 06:00] VITALS: BP 137/84; PULSE 87; RESP 20; TEMP 36.9; O2SAT 98
[2019-06-13] MEDS: cyanocobalamin 1,000 mcg Tablet 1000 MCG PO (09:24)
[2019-06-13] MEDS: BuSPIRONE 5 mg Tablet PO ×3 (09:24→21:13)
[2019-06-13] MEDS: thiamine 100 mg Tablet PO (09:24)
[2019-06-13] MEDS: atenolol 50 mg Tablet PO (09:24)
[2019-06-13 14:00] VITALS: BP 126/84; PULSE 78; RESP 20; TEMP 37.1; O2SAT 98
[2019-06-13] MEDS: nicotine 21 mg Patch 1 PATCH TRANSDERMA (15:54)
--- NOTE | 2019-06-13 18:39 | P.PN_ITS ---
Subjective NPU Subjective: Interval history: In some ways the patient's short-term memory deficit is a mercy. He is confused about his past and demands to know how I know that he had been drinking. I perused his record and found a reference to whiskey bottles all over his house found by radiological engineer who had come to bring him to the hospital. 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 Medications: Reviewed: Yes Mental Status Exam MSE Comments: Patient presents clean but somewhat disheveled. Mood is anxious and somewhat contentious. Affect is appropriate. Thought processes are scattered and tends not to follow a coherent stream. There is, however, no evidence of psychosis, such as but not limited to hallucinations, delusions or ideas of reference. Cognitive functions are severely damaged. He has no memory of what went on yesterday. Fortunately, he denies suicidal or homicidal ideation, plan or intent. 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 I anticipate 10 to 12 midnights Time Spent in Patient Care: Greater than 35 minutes (>than 50% of time spent in counselling and/or direct pt care on unit) . Coding Level of Care Code Acute Theater Set Production Designer for [facility] Fwd Diagnoses Wernicke-Korsakoff syndrome (alcoholic) F10.96 Complicated grief F43.29 Alcohol abuse F10.10
[2019-06-13] MEDS: trazodone 50 mg Tablet PO (21:13)
[2019-06-13] MEDS: CLONazepam 1 mg Tablet PO (21:13)
[2019-06-13] MEDS: mirtazapine 30 mg Tablet PO (21:13)
[2019-06-13 22:00] VITALS: BP 147/80; PULSE 75; RESP 18; TEMP 37.3; O2SAT 99
[2019-06-14 06:00] VITALS: BP 153/89; PULSE 81; RESP 21; TEMP 36.8; O2SAT 98
[2019-06-14] MEDS: cyanocobalamin 1,000 mcg Tablet 1000 MCG PO (09:02)
[2019-06-14] MEDS: BuSPIRONE 5 mg Tablet PO ×3 (09:02→22:48)
[2019-06-14] MEDS: thiamine 100 mg Tablet PO (09:02)
[2019-06-14] MEDS: atenolol 50 mg Tablet PO (09:02)
[2019-06-14 14:00] VITALS: BP 138/85; PULSE 74; RESP 20; TEMP 36.6; O2SAT 100
--- NOTE | 2019-06-14 19:04 | P.PN_ITS ---
Subjective NPU Subjective: Interval history: This patient is in stasis. He needs placement and guardianship is pending. From day to day he forgets and requires redirection from time to time. If his memory loss were not so pronounced one would think him delusional, so persistent is his confabulation. Medications: Reviewed: Yes Medication Review Details: Current Medications Acetaminophen (Tylenol) 650 mg PO Q4H PRN PRN Reason: MILD PAIN Last Admin: 06/10/19 00:56 Dose: 650 mg Documented by: Atenolol (Tenormin) 50 mg PO DAILY [facility] Last Admin: 06/14/19 09:02 Dose: 50 mg Documented by: Benztropine Mesylate (Cogentin) 1 mg PO BID PRN PRN Reason: Mild Extrapyramidal symptoms Buspirone HCl (Buspar) 5 mg PO TID [facility] Last Admin: 06/14/19 14:36 Dose: 5 mg Documented by: Camphor/Menthol/Phenol (Blistex) 1 applic TOPICAL Q1H PRN PRN Reason: DRYNESS Clonazepam (Klonopin) 1 mg PO BEDTIME [facility] Last Admin: 06/13/19 21:13 Dose: 1 mg Documented by: Cyanocobalamin (Vitamin B-12) 1,000 mcg PO DAILY [facility] Last Admin: 06/14/19 09:02 Dose: 1,000 mcg Documented by: Diphenhydramine HCl (Benadryl) 50 mg IM Q4H PRN PRN Reason: Severe Aggression Haloperidol (Haldol) 5 mg PO Q4H PRN PRN Reason: AGITATION Haloperidol Lactate (Haldol Inj) 5 mg IM Q4H PRN PRN Reason: Severe Aggression Hydroxyzine Pamoate (Vistaril) 50 mg PO Q6H PRN PRN Reason: ANXIETY Last Admin: 06/13/19 00:12 Dose: 50 mg Documented by: Loperamide HCl (Imodium Capsule) 2 mg PO Q6H PRN PRN Reason: DIARRHEA Mirtazapine (Remeron) 30 mg PO BEDTIME [facility] Last Admin: 06/13/19 21:13 Dose: 30 mg Documented by: Neomycin/Polymyxin/Bacitracin (Neosporin Oint Tube) 1 applic TOPICAL BID [facility] Last Admin: 06/14/19 17:05 Dose: Not Given Documented by: Nicotine (Nicoderm 21 Mg Patch) 1 patch TRANSDERMA DAILY PRN PRN Reason: NICOTINE WITHDRAWAL Last Admin: 06/13/19 15:54 Dose: 1 patch Documented by: Nicotine Polacrilex (Nicorette) 2 mg BUCCAL Q2H PRN PRN Reason: NICOTINE WITHDRAWAL Last Admin: 06/04/19 14:15 Dose: 2 mg Documented by: Olanzapine (Zyprexa Zydis) 5 mg PO Q4H PRN PRN Reason: Agitation/Psychosis Last Admin: 05/17/19 00:09 Dose: 5 mg Documented by: Ondansetron HCl (Zofran) 4 mg PO Q6H PRN PRN Reason: NAUSEA AND VOMITING Thiamine Mononitrate (Vitamin B-1) 100 mg PO DAILY [facility] Last Admin: 06/14/19 09:02 Dose: 100 mg Documented by: Trazodone HCl (Desyrel) 50 mg PO BEDTIME PRN PRN Reason: SLEEP Last Admin: 06/13/19 21:13 Dose: 50 mg Documented by: Mental Status Exam MSE Comments: Patient presents clean but somewhat disheveled. Mood is anxious and somewhat contentious. Affect is appropriate. Thought processes are scattered and are not goal directed. There is, however, no evidence of psychosis, such as but not limited to hallucinations, delusions or ideas of reference. Cognitive functions are severely damaged. He has no memory of what went on yesterday. Fortunately, he denies suicidal or homicidal ideation, plan or intent. Vitals/I&O/Wt Last Vital Signs Temp 97.9 F 06/14/19 14:00 Pulse 74 06/14/19 14:00 Resp 20 H 06/14/19 14:00 BP 138/85 06/14/19 14:00 Pulse Ox 100 06/14/19 14:00 Data NPU : 05/19/19 17:29 05/19/19 17:29 A&P Additional A&P Information Assessment and plan (1) Wernicke-Korsakoff syndrome (alcoholic): Additional A&P Information Alcohol induced dementia. Placement pending. Involuntary Hold Information 96 Hour Hold: 96 Hour Involuntary Admission: No Attestations NPU Medical Necessity Statement*: I anticipate 10-12 midnights. Time Spent in Patient Care: 16 - 35 minutes (>than 50% of time spent in counselling and/or direct pt care on unit) . Coding Level of Care Code Acute Armored Machine Operator for Francia Larry
[2019-06-14 20:04] VITALS: BP 167/105; PULSE 77; RESP 19; TEMP 36.6; O2SAT 98
[2019-06-14] MEDS: mirtazapine 30 mg Tablet PO (22:48)
[2019-06-14] MEDS: trazodone 50 mg Tablet PO (22:48)
[2019-06-15 06:00] VITALS: BP 109/74; PULSE 93; RESP 19; TEMP 36.8; O2SAT 97
[2019-06-15] MEDS: BuSPIRONE 5 mg Tablet PO ×3 (08:46→20:46)
[2019-06-15] MEDS: atenolol 50 mg Tablet PO (08:46)
[2019-06-15] MEDS: thiamine 100 mg Tablet PO (08:47)
[2019-06-15 14:00] VITALS: BP 148/94; PULSE 74; RESP 18; TEMP 36.6; O2SAT 99
--- NOTE | 2019-06-15 19:15 | PM.NPN ---
Subjective NPU Subjective: Interval history: Roderick says he is not feeling that well today. He says he feels like he is coming down with the flu and will not be able to going to work. It is the same thing he said 2 weeks ago and I have checked his vitals over that period of time and he never spiked a temperature. I suspect this is confabulation to cover the fact indeed he cannot go to work but not because of the flu. Medications: Reviewed: Yes Medication Review Details: Current Medications Acetaminophen (Tylenol) 650 mg PO Q4H PRN PRN Reason: MILD PAIN Last Admin: 06/10/19 00:56 Dose: 650 mg Documented by: Atenolol (Tenormin) 50 mg PO DAILY [facility] Last Admin: 06/15/19 08:46 Dose: 50 mg Documented by: Benztropine Mesylate (Cogentin) 1 mg PO BID PRN PRN Reason: Mild Extrapyramidal symptoms Buspirone HCl (Buspar) 5 mg PO TID [facility] Last Admin: 06/15/19 15:45 Dose: 5 mg Documented by: Camphor/Menthol/Phenol (Blistex) 1 applic TOPICAL Q1H PRN PRN Reason: DRYNESS Diphenhydramine HCl (Benadryl) 50 mg IM Q4H PRN PRN Reason: Severe Aggression Haloperidol (Haldol) 5 mg PO Q4H PRN PRN Reason: AGITATION Haloperidol Lactate (Haldol Inj) 5 mg IM Q4H PRN PRN Reason: Severe Aggression Hydroxyzine Pamoate (Vistaril) 50 mg PO Q6H PRN PRN Reason: ANXIETY Last Admin: 06/13/19 00:12 Dose: 50 mg Documented by: Loperamide HCl (Imodium Capsule) 2 mg PO Q6H PRN PRN Reason: DIARRHEA Mirtazapine (Remeron) 30 mg PO BEDTIME [facility] Last Admin: 06/14/19 22:48 Dose: 30 mg Documented by: Neomycin/Polymyxin/Bacitracin (Neosporin Oint Tube) 1 applic TOPICAL BID [facility] Last Admin: 06/15/19 16:42 Dose: Not Given Documented by: Nicotine (Nicoderm 21 Mg Patch) 1 patch TRANSDERMA DAILY PRN PRN Reason: NICOTINE WITHDRAWAL Last Admin: 06/13/19 15:54 Dose: 1 patch Documented by: Nicotine Polacrilex (Nicorette) 2 mg BUCCAL Q2H PRN PRN Reason: NICOTINE WITHDRAWAL Last Admin: 06/04/19 14:15 Dose: 2 mg Documented by: Olanzapine (Zyprexa Zydis) 5 mg PO Q4H PRN PRN Reason: Agitation/Psychosis Last Admin: 05/17/19 00:09 Dose: 5 mg Documented by: Ondansetron HCl (Zofran) 4 mg PO Q6H PRN PRN Reason: NAUSEA AND VOMITING Thiamine Mononitrate (Vitamin B-1) 100 mg PO DAILY [facility] Last Admin: 06/15/19 08:47 Dose: 100 mg Documented by: Trazodone HCl (Desyrel) 50 mg PO BEDTIME PRN PRN Reason: SLEEP Last Admin: 06/14/19 22:48 Dose: 50 mg Documented by: Mental Status Exam MSE Comments: Patient presents clean but somewhat disheveled. Mood is anxious and somewhat contentious. Affect is appropriate. Thought processes are scattered and are not goal directed. There is, however, no evidence of psychosis, such as but not limited to hallucinations, delusions or ideas of reference. Cognitive functions are severely damaged. He has no memory of what went on yesterday. Fortunately, he denies suicidal or homicidal ideation, plan or intent. Vitals/I&O/Wt Last Vital Signs Temp 97.9 F 06/15/19 14:00 Pulse 74 06/15/19 14:00 Resp 18 06/15/19 14:00 BP 148/94 06/15/19 14:00 Pulse Ox 99 06/15/19 14:00 Data NPU : 05/19/19 17:29 05/19/19 17:29 A&P Additional A&P Information Additional A&P Information Assessment and plan (1) Wernicke-Korsakoff syndrome (alcoholic): Additional A&P Information Alcohol induced dementia. Placement pending. Involuntary Hold Information 96 Hour Hold: 96 Hour Involuntary Admission: No Attestations NPU Medical Necessity Statement*: I anticipate 10-12 additional midnights. Time Spent in Patient Care: 16 - 35 minutes Coding Level of Care Code Acute Web Development Instructor for Francia Larry
[2019-06-15] MEDS: mirtazapine 30 mg Tablet PO (20:46)
[2019-06-15] MEDS: trazodone 50 mg Tablet PO (20:46)
[2019-06-15 21:23] VITALS: BP 154/88; PULSE 74; RESP 16; TEMP 37.2; O2SAT 97
--- NOTE | 2019-06-15 21:27 | PC.NURSE ---
PRN TRAZODONE PT REQUESTING SLEEP AID. TRAZODONE 50 MG PO ADMINISTERED. WILL MONITOR FOR MEDICATION EFFECTIVENESS.
[2019-06-16 06:00] VITALS: BP 168/99; PULSE 86; RESP 18; TEMP 36.6; O2SAT 99
[2019-06-16] MEDS: neomycin-poly-bacitracin oint 28 gm 1 APPLIC TOPICAL (08:13)
[2019-06-16] MEDS: thiamine 100 mg Tablet PO (08:14)
[2019-06-16] MEDS: atenolol 50 mg Tablet PO (08:14)
[2019-06-16] MEDS: BuSPIRONE 5 mg Tablet PO ×3 (08:14→21:05)
[2019-06-16 14:00] VITALS: BP 110/74; PULSE 83; RESP 18; TEMP 36.9; O2SAT 98
--- NOTE | 2019-06-16 17:03 | PM.NPN ---
Subjective NPU Subjective: Interval history: Roderick presents today stuck in the same Groundhog Day as I left him 15 days ago. 1 of the first thing he told me was that he just found out that his dad . He did not recall who I was by name and thought I was a retail operations manager. In the style of confabulation he then said I believe that when I told him that I was Dr. Arroyo. We went through the same conversation we have most times about him being confused about him not remembering things and then asking about his situation. Talking about needing to get a job etc. he is eating fine sleep has been limited. Mental Status Exam MSE Comments: This is a slightly disheveled overweight white male with adequate dress limited grooming and eye contact. No abnormal movements. Cooperative with exam in no acute distress. Speech was decreased rate and volume. Mood described as okay, affect slightly subdued. Thought process organized. Thought content: Patient denied any suicidal or homicidal ideations, there were no delusions reported or noted, he denied any auditory or visual hallucinations. Attention and concentration were intact and memory was unreliable but none were formally tested. He is alert and oriented x2 currently demonstrating the year but unaware of where he is thinking he is in the [facility]. Insight and judgment are impaired. Vitals/I&O/Wt Last Vital Signs Temp 98.5 F 06/16/19 14:00 Pulse 83 06/16/19 14:00 Resp 18 06/16/19 14:00 BP 110/74 06/16/19 14:00 Pulse Ox 98 06/16/19 14:00 Data NPU : 05/19/19 17:29 05/19/19 17:29 A&P Additional A&P Information This is a 53-year-old white male who is been in the hospital for over a month from the sequela of Warnicke Korsakoff syndrome with his memory being unreliable waking up each day with memories of having conversations for the first time. 1. Continue current medication regimen. 2. Encourage individual, group and milieu therapy. 3. Continue q. 15-minute checks for safety. 4. Work with social work to figure out an appropriate placement. Involuntary Hold Information 96 Hour Hold: 96 Hour Involuntary Admission: No Attestations NPU Medical Necessity Statement*: Inpatient hospitalization is medically necessary and the clinically appropriate intervention at this time. We will monitor medications and work for appropriate placement. Likely length of stay 7 to 10 days. Coding Level of Care Code Acute Fuel Distribution System Operator for Francia Larry
[2019-06-16] MEDS: nicotine 21 mg Patch 1 PATCH TRANSDERMA (17:51)
[2019-06-16] MEDS: trazodone 100 mg Tablet PO (21:05)
[2019-06-16] MEDS: mirtazapine 30 mg Tablet PO (21:05)
[2019-06-16 21:59] VITALS: BP 115/76; PULSE 79; RESP 18; TEMP 37; O2SAT 97
[2019-06-17 06:00] VITALS: BP 115/78; PULSE 87; RESP 17; TEMP 36.4; O2SAT 98
[2019-06-17] MEDS: atenolol 50 mg Tablet PO (08:12)
[2019-06-17] MEDS: thiamine 100 mg Tablet PO (08:12)
[2019-06-17] MEDS: neomycin-poly-bacitracin oint 28 gm 1 APPLIC TOPICAL ×2 (08:12→18:06)
[2019-06-17] MEDS: BuSPIRONE 5 mg Tablet PO ×3 (08:12→21:03)
[2019-06-17 14:00] VITALS: BP 161/91; PULSE 78; RESP 20; TEMP 36.8; O2SAT 99
--- NOTE | 2019-06-17 14:59 | P.PN_ITS ---
Subjective NPU Subjective: Interval history: Roderick presented today continuing to struggle with his daily challenging recollection. He did not recall this teletypewriter operator, believes me to be a mortician supplies sales representative. Asked for my prayers. Continues to have limited memory of the events of the past few years which have included the of his father, the purchase of a house, moving to [place] and continues to believe this process has some connection with his [place] days. He is eating okay but his sleep is problematic. We discussed the risks, benefits and alternatives of starting doxepin and he understood and agreed to proceed as is documented in this note. Mental Status Exam MSE Comments: This is a slightly disheveled overweight white male with adequate dress limited grooming and eye contact. No abnormal movements. Cooperative with exam in no acute distress. Speech was decreased rate and volume. Mood described as depressed, affect slightly subdued. Thought process organized. Thought content: Patient denied any suicidal or homicidal ideations, there were no delusions reported or noted, he denied any auditory or visual hallucinations. Attention and concentration were intact and memory was unreli able but none were formally tested. He is alert and oriented x2 currently demonstrating the year but unaware of where he is thinking he is in the [facility]. Insight and judgment are impaired. Vitals/I&O/Wt Last Vital Signs Temp 98.3 F 06/17/19 14:00 Pulse 78 06/17/19 14:00 Resp 20 H 06/17/19 14:00 BP 161/91 06/17/19 14:00 Pulse Ox 99 06/17/19 14:00 Data NPU : 05/19/19 17:29 05/19/19 17:29 A&P Additional A&P Information This is a 53-year-old white male who is been in the hospital for over a month from the sequela of Warnicke Korsakoff syndrome with his memory being unreliable waking up each day with memories of having conversations for the first time. 1. Continue current medication regimen. 2. Encourage individual, group and milieu therapy. 3. Continue q. 15-minute checks for safety. 4. Work with social work to figure out an appropriate placement.Filled out his guardianship questions for the data coordinator. Involuntary Hold Information 96 Hour Hold: 96 Hour Involuntary Admission: No Attestations NPU Medical Necessity Statement*: Inpatient hospitalization is medically necessary and the clinically appropriate intervention at this time. We will monitor medications and work for appropriate placement. Likely length of stay 7 to 10 days. Coding Level of Care Code Acute Market Gardener for Francia Larry
[2019-06-17] MEDS: doxepin 10 mg Capsule PO (21:03)
[2019-06-17] MEDS: mirtazapine 30 mg Tablet PO (21:03)
[2019-06-17 21:45] VITALS: BP 148/91; PULSE 79; RESP 22; TEMP 36.7; O2SAT 99
[2019-06-18 06:00] VITALS: BP 134/92; PULSE 92; RESP 20; TEMP 36.6; O2SAT 98
[2019-06-18 06:58] LABS: Basophils # 0.1 10^3/uL (0.0-0.1); Basophils % 0.7 %; Eosinophils # 0.4 10^3/uL (0.0-0.8); Eosinophils % 4.2 %; Hematocrit 38.5 % (42.0-52.0); Hemoglobin 13.4 g/dL (11.7-16.6); Lymphocytes # 2.2 10^3/uL (0.8-4.8); Mean Corpuscular HGB Conc 34.8 g/dL (30.0-36.0); Mean Corpuscular Hemoglobin 32.6 pg (28.0-34.0); Mean Corpuscular Volume 93.7 fL (80-94); Mean Platelet Volume 9.1 fL (7.4-10.4); Monocytes # 0.6 10^3/uL (0.2-0.9); Monocytes % 6.9 %; Neutrophils # 5.8 10^3/uL (1.8-7.7); Nucleated Red Blood Cells % 0 %; Platelet Count 283 10^3/cmm (130-400); Red Blood Count 4.11 10^6/uL (4.1-5.3); Red Cell Distribution Width 12.6 % (12.1-15.1); White Blood Count 9.1 10^3/uL (4.0-10.0)
[2019-06-18 07:15] LABS: Ammonia 16 umol/L (16-60); Anion Gap 15.5 (5-19); Blood Urea Nitrogen 10 mg/dL (6-20); Calcium 10.5 mg/dL (8.5-10.5); Carbon Dioxide 25 mmol/L (22-29); Chloride 100 mmol/L (98-107); Glomerular Filtration Rate 117.1 mL/min (90-130); Glucose 149 mg/dL (65-115); Magnesium 2.1 mg/dL (1.7-2.3); Osmolality Calculated 281 mOsm/kg (285-295); Potassium 4.5 mmol/L (3.5-5.1); Sodium 136 mmol/L (136-145)
[2019-06-18 08:08] LABS: Homocysteine 11.78
[2019-06-18] MEDS: neomycin-poly-bacitracin oint 28 gm 1 APPLIC TOPICAL ×2 (08:10→17:48)
[2019-06-18] MEDS: atenolol 50 mg Tablet PO (08:10)
[2019-06-18] MEDS: thiamine 100 mg Tablet PO (08:10)
[2019-06-18] MEDS: BuSPIRONE 5 mg Tablet PO ×3 (08:10→20:51)
[2019-06-18] MEDS: folic acid 1 mg Tablet PO (08:10)
--- NOTE | 2019-06-18 13:40 | P.PN_ITS ---
Subjective NPU Subjective: Interval history: They are presents today continuing to be confused but showing some hope in that he did recall this creative services writer was. He follows Dr. Arroyo when I asked who was in he said that without hesitation. So it is showing some hope we discussed that maybe new memories can be formed under certain circumstances. Once again looked at the navicular from his father as he struggled to believe the validity of that statement and he shared some tears. He was really focused on getting a cigarette but we discussed that he had been almost 6 weeks without one. We reviewed the patch and we have been doing to help with nicotine craving. He is eating okay and sleeping okay. Continued to complain sometimes of being sick but it is not clear that he actually has any physical complaints just doesn't feel well. Mental Status Exam MSE Comments: This is a slightly disheveled overweight white male with adequate dress limited grooming and appropriate eye contact. No abnormal movements. Cooperative with exam in no acute distress. Speech was decreased rate and volume. Mood described as depressed, affect slightly subdued. Thought process organized. Thought content: Patient denied any suicidal or homicidal ideations, there were no delusions reported or noted, he denied any auditory or visual hallucinations. Attention and concentration were intact and memory was u nreliable but none were formally tested. Memory still showing deficits but he did note this creative services writer was the first time in our history. He is alert and oriented x2 currently demonstrating the year but unaware of where he is thinking he is in the [facility]. Insight and judgment are impaired. Vitals/I&O/Wt Last Vital Signs Temp 97.8 F 06/18/19 06:00 Pulse 92 06/18/19 06:00 Resp 20 H 06/18/19 06:00 BP 134/92 06/18/19 06:00 Pulse Ox 98 06/18/19 06:00 Data NPU : 06/18/19 06:43 06/18/19 06:43 A&P Additional A&P Information This is a 53-year-old white male who is been in the hospital for over a month from the sequela of Warnicke Korsakoff syndrome with his memory being unreliable waking up each day with memories of having conversations for the first time. 1. Continue current medication regimen. 2. Encourage individual, group and milieu therapy. 3. Continue q. 15-minute checks for safety. 4. Work with social work to figure out an appropriate placement. Involuntary Hold Information 96 Hour Hold: 96 Hour Involuntary Admission: No Attestations NPU Medical Necessity Statement*: Inpatient hospitalization is medically necessary and the clinically appropriate intervention at this time. We will monitor medications and work for appropriate placement. Likely length of stay 7 to 10 days. Coding Level of Care Code Acute Clinical Research Management Associate for Francia Larry
[2019-06-18 14:00] VITALS: BP 138/90; PULSE 89; RESP 19; TEMP 36.6; O2SAT 95
[2019-06-18] MEDS: doxepin 10 mg Capsule PO (20:51)
[2019-06-18] MEDS: mirtazapine 30 mg Tablet PO (20:51)
[2019-06-18 22:00] VITALS: BP 146/89; PULSE 84; RESP 19; TEMP 36.6; O2SAT 99
[2019-06-19 06:00] VITALS: BP 146/96; PULSE 79; RESP 18; TEMP 36.7; O2SAT 100
[2019-06-19] MEDS: BuSPIRONE 5 mg Tablet PO ×3 (08:26→21:37)
[2019-06-19] MEDS: thiamine 100 mg Tablet PO (08:26)
[2019-06-19] MEDS: atenolol 50 mg Tablet PO (08:26)
[2019-06-19] MEDS: folic acid 1 mg Tablet PO (08:26)
--- NOTE | 2019-06-19 13:10 | PM.NPN ---
Subjective NPU Subjective: Interval history: Roderick presents today with the second day in a row that he remembers this director underwriter sales by name and occupation. Which continues to be 1 of the few bright signs in an otherwise continued sad situation where he does not recall events from the past couple years very well and even some that are significant and much further in the past. He continues to endorse not feeling well as a seeming statement of his frustration with his confusion. Otherwise there are no changes noted. Mental Status Exam MSE Comments: This is a slightly disheveled overweight white male with adequate dress limited grooming and appropriate eye contact. No abnormal movements. Cooperative with exam in no acute distress. Speech was decreased rate and volume. Mood described as sick, affect slightly subdued. Thought process organized. Thought content: Patient denied any suicidal or homicidal ideations, there were no delusions reported or noted, he denied any auditory or visual hallucinations. Attention and concentration were intact and memory was unreliable but none were formally tested. Memory still showing deficits but he did note who this director underwriter sales was the second day in a row. He is alert and oriented x2 currently demonstrating the year but unaware of where he is thinking he is in the [facility]. Insight and judgment are impaired. Vitals/I&O/Wt Last Vital Signs Temp 98.0 F 06/19/19 06:00 Pulse 79 06/19/19 06:00 Resp 18 06/19/19 06:00 BP 146/96 06/19/19 06:00 Pulse Ox 100 06/19/19 06:00 Weight last 48 hrs Weight 91.172 kg Home Medications amlodipine 5 mg PO DAILY 04/20/19 [History Confirmed 05/30/19] [id number] [Excedrin Migraine] 2 tab PO DAILY PRN 04/20/19 [History Confirmed 05/30/19] lisinopril 20 mg PO DAILY 04/20/19 [History Confirmed 05/30/19] metformin 1,000 mg PO BID 04/20/19 [History Confirmed 05/30/19] Active Medications Acetaminophen (Tylenol) 650 mg PO Q4H PRN PRN Reason: MILD PAIN Last Admin: 06/10/19 00:56 Dose: 650 mg Documented by: Atenolol (Tenormin) 50 mg PO DAILY [facility] Last Admin: 06/19/19 08:26 Dose: 50 mg Documented by: Benztropine Mesylate (Cogentin) 1 mg PO BID PRN PRN Reason: Mild Extrapyramidal symptoms Buspirone HCl (Buspar) 5 mg PO TID [facility] Last Admin: 06/19/19 08:26 Dose: 5 mg Documented by: Camphor/Menthol/Phenol (Blistex) 1 applic TOPICAL Q1H PRN PRN Reason: DRYNESS Diphenhydramine HCl (Benadryl) 50 mg IM Q4H PRN PRN Reason: Severe Aggression Doxepin HCl (Sinequan) 10 mg PO BEDTIME [facility] Last Admin: 06/18/19 20:51 Dose: 10 mg Documented by: Folic Acid (Folic Acid) 1 mg PO DAILY [facility] Last Admin: 06/19/19 08:26 Dose: 1 mg Documented by: Haloperidol (Haldol) 5 mg PO Q4H PRN PRN Reason: AGITATION Haloperidol Lactate (Haldol Inj) 5 mg IM Q4H PRN PRN Reason: Severe Aggression Hydroxyzine Pamoate (Vistaril) 50 mg PO Q6H PRN PRN Reason: ANXIETY Last Admin: 06/13/19 00:12 Dose: 50 mg Documented by: Loperamide HCl (Imodium Capsule) 2 mg PO Q6H PRN PRN Reason: DIARRHEA Mirtazapine (Remeron) 30 mg PO BEDTIME [facility] Last Admin: 06/18/19 20:51 Dose: 30 mg Documented by: Neomycin/Polymyxin/Bacitracin (Neosporin Oint Tube) 1 applic TOPICAL BID [facility] Last Admin: 06/19/19 11:18 Dose: Not Given Documented by: Nicotine (Nicoderm 21 Mg Patch) 1 patch TRANSDERMA DAILY PRN PRN Reason: NICOTINE WITHDRAWAL Last Admin: 06/16/19 17:51 Dose: 1 patch Documented by: Nicotine Polacrilex (Nicorette) 2 mg BUCCAL Q2H PRN PRN Reason: NICOTINE WITHDRAWAL Last Admin: 06/04/19 14:15 Dose: 2 mg Documented by: Olanzapine (Zyprexa Zydis) 5 mg PO Q4H PRN PRN Reason: Agitation/Psychosis Last Admin: 05/17/19 00:09 Dose: 5 mg Documented by: Ondansetron HCl (Zofran) 4 mg PO Q6H PRN PRN Reason: NAUSEA AND VOMITING Thiamine Mononitrate (Vitamin B-1) 100 mg PO DAILY [facility] Last Admin: 06/19/19 08:26 Dose: 100 mg Documented by: Trazodone HCl (Desyrel) 50 mg PO BEDTIME PRN PRN Reason: SLEEP Last Admin: 06/15/19 20:46 Dose: 50 mg Documented by: Data NPU : 06/18/19 06:43 06/18/19 06:43 A&P Additional A&P Information This is a 53-year-old white male who is been in the hospital for over a month from the sequela of Warnicke Korsakoff syndrome with his memory being unreliable waking up each day with memories of having conversations for the first time. 1. Continue current medication regimen. 2. Encourage individual, group and milieu therapy. 3. Continue q. 15-minute checks for safety. 4. Work with social work to figure out an appropriate placement. Involuntary Hold Information 96 Hour Hold: 96 Hour Involuntary Admission: No Attestations NPU Medical Necessity Statement*: Inpatient hospitalization is medically necessary and the clinically appropriate intervention at this time. We will monitor medications and work for appropriate placement. Likely length of stay 7 to 10 days. Coding Level of Care Code Acute Canopy Inspector for Francia Larry
[2019-06-19 13:36] VITALS: BP 159/99; PULSE 73; RESP 17; TEMP 36.9; O2SAT 99
[2019-06-19 21:28] VITALS: BP 139/82; PULSE 79; RESP 20; TEMP 36.9; O2SAT 99
[2019-06-19] MEDS: doxepin 10 mg Capsule PO (21:37)
[2019-06-19] MEDS: mirtazapine 30 mg Tablet PO (21:37)
[2019-06-20 06:00] VITALS: BP 129/82; PULSE 85; RESP 21; TEMP 36.7; O2SAT 98
[2019-06-20] MEDS: folic acid 1 mg Tablet PO (08:37)
[2019-06-20] MEDS: atenolol 50 mg Tablet PO (08:37)
[2019-06-20] MEDS: BuSPIRONE 5 mg Tablet PO ×3 (08:37→19:59)
[2019-06-20] MEDS: thiamine 100 mg Tablet PO (08:38)
[2019-06-20 14:00] VITALS: BP 120/78; PULSE 79; RESP 18; TEMP 37; O2SAT 97
--- NOTE | 2019-06-20 15:55 | P.PN_ITS ---
Subjective NPU Subjective: Interval history: Roderick presents today reporting that he is feeling a little better. He is demonstrating the ability to form new memories as he is now identifying this senior mortgage underwriter is Dr. Arroyo daily. It would be nice to have his significant other coming in and see him to see if she might malena his memory again. Also there is some confusion on whether the person he is calling her and the person whom she is are the same person which might explain how upset she has been with him during their conversations. He continues to struggle with short-term memory including the memory of the of some family members. Mental Status Exam MSE Comments: This is a slightly disheveled overweight white male with adequate dress limited grooming and appropriate eye contact. No abnormal movements. Cooperative with exam in no acute distress. Speech was decreased rate and volume. Mood described as OK, affect slightly brighter. Thought process organized. Thought content: Patient denied any suicidal or homicidal ideations, there were no delusions reported or noted, he denied any auditory or visual hallucinations. Attention and concentration were intact and memory was unreliable but none were formally tested. Memory still showing deficits but he did note who this senior mortgage underwriter was the third day in a row. He is alert and oriented x2 currently demonstrating the year but unaware of where he is thinking he is in the [facility]. Insight and judgment are impaired. Vitals/I&O/Wt Last Vital Signs Blood pressure 120/78, temperature 98.6, pulse 79, respirations 18, pulse ox 97%. Home Medications amlodipine 5 mg PO DAILY 04/20/19 [History Confirmed 05/30/19] [id number]-diufriqawxzsz-vspoonpc [Excedrin Migraine] 2 tab PO DAILY PRN 04/20/19 [History Confirmed 05/30/19] lisinopril 20 mg PO DAILY 04/20/19 [History Confirmed 05/30/19] metformin 1,000 mg PO BID 04/20/19 [History Confirmed 05/30/19] Active Medications Acetaminophen (Tylenol) 650 mg PO Q4H PRN PRN Reason: MILD PAIN Last Admin: 06/10/19 00:56 Dose: 650 mg Documented by: Atenolol (Tenormin) 50 mg PO DAILY [facility] Last Admin: 06/20/19 08:37 Dose: 50 mg Documented by: Benztropine Mesylate (Cogentin) 1 mg PO BID PRN PRN Reason: Mild Extrapyramidal symptoms Buspirone HCl (Buspar) 5 mg PO TID [facility] Last Admin: 06/20/19 19:59 Dose: 5 mg Documented by: Camphor/Menthol/Phenol (Blistex) 1 applic TOPICAL Q1H PRN PRN Reason: DRYNESS Diphenhydramine HCl (Benadryl) 50 mg IM Q4H PRN PRN Reason: Severe Aggression Doxepin HCl (Sinequan) 10 mg PO BEDTIME [facility] Last Admin: 06/20/19 19:59 Dose: 10 mg Documented by: Folic Acid (Folic Acid) 1 mg PO DAILY [facility] Last Admin: 06/20/19 08:37 Dose: 1 mg Documented by: Haloperidol (Haldol) 5 mg PO Q4H PRN PRN Reason: AGITATION Haloperidol Lactate (Haldol Inj) 5 mg IM Q4H PRN PRN Reason: Severe Aggression Hydroxyzine Pamoate (Vistaril) 50 mg PO Q6H PRN PRN Reason: ANXIETY Last Admin: 06/20/19 19:59 Dose: 50 mg Documented by: Loperamide HCl (Imodium Capsule) 2 mg PO Q6H PRN PRN Reason: DIARRHEA Mirtazapine (Remeron) 30 mg PO BEDTIME [facility] Last Admin: 06/20/19 19:59 Dose: 30 mg Documented by: Neomycin/Polymyxin/Bacitracin (Neosporin Oint Tube) 1 applic TOPICAL BID [facility] Last Admin: 06/20/19 18:06 Dose: Not Given Documented by: Nicotine (Nicoderm 21 Mg Patch) 1 patch TRANSDERMA DAILY PRN PRN Reason: NICOTINE WITHDRAWAL Last Admin: 06/16/19 17:51 Dose: 1 patch Documented by: Nicotine Polacrilex (Nicorette) 2 mg BUCCAL Q2H PRN PRN Reason: NICOTINE WITHDRAWAL Last Admin: 06/04/19 14:15 Dose: 2 mg Documented by: Olanzapine (Zyprexa Zydis) 5 mg PO Q4H PRN PRN Reason: Agitation/Psychosis Last Admin: 05/17/19 00:09 Dose: 5 mg Documented by: Ondansetron HCl (Zofran) 4 mg PO Q6H PRN PRN Reason: NAUSEA AND VOMITING Thiamine Mononitrate (Vitamin B-1) 100 mg PO DAILY [facility] Last Admin: 06/20/19 08:38 Dose: 100 mg Documented by: Trazodone HCl (Desyrel) 50 mg PO BEDTIME PRN PRN Reason: SLEEP Last Admin: 06/20/19 19:59 Dose: 50 mg Documented by: Data NPU : 06/18/19 06:43 06/18/19 06:43 A&P Additional A&P Information This is a 53-year-old white male who is been in the hospital for over a month from the sequela of Warnicke Korsakoff syndrome with his memory being unreliable waking up each day with memories of having conversations for the first time. 1. Continue current medication regimen. 2. Encourage individual, group and milieu therapy. 3. Continue q. 15-minute checks for safety. 4. Work with social work to figure out an appropriate placement. Involuntary Hold Information 96 Hour Hold: 96 Hour Involuntary Admission: No Attestations NPU Medical Necessity Statement*: Inpatient hospitalization is medically necessary and the clinically appropriate intervention at this time. We will monitor medications and work for appropriate placement. Likely length of stay 7 to 10 days. Coding Level of Care Code Acute Environmental Engineering Professor for Francia Larry
[2019-06-20] MEDS: trazodone 50 mg Tablet PO (19:59)
[2019-06-20] MEDS: doxepin 10 mg Capsule PO (19:59)
[2019-06-20] MEDS: hyDROXYzine 25 mg Capsule 50 MG PO (19:59)
[2019-06-20] MEDS: mirtazapine 30 mg Tablet PO (19:59)
[2019-06-20 21:52] VITALS: BP 165/109; PULSE 81; RESP 18; TEMP 36.8; O2SAT 98
[2019-06-21 06:00] VITALS: BP 121/81; PULSE 93; RESP 18; TEMP 36.7; O2SAT 97
[2019-06-21] MEDS: neomycin-poly-bacitracin oint 28 gm 1 APPLIC TOPICAL ×2 (09:39→17:56)
[2019-06-21] MEDS: BuSPIRONE 5 mg Tablet PO ×3 (09:39→20:58)
[2019-06-21] MEDS: thiamine 100 mg Tablet PO (09:39)
[2019-06-21] MEDS: folic acid 1 mg Tablet PO (09:39)
[2019-06-21] MEDS: atenolol 50 mg Tablet PO (09:39)
--- NOTE | 2019-06-21 10:58 | P.PN_ITS ---
Subjective NPU Subjective: Interval history: Roderick presented today continuing to hold onto the new memory of this film writer as his physician which is a good sign. Additionally the woman that is visiting him or has visited him and is his live- in girlfriend is not the name he has been calling her which is clearly part of why she is upset. The fact that he has lost his short-term memory and his rec ollection of who is with his a previous romantic partner. We reached out to her by phone in hopes that she would come and visit him and maybe help him continue any improvement he is going to make and she reports she is going to come but unfortunately likely for reasons of survival she continues to focus on getting his bills paid why she is at the executor or power of family law attorney. I explained to her that power of family law attorney is something that she do prior to a person losing their capacity for decision-making not after. She made assertions that his sister and he do not have the type of relationship that she can be trusted to manage his affairs. We discussed wanting to do what was best for Roderick and helping him regain his memory. Mental Status Exam MSE Comments: This is a slightly disheveled overweight white male with adequate dress limited grooming and appropriate eye contact. No abnormal moveme nts. Cooperative with exam in no acute distress. Speech was decreased rate and volume. Mood described as confused, affect slightly brighter. Thought process organized. Thought content: Patient denied any suicidal or homicidal ideations, there were no delusions reported or noted, he denied any auditory or visual hallucinations. Attention and concentration were intact and memory was unreliable with some ability to form new memories, but still gaping deficits but none were formally tested. He is alert and oriented x2 currently demonstrating the year but unaware of where he is thinking he is in the [facility]. Insight and judgment are impaired. Vitals/I&O/Wt Last Vital Signs Temperature 98.5, blood pressure 118/79, pulse 78, respirations 16, pulse ox 98%. Home Medications amlodipine 5 mg PO DAILY 04/20/19 [History Confirmed 05/30/19] [id number]-hkglaldckikft-vwtuccys [Excedrin Migraine] 2 tab PO DAILY PRN 04/20/19 [History Confirmed 05/30/19] lisinopril 20 mg PO DAILY 04/20/19 [History Confirmed 05/30/19] metformin 1,000 mg PO BID 04/20/19 [History Confirmed 05/30/19] Active Medications Acetaminophen (Tylenol) 650 mg PO Q4H PRN PRN Reason: MILD PAIN Last Admin: 06/10/19 00:56 Dose: 650 mg Documented by: Atenolol (Tenormin) 50 mg PO DAILY [facility] Last Admin: 06/21/19 09:39 Dose: 50 mg Documented by: Benztropine Mesylate (Cogentin) 1 mg PO BID PRN PRN Reason: Mild Extrapyramidal symptoms Buspirone HCl (Buspar) 5 mg PO TID [facility] Last Admin: 06/21/19 20:58 Dose: 5 mg Documented by: Camphor/Menthol/Phenol (Blistex) 1 applic TOPICAL Q1H PRN PRN Reason: DRYNESS Diphenhydramine HCl (Benadryl) 50 mg IM Q4H PRN PRN Reason: Severe Aggression Doxepin HCl (Sinequan) 10 mg PO BEDTIME [facility] Last Admin: 06/21/19 20:58 Dose: 10 mg Documented by: Folic Acid (Folic Acid) 1 mg PO DAILY [facility] Last Admin: 06/21/19 09:39 Dose: 1 mg Documented by: Haloperidol (Haldol) 5 mg PO Q4H PRN PRN Reason: AGITATION Haloperidol Lactate (Haldol Inj) 5 mg IM Q4H PRN PRN Reason: Severe Aggression Hydroxyzine Pamoate (Vistaril) 50 mg PO Q6H PRN PRN Reason: ANXIETY Last Admin: 06/21/19 20:57 Dose: 50 mg Documented by: Loperamide HCl (Imodium Capsule) 2 mg PO Q6H PRN PRN Reason: DIARRHEA Mirtazapine (Remeron) 30 mg PO BEDTIME [facility] Last Admin: 06/21/19 20:58 Dose: 30 mg Documented by: Neomycin/Polymyxin/Bacitracin (Neosporin Oint Tube) 1 applic TOPICAL BID [facility] Last Admin: 06/21/19 17:56 Dose: 1 applic Documented by: Nicotine (Nicoderm 21 Mg Patch) 1 patch TRANSDERMA DAILY PRN PRN Reason: NICOTINE WITHDRAWAL Last Admin: 06/16/19 17:51 Dose: 1 patch Documented by: Nicotine Polacrilex (Nicorette) 2 mg BUCCAL Q2H PRN PRN Reason: NICOTINE WITHDRAWAL Last Admin: 06/04/19 14:15 Dose: 2 mg Documented by: Olanzapine (Zyprexa Zydis) 5 mg PO Q4H PRN PRN Reason: Agitation/Psychosis Last Admin: 05/17/19 00:09 Dose: 5 mg Documented by: Ondansetron HCl (Zofran) 4 mg PO Q6H PRN PRN Reason: NAUSEA AND VOMITING Thiamine Mononitrate (Vitamin B-1) 100 mg PO DAILY [facility] Last Admin: 06/21/19 09:39 Dose: 100 mg Documented by: Trazodone HCl (Desyrel) 50 mg PO BEDTIME PRN PRN Reason: SLEEP Last Admin: 06/20/19 19:59 Dose: 50 mg Documented by: Data NPU : 06/18/19 06:43 06/18/19 06:43 A&P Additional A&P Information This is a 53-year-old white male who is been in the hospital for over a month from the sequela of Warnicke Korsakoff syndrome with his memory being unreliable waking up each day with memories of having conversations for the first time. 1. Continue current medication regimen. 2. Encourage individual, group and milieu therapy. 3. Continue q. 15-minute checks for safety. 4. Work with social work to figure out an appropriate placement. Involuntary Hold Information 96 Hour Hold: 96 Hour Involuntary Admission: No Attestations NPU Medical Necessity Statement*: Inpatient hospitalization is medically necessary and the clinically appropriate intervention at this time. We will monitor medications and work for appropriate placement. Likely length of stay 7 to 10 days. Coding Level of Care Code Acute Gas Charger for Francia Larry
[2019-06-21 14:00] VITALS: BP 118/79; PULSE 78; RESP 16; TEMP 36.9; O2SAT 98
[2019-06-21] MEDS: hyDROXYzine 25 mg Capsule 50 MG PO (20:57)
[2019-06-21] MEDS: doxepin 10 mg Capsule PO (20:58)
[2019-06-21] MEDS: mirtazapine 30 mg Tablet PO (20:58)
[2019-06-21 21:33] VITALS: BP 101/68; PULSE 83; RESP 22; TEMP 37.6; O2SAT 97
[2019-06-22 06:00] VITALS: BP 151/96; PULSE 85; RESP 20; TEMP 36.9; O2SAT 99
[2019-06-22] MEDS: folic acid 1 mg Tablet PO (09:32)
[2019-06-22] MEDS: BuSPIRONE 5 mg Tablet PO ×3 (09:32→21:11)
[2019-06-22] MEDS: atenolol 50 mg Tablet PO (09:32)
[2019-06-22] MEDS: thiamine 100 mg Tablet PO (09:32)
[2019-06-22] MEDS: neomycin-poly-bacitracin oint 28 gm 1 APPLIC TOPICAL (09:34)
--- NOTE | 2019-06-22 12:59 | PM.NPN ---
Subjective NPU Subjective: Interval history: Roderick presents today reporting that things are going a little better. He continues to recognizes assembly instructions writer's name but continues to have significant anguish over his confusion and inability to remember things. We spent a lot of today's session having him work through the fact that the woman that he lives with is truly not the woman that he is calling her but him identifying the real struggle of those 2 in his mind. We discussed the timeline of the relationship with the name that he is calling her and he can identify that he and this person stopped seeing each other before his mother in 2009 but he has latched onto that name and connected to the person that he has been dating for the recent years. He continues to focus on bowel movements asking for laxatives regularly. Mental Status Exam MSE Comments: This is a slightly disheveled overweight white male with adequate dress limited grooming and appropriate eye contact. No abnormal movements. Cooperative with exam in no acute distress. Speech was decreased rate and volume. Mood described as confused, affect slightly brighter. Thought process organized. Thought content: Patient denied any suicidal or homicidal ideations, there were no delusions reported or noted, he denied any auditory or visual hallucinations. Attention and concentration were intact and memory was unreliable with some ability to form new memories, but still gaping deficits but none were formally tested. He is alert and oriented x2 currently demonstrating the year but unaware of where he is thinking he is in the [facility]. Insight and judgment are impaired. Vitals/I&O/Wt Last Vital Signs Temp 98.9 F 06/22/19 22:00 Pulse 80 06/22/19 22:00 Resp 18 06/22/19 22:00 BP 171/99 06/22/19 22:00 Pulse Ox 99 06/22/19 22:00 Home Medications amlodipine 5 mg PO DAILY 04/20/19 [History Confirmed 05/30/19] [id number] [Excedrin Migraine] 2 tab PO DAILY PRN 04/20/19 [History Confirmed 05/30/19] lisinopril 20 mg PO DAILY 04/20/19 [History Confirmed 05/30/19] metformin 1,000 mg PO BID 04/20/19 [History Confirmed 05/30/19] Active Medications Acetaminophen (Tylenol) 650 mg PO Q4H PRN PRN Reason: MILD PAIN Last Admin: 06/10/19 00:56 Dose: 650 mg Documented by: Atenolol (Tenormin) 50 mg PO DAILY [facility] Last Admin: 06/22/19 09:32 Dose: 50 mg Documented by: Benztropine Mesylate (Cogentin) 1 mg PO BID PRN PRN Reason: Mild Extrapyramidal symptoms Buspirone HCl (Buspar) 5 mg PO TID [facility] Last Admin: 06/22/19 21:11 Dose: 5 mg Documented by: Camphor/Menthol/Phenol (Blistex) 1 applic TOPICAL Q1H PRN PRN Reason: DRYNESS Diphenhydramine HCl (Benadryl) 50 mg IM Q4H PRN PRN Reason: Severe Aggression Doxepin HCl (Sinequan) 10 mg PO BEDTIME [facility] Last Admin: 06/22/19 21:10 Dose: 10 mg Documented by: Folic Acid (Folic Acid) 1 mg PO DAILY [facility] Last Admin: 06/22/19 09:32 Dose: 1 mg Documented by: Haloperidol (Haldol) 5 mg PO Q4H PRN PRN Reason: AGITATION Haloperidol Lactate (Haldol Inj) 5 mg IM Q4H PRN PRN Reason: Severe Aggression Hydroxyzine Pamoate (Vistaril) 50 mg PO Q6H PRN PRN Reason: ANXIETY Last Admin: 06/21/19 20:57 Dose: 50 mg Documented by: Loperamide HCl (Imodium Capsule) 2 mg PO Q6H PRN PRN Reason: DIARRHEA Mirtazapine (Remeron) 30 mg PO BEDTIME [facility] Last Admin: 06/22/19 21:10 Dose: 30 mg Documented by: Neomycin/Polymyxin/Bacitracin (Neosporin Oint Tube) 1 applic TOPICAL BID [facility] Last Admin: 06/22/19 21:12 Dose: Not Given Documented by: Nicotine (Nicoderm 21 Mg Patch) 1 patch TRANSDERMA DAILY PRN PRN Reason: NICOTINE WITHDRAWAL Last Admin: 06/16/19 17:51 Dose: 1 patch Documented by: Nicotine Polacrilex (Nicorette) 2 mg BUCCAL Q2H PRN PRN Reason: NICOTINE WITHDRAWAL Last Admin: 06/04/19 14:15 Dose: 2 mg Documented by: Olanzapine (Zyprexa Zydis) 5 mg PO Q4H PRN PRN Reason: Agitation/Psychosis Last Admin: 05/17/19 00:09 Dose: 5 mg Documented by: Ondansetron HCl (Zofran) 4 mg PO Q6H PRN PRN Reason: NAUSEA AND VOMITING Thiamine Mononitrate (Vitamin B-1) 100 mg PO DAILY [facility] Last Admin: 06/22/19 09:32 Dose: 100 mg Documented by: Trazodone HCl (Desyrel) 50 mg PO BEDTIME PRN PRN Reason: SLEEP Last Admin: 06/20/19 19:59 Dose: 50 mg Documented by: Data NPU : 06/18/19 06:43 06/18/19 06:43 A&P Additional A&P Information This is a 53-year-old white male who is been in the hospital for over a month from the sequela of Warnicke Korsakoff syndrome with his memory being unreliable waking up each day with memories of having conversations for the first time. 1. Continue current medication regimen. 2. Encourage individual, group and milieu therapy. 3. Continue q. 15-minute checks for safety. 4. Work with social work to figure out an appropriate placement. Involuntary Hold Information 96 Hour Hold: 96 Hour Involuntary Admission: No Attestations NPU Medical Necessity Statement*: Inpatient hospitalization is medically necessary and the clinically appropriate intervention at this time. We will monitor medications and work for appropriate placement. Likely length of stay 7 to 10 days. Coding Level of Care Code Acute Audioprosthologist for Francia Larry
[2019-06-22 14:00] VITALS: BP 136/79; PULSE 76; RESP 20; TEMP 36.8; O2SAT 98
--- NOTE | 2019-06-22 20:20 | PC.NURSE ---
Pt given HS meds buspar, doxepin, and remeron.
[2019-06-22] MEDS: mirtazapine 30 mg Tablet PO (21:10)
[2019-06-22] MEDS: doxepin 10 mg Capsule PO (21:10)
[2019-06-22 22:00] VITALS: BP 171/99; PULSE 80; RESP 18; TEMP 37.2; O2SAT 99
[2019-06-23 06:00] VITALS: BP 148/96; PULSE 88; RESP 18; TEMP 36.7; O2SAT 99
--- NOTE | 2019-06-23 07:24 | P.PN_ITS ---
Subjective NPU Subjective: Interval history: Roderick presented today reporting that he is not sure what is going on and so he was very emotional. He did not report knowing what was wrong with him. Once again, I reviewed what Wernicke-Korsakoff syndrome is and what the chances are for improvement. We discussed the cons being that he still has not regained a lot of his short-term memory. We discussed the pros being that he is now starting to have the ability to recall some things including the fact that for the last five days he has been able to recall this engineering technical writer by name and remember our conversations. Tonight, he requested that this engineering technical writer pray for him as he is feeling very low and confused. We agreed that we would call his sister tomorrow or Thursday and see if we could talk to her about the situation with his finances and whatever happened with their father and his estate. We assured him that we have discussed his situation with the bank so that no one could steal his money. Mental Status Exam MSE Comments: This is a well-nourished, overweight, white male, with adequate dress, grooming, and eye contact. No abnormal movements. Cooperative with exam in mild distress. Speech was decreased rate and volume. Mood described as confused; affect congruent. Thought process, organized. Thought content: patient denied any suicidal or homicidal ideation, there were no delusions reported or noted, patient denied any auditory or visual hallucinations. Attention and concentration are intact, but memory is still impaired with amnesia for recent events. He is alert and oriented times person and today he was able to say 2020. Insight and judgment are limited but improving. Vitals/I&O/Wt Last Vital Signs Temperature 98.0, pulse 88, respirations 18, pulse ox 99%, blood pressure 148/96. Data NPU : 06/18/19 06:43 06/18/19 06:43 A&P Additional A&P Information This is a 53-year-old white male who is been in the hospital for over a month from the sequela of Warnicke Korsakoff syndrome with his memory being unreliable waking up each day with memories of having conversations for the first time. 1. Continue current medication regimen. 2. Encourage individual, group and milieu therapy. 3. Continue q. 15-minute checks for safety. 4. Work with social work to figure out an appropriate placement. Involuntary Hold Information 96 Hour Hold: 96 Hour Involuntary Admission: No Attestations NPU Medical Necessity Statement*: Inpatient hospitalization is medically necessary and the clinically appropriate intervention at this time. We will monitor medications and work for appropriate placement. Likely length of stay 7 to 10 days. Coding Level of Care Code Acute Behavioral Health Rn for Francia Larry
[2019-06-23] MEDS: atenolol 50 mg Tablet PO (09:21)
[2019-06-23] MEDS: BuSPIRONE 5 mg Tablet PO ×3 (09:21→20:57)
[2019-06-23] MEDS: folic acid 1 mg Tablet PO (09:21)
[2019-06-23] MEDS: thiamine 100 mg Tablet PO (09:21)
[2019-06-23] MEDS: neomycin-poly-bacitracin oint 28 gm 1 APPLIC TOPICAL ×2 (09:24→18:13)
[2019-06-23 12:57] VITALS: BP 123/80; PULSE 77; RESP 20; TEMP 36.9; O2SAT 100
[2019-06-23] MEDS: nicotine 21 mg Patch 1 PATCH TRANSDERMA (15:45)
[2019-06-23 20:29] VITALS: BP 143/87; PULSE 79; RESP 22; TEMP 36.8; O2SAT 98
[2019-06-23] MEDS: doxepin 10 mg Capsule PO (20:57)
[2019-06-23] MEDS: mirtazapine 30 mg Tablet PO (20:57)
[2019-06-23] MEDS: trazodone 50 mg Tablet PO (21:00)
[2019-06-24 06:00] VITALS: BP 132/76; PULSE 93; RESP 19; TEMP 36.4; O2SAT 99
[2019-06-24] MEDS: BuSPIRONE 5 mg Tablet PO ×3 (09:10→20:37)
[2019-06-24] MEDS: folic acid 1 mg Tablet PO (09:10)
[2019-06-24] MEDS: atenolol 50 mg Tablet PO (09:10)
--- NOTE | 2019-06-24 11:46 | P.PN_ITS ---
Subjective NPU Subjective: Interval history: Roderick presents today continuing to make strides in his ability to make new memories, from the standpoint of knowing people. When he tries to use his recollection of things from the past two to ten years, he continues to be greatly impaired and flawed, often getting a little frustrated because it does not make sense to him. He is continuing to not recall the likely behaviors of the last year which, reportedly, were drinking daily and not working as he had much of his life, possibly in an almost depressive episode related to the of his father. But he continues to not recall the of this father, many times. Today he was insisting that his father was not and asked this feature writer to make calls to some places that would allow him to confirm his father is living. Then his argument against his father being becomes that his father had now millions of dollars, it started out as a lot of money, maybe a million dollars, and now he is referring to him as a multi-millionaire. Therefore, if he did , then he should have more money and expresses concerns about his sister maybe stealing part of his inheritance. We discussed the fact that, again, the records of his transactions will be there at the bank to be looked at by a guardian or himself, but that at the end of the day, his story appears that he did get a significant chunk of money and that he basically drank it away over the last few years. Otherwise, he denied any major issues and reports that he is sleeping better. Mental Status Exam MSE Comments: This is a well-nourished, well-developed, white male, with limited dress, grooming, and adequate eye contact. No abnormal movements, although he is using a walker but appearing fairly stable. Cooperative with exam in occasional distress. Speech was slightly decreased rate and volume. Mood described as okay; affect upset at times with information he is not remembering. Thought process, organized. Thought content: patient denied any suicidal or homicidal ideation, there were no delusions reported or noted, patient denied any auditory or visual hallucinations. Attention and concentration are intact. Memory is unreliable and continues to have some crossed wires where someone from the past is linked to someone from the present, that he can not separate, and then other things he just can not remember, with significant amnesia. He is alert and oriented times three. Insight and judgment are impaired. Vitals/I&O/Wt Last Vital Signs Temperature 98.2, pulse 80, respirations 17, pulse ox 93% blood pressure 148/95. Data NPU : 06/18/19 06:43 06/18/19 06:43 A&P Additional A&P Information This is a 53-year-old white male who is been in the hospital for over a month from the sequela of Warnicke Korsakoff syndrome with his memory being unreliable waking up each day with memories of having conversations for the first time. 1. Continue current medication regimen. 2. Encourage individual, group and milieu therapy. 3. Continue q. 15-minute checks for safety. 4. Work with social work to figure out an appropriate placement. Involuntary Hold Information 96 Hour Hold: 96 Hour Involuntary Admission: No Attestations NPU Medical Necessity Statement*: Inpatient hospitalization is medically necessary and the clinically appropriate intervention at this time. We will monitor medications and work for appropriate placement. Likely length of stay 7 to 10 days. Coding Level of Care Code Acute Cardiology Nurse Practitioner for Francia Larry
[2019-06-24 14:00] VITALS: BP 148/95; PULSE 80; RESP 17; TEMP 36.8; O2SAT 93
[2019-06-24 20:24] VITALS: BP 126/73; PULSE 81; RESP 19; TEMP 36.7; O2SAT 97
[2019-06-24] MEDS: doxepin 10 mg Capsule PO (20:37)
[2019-06-24] MEDS: trazodone 50 mg Tablet PO (20:37)
[2019-06-24] MEDS: mirtazapine 30 mg Tablet PO (20:37)
--- NOTE | 2019-06-24 20:38 | PC.NURSE ---
hs meds given
[2019-06-25] MEDS: trazodone 50 mg Tablet PO ×2 (00:54→20:50)
--- NOTE | 2019-06-25 00:55 | PC.NURSE ---
pt requested additional sleep aide. 2nd Trazodone given.
[2019-06-25 05:55] VITALS: BP 113/74; PULSE 106; RESP 18; TEMP 36.6; O2SAT 96
[2019-06-25] MEDS: BuSPIRONE 5 mg Tablet PO ×3 (09:10→20:50)
[2019-06-25] MEDS: folic acid 1 mg Tablet PO (09:10)
[2019-06-25] MEDS: atenolol 50 mg Tablet PO (09:10)
--- NOTE | 2019-06-25 11:46 | P.PN_ITS ---
Subjective NPU Subjective: Interval history: The patient presents today reporting that he feels like he was recalling some different things, this was shown to be accurate as he was able to look at a picture on [employer] and was able to determine memories from that and it was very helpful. Before even looking at the picture, as we talked about his place, he remembered that he had a [employer] F-150 that was black, and the picture that came up on [employer] actually had his truck in it, which was confirmatory and helpful for him. Additionally, he had a picture of his friend and his current girlfriend, but he continues to struggle with her name from a name from the past, but he remembers his nancy?s name. When he saw the picture, he identified that day, and very clearly talked about the fact that they were weighting tomatoes, and different things, at the house that he lives at now. He was able to tell then names of the neighbors. We were able to scan out and look at the picture and were able to determine that what he was saying that was going on, on that day, was likely accurate. He was able to recall that across the street there were a couple things that were in fact there, which was a step forward. He continues to struggle with things related to his father?s . We discussed the fact that his sister would be coming for a meeting on Thursday. We discussed a plan to get some more pictures and allow him to maybe use those pictures to start pulling out memories, as th ings move along. He reports that he is eating okay and he is sleeping okay, as well. Mental Status Exam MSE Comments: This is a well-nourished, well-developed, white male, with adequate dress, limited grooming, and appropriate eye contact. No abnormal movements, expect for using a rolling walker without unsteadiness. Cooperative with exam in no acute distress. Speech was more normal rate and volume. Mood described as a little confused; affect congruent but improved. Thought process, organized. Thought content: patient denied any suicidal or homicidal ideation, there were no delusions reported or noted, he denied any auditory or visual hallucinations. Attention and concentration were intact, and memory continues to be impaired, but he is showing some improvement in his short-term memory, g etting back some small pieces, and being able to seemingly form new memories, so we can only hope that enough will return to allow him to be functional. He is alert and oriented to person and place, and got the year right. Insight and judgment are impaired but with some improvement, which are positive signs. Vitals/I&O/Wt Last Vital Signs Temp 98 F 06/25/19 05:55 Pulse 106 H 06/25/19 05:55 Resp 18 06/25/19 05:55 BP 113/74 06/25/19 05:55 Pulse Ox 96 06/25/19 05:55 Home Medications amlodipine 5 mg PO DAILY 04/20/19 [History Confirmed 05/30/19] [id number]-[id number] [Excedrin Migraine] 2 tab PO DAILY PRN 04/20/19 [History Confirmed 05/30/19] lisinopril 20 mg PO DAILY 04/20/19 [History Confirmed 05/30/19] metformin 1,000 mg PO BID 04/20/19 [History Confirmed 05/30/19] Active Medications Acetaminophen (Tylenol) 650 mg PO Q4H PRN PRN Reason: MILD PAIN Last Admin: 06/10/19 00:56 Dose: 650 mg Documented by: Atenolol (Tenormin) 50 mg PO DAILY [facility] Last Admin: 06/25/19 09:10 Dose: 50 mg Documented by: Benztropine Mesylate (Cogentin) 1 mg PO BID PRN PRN Reason: Mild Extrapyramidal symptoms Buspirone HCl (Buspar) 5 mg PO TID [facility] Last Admin: 06/25/19 20:50 Dose: 5 mg Documented by: Camphor/Menthol/Phenol (Blistex) 1 applic TOPICAL Q1H PRN PRN Reason: DRYNESS Diphenhydramine HCl (Benadryl) 50 mg IM Q4H PRN PRN Reason: Severe Aggression Doxepin HCl (Sinequan) 10 mg PO BEDTIME [facility] Last Admin: 06/25/19 20:50 Dose: 10 mg Documented by: Folic Acid (Folic Acid) 1 mg PO DAILY [facility] Last Admin: 06/25/19 09:10 Dose: 1 mg Documented by: Haloperidol (Haldol) 5 mg PO Q4H PRN PRN Reason: AGITATION Haloperidol Lactate (Haldol Inj) 5 mg IM Q4H PRN PRN Reason: Severe Aggression Hydroxyzine Pamoate (Vistaril) 50 mg PO Q6H PRN PRN Reason: ANXIETY Last Admin: 06/21/19 20:57 Dose: 50 mg Documented by: Loperamide HCl (Imodium Capsule) 2 mg PO Q6H PRN PRN Reason: DIARRHEA Mirtazapine (Remeron) 30 mg PO BEDTIME [facility] Last Admin: 06/25/19 20:50 Dose: 30 mg Documented by: Nicotine (Nicoderm 21 Mg Patch) 1 patch TRANSDERMA DAILY PRN PRN Reason: NICOTINE WITHDRAWAL Last Admin: 06/23/19 15:45 Dose: 1 patch Documented by: Nicotine Polacrilex (Nicorette) 2 mg BUCCAL Q2H PRN PRN Reason: NICOTINE WITHDRAWAL Last Admin: 06/04/19 14:15 Dose: 2 mg Documented by: Olanzapine (Zyprexa Zydis) 5 mg PO Q4H PRN PRN Reason: Agitation/Psychosis Last Admin: 05/17/19 00:09 Dose: 5 mg Documented by: Ondansetron HCl (Zofran) 4 mg PO Q6H PRN PRN Reason: NAUSEA AND VOMITING Trazodone HCl (Desyrel) 50 mg PO BEDTIME PRN PRN Reason: SLEEP Last Admin: 06/25/19 20:50 Dose: 50 mg Documented by: Data NPU : 06/18/19 06:43 06/18/19 06:43 A&P Additional A&P Information This is a 53-year-old white male who is been in the hospital for over a month from the sequela of Warnicke Korsakoff syndrome with his memory being unreliable waking up each day with memories of having conversations for the first time. 1. Continue current medication regimen. 2. Encourage individual, group and milieu therapy. 3. Continue q. 15-minute checks for safety. 4. Work with social work to figure out an appropriate placement. Involuntary Hold Information 96 Hour Hold: 96 Hour Involuntary Admission: No Attestations NPU Medical Necessity Statement*: Inpatient hospitalization is medically necessary and the clinically appropriate intervention at this time. We will monitor medications and work for appropriate placement. Likely length of stay 7 to 10 days. Coding Level of Care Code Acute Labor Arbitrator Hearing Office for Francia Larry
[2019-06-25 14:00] VITALS: BP 134/89; PULSE 82; RESP 17; TEMP 37.1; O2SAT 99
[2019-06-25 19:40] VITALS: BP 123/82; PULSE 85; RESP 18; TEMP 37.1; O2SAT 98
[2019-06-25] MEDS: doxepin 10 mg Capsule PO (20:50)
[2019-06-25] MEDS: mirtazapine 30 mg Tablet PO (20:50)
--- NOTE | 2019-06-25 22:21 | PC.NURSE ---
Pt requested sleeping pill at bedtime. Medicated with Trazadone 50 mg po prn. Pt appears to sleeping at this time. Respirations even and unlabored.
[2019-06-26 06:00] VITALS: BP 151/102; PULSE 99; RESP 18; TEMP 36.6; O2SAT 99
--- NOTE | 2019-06-26 08:18 | PC.NURSE ---
PT NOTE; CIGARETTE WAS FOUND INSIDE PT'S BEDSIDE TABLES DURING ENVIRONMENTAL CHECKS. AT 072O BY ONESIMO. SECURITY WAS NOTIFIED AND CLIENTS ROOM WAS SEARCHED WITH 3 STAFF MEMBERS PRESENT. NO OTHER CONTRABAND WAS FOUND IN PATIENTS ROOM. [facility] DENTIST FAWN DOW CONFISCATED THE CONTRABAND. CLIENT REPORTS THAT HE DOES NOT KNOW WHERE IT CAME FROM AND HOW IT GOT THERE. STAFF WILL CONTINUE TO MONITOR.
[2019-06-26] MEDS: BuSPIRONE 5 mg Tablet PO ×3 (08:32→20:25)
[2019-06-26] MEDS: atenolol 50 mg Tablet PO (08:32)
[2019-06-26] MEDS: folic acid 1 mg Tablet PO (08:32)
--- NOTE | 2019-06-26 11:29 | PM.NPN ---
Subjective NPU Subjective: Interval history: Roderick presents today reporting that he is doing okay. He continues to have that forlorn look on his face when you see him, as he reports he continues to struggle with his confusion and now he is having some more insight into the fact that he is confused, which is making him feel worse to some degree. With that being said, we discussed the fact that his sister was supposed to come tomorrow and that we are going to have the treatment team reach out to her and see if she can bring some pictures. It seems like seeing pictures was very helpful to him the other day. I am going to see if he has a phone in his belongings, see if we can charge that and maybe look at some pictures to see if that continues to trigger his memory. He is now not having any confusion about who this data analyst report writer is on a daily basis, which continues to be a good sign. He is eating fine and sleeping okay. Mental Status Exam MSE Comments: This is an overweight, versus obese, white male, with adequate dress, limited grooming, and eye contact. No abnormal movements except for psychomotor retardation and some instability using a walker, but certainly improvement in his stability. Cooperative with exam in no acute distress. Speech was normal rate and volume. Mood described as confused; affect congruent. Thought process, organized. Thought content: patient denied any suicidal or homicidal ideation, there were no delusions reported or noted, patient denied any auditory or visual hallucinations. Memory is unreliable. Alert and oriented times three. Insight and judgment are impaired. Vitals/I&O/Wt Last Vital Signs Temp 98 F 06/26/19 06:00 Pulse 99 06/26/19 06:00 Resp 18 06/26/19 06:00 BP 151/102 06/26/19 06:00 Pulse Ox 99 06/26/19 06:00 Weight last 48 hrs Weight 91.796 kg Home Medications amlodipine 5 mg PO DAILY 04/20/19 [History Confirmed 05/30/19] [id number]-fldsxcqnpksrt-mmgfbrbu [Excedrin Migraine] 2 tab PO DAILY PRN 04/20/19 [History Confirmed 05/30/19] lisinopril 20 mg PO DAILY 04/20/19 [History Confirmed 05/30/19] metformin 1,000 mg PO BID 04/20/19 [History Confirmed 05/30/19] Active Medications Acetaminophen (Tylenol) 650 mg PO Q4H PRN PRN Reason: MILD PAIN Last Admin: 06/10/19 00:56 Dose: 650 mg Documented by: Atenolol (Tenormin) 50 mg PO DAILY [facility] Last Admin: 06/26/19 08:32 Dose: 50 mg Documented by: Benztropine Mesylate (Cogentin) 1 mg PO BID PRN PRN Reason: Mild Extrapyramidal symptoms Buspirone HCl (Buspar) 5 mg PO TID [facility] Last Admin: 06/26/19 08:32 Dose: 5 mg Documented by: Camphor/Menthol/Phenol (Blistex) 1 applic TOPICAL Q1H PRN PRN Reason: DRYNESS Diphenhydramine HCl (Benadryl) 50 mg IM Q4H PRN PRN Reason: Severe Aggression Doxepin HCl (Sinequan) 10 mg PO BEDTIME [facility] Last Admin: 06/25/19 20:50 Dose: 10 mg Documented by: Folic Acid (Folic Acid) 1 mg PO DAILY [facility] Last Admin: 06/26/19 08:32 Dose: 1 mg Documented by: Haloperidol (Haldol) 5 mg PO Q4H PRN PRN Reason: AGITATION Haloperidol Lactate (Haldol Inj) 5 mg IM Q4H PRN PRN Reason: Severe Aggression Hydroxyzine Pamoate (Vistaril) 50 mg PO Q6H PRN PRN Reason: ANXIETY Last Admin: 06/21/19 20:57 Dose: 50 mg Documented by: Loperamide HCl (Imodium Capsule) 2 mg PO Q6H PRN PRN Reason: DIARRHEA Mirtazapine (Remeron) 30 mg PO BEDTIME [facility] Last Admin: 06/25/19 20:50 Dose: 30 mg Documented by: Nicotine (Nicoderm 21 Mg Patch) 1 patch TRANSDERMA DAILY PRN PRN Reason: NICOTINE WITHDRAWAL Last Admin: 06/23/19 15:45 Dose: 1 patch Documented by: Nicotine Polacrilex (Nicorette) 2 mg BUCCAL Q2H PRN PRN Reason: NICOTINE WITHDRAWAL Last Admin: 06/04/19 14:15 Dose: 2 mg Documented by: Olanzapine (Zyprexa Zydis) 5 mg PO Q4H PRN PRN Reason: Agitation/Psychosis Last Admin: 05/17/19 00:09 Dose: 5 mg Documented by: Ondansetron HCl (Zofran) 4 mg PO Q6H PRN PRN Reason: NAUSEA AND VOMITING Trazodone HCl (Desyrel) 50 mg PO BEDTIME PRN PRN Reason: SLEEP Last Admin: 06/25/19 20:50 Dose: 50 mg Documented by: Data NPU : 06/18/19 06:43 06/18/19 06:43 A&P Additional A&P Information This is a 53-year-old white male who is been in the hospital for over a month from the sequela of Warnicke Korsakoff syndrome with his memory being unreliable waking up each day with memories of having conversations for the first time. 1. Continue current medication regimen. 2. Encourage individual, group and milieu therapy. 3. Continue q. 15-minute checks for safety. 4. Work with social work to figure out an appropriate placement. Involuntary Hold Information 96 Hour Hold: 96 Hour Involuntary Admission: No Attestations NPU Medical Necessity Statement*: Inpatient hospitalization is medically necessary and the clinically appropriate intervention at this time. We will monitor medications and work for appropriate placement. Likely length of stay 7 to 10 days. Coding Level of Care Code Acute Supervisor Plastering for Francia Larry
[2019-06-26 14:00] VITALS: BP 128/78; PULSE 77; RESP 18
[2019-06-26] MEDS: trazodone 50 mg Tablet PO (20:24)
[2019-06-26] MEDS: doxepin 10 mg Capsule PO (20:24)
[2019-06-26] MEDS: mirtazapine 30 mg Tablet PO (20:25)
--- NOTE | 2019-06-26 20:32 | PC.NURSE ---
TYRAZODONE 50 MG PO GIVEN FOR SLEEP AIDE.
[2019-06-26 21:58] VITALS: BP 121/80; PULSE 79; RESP 18; TEMP 37; O2SAT 97
--- NOTE | 2019-06-26 22:05 | PC.NURSE ---
RESTING QUIETLY WITH RESP EVEN AND UNLABORED.
[2019-06-27 06:00] VITALS: PULSE 18
[2019-06-27 06:33] VITALS: RESP 1
[2019-06-27] MEDS: folic acid 1 mg Tablet PO (08:22)
[2019-06-27] MEDS: atenolol 50 mg Tablet PO (08:22)
[2019-06-27] MEDS: BuSPIRONE 5 mg Tablet PO ×3 (08:22→20:44)
[2019-06-27 13:47] VITALS: BP 132/84; PULSE 75; RESP 20; TEMP 37.1; O2SAT 98
--- NOTE | 2019-06-27 16:18 | P.PN_ITS ---
Subjective NPU Subjective: Interval history: Roderick presents today seeming fairly down. He once again reported having the flu and was very frustrated with staff for making him go to groups, as he put it, given that he had the flu and needed to just lay down in bed for the rest of the day. I discussed with him, as I had before, that I do not think he has the flu. I think that the stress and confusion of not having his memory is hard for his mind to get around and so he tends to express it in a physical manifestation, but he does not have a fever, he is not coughing, sneezing, and does not have body aches. He just feels horrible in his current situation. He did not remember that his sister was supposed to visit today, but I explained to him that due to the rain she was going to come tomorr ow. One benefit of that is she does plan on bringing some pictures. We were discussing the fact that it is possible that seeing some photos, giving some context to some of the major events in his life might assist him like the picture did the other day. Otherwise he is eating fine and sleeping without issue. Mental Status Exam MSE Comments: This is an overweight, versus obese, white male, with adequate dress, limited grooming, and eye contact. No abnormal movements except for some mild gait disturbance as he uses a walker. Cooperative with exam in no acute distress. Speech was decreased rate and volume. Mood described as feeling sick; affect subdued and lethargic. Thought process, organized. Thought content: patient denied any suicidal or homicidal ideation, there were no delusions reported or noted, patient denied any auditory or visual hallucinations. Attention and concentration were not formally tested. Memory is unreliable and some occasional confabulation. Insight and judgment are impaired. Vitals/I&O/Wt Last Vital Signs Temp 98.7 F 06/27/19 13:47 Pulse 75 06/27/19 13:47 Resp 20 H 06/27/19 13:47 BP 132/84 06/27/19 13:47 Pulse Ox 98 06/27/19 13:47 Weight last 48 hrs Weight 91.796 kg Home Medications amlodipine 5 mg PO DAILY 04/20/19 [History Confirmed 05/30/19] [id number]-[id number] [Excedrin Migraine] 2 tab PO DAILY PRN 04/20/19 [History Confirmed 05/30/19] lisinopril 20 mg PO DAILY 04/20/19 [History Confirmed 05/30/19] metformin 1,000 mg PO BID 04/20/19 [History Confirmed 05/30/19] Active Medications Acetaminophen (Tylenol) 650 mg PO Q4H PRN PRN Reason: MILD PAIN Last Admin: 06/10/19 00:56 Dose: 650 mg Documented by: Atenolol (Tenormin) 50 mg PO DAILY [facility] Last Admin: 06/27/19 08:22 Dose: 50 mg Documented by: Benztropine Mesylate (Cogentin) 1 mg PO BID PRN PRN Reason: Mild Extrapyramidal symptoms Buspirone HCl (Buspar) 5 mg PO TID [facility] Last Admin: 06/27/19 14:03 Dose: 5 mg Documented by: Camphor/Menthol/Phenol (Blistex) 1 applic TOPICAL Q1H PRN PRN Reason: DRYNESS Diphenhydramine HCl (Benadryl) 50 mg IM Q4H PRN PRN Reason: Severe Aggression Doxepin HCl (Sinequan) 10 mg PO BEDTIME [facility] Last Admin: 06/26/19 20:24 Dose: 10 mg Documented by: Folic Acid (Folic Acid) 1 mg PO DAILY [facility] Last Admin: 06/27/19 08:22 Dose: 1 mg Documented by: Haloperidol (Haldol) 5 mg PO Q4H PRN PRN Reason: AGITATION Haloperidol Lactate (Haldol Inj) 5 mg IM Q4H PRN PRN Reason: Severe Aggression Hydroxyzine Pamoate (Vistaril) 50 mg PO Q6H PRN PRN Reason: ANXIETY Last Admin: 06/21/19 20:57 Dose: 50 mg Documented by: Loperamide HCl (Imodium Capsule) 2 mg PO Q6H PRN PRN Reason: DIARRHEA Mirtazapine (Remeron) 30 mg PO BEDTIME [facility] Last Admin: 06/26/19 20:25 Dose: 30 mg Documented by: Nicotine (Nicoderm 21 Mg Patch) 1 patch TRANSDERMA DAILY PRN PRN Reason: NICOTINE WITHDRAWAL Last Admin: 06/23/19 15:45 Dose: 1 patch Documented by: Nicotine Polacrilex (Nicorette) 2 mg BUCCAL Q2H PRN PRN Reason: NICOTINE WITHDRAWAL Last Admin: 06/04/19 14:15 Dose: 2 mg Documented by: Olanzapine (Zyprexa Zydis) 5 mg PO Q4H PRN PRN Reason: Agitation/Psychosis Last Admin: 05/17/19 00:09 Dose: 5 mg Documented by: Ondansetron HCl (Zofran) 4 mg PO Q6H PRN PRN Reason: NAUSEA AND VOMITING Trazodone HCl (Desyrel) 50 mg PO BEDTIME PRN PRN Reason: SLEEP Last Admin: 06/26/19 20:24 Dose: 50 mg Documented by: Data NPU : 06/18/19 06:43 06/18/19 06:43 A&P Additional A&P Information This is a 53-year-old white male who is been in the hospital for over a month from the sequela of Warnicke Korsakoff syndrome with his memory being unreliable waking up each day with memories of having conversations for the first time, who has started demonstrating the ability to form some new memories. 1. Continue current medication regimen. 2. Encourage individual, group and milieu therapy. 3. Continue q. 15-minute checks for safety. 4. Work with social work to figure out an appropriate placement. Involuntary Hold Information 96 Hour Hold: 96 Hour Involuntary Admission: No Attestations NPU Medical Necessity Statement*: Inpatient hospitalization is medically necessary and the clinically appropriate intervention at this time. We will monitor medications and work for appropriate placement. Likely length of stay 7 to 10 days. Coding Level of Care Code Acute Neon Sign Installer for Francia Larry
[2019-06-27] MEDS: acetaminophen 325 mg Tablet 650 MG PO (20:40)
[2019-06-27] MEDS: trazodone 50 mg Tablet PO (20:44)
[2019-06-27] MEDS: mirtazapine 30 mg Tablet PO (20:44)
[2019-06-27] MEDS: doxepin 10 mg Capsule PO (20:44)
[2019-06-27 21:27] VITALS: BP 116/80; PULSE 79; RESP 20; TEMP 37.4; O2SAT 96
--- NOTE | 2019-06-27 22:32 | PC.NURSE ---
Pt requested something to help him sleep with bedtime meds. Medicated with Trazadone 50mgs po per prn order. Respirations even and unlabored. Will continue to monitor.
[2019-06-28 06:00] VITALS: BP 127/84; PULSE 87; RESP 20; TEMP 36.8; O2SAT 95
[2019-06-28] MEDS: atenolol 50 mg Tablet PO (08:36)
[2019-06-28] MEDS: BuSPIRONE 5 mg Tablet PO ×3 (08:36→20:59)
[2019-06-28] MEDS: folic acid 1 mg Tablet PO (08:36)
--- NOTE | 2019-06-28 13:02 | P.PN_ITS ---
Subjective NPU Subjective: Interval history: Roderick presents today continuing to report feeling sick, which seems to be the proxy for how he feels about being confused and it seems to be a mental anguish that is bringing a physical expression or interpretation. He did not remember his sister was coming, but he is looking forward to meeting with her. Hopefully we can ask some questions that he has been asking during this time. She was asked to bring pictures and we are hopeful that will be helpful. He is eating and fairly well. Mental Status Exam MSE Comments: This is a well-nourished, overweight, white male, with adequate dress, grooming, and eye contact. No abnormal movements except for psychomotor retardation. Cooperative with exam in no acute distress. Speech was decreased rate, normal volume. Mood described as feeling sick; affect congruent. Thought process, organized. Thought content: patient denied any suicidal or homicidal ideation, there were no delusions reported or noted, patient denied any auditory or visual hallucinations. Attention and concentration were intact, but memory was unreliable and none were formally tested. Alert and oriented times three. Insight and judgment are impaired. Vitals/I&O/Wt Last Vital Signs Temperature 98.3, pulse 77, respirations 18, pulse ox 100%, blood pressure 115/77. Home Medications amlodipine 5 mg PO DAILY 04/20/19 [History Confirmed 05/30/19] [id number] [Excedrin Migraine] 2 tab PO DAILY PRN 04/20/19 [History Confirmed 05/30/19] lisinopril 20 mg PO DAILY 04/20/19 [History Confirmed 05/30/19] metformin 1,000 mg PO BID 04/20/19 [History Confirmed 05/30/19] Active Medications Acetaminophen (Tylenol) 650 mg PO Q4H PRN PRN Reason: MILD PAIN Last Admin: 06/28/19 20:59 Dose: 650 mg Documented by: Atenolol (Tenormin) 50 mg PO DAILY [facility] Last Admin: 06/28/19 08:36 Dose: 50 mg Documented by: Benztropine Mesylate (Cogentin) 1 mg PO BID PRN PRN Reason: Mild Extrapyramidal symptoms Buspirone HCl (Buspar) 5 mg PO TID [facility] Last Admin: 06/28/19 20:59 Dose: 5 mg Documented by: Camphor/Menthol/Phenol (Blistex) 1 applic TOPICAL Q1H PRN PRN Reason: DRYNESS Diphenhydramine HCl (Benadryl) 50 mg IM Q4H PRN PRN Reason: Severe Aggression Doxepin HCl (Sinequan) 10 mg PO BEDTIME [facility] Last Admin: 06/28/19 20:59 Dose: 10 mg Documented by: Fluoxetine HCl (Prozac) 20 mg PO DAILY [place] Folic Acid (Folic Acid) 1 mg PO DAILY [facility] Last Admin: 06/28/19 08:36 Dose: 1 mg Documented by: Haloperidol (Haldol) 5 mg PO Q4H PRN PRN Reason: AGITATION Haloperidol Lactate (Haldol Inj) 5 mg IM Q4H PRN PRN Reason: Severe Aggression Hydroxyzine Pamoate (Vistaril) 50 mg PO Q6H PRN PRN Reason: ANXIETY Last Admin: 06/21/19 20:57 Dose: 50 mg Documented by: Loperamide HCl (Imodium Capsule) 2 mg PO Q6H PRN PRN Reason: DIARRHEA Mirtazapine (Remeron) 30 mg PO BEDTIME [facility] Last Admin: 06/28/19 20:59 Dose: 30 mg Documented by: Nicotine (Nicoderm 21 Mg Patch) 1 patch TRANSDERMA DAILY PRN PRN Reason: NICOTINE WITHDRAWAL Last Admin: 06/23/19 15:45 Dose: 1 patch Documented by: Nicotine Polacrilex (Nicorette) 2 mg BUCCAL Q2H PRN PRN Reason: NICOTINE WITHDRAWAL Last Admin: 06/04/19 14:15 Dose: 2 mg Documented by: Olanzapine (Zyprexa Zydis) 5 mg PO Q4H PRN PRN Reason: Agitation/Psychosis Last Admin: 05/17/19 00:09 Dose: 5 mg Documented by: Ondansetron HCl (Zofran) 4 mg PO Q6H PRN PRN Reason: NAUSEA AND VOMITING Trazodone HCl (Desyrel) 50 mg PO BEDTIME PRN PRN Reason: SLEEP Last Admin: 06/28/19 20:59 Dose: 50 mg Documented by: Data NPU : 06/18/19 06:43 06/18/19 06:43 A&P Additional A&P Information This is a 53-year-old white male who is been in the hospital for over a month from the sequela of Warnicke Korsakoff syndrome with his memory being unreliable waking up each day with memories of having conversations for the first time, who has started demonstrating the ability to form some new memories. 1. Continue current medication regimen. 2. Encourage individual, group and milieu therapy. 3. Continue q. 15-minute checks for safety. 4. Work with social work to figure out an appropriate placement. Involuntary Hold Information 96 Hour Hold: 96 Hour Involuntary Admission: No Attestations NPU Medical Necessity Statement*: Inpatient hospitalization is medically necessary and the clinically appropriate intervention at this time. We will monitor medications and work for appropriate placement. Likely length of stay 7 to 10 days. Coding Level of Care Code Acute Tractor Trailer Moving Van Driver for Francia Larry
[2019-06-28 14:00] VITALS: BP 115/77; PULSE 77; RESP 18; TEMP 36.8; O2SAT 100
[2019-06-28] MEDS: fluoxetine 20 mg Capsule PO (18:37)
[2019-06-28] MEDS: acetaminophen 325 mg Tablet 650 MG PO (20:59)
[2019-06-28] MEDS: trazodone 50 mg Tablet PO (20:59)
[2019-06-28] MEDS: doxepin 10 mg Capsule PO (20:59)
[2019-06-28] MEDS: mirtazapine 30 mg Tablet PO (20:59)
[2019-06-28 21:03] VITALS: BP 147/93; PULSE 78; RESP 23; TEMP 37.3; O2SAT 98
[2019-06-29 06:00] VITALS: BP 125/74; PULSE 88; RESP 20; TEMP 36.6; O2SAT 99
[2019-06-29] MEDS: BuSPIRONE 5 mg Tablet PO ×3 (08:42→20:15)
[2019-06-29] MEDS: atenolol 50 mg Tablet PO (08:42)
[2019-06-29] MEDS: fluoxetine 20 mg Capsule PO (08:42)
[2019-06-29] MEDS: folic acid 1 mg Tablet PO (08:42)
[2019-06-29 13:59] VITALS: BP 156/96; PULSE 72; RESP 20; TEMP 36.5; O2SAT 99
--- NOTE | 2019-06-29 15:39 | PC.SOCIAL ---
Assessment from 06/28/19 group session.
[2019-06-29] MEDS: mirtazapine 30 mg Tablet PO (20:15)
[2019-06-29] MEDS: acetaminophen 325 mg Tablet 650 MG PO (20:15)
[2019-06-29] MEDS: doxepin 10 mg Capsule PO (20:15)
[2019-06-29] MEDS: trazodone 50 mg Tablet PO (20:15)
--- NOTE | 2019-06-29 20:18 | PC.NURSE ---
HS MEDS GIVEN, ALONG WITH TRAZODONE AND TYLENOL PER PT REQUEST.
[2019-06-29 21:55] VITALS: BP 144/94; PULSE 82; RESP 19; TEMP 36.8; O2SAT 97
[2019-06-30 06:00] VITALS: BP 125/84; PULSE 84; RESP 17; TEMP 36.7; O2SAT 99
[2019-06-30] MEDS: BuSPIRONE 5 mg Tablet PO ×3 (09:42→20:14)
[2019-06-30] MEDS: folic acid 1 mg Tablet PO (09:42)
[2019-06-30] MEDS: atenolol 50 mg Tablet PO (09:42)
[2019-06-30] MEDS: fluoxetine 20 mg Capsule PO (09:42)
[2019-06-30] MEDS: acetaminophen 325 mg Tablet 650 MG PO ×2 (13:01→20:14)
[2019-06-30 14:00] VITALS: BP 152/68; PULSE 81; RESP 18; TEMP 36.7; O2SAT 98
[2019-06-30] MEDS: doxepin 10 mg Capsule PO (20:14)
[2019-06-30] MEDS: trazodone 50 mg Tablet PO (20:14)
[2019-06-30] MEDS: mirtazapine 30 mg Tablet PO (20:14)
--- NOTE | 2019-06-30 20:15 | PC.NURSE ---
HS meds at this time, along with tylenol for rt shoulder pain and sleep aide.
--- NOTE | 2019-06-30 21:11 | PM.NPN ---
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 I have not any knowledge as to when or even if guardianship can be achieved. He is well cared for here and we hope eventually he will have a place where that continues. Medications: Reviewed: Yes Medication Review Details: Current Medications Acetaminophen (Tylenol) 650 mg PO Q4H PRN PRN Reason: MILD PAIN Last Admin: 06/30/19 20:14 Dose: 650 mg Documented by: Atenolol (Tenormin) 50 mg PO DAILY [facility] Last Admin: 06/30/19 09:42 Dose: 50 mg Documented by: Benztropine Mesylate (Cogentin) 1 mg PO BID PRN PRN Reason: Mild Extrapyramidal symptoms Buspirone HCl (Buspar) 5 mg PO TID [facility] Last Admin: 06/30/19 20:14 Dose: 5 mg Documented by: Camphor/Menthol/Phenol (Blistex) 1 applic TOPICAL Q1H PRN PRN Reason: DRYNESS Diphenhydramine HCl (Benadryl) 50 mg IM Q4H PRN PRN Reason: Severe Aggression Doxepin HCl (Sinequan) 10 mg PO BEDTIME [facility] Last Admin: 06/30/19 20:14 Dose: 10 mg Documented by: Fluoxetine HCl (Prozac) 20 mg PO DAILY [facility] Last Admin: 06/30/19 09:42 Dose: 20 mg Documented by: Folic Acid (Folic Acid) 1 mg PO DAILY [facility] Last Admin: 06/30/19 09:42 Dose: 1 mg Documented by: Haloperidol (Haldol) 5 mg PO Q4H PRN PRN Reason: AGITATION Haloperidol Lactate (Haldol Inj) 5 mg IM Q4H PRN PRN Reason: Severe Aggression Hydroxyzine Pamoate (Vistaril) 50 mg PO Q6H PRN PRN Reason: ANXIETY Last Admin: 06/21/19 20:57 Dose: 50 mg Documented by: Loperamide HCl (Imodium Capsule) 2 mg PO Q6H PRN PRN Reason: DIARRHEA Mirtazapine (Remeron) 30 mg PO BEDTIME [facility] Last Admin: 06/30/19 20:14 Dose: 30 mg Documented by: Nicotine (Nicoderm 21 Mg Patch) 1 patch TRANSDERMA DAILY PRN PRN Reason: NICOTINE WITHDRAWAL Last Admin: 06/23/19 15:45 Dose: 1 patch Documented by: Nicotine Polacrilex (Nicorette) 2 mg BUCCAL Q2H PRN PRN Reason: NICOTINE WITHDRAWAL Last Admin: 06/04/19 14:15 Dose: 2 mg Documented by: Olanzapine (Zyprexa Zydis) 5 mg PO Q4H PRN PRN Reason: Agitation/Psychosis Last Admin: 05/17/19 00:09 Dose: 5 mg Documented by: Ondansetron HCl (Zofran) 4 mg PO Q6H PRN PRN Reason: NAUSEA AND VOMITING Trazodone HCl (Desyrel) 50 mg PO BEDTIME PRN PRN Reason: SLEEP Last Admin: 06/30/19 20:14 Dose: 50 mg Documented by: Mental Status Exam MSE Comments: This is an overweight, white male, with adequate dress, limited grooming, and eye contact. No abnormal movements except for some mild gait disturbance as he uses a walker. Cooperative with exam in no acute distress. Speech was decreased rate and volume. Mood described as feeling sick; affect subdued and lethargic. Thought process, organized. Thought content: patient denied any suicidal or homicidal ideation, there were no delusions reported or noted, patient denied any auditory or visual hallucinations. Attention and concentration were not formally tested. Memory is unreliable and some occasional confabulation. Insight and judgment are impaired. Vitals/I&O/Wt Last Vital Signs Temp 98.1 F 06/30/19 14:00 Pulse 81 06/30/19 14:00 Resp 18 06/30/19 14:00 BP 152/68 06/30/19 14:00 Pulse Ox 98 06/30/19 14:00 Data NPU : 06/18/19 06:43 06/18/19 06:43 A&P Additional A&P Information Additional A&P Information This is a 53-year-old white male who is been in the hospital for over a month from the sequelae of Wernicke Korsakoff syndrome with his memory being unreliable waking up each day with impressions of having conversations for the first time, who has started demonstrating the ability to form some new memories. 1. Continue current medication regimen. 2. Encourage individual, group and milieu therapy. 3. Continue q. 15-minute checks for safety. 4. Work with social work to figure out an appropriate placement. Involuntary Hold Information 96 Hour Hold: 96 Hour Involuntary Admission: No Attestations NPU Medical Necessity Statement*: This patient will no doubt spanned another 5-7 midnights with us. Time Spent in Patient Care: Greater than 35 minutes (>than 50% of time spent in counselling and/or direct pt care on unit). Coding Level of Care Code Acute Svp Digital Sales Food & Cooking for Francia Larry
[2019-06-30 21:28] VITALS: BP 110/72; PULSE 85; RESP 21; TEMP 36.9; O2SAT 96
--- NOTE | 2019-07-01 02:17 | PC.NURSE ---
Pt given tylenol for c/o rt shoulder pain.
[2019-07-01 06:00] VITALS: BP 129/94; PULSE 83; RESP 19; TEMP 36.6; O2SAT 99
[2019-07-01] MEDS: atenolol 50 mg Tablet PO (08:34)
[2019-07-01] MEDS: fluoxetine 20 mg Capsule PO (08:34)
[2019-07-01] MEDS: acetaminophen 325 mg Tablet 650 MG PO ×2 (08:34→20:42)
[2019-07-01] MEDS: folic acid 1 mg Tablet PO (08:34)
[2019-07-01] MEDS: BuSPIRONE 5 mg Tablet PO ×3 (08:34→20:43)
[2019-07-01 14:00] VITALS: BP 99/67; PULSE 66; RESP 20; TEMP 37.1; O2SAT 99
--- NOTE | 2019-07-01 19:53 | PM.NPN ---
Subjective NPU Subjective: Interval history: The days passed and [facility] He is not difficult to care for but we are at a loss as to how to help him regain what is probably for ever lost. He insists he is going to get high paying work. Medications: Reviewed: Yes Medication Review Details: Current Medications Acetaminophen (Tylenol) 650 mg PO Q4H PRN PRN Reason: MILD PAIN Last Admin: 07/01/19 08:34 Dose: 650 mg Documented by: Atenolol (Tenormin) 50 mg PO DAILY [facility] Last Admin: 07/01/19 08:34 Dose: 50 mg Documented by: Benztropine Mesylate (Cogentin) 1 mg PO BID PRN PRN Reason: Mild Extrapyramidal symptoms Buspirone HCl (Buspar) 5 mg PO TID [facility] Last Admin: 07/01/19 15:01 Dose: 5 mg Documented by: Camphor/Menthol/Phenol (Blistex) 1 applic TOPICAL Q1H PRN PRN Reason: DRYNESS Diphenhydramine HCl (Benadryl) 50 mg IM Q4H PRN PRN Reason: Severe Aggression Doxepin HCl (Sinequan) 10 mg PO BEDTIME [facility] Last Admin: 06/30/19 20:14 Dose: 10 mg Documented by: Fluoxetine HCl (Prozac) 20 mg PO DAILY [facility] Last Admin: 07/01/19 08:34 Dose: 20 mg Documented by: Folic Acid (Folic Acid) 1 mg PO DAILY [facility] Last Admin: 07/01/19 08:34 Dose: 1 mg Documented by: Haloperidol (Haldol) 5 mg PO Q4H PRN PRN Reason: AGITATION Haloperidol Lactate (Haldol Inj) 5 mg IM Q4H PRN PRN Reason: Severe Aggression Hydroxyzine Pamoate (Vistaril) 50 mg PO Q6H PRN PRN Reason: ANXIETY Last Admin: 06/21/19 20:57 Dose: 50 mg Documented by: Loperamide HCl (Imodium Capsule) 2 mg PO Q6H PRN PRN Reason: DIARRHEA Mirtazapine (Remeron) 30 mg PO BEDTIME [facility] Last Admin: 06/30/19 20:14 Dose: 30 mg Documented by: Nicotine (Nicoderm 21 Mg Patch) 1 patch TRANSDERMA DAILY PRN PRN Reason: NICOTINE WITHDRAWAL Last Admin: 06/23/19 15:45 Dose: 1 patch Documented by: Nicotine Polacrilex (Nicorette) 2 mg BUCCAL Q2H PRN PRN Reason: NICOTINE WITHDRAWAL Last Admin: 06/04/19 14:15 Dose: 2 mg Documented by: Olanzapine (Zyprexa Zydis) 5 mg PO Q4H PRN PRN Reason: Agitation/Psychosis Last Admin: 05/17/19 00:09 Dose: 5 mg Documented by: Ondansetron HCl (Zofran) 4 mg PO Q6H PRN PRN Reason: NAUSEA AND VOMITING Trazodone HCl (Desyrel) 50 mg PO BEDTIME PRN PRN Reason: SLEEP Last Admin: 06/30/19 20:14 Dose: 50 mg Documented by: Vitals/I&O/Wt Last Vital Signs Temp 98.8 F 07/01/19 14:00 Pulse 66 07/01/19 14:00 Resp 20 H 07/01/19 14:00 BP 99/67 07/01/19 14:00 Pulse Ox 99 07/01/19 14:00 Data NPU : 06/18/19 06:43 06/18/19 06:43 A&P Assessment and plan (1) Wernicke-Korsakoff syndrome (alcoholic): We will await the [place] to our application for level 2 classification for this patient. So far we have had no response. 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 1. Continue current medication regimen. 2. Encourage individual, group and milieu therapy. 3. Continue q. 15-minute checks for safety. 4. Work with social work to figure out an appropriate placement. Involuntary Hold Information 96 Hour Hold: 96 Hour Involuntary Admission: No Attestations NPU Medical Necessity Statement*: I anticipate 7-10 midnights. Time Spent in Patient Care: 16 - 35 minutes (>than 50% of time spent in counselling and/or direct pt care on unit). Coding Level of Care Code Acute Manager Cath Lab for g Fwd Diagnoses Wernicke-Korsakoff syndrome (alcoholic) F10.96
[2019-07-01 20:02] VITALS: BP 132/89; PULSE 76; RESP 19; TEMP 36.8; O2SAT 97
[2019-07-01] MEDS: doxepin 10 mg Capsule PO (20:42)
[2019-07-01] MEDS: mirtazapine 30 mg Tablet PO (20:42)
[2019-07-01] MEDS: trazodone 50 mg Tablet PO (20:43)
--- NOTE | 2019-07-01 20:44 | PC.NURSE ---
HS meds as well as tylenol for rt shoulder pain and trazodone given at this time.
[2019-07-02 06:00] VITALS: BP 108/61; PULSE 62; RESP 19; TEMP 36.6; O2SAT 99
[2019-07-02] MEDS: fluoxetine 20 mg Capsule PO (08:20)
[2019-07-02] MEDS: folic acid 1 mg Tablet PO (08:20)
[2019-07-02] MEDS: atenolol 50 mg Tablet PO (08:20)
[2019-07-02] MEDS: BuSPIRONE 5 mg Tablet PO ×3 (08:20→20:54)
[2019-07-02 14:00] VITALS: BP 113/75; PULSE 76; RESP 18
--- NOTE | 2019-07-02 18:21 | PM.NPN ---
Subjective NPU Subjective: Interval history: The patient is truly sad. I am alone again, he laments. He shows me a picture of his father. He seems to be aware of the coronavirus crisis and gives me the [id number] greeting instead of a handshake. This is more than I remember him capable of. Medications: Reviewed: Yes Medication Review Details: Current Medications Acetaminophen (Tylenol) 650 mg PO Q4H PRN PRN Reason: MILD PAIN Last Admin: 07/01/19 20:42 Dose: 650 mg Documented by: Atenolol (Tenormin) 50 mg PO DAILY [facility] Last Admin: 07/02/19 08:20 Dose: 50 mg Documented by: Benztropine Mesylate (Cogentin) 1 mg PO BID PRN PRN Reason: Mild Extrapyramidal symptoms Buspirone HCl (Buspar) 5 mg PO TID [facility] Last Admin: 07/02/19 15:23 Dose: 5 mg Documented by: Camphor/Menthol/Phenol (Blistex) 1 applic TOPICAL Q1H PRN PRN Reason: DRYNESS Diphenhydramine HCl (Benadryl) 50 mg IM Q4H PRN PRN Reason: Severe Aggression Doxepin HCl (Sinequan) 10 mg PO BEDTIME [facility] Last Admin: 07/01/19 20:42 Dose: 10 mg Documented by: Fluoxetine HCl (Prozac) 20 mg PO DAILY [facility] Last Admin: 07/02/19 08:20 Dose: 20 mg Documented by: Folic Acid (Folic Acid) 1 mg PO DAILY [facility] Last Admin: 07/02/19 08:20 Dose: 1 mg Documented by: Haloperidol (Haldol) 5 mg PO Q4H PRN PRN Reason: AGITATION Haloperidol Lactate (Haldol Inj) 5 mg IM Q4H PRN PRN Reason: Severe Aggression Hydroxyzine Pamoate (Vistaril) 50 mg PO Q6H PRN PRN Reason: ANXIETY Last Admin: 06/21/19 20:57 Dose: 50 mg Documented by: Loperamide HCl (Imodium Capsule) 2 mg PO Q6H PRN PRN Reason: DIARRHEA Nicotine (Nicoderm 21 Mg Patch) 1 patch TRANSDERMA DAILY PRN PRN Reason: NICOTINE WITHDRAWAL Last Admin: 06/23/19 15:45 Dose: 1 patch Documented by: Nicotine Polacrilex (Nicorette) 2 mg BUCCAL Q2H PRN PRN Reason: NICOTINE WITHDRAWAL Last Admin: 06/04/19 14:15 Dose: 2 mg Documented by: Olanzapine (Zyprexa Zydis) 5 mg PO Q4H PRN PRN Reason: Agitation/Psychosis Last Admin: 05/17/19 00:09 Dose: 5 mg Documented by: Ondansetron HCl (Zofran) 4 mg PO Q6H PRN PRN Reason: NAUSEA AND VOMITING Trazodone HCl (Desyrel) 50 mg PO BEDTIME PRN PRN Reason: SLEEP Last Admin: 07/01/19 20:43 Dose: 50 mg Documented by: Mental Status Exam MSE Comments: The patient has adequate dress, limited grooming, and eye contact. No abnormal movements except for some mild gait disturbance, as he uses a walker. Cooperative with exam in no acute distress. Mood is despondent and affect is flat. Speech was of decreased rate and volume. There was no dysarthria, aprosody or pressure. He said he was sick but was unable to set forth what symptoms he had. Thought process, organized. Thought content: patient denied any suicidal or homicidal ideation, plan or intent. There were no delusions reported or noted, patient denied any auditory or visual hallucinations. Attention and concentration were not formally tested. Memory is unreliable and some occasional confabulation. Insight and judgment are impaired. Vitals/I&O/Wt Last Vital Signs Temp 97.9 F 07/02/19 06:00 Pulse 76 07/02/19 14:00 Resp 18 07/02/19 14:00 BP 113/75 07/02/19 14:00 Pulse Ox 99 07/02/19 06:00 Data NPU : 06/18/19 06:43 06/18/19 06:43 A&P Additional A&P Information Wernicke-Korsakoff syndrome (alcoholic): We will await the [facility]'s response to our application for level 2 classification for this patient. So far we have had none. Involuntary Hold Information 96 Hour Hold: 96 Hour Involuntary Admission: No Attestations NPU Medical Necessity Statement*: I anticipate 7-10 midnights Time Spent in Patient Care: 16 - 35 minutes (>than 50% of time spent in counselling and/or direct pt care on unit). Coding Level of Care Code Acute Senior Sql Database Developer for Francia Larry
[2019-07-02] MEDS: trazodone 50 mg Tablet PO ×2 (20:53→23:21)
[2019-07-02] MEDS: doxepin 10 mg Capsule PO (20:54)
[2019-07-02 22:00] VITALS: BP 133/89; PULSE 78; RESP 19; TEMP 36.9; O2SAT 98
[2019-07-03 06:00] VITALS: BP 113/79; PULSE 89; RESP 21; TEMP 36.7; O2SAT 97
[2019-07-03] MEDS: atenolol 50 mg Tablet PO (08:29)
[2019-07-03] MEDS: fluoxetine 20 mg Capsule PO (08:30)
[2019-07-03] MEDS: BuSPIRONE 5 mg Tablet PO ×2 (08:30→15:47)
[2019-07-03] MEDS: folic acid 1 mg Tablet PO (08:30)
[2019-07-03 14:00] VITALS: BP 153/87; PULSE 74; RESP 18; O2SAT 100
--- NOTE | 2019-07-03 17:13 | P.PN_ITS ---
Subjective NPU Subjective: Interval history: Day by day the patient's mind begins to clear. She can have simple dialogue with staff now and indicate her preferences on things like the objects on her meal tray. She seems to know us and to be oriented as to her current location but not (reasonably) what day of the week it is or time of day, much less the date. She seems appropriate in her interaction with me. She is getting hungry and she awakens every day. Medications: Reviewed: Yes Medication Review Details: Current Medications Atenolol (Tenormin) 50 mg PO DAILY [facility] Last Admin: 07/03/19 08:29 Dose: 50 mg Documented by: Buspirone HCl (Buspar) 5 mg PO TID [facility] Last Admin: 07/03/19 15:47 Dose: 5 mg Documented by: Doxepin HCl (Sinequan) 10 mg PO BEDTIME [facility] Last Admin: 07/02/19 20:54 Dose: 10 mg Documented by: Fluoxetine HCl (Prozac) 20 mg PO DAILY [facility] Last Admin: 07/03/19 08:30 Dose: 20 mg Documented by: Folic Acid (Folic Acid) 1 mg PO DAILY [facility] Last Admin: 07/03/19 08:30 Dose: 1 mg Documented by: Nicotine (Nicoderm 21 Mg Patch) 1 patch TRANSDERMA DAILY PRN PRN Reason: NICOTINE WITHDRAWAL Last Admin: 06/23/19 15:45 Dose: 1 patch Documented by: Trazodone HCl (Desyrel) 50 mg PO BEDTIME PRN PRN Reason: SLEEP Last Admin: 07/02/19 23:21 Dose: 50 mg Documented by: Mental Status Exam 2 MSE Comments: The patient is in [facility] but his grooming is poor. No abnormal movements except for mild gait disturbance, as he uses a walker. He spars with me about how much I know about his substance abuse and alcoholism. I did tell him it is all recorded in the record. Mood is disgruntled and affect is flat. Speech was of decreased rate and volume. There was no dysarthria, aprosody or pressure. He thinks I am making up the facts of his case. Thought process is organized and free of any racing, blocking or looseness of association. He does confabulate. The patient denied any suicidal or homicidal ideation, plan or intent. There were no delusions and the patient denied any auditory or visual hallucinations. Attention and concentration were not formally tested. 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 Tragically, he may have been. Insight and judgment are impaired. Vitals/I&O/Wt Last Vital Signs Temp 98.1 F 07/03/19 06:00 Pulse 74 07/03/19 14:00 Resp 18 07/03/19 14:00 BP 153/87 07/03/19 14:00 Pulse Ox 100 07/03/19 14:00 Weight last 48 hrs Weight 208 lb 6 oz Data NPU : 06/18/19 06:43 06/18/19 06:43 A&P Additional A&P Information Additional A&P Information Wernicke-Korsakoff syndrome (alcoholic): We will await the [facility]'s response to our application for level 2 classification for this patient. So far we have had none. Involuntary Hold Information 96 Hour Hold: 96 Hour Involuntary Admission: No Attestations NPU Medical Necessity Statement*: I anticipate a week to 10 midnights. Time Spent in Patient Care: Greater than 35 minutes (>than 50% of time spent in counselling and/or direct pt care on unit) . Coding Level of Care Code Acute City Engineer for Francia Larry
[2019-07-03] MEDS: doxepin 10 mg Capsule PO (21:20)
[2019-07-03] MEDS: trazodone 50 mg Tablet PO (21:20)
[2019-07-03 22:00] VITALS: BP 148/79; PULSE 78; RESP 12; TEMP 37; O2SAT 99
[2019-07-04 06:00] VITALS: BP 110/77; PULSE 82; RESP 18; TEMP 36.8; O2SAT 98
[2019-07-04] MEDS: fluoxetine 20 mg Capsule PO (09:27)
[2019-07-04] MEDS: atenolol 50 mg Tablet PO (09:27)
[2019-07-04] MEDS: folic acid 1 mg Tablet PO (09:27)
[2019-07-04 14:00] VITALS: BP 120/79; PULSE 76; RESP 18; TEMP 37.2; O2SAT 99
--- NOTE | 2019-07-04 15:46 | PM.NPN ---
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 He is mystified that he has been here over 2 wks. HE does not recall that he was ever in ICU and that he was living with a woman before coming to the hospital. Medications: Medication Review Details: Current Medications Atenolol (Tenormin) 50 mg PO DAILY [facility] Last Admin: 07/03/19 08:29 Dose: 50 mg Documented by: Buspirone HCl (Buspar) 5 mg PO TID [facility] Last Admin: 07/03/19 15:47 Dose: 5 mg Documented by: Doxepin HCl (Sinequan) 10 mg PO BEDTIME [facility] Last Admin: 07/02/19 20:54 Dose: 10 mg Documented by: Fluoxetine HCl (Prozac) 20 mg PO DAILY [facility] Last Admin: 07/03/19 08:30 Dose: 20 mg Documented by: Folic Acid (Folic Acid) 1 mg PO DAILY [facility] Last Admin: 07/03/19 08:30 Dose: 1 mg Documented by: Nicotine (Nicoderm 21 Mg Patch) 1 patch TRANSDERMA DAILY PRN PRN Reason: NICOTINE WITHDRAWAL Last Admin: 06/23/19 15:45 Dose: 1 patch Documented by: Trazodone HCl (Desyrel) 50 mg PO BEDTIME PRN PRN Reason: SLEEP Last Admin: 07/02/19 23:21 Dose: 50 mg Documented by: Mental Status Exam MSE Comments: Mental Status Exam: Patient is alert and personally engaged. Eye contact is good. Appearance: hygiene is good; no gross neurological deficits., gait is unremarkable; AIMS=0 Speech: Speech is of normal rate and rhythm and easily understood. Thought processes: Thought processes are abstract. Judgment is not adequate for safety because he does not have historic reference to hold in memory that would allow him to avoid mistakes when he has made before i.e. drinking to inebriation on a daily basis.. Associations: intact Psychotic processes: There is no indication of guarding or paranoia. There is no attention to the internal stimuli. Auditory and visual hallucinations are denied. Judgment: Insight is fair. Problem solving skills are adequate for safety. Orientation: The patient is oriented to person, place time and situation. Memory: Memory is severely impaired. He does not appear to be able to lay down new memory . He is unable to rely on recent memory as a basis for making future decisions especially regarding finances and trusted relationships Attention: The patient is alert and interpersonally engaged. Language: Verbalizations are coherent. Fund of knowledge: Fund of knowledge is adequate. Affect/Mood: Affect is irritable with a mildly depressed mood. He denied suicidal ideation Affective range is Constricted Psychosis: perception unimpaired except through cognitive distortion; reality testing intact.. Cognition: Patient Appearance: Disheveled/Poor Hygiene Level of Consciousness: Awake and Follows Commands Patient Cognition Impaired: No Ability to Follow Directions: Excellent Patient Orientation (long list): Person Comprehension Ability: No Impairment Hallucination Type: None Delusion Description: Somatic Thought Process: Appropriate Affect: Affect Description: Appropriate Behavior: Patient Behavior: Cooperative Speech Pattern: Clear Vitals/I&O/Wt Last Vital Signs Temp 98.2 F 07/04/19 06:00 Pulse 82 07/04/19 06:00 Resp 18 07/04/19 06:00 BP 110/77 07/04/19 06:00 Pulse Ox 98 07/04/19 06:00 Weight last 48 hrs Weight 94.517 kg Data NPU : 06/18/19 06:43 06/18/19 06:43 A&P Assessment and plan (1) Wernicke-Korsakoff syndrome (alcoholic): We will await the response to our application for level 2 classification for this patient. So far we have had no response. 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 So far we have had none. Involuntary Hold Information 96 Hour Hold: 96 Hour Involuntary Admission: No Attestations NPU Medical Necessity Statement*: patient will remain in the hospital another 7-8 days until his guardianship hearing and subsequent placement. Coding Level of Care Code Acute Supervisor Motorcycle [employer] for [facility] Diagnoses Wernicke-Korsakoff syndrome (alcoholic) F10.96
[2019-07-04 20:21] VITALS: BP 170/95; PULSE 74; RESP 19; TEMP 36.6; O2SAT 99
[2019-07-04] MEDS: trazodone 50 mg Tablet PO (20:40)
[2019-07-04] MEDS: doxepin 10 mg Capsule PO (20:40)
--- NOTE | 2019-07-04 23:13 | PC.NURSE ---
pt requested sleeping pill with bedtime meds. Medicated with trazadone 50mgs po per prn order. Appears to be resting comfortably. Appears to be resting comfortably with eyes closed. Respirations even and unlabored.
[2019-07-05 06:00] VITALS: BP 127/83; PULSE 87; RESP 23; TEMP 36.9; O2SAT 99
[2019-07-05] MEDS: atenolol 50 mg Tablet PO (08:17)
[2019-07-05] MEDS: fluoxetine 20 mg Capsule PO (08:17)
[2019-07-05] MEDS: folic acid 1 mg Tablet PO (08:17)
--- NOTE | 2019-07-05 12:49 | P.PN_ITS ---
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 Medications: Medication Review Details: Current Medications Atenolol (Tenormin) 50 mg PO DAILY [facility] Last Admin: 07/03/19 08:29 Dose: 50 mg Documented by: Buspirone HCl (Buspar) 5 mg PO TID [facility] Last Admin: 07/03/19 15:47 Dose: 5 mg Documented by: Doxepin HCl (Sinequan) 10 mg PO BEDTIME [facility] Last Admin: 07/02/19 20:54 Dose: 10 mg Documented by: Fluoxetine HCl (Prozac) 20 mg PO DAILY [facility] Last Admin: 07/03/19 08:30 Dose: 20 mg Documented by: Folic Acid (Folic Acid) 1 mg PO DAILY [facility] Last Admin: 07/03/19 08:30 Dose: 1 mg Documented by: Nicotine (Nicoderm 21 Mg Patch) 1 patch TRANSDERMA DAILY PRN PRN Reason: NICOTINE WITHDRAWAL Last Admin: 06/23/19 15:45 Dose: 1 patch Documented by: Trazodone HCl (Desyrel) 50 mg PO BEDTIME PRN PRN Reason: SLEEP Last Admin: 07/02/19 23:21 Dose: 50 mg Documented by: Mental Status Exam MSE Comments: Mental Status Exam: Patient is alert and personally engaged. Eye contact is good. Appearance: hygiene is good; no gross neurological deficits., gait is u nremarkable; AIMS=0 Speech: Speech is of normal rate and rhythm and easily understood. Thought processes: Thought processes are abstract. Judgment is not adequate for safety because he does not have historic reference to hold in memory that would allow him to avoid mistakes when he has made before i.e. drinking to inebriation on a daily basis.. Associations: intact Psychotic processes: There is no indication of guarding or paranoia. There is no attention to the internal stimuli. Auditory and visual hallucinations are denied. Judgment: Insight is fair. Problem solving skills are adequate for safety. Orientation: The patient is oriented to person, place time and situation. Memory: Memory is severely impaired. He does not appear to be able to lay down new memory . He is unable to rely on recent memory as a basis for making future decisions especially regarding finances and trusted relationships Attention: The patient is alert and interpersonally engaged. Language: Verbalizations are coherent. Fund of knowledge: Fund of knowledge is adequate. Affect/Mood: Affect is irritable with a mildly depressed mood. He denied suicidal ideation Affective range is Constricted Psychosis: perception unimpaired except through cognitive distortion; reality testing intact.. Cognition: Patient Appearance: Appears Older than Age Level of Consciousness: Awake and Follows Commands Patient Cognition Impaired: No Ability to Follow Directions: Excellent Patient Orientation (long list): Person Comprehension Ability: No Impairment Hallucination Type: None Delusion Description: Somatic Thought Process: Confused Affect: Affect Description: Appropriate Behavior: Patient Behavior: Cooperative Speech Pattern: Clear Vitals/I&O/Wt Last Vital Signs Temp 98.5 F 07/05/19 06:00 Pulse 87 07/05/19 06:00 Resp 23 H 07/05/19 06:00 BP 127/83 07/05/19 06:00 Pulse Ox 99 07/05/19 06:00 Data NPU : 06/18/19 06:43 06/18/19 06:43 A&P Assessment and plan (1) Wernicke-Korsakoff syndrome (alcoholic): We will await the state of response to our application for level 2 classification for this patient. So far we have had no response. Pt was given a notebook to start listing questions that he wants answered so that he may refer back to those questions and may reinforce answers such that he does not need to ask the same questions repeatedly. 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 So far we have had none. Involuntary Hold Information 96 Hour Hold: 96 Hour Involuntary Admission: No Attestations NPU Medical Necessity Statement*: Pt to remain in hospital another 7-8 nights for medication tolerability and efficacy. Also to await the state to determine guardianship. Coding Level of Care Code Acute Associate Professor Of History for [facility] Diagnoses Wernicke-Korsakoff syndrome (alcoholic) F10.96
[2019-07-05 14:00] VITALS: BP 134/82; PULSE 88; RESP 18; TEMP 37.2; O2SAT 99
[2019-07-05] MEDS: trazodone 50 mg Tablet PO (20:30)
[2019-07-05] MEDS: doxepin 10 mg Capsule PO (20:30)
[2019-07-05 22:00] VITALS: BP 98/68; PULSE 82; RESP 20; TEMP 36.7; O2SAT 97
[2019-07-06] MEDS: fluoxetine 20 mg Capsule PO (08:12)
[2019-07-06] MEDS: folic acid 1 mg Tablet PO (08:12)
[2019-07-06] MEDS: atenolol 50 mg Tablet PO (08:12)
[2019-07-06 09:28] VITALS: BP 125/85; PULSE 82; RESP 18; TEMP 36.8; O2SAT 98
[2019-07-06 13:24] VITALS: BP 106/70; PULSE 76; RESP 18; TEMP 36.9; O2SAT 99
--- NOTE | 2019-07-06 20:32 | P.PN_ITS ---
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 He is now convinced that he has come down with the flu Pandemic. Medications: Medication Review Details: Current Medications Atenolol (Tenormin) 50 mg PO DAILY [facility] Last Admin: 07/03/19 08:29 Dose: 50 mg Documented by: Buspirone HCl (Buspar) 5 mg PO TID [facility] Last Admin: 07/03/19 15:47 Dose: 5 mg Documented by: Doxepin HCl (Sinequan) 10 mg PO BEDTIME [facility] Last Admin: 07/02/19 20:54 Dose: 10 mg Documented by: Fluoxetine HCl (Prozac) 20 mg PO DAILY [facility] Last Admin: 07/03/19 08:30 Dose: 20 mg Documented by: Folic Acid (Folic Acid) 1 mg PO DAILY [facility] Last Admin: 07/03/19 08:30 Dose: 1 mg Documented by: Nicotine (Nicoderm 21 Mg Patch) 1 patch TRANSDERMA DAILY PRN PRN Reason: NICOTINE WITHDRAWAL Last Admin: 06/23/19 15:45 Dose: 1 patch Documented by: Trazodone HCl (Desyrel) 50 mg PO BEDTIME PRN PRN Reason: SLEEP Last Admin: 07/02/19 23:21 Dose: 50 mg Documented by: Mental Status Exam MSE Comments: Mental Status Exam: Patient is alert and personally engaged. Eye contact is good. Appearance: hygiene is good; no gross neurological deficits., gait is unremarkable; AIMS=0 Speech: Speech is of normal rate and rhythm and easily understood. Thought processes: Thought processes are abstract. Judgment is not adequate for safety because he does not have historic reference to hold in memory that would allow him to avoid mistakes when he has made before i.e. drinking to inebriation on a daily basis.. Associations: intact Psychotic processes: There is no indication of guarding or paranoia. There is no attention to the internal stimuli. Auditory and visual hallucinations are denied. Judgment: Insight is fair. Problem solving skills are adequate for safety. Orientation: The patient is oriented to person, place time and situation. Memory: Memory is severely impaired. He does not appear to be able to lay down new memory . He is unable to rely on recent memory as a basis for making future decisions especially regarding finances and trusted relationships Attention: The patient is alert and interpersonally engaged. Language: Verbalizations are coherent. Fund of knowledge: Fund of knowledge is adequate. Affect/Mood: Affect is irritable with a mildly depressed mood. He denied suicidal ideation Affective range is Constricted Psychosis: perception unimpaired except through cognitive distortion; reality testing intact.. Cognition: Patient Appearance: Appears Older than Age Level of Consciousness: Awake and Follows Commands Patient Cognition Impaired: No Ability to Follow Directions: Excellent Patient Orientation (long list): Person Comprehension Ability: No Impairment Hallucination Type: None Delusion Description: Somatic Thought Process: Appropriate Affect: Affect Description: Appropriate Behavior: Patient Behavior: Appropriate Speech Pattern: Appropriate and Clear Vitals/I&O/Wt Last Vital Signs Temp 98.4 F 07/06/19 13:24 Pulse 76 07/06/19 13:24 Resp 18 07/06/19 13:24 BP 106/70 07/06/19 13:24 Pulse Ox 99 07/06/19 13:24 Data NPU : 06/18/19 06:43 06/18/19 06:43 A&P Assessment and plan (1) Wernicke-Korsakoff syndrome (alcoholic): We will await the state of response to our application for level 2 classification for this patient. So far we have had no response. Pt was given a notebook to start listing questions that he wants answered so that he may refer back to those questions and may reinforce answers such that he does not need to ask the same questions repeatedly. 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's response to our application for level 2 classification for this patient. So far we have had none. Involuntary Hold Information 96 Hour Hold: 96 Hour Involuntary Admission: No Attestations NPU Medical Necessity Statement*: Patient will remain in the hospital another 6-[address] guardianship and he can be placed Coding Level of Care Code Acute Pathology Laboratory Director for [facility] Diagnoses Wernicke-Korsakoff syndrome (alcoholic) F10.96
[2019-07-06] MEDS: trazodone 50 mg Tablet PO (20:36)
[2019-07-06] MEDS: doxepin 10 mg Capsule PO (20:36)
--- NOTE | 2019-07-06 20:36 | PC.NURSE ---
Pt given hs med doxipin and PRN med trazodone at this time.
[2019-07-06 21:43] VITALS: BP 144/91; PULSE 78; RESP 18; TEMP 36.8; O2SAT 100
[2019-07-07 06:00] VITALS: BP 109/75; PULSE 85; RESP 20; TEMP 36.7; O2SAT 98
[2019-07-07] MEDS: atenolol 50 mg Tablet PO (08:19)
[2019-07-07] MEDS: fluoxetine 20 mg Capsule PO (08:19)
[2019-07-07] MEDS: folic acid 1 mg Tablet PO (08:19)
--- NOTE | 2019-07-07 13:59 | P.PN_ITS ---
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 He has no complaints to day. Objective: pt is not engaging in any of the collateral activites offered and encouraged. Medications: Medication Review Details: Current Medications Atenolol (Tenormin) 50 mg PO DAILY [facility] Last Admin: 07/03/19 08:29 Dose: 50 mg Documented by: Buspirone HCl (Buspar) 5 mg PO TID [facility] Last Admin: 07/03/19 15:47 Dose: 5 mg Documented by: Doxepin HCl (Sinequan) 10 mg PO BEDTIME [facility] Last Admin: 07/02/19 20:54 Dose: 10 mg Documented by: Fluoxetine HCl (Prozac) 20 mg PO DAILY [facility] Last Admin: 07/03/19 08:30 Dose: 20 mg Documented by: Folic Acid (Folic Acid) 1 mg PO DAILY [facility] Last Admin: 07/03/19 08:30 Dose: 1 mg Documented by: Nicotine (Nicoderm 21 Mg Patch) 1 patch TRANSDERMA DAILY PRN PRN Reason: NICOTINE WITHDRAWAL Last Admin: 06/23/19 15:45 Dose: 1 patch Documented by: Trazodone HCl (Desyrel) 50 mg PO BEDTIME PRN PRN Reason: SLEEP Last Admin: 07/02/19 23:21 Dose: 50 mg Documented by: Mental Status Exam MSE Comments: Mental Status Exam: Patient is alert and personally engaged. Eye contact is good. Appearance: hygiene is good; no gross neurological deficits., gait is unremarkable; AIMS=0 Speech: Speech is of normal rate and rhythm and easily understood. Thought processes: Thought processes are abstract. Judgment is not adequate for safety because he does not have historic reference to hold in memory that would allow him to avoid mistakes when he has made before i.e. drinking to inebriation on a daily basis.. Associations: intact Psychotic processes: There is no indication of guarding or paranoia. There is no attention to the internal stimuli. Auditory and visual hallucinations are denied. Judgment: Insight is fair. Problem solving skills are adequate for safety. Orientation: The patient is oriented to person, place time and situation. Memory: Memory is severely impaired. He does not appear to be able to lay down new memory . He is unable to rely on recent memory as a basis for making future decisions especially regarding finances and trusted relationships Attention: The patient is alert and interpersonally engaged. Language: Verbalizations are coherent. Fund of knowledge: Fund of knowledge is adequate. Affect/Mood: Affect is irritable with a mildly depressed mood. He denied suicidal ideation Affective range is Constricted Psychosis: perception unimpaired except through cognitive distortion; reality testing intact.. Cognition: Patient Appearance: Appears Older than Age Level of Consciousness: Awake and Follows Commands Patient Cognition Impaired: No Ability to Follow Directions: Excellent Patient Orientation (long list): Person Comprehension Ability: No Impairment Hallucination Type: None Delusion Description: Somatic Thought Process: Confused Affect: Affect Description: Calm Behavior: Patient Behavior: Appropriate Speech Pattern: Clear Vitals/I&O/Wt Last Vital Signs Temp 98.0 F 07/07/19 06:00 Pulse 85 07/07/19 06:00 Resp 20 H 07/07/19 06:00 BP 109/75 07/07/19 06:00 Pulse Ox 98 07/07/19 06:00 Data NPU : 06/18/19 06:43 06/18/19 06:43 A&P Assessment and plan (1) Wernicke-Korsakoff syndrome (alcoholic): We will await the state of response to our application for level 2 classification for this patient. So far we have had no response. Pt was given a notebook to start listing questions that he wants answered so that he may refer back to those questions and may reinforce answers such that he does not need to ask the same questions repeatedly. 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 So far we have had none. Involuntary Hold Information 96 Hour Hold: 96 Hour Involuntary Admission: No Attestations NPU Medical Necessity Statement*: pt will remain in the hospital another 4-5 nights awaiting for judicial disposition. Coding Level of Care Code Acute Formulation Technician for [facility] Diagnoses Wernicke-Korsakoff syndrome (alcoholic) F10.96
[2019-07-07 14:00] VITALS: BP 120/79; PULSE 76; RESP 16; TEMP 37.1; O2SAT 97
[2019-07-07] MEDS: trazodone 50 mg Tablet PO (21:06)
[2019-07-07] MEDS: doxepin 10 mg Capsule PO (21:06)
[2019-07-07 21:21] VITALS: BP 176/100; PULSE 75; RESP 22; TEMP 36.7; O2SAT 98
[2019-07-08 06:00] VITALS: BP 138/84; PULSE 75; RESP 18; TEMP 36.4; O2SAT 97
[2019-07-08] MEDS: folic acid 1 mg Tablet PO (07:50)
[2019-07-08] MEDS: fluoxetine 20 mg Capsule PO (07:50)
[2019-07-08] MEDS: atenolol 50 mg Tablet PO (07:50)
--- NOTE | 2019-07-08 11:58 | PM.NPN ---
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 He has no complaints today. Objective: pt is not engaging in any of the collateral activities offered and encouraged. Medications: Medication Review Details: Current Medications Atenolol (Tenormin) 50 mg PO DAILY [facility] Last Admin: 07/03/19 08:29 Dose: 50 mg Documented by: Buspirone HCl (Buspar) 5 mg PO TID [facility] Last Admin: 07/03/19 15:47 Dose: 5 mg Documented by: Doxepin HCl (Sinequan) 10 mg PO BEDTIME [facility] Last Admin: 07/02/19 20:54 Dose: 10 mg Documented by: Fluoxetine HCl (Prozac) 20 mg PO DAILY [facility] Last Admin: 07/03/19 08:30 Dose: 20 mg Documented by: Folic Acid (Folic Acid) 1 mg PO DAILY [facility] Last Admin: 07/03/19 08:30 Dose: 1 mg Documented by: Nicotine (Nicoderm 21 Mg Patch) 1 patch TRANSDERMA DAILY PRN PRN Reason: NICOTINE WITHDRAWAL Last Admin: 06/23/19 15:45 Dose: 1 patch Documented by: Trazodone HCl (Desyrel) 50 mg PO BEDTIME PRN PRN Reason: SLEEP Last Admin: 07/02/19 23:21 Dose: 50 mg Documented by: Mental Status Exam MSE Comments: Mental Status Exam: Patient is alert and personally engaged. Eye contact is good. Appearance: hygiene is good; no gross neurological deficits., gait is unremarkable; AIMS=0 Speech: Speech is of normal rate and rhythm and easily understood. Thought processes: Thought processes are abstract. Judgment is not adequate for safety because he does not have historic reference to hold in memory that would allow him to avoid mistakes when he has made before i.e. drinking to inebriation on a daily basis.. Associations: intact Psychotic processes: There is no indication of guarding or paranoia. There is no attention to the internal stimuli. Auditory and visual hallucinations are denied. Judgment: Insight is fair. Problem solving skills are adequate for safety. Orientation: The patient is oriented to person, place time and situation. Memory: Memory is severely impaired. He does not appear to be able to lay down new memory . He is unable to rely on recent memory as a basis for making future decisions especially regarding finances and trusted relationships Attention: The patient is alert and interpersonally engaged. Language: Verbalizations are coherent. Fund of knowledge: Fund of knowledge is adequate. Affect/Mood: Affect is irritable with a mildly depressed mood. He denied suicidal ideation Affective range is Constricted Psychosis: perception unimpaired except through cognitive distortion; reality testing intact.. Cognition: Patient Appearance: Appears Older than Age Level of Consciousness: Awake and Follows Commands Patient Cognition Impaired: No Ability to Follow Directions: Excellent Patient Orientation (long list): Person Comprehension Ability: No Impairment Hallucination Type: None Delusion Description: Somatic Thought Process: Confused Affect: Affect Description: Appropriate and Calm Behavior: Patient Behavior: Appropriate Speech Pattern: Clear Vitals/I&O/Wt Last Vital Signs Temp 97.5 F L 07/08/19 06:00 Pulse 75 07/08/19 06:00 Resp 18 07/08/19 06:00 BP 138/84 07/08/19 06:00 Pulse Ox 97 07/08/19 06:00 Data NPU : 06/18/19 06:43 06/18/19 06:43 A&P Assessment and plan (1) Wernicke-Korsakoff syndrome (alcoholic): We will await the state of response to our application for level 2 classification for this patient. So far we have had no response. Pt was given a notebook to start listing questions that he wants answered so that he may refer back to those questions and may reinforce answers such that he does not need to ask the same questions repeatedly. 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 So far we have had none. Involuntary Hold Information 96 Hour Hold: 96 Hour Involuntary Admission: No Attestations NPU Medical Necessity Statement*: pt will remain another 6-[address] courts decide guardianship issue Coding Level of Care Code Acute Car Supplier for [facility] Fwd Diagnoses Wernicke-Korsakoff syndrome (alcoholic) F10.96
[2019-07-08 13:54] VITALS: BP 150/95; PULSE 71; RESP 18; TEMP 36.9; O2SAT 99
[2019-07-08] MEDS: doxepin 10 mg Capsule PO (21:20)
[2019-07-08] MEDS: trazodone 50 mg Tablet PO (21:20)
[2019-07-08 22:00] VITALS: BP 160/95; PULSE 80; RESP 18; TEMP 36.8; O2SAT 99
[2019-07-09 06:00] VITALS: BP 168/76; PULSE 70; RESP 18; TEMP 36.4; O2SAT 99
--- NOTE | 2019-07-09 08:44 | P.PN_ITS ---
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 He has no complaints today. We had a long discussion regarding depression and potential benefits of antidepressants (as I had forgotten that he was already on fluoxetine). He was unaware as well. He was agreeable to a trail. Objective: pt is not engaging in any of the collateral activities offered and encouraged. Medications: Medication Review Details: Current Medications Atenolol (Tenormin) 50 mg PO DAILY [facility] Last Admin: 07/03/19 08:29 Dose: 50 mg Documented by: Buspirone HCl (Buspar) 5 mg PO TID [facility] Last Admin: 07/03/19 15:47 Dose: 5 mg Documented by: Doxepin HCl (Sinequan) 10 mg PO BEDTIME [facility] Last Admin: 07/02/19 20:54 Dose: 10 mg Documented by: Fluoxetine HCl (Prozac) 20 mg PO DAILY [facility] Last Admin: 07/03/19 08:30 Dose: 20 mg Documented by: Folic Acid (Folic Acid) 1 mg PO DAILY [facility] Last Admin: 07/03/19 08:30 Dose: 1 mg Documented by: Nicotine (Nicoderm 21 Mg Patch) 1 patch TRANSDERMA DAILY PRN PRN Reason: NICOTINE WITHDRAWAL Last Admin: 06/23/19 15:45 Dose: 1 patch Documented by: Trazodone HCl (Desyrel) 50 mg PO BEDTIME PRN PRN Reason: SLEEP Last Admin: 07/02/19 23:21 Dose: 50 mg Documented by: Mental Status Exam MSE Comments: Mental Status Exam: Patient is alert and personally engaged. Eye contact is good. Appearance: hygiene is good; no gross neurological deficits., gait is unremarkable; AIMS=0 Speech: Speech is of normal rate and rhythm and easily understood. Thought processes: Thought processes are abstract. Judgment is not adequate for safety because he does not have historic reference to hold in memory that would allow him to avoid mistakes when he has made before i.e. drinking to inebriation on a daily basis.. Associations: intact Psychotic processes: There is no indication of guarding or paranoia. There is no attention to the internal stimuli. Auditory and visual hallucinations are denied. Judgment: Insight is fair. Problem solving skills are adequate for safety. Orientation: The patient is oriented to person, place time and situation. Memory: Memory is severely impaired. He does not appear to be able to lay down new memory . He is unable to rely on recent memory as a basis for making future decisions especially regarding finances and trusted relationships Attention: The patient is alert and interpersonally engaged. Language: Verbalizations are coherent. Fund of knowledge: Fund of knowledge is adequate. Affect/Mood: Affect is irritable with a mildly depressed mood. He denied suicidal ideation Affective range is Constricted Psychosis: perception unimpaired except through cognitive distortion; reality testing intact.. Cognition: Patient Appearance: Appears Older than Age Level of Consciousness: Awake and Follows Commands Patient Cognition Impaired: No Ability to Follow Directions: Excellent Patient Orientation (long list): Person Comprehension Ability: No Impairment Hallucination Type: None Delusion Description: Somatic Thought Process: Confused Affect: Affect Description: Appropriate Behavior: Patient Behavior: Appropriate Speech Pattern: Appropriate and Clear Vitals/I&O/Wt Last Vital Signs Temp 97.5 F L 07/09/19 06:00 Pulse 70 07/09/19 06:00 Resp 18 07/09/19 06:00 BP 168/76 07/09/19 06:00 Pulse Ox 99 07/09/19 06:00 Data NPU : 06/18/19 06:43 06/18/19 06:43 A&P Assessment and plan (1) Wernicke-Korsakoff syndrome (alcoholic): We will await the state of response to our application for level 2 classification for this patient. So far we have had no response. After consenting to an antidepressant trial , I realized he is on day #11 of fluoxewtine 20 mg daily. No change at this time. . 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 So far we have had none. Involuntary Hold Information 96 Hour Hold: 96 Hour Involuntary Admission: No Attestations NPU Medical Necessity Statement*: Pt to remain in hospital another 3-4 nights waiting for courts to adjudicate guardianship. . Coding Level of Care Code Acute Deputy K 9 for [facility] Diagnoses Wernicke-Korsakoff syndrome (alcoholic) F10.96
[2019-07-09] MEDS: folic acid 1 mg Tablet PO (08:53)
[2019-07-09] MEDS: fluoxetine 20 mg Capsule PO (08:53)
[2019-07-09] MEDS: atenolol 50 mg Tablet PO (08:53)
[2019-07-09 14:00] VITALS: BP 116/79; PULSE 18; RESP 18
[2019-07-09] MEDS: doxepin 10 mg Capsule PO (21:43)
[2019-07-09] MEDS: trazodone 50 mg Tablet PO (21:43)
[2019-07-09 22:00] VITALS: BP 155/92; PULSE 68; RESP 18; TEMP 36.8; O2SAT 98
[2019-07-10 06:00] VITALS: BP 163/99; PULSE 76; RESP 18; TEMP 36.9; O2SAT 99
[2019-07-10] MEDS: fluoxetine 20 mg Capsule PO (08:40)
[2019-07-10] MEDS: folic acid 1 mg Tablet PO (08:40)
[2019-07-10] MEDS: atenolol 50 mg Tablet PO (08:40)
--- NOTE | 2019-07-10 10:08 | P.PN_ITS ---
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 He says he is all alone. He may be. We have not heard anything even from the state of [place]. He asks if his father is alive, which he is not. 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 Objective: Patient remains reclusive. Medications: Reviewed: Yes Medication Review Details: Current Medications Atenolol (Tenormin) 50 mg PO DAILY [facility] Last Admin: 07/10/19 08:40 Dose: 50 mg Documented by: Doxepin HCl (Sinequan) 10 mg PO BEDTIME [facility] Last Admin: 07/09/19 21:43 Dose: 10 mg Documented by: Fluoxetine HCl (Prozac) 20 mg PO DAILY [facility] Last Admin: 07/10/19 08:40 Dose: 20 mg Documented by: Folic Acid (Folic Acid) 1 mg PO DAILY [facility] Last Admin: 07/10/19 08:40 Dose: 1 mg Documented by: Trazodone HCl (Desyrel) 50 mg PO BEDTIME PRN PRN Reason: SLEEP Last Admin: 07/09/19 21:43 Dose: 50 mg Documented by: Mental Status Exam MSE Comments: MSE Comments Mental Status Exam: Patient is alert and personally engaged. Eye contact is good. Appearance: hygiene is good; no gross neurological deficits, gait is unremarkable; AIMS=0 Speech: Speech is of normal rate and rhythm and easily understood. Thought processes: Thought processes are abstract. Judgment is not adequate for safety because he does not have historic reference to hold in memory that would allow him to avoid mistakes when he has made before i.e. drinking to inebriation on a daily basis.. Associations: intact. Psychotic processes: There is no indication of guarding or paranoia. There is no attention to the internal stimuli. Auditory and visual hallucinations are denied. Judgment: Insight is fair. Problem solving skills are adequate for safety. Orientation: The patient is oriented to person, place time and situation. Memory: Memory is severely impaired, as is his ability to make rational and factual analysis regarding finances and relationships Attention: The patient is alert and interpersonally engaged. Language: Verbalizations are coherent and free of any racing, blocking or flight of ideas. Fund of knowledge: Fund of knowledge is adequate. Affect/Mood: Affect is irritable with a mildly depressed mood. He denied suicidal ideation. Affective range is Constricted Psychosis: perception unimpaired except through cognitive distortion; reality testing intact.. Behavior: Patient Behavior: Appropriate Vitals/I&O/Wt Last Vital Signs Temp 98.4 F 07/10/19 06:00 Pulse 76 07/10/19 06:00 Resp 18 07/10/19 06:00 BP 163/99 07/10/19 06:00 Pulse Ox 99 07/10/19 06:00 Weight last 48 hrs Weight 210 lb Data NPU : 06/18/19 06:43 06/18/19 06:43 A&P Additional A&P Information Additional A&P Information Wernicke-Korsakoff syndrome (alcoholic): We will await the [facility]'s response to our application for level 2 classification for this patient. So far we have had none. Involuntary Hold Information 96 Hour Hold: 96 Hour Involuntary Admission: No Attestations NPU Medical Necessity Statement*: It would appear that attempting to effectuate a safe disposition for this patient has proven to be a [place] task in dealing with state bureaucracy. I have not any idea how long this patient will be with us. He is here every time I return. I expect another 10-14 midnights. Time Spent in Patient Care: 16 - 35 minutes (>than 50% of time spent in counselling and/or direct pt care on unit) . Coding Level of Care Code Acute Cylinder Die Machine Operator for [facility]
[2019-07-10 13:35] VITALS: BP 121/75; PULSE 72; RESP 18
[2019-07-10] MEDS: doxepin 10 mg Capsule PO (21:04)
[2019-07-10] MEDS: trazodone 50 mg Tablet PO (21:04)
[2019-07-10 21:19] VITALS: BP 136/81; PULSE 80; RESP 22; TEMP 37.3; O2SAT 98
[2019-07-11 06:00] VITALS: BP 133/86; PULSE 76; RESP 20; TEMP 36.8; O2SAT 99
[2019-07-11] MEDS: folic acid 1 mg Tablet PO (08:50)
[2019-07-11] MEDS: atenolol 50 mg Tablet PO (08:50)
[2019-07-11] MEDS: fluoxetine 20 mg Capsule PO (08:50)
[2019-07-11 13:22] VITALS: BP 127/82; PULSE 73; RESP 18; TEMP 36.6; O2SAT 98
--- NOTE | 2019-07-11 18:55 | PM.NPN ---
Subjective NPU Subjective: Interval history: The patient continues to say that he does not feel good. He is not able to give a specific complaint. He is not running a fever today. He wonders what he has gone to have to stay here. I reassured him that this is not about punishment, that he got sick and he needed our help. Mental Status Exam MSE Comments: Patient is alert and personally engaged. Eye contact is good. Appearance: hygiene is good but he is disheveled; no gross neurological deficits, gait is with a walker; AIMS=0 Speech is of normal rate and rhythm and easily understood. Thought processes are abstract. Judgment is not adequate for safety because he does not have historic reference to hold in memory that would allow him to avoid mistakes when he has made before i.e. drinking to inebriation on a daily basis.. Associations: intact. There is no indication of guarding or paranoia. There is no attention to internal stimuli. Auditory and visual hallucinations are denied. Perception unimpaired except through cognitive distortion; reality testing intact. Insight is fair. Problem solving skills are adequate for safety but not much more. The patient is oriented to person, place time and situation. Memory is severely impaired, as is his ability to make rational and factual analysis regarding finances and relationships Verbalizations are coherent and free of any racing, blocking or flight of ideas. Fund of knowledge is adequate. Affect is irritable with a mildly depressed mood. He denied suicidal ideation. Affective range is constricted. 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 Coding Level of Care Code Acute Chain Saw Driver for [facility] Fwd Diagnoses Wernicke-Korsakoff syndrome (alcoholic) F10.96 Complicated grief F43.29 Alcohol abuse F10.10
[2019-07-11] MEDS: doxepin 10 mg Capsule PO (21:12)
[2019-07-11] MEDS: trazodone 50 mg Tablet PO (21:12)
[2019-07-11 21:27] VITALS: BP 154/91; PULSE 74; RESP 20; TEMP 37.3; O2SAT 97
--- NOTE | 2019-07-12 04:01 | PC.NURSE ---
Approx at 1950, Court papers were delivered to Pt. Explained guardianship to pt. Pt became tearful, stating you cannot keep me from going to my Dad's to live Pt reminded his dad was , pt states I just talk to him, he's not . Supported care reassurance provided. Pt soon went on to another topic.
[2019-07-12 06:00] VITALS: BP 110/66; PULSE 80; RESP 20; TEMP 36.4; O2SAT 98
[2019-07-12] MEDS: folic acid 1 mg Tablet PO (09:12)
[2019-07-12] MEDS: fluoxetine 20 mg Capsule PO (09:12)
[2019-07-12] MEDS: atenolol 50 mg Tablet PO (09:12)
[2019-07-12 14:00] VITALS: BP 98/57; PULSE 76; RESP 20; TEMP 37.2; O2SAT 99
--- NOTE | 2019-07-12 19:29 | PM.NPN ---
Subjective NPU Subjective: Interval history: The patient remains calm and grossly impaired with memory. Almost every staff member has reminded him that his father is . He even has a copy of the Obit in his room. Nonetheless, he insists, I don't care what you say. I'm going to live with my father. I talked to the hospital MARKET DEVELOPER about him. He said he would have some of his administrators look into this interminable wait. Medications: Reviewed: Yes Medication Review Details: Current Medications Atenolol (Tenormin) 50 mg PO DAILY [facility] Last Admin: 07/12/19 09:12 Dose: 50 mg Documented by: Doxepin HCl (Sinequan) 10 mg PO BEDTIME [facility] Last Admin: 07/11/19 21:12 Dose: 10 mg Documented by: Fluoxetine HCl (Prozac) 20 mg PO DAILY [facility] Last Admin: 07/12/19 09:12 Dose: 20 mg Documented by: Folic Acid (Folic Acid) 1 mg PO DAILY [facility] Last Admin: 07/12/19 09:12 Dose: 1 mg Documented by: Trazodone HCl (Desyrel) 50 mg PO BEDTIME PRN PRN Reason: SLEEP Last Admin: 07/11/19 21:12 Dose: 50 mg Documented by: Mental Status Exam MSE Comments: Patient is alert and personally engaged. Eye contact is good. Appearance: hygiene is good but he is disheveled; no gross neurological deficits, gait is with a walker; AIMS=0 Speech is of normal rate and rhythm and easily understood. Thought processes are abstract. Judgment is not adequate for safety because he does not have historic reference to hold in memory that would allow him to avoid mistakes when he has made before i.e. drinking to inebriation on a daily basis.. Associations: intact. There is no indication of guarding or paranoia. There is no attention to internal stimuli. Auditory and visual hallucinations are denied. Perception unimpaired except through cognitive distortion; reality testing intact. Insight is fair. Problem solving skills are adequate for safety but not much more. The patient is oriented to person, place time and situation. Memory is severely impaired, as is his ability to make rational and factual analysis regarding finances and relationships Verbalizations are coherent and free of any racing, blocking or flight of ideas. Fund of knowledge is adequate. Affect is irritable with a mildly depressed mood. He denied suicidal ideation. Affective range is constricted. 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 Coding Level of Care Code Acute Kitchen Designer for [facility] Fwd Diagnoses Wernicke-Korsakoff syndrome (alcoholic) F10.96 Alcohol abuse F10.10
[2019-07-12] MEDS: trazodone 50 mg Tablet PO (20:46)
[2019-07-12] MEDS: doxepin 10 mg Capsule PO (20:46)
[2019-07-12 20:47] VITALS: BP 117/77; PULSE 74; RESP 20; TEMP 37.4; O2SAT 98
[2019-07-12] MEDS: acetaminophen 325 mg Tablet PO (20:58)
[2019-07-13 06:00] VITALS: BP 128/84; PULSE 89; RESP 21; TEMP 36.9; O2SAT 99
[2019-07-13] MEDS: fluoxetine 20 mg Capsule PO (08:19)
[2019-07-13] MEDS: atenolol 50 mg Tablet PO (08:19)
[2019-07-13 14:00] VITALS: BP 129/81; PULSE 77; RESP 20; TEMP 37.1; O2SAT 99
--- NOTE | 2019-07-13 20:42 | PM.NPN ---
Subjective NPU Subjective: Interval history: The patient may soon have a hearing regarding appointment with guardian. In the meantime he feels lost and alone. In some ways he is. He cannot grasp that his father is gone or that he cannot go to live with him. Medications: Reviewed: Yes Medication Review Details: Current Medications Acetaminophen (Tylenol) 325 - 650 mg PO Q4H PRN PRN Reason: MILD PAIN OR INCREASE TEMP Last Admin: 07/12/19 20:58 Dose: 650 mg Documented by: Atenolol (Tenormin) 50 mg PO DAILY [facility] Last Admin: 07/13/19 08:19 Dose: 50 mg Documented by: Fluoxetine HCl (Prozac) 20 mg PO DAILY [facility] Last Admin: 07/13/19 08:19 Dose: 20 mg Documented by: Trazodone HCl (Desyrel) 50 mg PO BEDTIME PRN PRN Reason: SLEEP Last Admin: 07/12/19 20:46 Dose: 50 mg Documented by: Mental Status Exam MSE Comments: Patient is alert and personally engaged. Eye contact is good. Appearance: hygiene is good but he is disheveled; no gross neurological deficits, gait is with a walker; AIMS=0 Speech is of normal rate and rhythm and easily understood. Thought processes are abstract. Judgment is not adequate for safety because he does not have historic reference to hold in memory that would allow him to avoid mistakes when he has made before i.e. drinking to inebriation on a daily basis.. Associations: intact. There is no indication of guarding or paranoia. There is no attention to internal stimuli. Auditory and visual hallucinations are denied. Perception unimpaired except through cognitive distortion; reality testing intact. Insight is fair. Problem solving skills are adequate for safety but not much more. The patient is oriented to person, place time and situation. Memory is severely impaired, as is his ability to make rational and factual analysis regarding finances and relationships Verbalizations are coherent and free of any racing, blocking or flight of ideas. Fund of knowledge is adequate. Affect is irritable with a mildly depressed mood. He denied suicidal ideation. Affective range is constricted. Vitals/I&O/Wt Last Vital Signs Temp 98.8 F 07/13/19 14:00 Pulse 77 07/13/19 14:00 Resp 20 H 07/13/19 14:00 BP 129/81 07/13/19 14:00 Pulse Ox 99 07/13/19 14:00 Data NPU : 06/18/19 06:43 06/18/19 06:43 Involuntary Hold Information 96 Hour Hold: 96 Hour Involuntary Admission: No Attestations NPU Medical Necessity Statement*: Frankly it is difficult to estimate but I postulate 10-12 midnights. Time Spent in Patient Care: 16 - 35 minutes (>than 50% of time spent in counselling and/or direct pt care on unit). Coding Level of Care Code Acute Qa Automation Developer for [facility]
[2019-07-13] MEDS: acetaminophen 325 mg Tablet PO (20:54)
[2019-07-13] MEDS: trazodone 50 mg Tablet PO (20:54)
--- NOTE | 2019-07-13 20:54 | PC.NURSE ---
PRN meds given at this time per pt request.
--- NOTE | 2019-07-13 20:55 | PC.NURSE ---
PRN meds given at this time.
[2019-07-13 22:00] VITALS: BP 117/75; PULSE 75; RESP 17; TEMP 37.1; O2SAT 99
[2019-07-14 06:00] VITALS: BP 141/89; PULSE 75; RESP 17; TEMP 36.8; O2SAT 99
[2019-07-14] MEDS: atenolol 50 mg Tablet PO (08:19)
[2019-07-14] MEDS: fluoxetine 20 mg Capsule PO (08:19)
--- NOTE | 2019-07-14 08:33 | PM.NPN ---
Subjective NPU Subjective: Interval history: Roderick presents today continuing to have limits to his short-term memory but having some signs that there is slight improvement. He could not recall his address but he did recall that his address was on a document that he was given as part of the court proceedings and was able to find it on the sheet and identified that that is where he lives. He did struggle with separation of his old girlfriend and his new girlfriend but he was able to come up with his new girlfriend's name. He still struggles with the reality of the of his father. He did not recall who I am. But his understanding and memory of the circumstances of being in the hospital are scant at best. And as I advised him him not having a guardian right now could prove dangerous. Mental Status Exam MSE Comments: This is a overweight versus obese white male with limited dress, grooming but adequate eye contact. No abnormal movements except for mild psychomotor retardation. And then some psychomotor agitation with assertions that he does not need a guardian. Mostly cooperative with exam in mild distress. Speech was mostly normal rate and volume. Mood described as mad, affect slightly irritable. Thought process organized. Thought content: Patient denied any suicidal or homicidal ideations, there were no delusions reported or noted, he denied any auditory or visual hallucinations. Attention and concentration were improving and memory still unreliable but improved but none were formally tested. He is alert and oriented times person and place. Insight and judgment are still impaired. Vitals/I&O/Wt Last Vital Signs Temperature 98.3, pulse 75, respirations 17, pulse ox 99%, blood pressure 141/89. Home Medications amlodipine 5 mg PO DAILY 04/20/19 [History Confirmed 05/30/19] [id number]-[id number]-kfobuwdb [Excedrin Migraine] 2 tab PO DAILY PRN 04/20/19 [History Confirmed 05/30/19] lisinopril 20 mg PO DAILY 04/20/19 [History Confirmed 05/30/19] metformin 1,000 mg PO BID 04/20/19 [History Confirmed 05/30/19] Active Medications Acetaminophen (Tylenol) 325 - 650 mg PO Q4H PRN PRN Reason: MILD PAIN OR INCREASE TEMP Last Admin: 07/14/19 21:09 Dose: 650 mg Documented by: Atenolol (Tenormin) 50 mg PO DAILY [facility] Last Admin: 07/14/19 08:19 Dose: 50 mg Documented by: Fluoxetine HCl (Prozac) 20 mg PO DAILY [facility] Last Admin: 07/14/19 08:19 Dose: 20 mg Documented by: Trazodone HCl (Desyrel) 50 mg PO BEDTIME PRN PRN Reason: SLEEP Last Admin: 07/13/19 20:54 Dose: 50 mg Documented by: Data NPU : 06/18/19 06:43 06/18/19 06:43 A&P Additional A&P Information This is a 53-year-old white 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 1. Continue current medication. 2. Encourage individual, group and milieu therapy. 3. Continue to 15-minute checks for safety. 4. We will work with treatment team to find a place for continued convalescence after the master esthetician's verdict. Involuntary Hold Information 96 Hour Hold: 96 Hour Involuntary Admission: No Attestations NPU Medical Necessity Statement*: Inpatient hospitalization is medically necessary and the clinically appropriate intervention at this time. We will monitor medications and adjust as indicated. Likely length of stay 5-7 days. Coding Level of Care Code Acute Optical Laboratory Technician for Francia Larry
[2019-07-14 14:00] VITALS: BP 121/79; PULSE 72; RESP 18; TEMP 37.3; O2SAT 99
[2019-07-14 20:25] VITALS: BP 138/83; PULSE 72; RESP 18; TEMP 37.4; O2SAT 98
[2019-07-14] MEDS: acetaminophen 325 mg Tablet PO (21:09)
[2019-07-15 06:00] VITALS: BP 128/85; PULSE 75; RESP 18; TEMP 36.8; O2SAT 98
[2019-07-15] MEDS: fluoxetine 20 mg Capsule PO (08:56)
[2019-07-15] MEDS: atenolol 50 mg Tablet PO (08:56)
[2019-07-15 14:00] VITALS: BP 115/73; PULSE 76; RESP 16; TEMP 37.1; O2SAT 97
--- NOTE | 2019-07-15 17:52 | P.PN_ITS ---
Subjective NPU Subjective: Interval history: Roderick presents today reports that he feels like he has the coronavirus. This is an extension of how he has, in the past, given a physical manifestation to his psychological anguish. Explained to him that he had no symptoms of coronavirus, and he does not have the flu. He was able to recall today that his house was on [facility] but was unable to recall the numbers. He did not recall that his mother and father were . But, unlike past interactions, there is a part of him that kind of does know that they are because he did not have emotional reactions to the information. He did identify that his sister and brother were alive and said that is all that counts. He did recall this scenario writer. At this point, instead of driving the guardianship as guardianship, we really tried to reframe that Rory, who is his guardian, will assist him in navigating this hopefully in between period wherein he is getting his memories and independence back. Explained to him that we are waiting on a placement. Mental Status Exam MSE Comments: This is an overweight, white male, with adequate dress, grooming, and eye contact. No abnormal movements, except for mild psychomotor retardation. Cooperative with exam in no acute distress. Speech was decreased rate and volume. Mood described as feeling sick; affect slightly subdued. Thought process, organized. Thought content: patient denied any suicidal or homicidal ideation, there were no delusions reported or noted, patient denied any auditory or visual hallucinations. Attention and concentration are intact, and memory is still unreliable but much improved compared to his initial presentation but not well enough for independent functioning; none were formally tested. He is alert and oriented times three. Insight and judgment are impaired but improving. Vitals/I&O/Wt Last Vital Signs Temp 98.6 F 07/15/19 20:29 Pulse 81 07/15/19 20:29 Resp 19 H 07/15/19 20:29 BP 127/74 07/15/19 20:29 Pulse Ox 100 07/15/19 20:29 Home Medications amlodipine 5 mg PO DAILY 04/20/19 [History Confirmed 05/30/19] [id number]-psgcqqkd [Excedrin Migraine] 2 tab PO DAILY PRN 04/20/19 [History Confirmed 05/30/19] lisinopril 20 mg PO DAILY 04/20/19 [History Confirmed 05/30/19] metformin 1,000 mg PO BID 04/20/19 [History Confirmed 05/30/19] Active Medications Acetaminophen (Tylenol) 325 - 650 mg PO Q4H PRN PRN Reason: MILD PAIN OR INCREASE TEMP Last Admin: 07/15/19 21:01 Dose: 650 mg Documented by: Atenolol (Tenormin) 50 mg PO DAILY [facility] Last Admin: 07/15/19 08:56 Dose: 50 mg Documented by: Fluoxetine HCl (Prozac) 20 mg PO DAILY [facility] Last Admin: 07/15/19 08:56 Dose: 20 mg Documented by: Trazodone HCl (Desyrel) 50 mg PO BEDTIME PRN PRN Reason: SLEEP Last Admin: 07/15/19 21:02 Dose: 50 mg Documented by: Data NPU : 06/18/19 06:43 06/18/19 06:43 A&P Additional A&P Information This is a 53-year-old white 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 1. Continue current medication. 2. Encourage individual, group and milieu therapy. 3. Continue to 15-minute checks for safety. 4. We will work with treatment team and guardian to find a place for continued convalescence. Involuntary Hold Information 96 Hour Hold: 96 Hour Involuntary Admission: No Attestations NPU Medical Necessity Statement*: Inpatient hospitalization is medically necessary and the clinically appropriate intervention at this time. We will monitor medications and adjust as indicated. Likely length of stay 4-6 days. Coding Level of Care Code Acute Automotive Paint Technician for Francia Larry
[2019-07-15 20:29] VITALS: BP 127/74; PULSE 81; RESP 19; TEMP 37; O2SAT 100
--- NOTE | 2019-07-15 20:54 | NUR.SHIFT ---
pt given PRN meds trazodone and tylenol per pt request, at this time.
[2019-07-15] MEDS: acetaminophen 325 mg Tablet PO (21:01)
[2019-07-15] MEDS: trazodone 50 mg Tablet PO (21:02)
[2019-07-16 06:00] VITALS: BP 151/99; PULSE 86; RESP 18; TEMP 36.3; O2SAT 100
[2019-07-16] MEDS: fluoxetine 20 mg Capsule PO (08:07)
[2019-07-16] MEDS: atenolol 50 mg Tablet PO (08:07)
[2019-07-16 14:00] VITALS: BP 154/78; PULSE 97; RESP 17; O2SAT 97
--- NOTE | 2019-07-16 16:24 | P.PN_ITS ---
Subjective NPU Subjective: Interval history: Roderick presents today and is struggling with some of the memories that he has struggled with this whole time, unlike the other day when he asked me about his father and asked me if his father was still alive. When I told him that he was not, he broke down like he had in the beginning when it seemed like his mind had zero idea about his father?s and he was sobbing. Ultimately, he pulled himself together, he did remember the street of his address, but not the number. He did report that he is feeling tired. We talked about the fact that he has Rory as his guardian which the guardian piece escapes him, but we talked about how Rory will help him navigate systems until he is standing on his own. Mental Status Exam MSE Comments: This is an overweight, white male, with adequate dress, grooming, and eye contact. No abnormal movements except for mild psychomotor retardation. Cooperative with exam in no acute distress except for when we spoke of his father?s . Speech was normal rate and volume. Mood described as alright but confused; affect congruent. Thought process, organized. Thought content: patient denied any suicidal or homicidal ideation, there were no delusions reported or noted, patient denied any auditory or visual halluci nations. Attention and concentration intact. Memory is unreliable. Alert and oriented times three. Insight and judgment are impaired. Vitals/I&O/Wt Last Vital Signs Temp 98.5 F 07/16/19 22:00 Pulse 73 07/16/19 22:00 Resp 19 H 07/16/19 22:00 BP 163/92 07/16/19 22:00 Pulse Ox 100 07/16/19 22:00 Home Medications amlodipine 5 mg PO DAILY 04/20/19 [History Confirmed 05/30/19] cxaexsi-qhuromaigxapb-dydqpfdf [Excedrin Migraine] 2 tab PO DAILY PRN 04/20/19 [History Confirmed 05/30/19] lisinopril 20 mg PO DAILY 04/20/19 [History Confirmed 05/30/19] metformin 1,000 mg PO BID 04/20/19 [History Confirmed 05/30/19] Active Medications Acetaminophen (Tylenol) 325 - 650 mg PO Q4H PRN PRN Reason: MILD PAIN OR INCREASE TEMP Last Admin: 07/16/19 21:20 Dose: 650 mg Documented by: Atenolol (Tenormin) 50 mg PO DAILY [facility] Last Admin: 07/16/19 08:07 Dose: 50 mg Documented by: Fluoxetine HCl (Prozac) 20 mg PO DAILY [facility] Last Admin: 07/16/19 08:07 Dose: 20 mg Documented by: Trazodone HCl (Desyrel) 50 mg PO BEDTIME PRN PRN Reason: SLEEP Last Admin: 07/16/19 21:15 Dose: 50 mg Documented by: Data NPU : 06/18/19 06:43 06/18/19 06:43 A&P Assessment and plan (1) Wernicke-Korsakoff syndrome (alcoholic): This is a 53-year-old white 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 1. Continue current medication. 2. Encourage individual, group and milieu therapy. 3. Continue to 15-minute checks for safety. 4. We will work with treatment team and guardian to find a place for continued convalescence. 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 We will monitor medications and adjust as indicated. Likely length of stay 4-6 days. Coding Level of Care Code Acute Health Information Manager for Chg Fwd Diagnoses Wernicke-Korsakoff syndrome (alcoholic) F10.96 Alcohol abuse F10.10 Complicated grief F43.29
[2019-07-16] MEDS: trazodone 50 mg Tablet PO (21:15)
[2019-07-16] MEDS: acetaminophen 325 mg Tablet PO (21:20)
[2019-07-16 22:00] VITALS: BP 163/92; PULSE 73; RESP 19; TEMP 36.9; O2SAT 100
[2019-07-17 06:00] VITALS: BP 105/68; PULSE 87; RESP 22; TEMP 36.9; O2SAT 98
[2019-07-17] MEDS: atenolol 50 mg Tablet PO (08:46)
[2019-07-17] MEDS: fluoxetine 20 mg Capsule PO (08:46)
[2019-07-17 14:00] VITALS: BP 124/70; PULSE 74; RESP 18; TEMP 36.9; O2SAT 99
--- NOTE | 2019-07-17 16:02 | PM.NPN ---
Subjective NPU Subjective: Interval history: The patient presents today reporting that things are going crappy. He reports he does not feel well, which is generally his way of saying that the mental anguish of his memory being the way it is, is getting the better of him today. He was not very talkative, showing some signs of depression possibly. We discussed the fact that tomorrow the treatment team will be in and we will be able to reach out to Rory to find out what he has found out, and a better timeline on the situation. He continues to endorse not wanting a guardian and we continue to discuss the benefits at this level of functioning for him having one. This is an overweight, white male, with adequate dress, grooming, and limited eye contact. No abnormal movements except for mild psychomotor retardation. Cooperative with exam in no acute distress. Speech was more normal rate and volume. Mood described as alright but tired; affect congruent. Thought process, organized. Thought content: patient denied any suicidal or homicidal ideation, there were no delusions reported or noted, patient denied any auditory or visual hallucinations. Attention and concentration were intact, and memory continues to be unreliable and certainly less reliable for more recent events, but none were formally tested. Alert and oriented to person and place. Insight and judgment are improving. Mental Status Exam MSE Comments: This is an overweight, white male, with adequate dress, grooming, and limited eye contact. No abnormal movements except for mild psychomotor retardation. Cooperative with exam in no acute distress. Speech was more normal rate and volume. Mood described as alright but tired; affect congruent. Thought process, organized. Thought content: patient denied any suicidal or homicidal ideation, there were no delusions reported or noted, patient denied any auditory or visual hallucinations. Attention and concentration were intact, and memory continues to be unreliable and certainly less reliable for more recent events, but none were formally tested. Alert and oriented to person and place. Insight and judgment are improving. Vitals/I&O/Wt Last Vital Signs Temp 98.8 F 07/17/19 22:00 Pulse 80 07/17/19 22:00 Resp 20 H 07/17/19 22:00 BP 116/73 07/17/19 22:00 Pulse Ox 98 07/17/19 22:00 Home Medications amlodipine 5 mg PO DAILY 04/20/19 [History Confirmed 05/30/19] emkjczs-qhfgjievsymqv-bhwclytb [Excedrin Migraine] 2 tab PO DAILY PRN 04/20/19 [History Confirmed 05/30/19] lisinopril 20 mg PO DAILY 04/20/19 [History Confirmed 05/30/19] metformin 1,000 mg PO BID 04/20/19 [History Confirmed 05/30/19] Active Medications Acetaminophen (Tylenol) 325 - 650 mg PO Q4H PRN PRN Reason: MILD PAIN OR INCREASE TEMP Last Admin: 07/18/19 04:49 Dose: 650 mg Documented by: Atenolol (Tenormin) 50 mg PO DAILY [facility] Last Admin: 07/17/19 08:46 Dose: 50 mg Documented by: Fluoxetine HCl (Prozac) 20 mg PO DAILY [facility] Last Admin: 07/17/19 08:46 Dose: 20 mg Documented by: Trazodone HCl (Desyrel) 50 mg PO BEDTIME PRN PRN Reason: SLEEP Last Admin: 07/17/19 21:16 Dose: 50 mg Documented by: Data NPU : 06/18/19 06:43 06/18/19 06:43 A&P Additional A&P Information (1) Wernicke-Korsakoff syndrome (alcoholic): This is a 53-year-old white 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 1. Continue current medication. 2. Encourage individual, group and milieu therapy. 3. Continue to 15-minute checks for safety. 4. We will work with treatment team and guardian to find a place for continued convalescence. (2) Alcohol abuse: (3) Complicated grief: Involuntary Hold Information 96 Hour Hold: 96 Hour Involuntary Admission: No Attestations NPU Medical Necessity Statement*: Inpatient hospitalization is medically necessary and the clinically appropriate intervention at this time. We will monitor medications and adjust as indicated. Likely length of stay 3-5 days. Coding Level of Care Code Acute Socially Responsible Investment Adviser for Francia Larry
[2019-07-17] MEDS: acetaminophen 325 mg Tablet PO (21:16)
[2019-07-17] MEDS: trazodone 50 mg Tablet PO (21:16)
--- NOTE | 2019-07-17 21:16 | PC.NURSE ---
PRN MEDS TRAZODONE AND TYLENOL GIVEN AT THIS TIME.
[2019-07-17 22:00] VITALS: BP 116/73; PULSE 80; RESP 20; TEMP 37.1; O2SAT 98
[2019-07-18] MEDS: acetaminophen 325 mg Tablet PO ×2 (04:49→20:54)
[2019-07-18 06:00] VITALS: BP 111/76; PULSE 79; RESP 20; TEMP 36.9; O2SAT 100
[2019-07-18] MEDS: atenolol 50 mg Tablet PO (08:40)
[2019-07-18] MEDS: fluoxetine 20 mg Capsule PO (08:40)
[2019-07-18 13:03] VITALS: BP 138/87; PULSE 68; RESP 20; TEMP 37; O2SAT 98
--- NOTE | 2019-07-18 17:52 | P.PN_ITS ---
Subjective NPU Subjective: Interval history: The patient presents today reporting that he has the coronavirus and he feels horrible, but he has none of the symptoms that would be consistent with that. He occasionally coughs but is more of a smoker?s cough and no fever, no reported myalgias or anything like that. This continues to appear to be him representing his emotional experience in physical terms. We discussed the risks, benefits and alternatives of initiating Prozac and he understood and agreed to proceed as is documented in this note. We will reach out to his guardian. When I entered the room he asked for me to pray with him which is not uncommon, but this time he talked about wanting to rededicate his life and that he has backslid and that he does not want to from coronavirus. Mental Status Exam MSE Comments: This is an overweight, white male, with adequate dress, groomi ng, and eye contact. No abnormal movements except for psychomotor retardation. Cooperative with exam in no mild distress. Speech was normal rate and volume. Mood described as a little down; affect congruent. Thought process, organized. Thought content: patient denied any suicidal or homicidal ideation, there were no delusions reported or noted, patient denied any auditory or visual hallucinations. Attention and concentration appeared intact but were not formally tested. Memory unreliable but having some short-term memory he has maintained. Alert and oriented times three. Insight and judgment are impaired. Vitals/I&O/Wt Last Vital Signs Temperature 98.4, pulse 79, respirations 20, pulse ox 100%, blood pressure 111/76. Home Medications amlodipine 5 mg PO DAILY 04/20/19 [History Confirmed 05/30/19] jgmbyrk-zauisiofocowr-bsvupfkw [Excedrin Migraine] 2 tab PO DAILY PRN 04/20/19 [History Confirmed 05/30/19] lisinopril 20 mg PO DAILY 04/20/19 [History Confirmed 05/30/19] metformin 1,000 mg PO BID 04/20/19 [History Confirmed 05/30/19] Active Medications Acetaminophen (Tylenol) 325 - 650 mg PO Q4H PRN PRN Reason: MILD PAIN OR INCREASE TEMP Last Admin: 07/18/19 20:54 Dose: 650 mg Documented by: Atenolol (Tenormin) 50 mg PO DAILY [facility] Last Admin: 07/18/19 08:40 Dose: 50 mg Documented by: Fluoxetine HCl (Prozac) 40 mg PO DAILY [facility] Trazodone HCl (Desyrel) 50 mg PO BEDTIME PRN PRN Reason: SLEEP Last Admin: 07/18/19 20:54 Dose: 50 mg Documented by: Data NPU : 06/18/19 06:43 06/18/19 06:43 A&P Additional A&P Information (1) Wernicke-Korsakoff syndrome (alcoholic): This is a 53-year-old white 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 1. Continue current medication. Except increase prozac to 40 mg po qam 2. Encourage individual, group and milieu therapy. 3. Continue to 15-minute checks for safety. 4. We will work with treatment team and guardian to find a place for continued convalescence. (2) Alcohol abuse: (3) Complicated grief: Involuntary Hold Information 96 Hour Hold: 96 Hour Involuntary Admission: No Attestations NPU Medical Necessity Statement*: Inpatient hospitalization is medically necessary and the clinically appropriate intervention at this time. We will monitor medications and adjust as indicated. Likely length of stay 3-5 days. Coding Level of Care Code Acute Distributor Operator for Francia Larry
[2019-07-18] MEDS: trazodone 50 mg Tablet PO (20:54)
--- NOTE | 2019-07-18 20:54 | PC.NURSE ---
PRN MEDS DOXEPIN AND TRAZODONE GIVEN AT THIS TIME.
[2019-07-18 21:52] VITALS: BP 139/83; PULSE 80; RESP 20; TEMP 36.4; O2SAT 98
[2019-07-19 06:00] VITALS: BP 105/67; PULSE 92; RESP 20; TEMP 37.2; O2SAT 99
[2019-07-19] MEDS: atenolol 50 mg Tablet PO (09:03)
[2019-07-19] MEDS: fluoxetine 20 mg Capsule 40 MG PO (09:03)
[2019-07-19 14:00] VITALS: BP 106/67; PULSE 55; RESP 20; TEMP 36.3
--- NOTE | 2019-07-19 14:07 | P.PN_ITS ---
Subjective NPU Subjective: Interval history: Roderick presents today reporting that he doesn't know why he needs a guardian. We discussed that the guardian isn't going to be trying to control him to help him navigate systems there and plate now and his overall treatment and care. He would like to go home but is not sure how this guardianship works. I explained to him the first stage would be him going somewhere where he continued to improve and hopes that he gets his memories back and then could have independence with what exactly to do to maintain that relationship to his house or whatever is not fully clear. He denied any other issues. Mental Status Exam MSE Comments: This is an overweight, white male, with adequate dress, grooming, and eye contact. No abnormal movements except for psychomotor retardation. Cooperative with exam in no mild distress. Speech was normal rate and volume. Mood described as fine; affect irritable at times. Thought process, organized. Thought content: patient denied any suicidal or homicidal ideation, there were no delusions reported or noted, patient denied any auditory or visual hallucinations. Attention and concentration appeared intact but were not fo rmally tested. Memory unreliable but having some short-term memory he has maintained. Alert and oriented times person and place. Insight and judgment are impaired. Vitals/I&O/Wt Last Vital Signs Temperature 98.9, pulse 92, respirations 20, pulse ox 99%, blood pressure 105/67. 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 1. Continue current medication. 2. Encourage individual, group and milieu therapy. 3. Continue to 15-minute checks for safety. 4. We will work with treatment team and guardian to find a place for continued convalescence. (2) Alcohol abuse: (3) Complicated grief: Involuntary Hold Information 96 Hour Hold: 96 Hour Involuntary Admission: No Attestations NPU Medical Necessity Statement*: Inpatient hospitalization is medically necessary and the clinically appropriate intervention at this time. We will monitor medications and adjust as indicated. Likely length of stay 3-5 days. Coding Level of Care Code Acute Paper Machine Operator for Chg Fwjoann
[2019-07-19] MEDS: acetaminophen 325 mg Tablet PO (20:17)
[2019-07-19 20:40] VITALS: BP 159/96; PULSE 76; RESP 22; TEMP 36.6; O2SAT 97
--- NOTE | 2019-07-19 21:15 | PC.NURSE ---
Pt given PRN Trazodone and Tylenol at 2053, for rt shoulder pain. Pt resting quietly with both eyes closed at this time.
[2019-07-20 06:00] VITALS: BP 151/90; PULSE 77; RESP 19; TEMP 36.4; O2SAT 97
[2019-07-20] MEDS: atenolol 50 mg Tablet PO (08:43)
[2019-07-20] MEDS: fluoxetine 20 mg Capsule 40 MG PO (08:43)
--- NOTE | 2019-07-20 13:55 | P.PN_ITS ---
Subjective NPU Subjective: Interval history: Roderick presents today reporting that he does not need a guardian. He was frustrated and challenging about why he can not just go home. We reviewed some of the things he did not remember, including his dad?s , and even with the obituary in his hand he continued to report him having visited within the last week. Additionally, he had to be reminded who his girlfriend was. He has a belief system of what the house is like which is not substantiated by the photos. He went back on the line of argument that his dad was a multi-millionaire, so ?where is all the money?? We talked about the money that he spent, and some of the money he has in the bank, but he is still wondering where the rest of the money is. He wanted to know how Rory was reimbursed for being a guardian; he does not want anybody taking his money. He was again unable to produce his street address. But today he was not complaining of having any illness. Mental Status Exam MSE Comments: This is an overweight, white male, with adequate dress, grooming, and eye contact. No abnormal movements, except for mild psychomotor retardation. Cooperative with exam in no acute distress. Speech was more normal rate and volume. Mood described as ?I?m fine?; affect congruent. Thought process, organized. Thought content: patient denied any suicidal or homicidal ideation, there were no delusions reported or noted, patient denied any auditory or visual hallucinations. Attention and concentration appeared intact, and memory was unreliable with confabulation and poor recent memory, but none were formally tested. Patient is alert and oriented to person and place; orientation to place is variable. Insight and judgment are impaired. Vitals/I&O/Wt Last Vital Signs Temp 98.2 F 07/20/19 20:15 Pulse 76 07/20/19 20:15 Resp 20 H 07/20/19 20:15 BP 142/86 07/20/19 20:15 Pulse Ox 99 07/20/19 20:15 Home Medications amlodipine 5 mg PO DAILY 04/20/19 [History Confirmed 05/30/19] [id number]-[id number] [Excedrin Migraine] 2 tab PO DAILY PRN 04/20/19 [History Confirmed 05/30/19] lisinopril 20 mg PO DAILY 04/20/19 [History Confirmed 05/30/19] metformin 1,000 mg PO BID 04/20/19 [History Confirmed 05/30/19] Active Medications Acetaminophen (Tylenol) 325 - 650 mg PO Q4H PRN PRN Reason: MILD PAIN OR INCREASE TEMP Last Admin: 07/19/19 20:17 Dose: 650 mg Documented by: Atenolol (Tenormin) 50 mg PO DAILY [facility] Last Admin: 07/21/19 08:05 Dose: 50 mg Documented by: Fluoxetine HCl (Prozac) 40 mg PO DAILY [facility] Last Admin: 07/21/19 08:05 Dose: 40 mg Documented by: Trazodone HCl (Desyrel) 50 mg PO BEDTIME PRN PRN Reason: SLEEP Last Admin: 07/18/19 20:54 Dose: 50 mg Documented by: Data NPU : 06/18/19 06:43 06/18/19 06:43 A&P Additional A&P Information (1) Wernicke-Korsakoff syndrome (alcoholic): This is a 53-year-old white 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 1. Continue current medication. 2. Encourage individual, group and milieu therapy. 3. Continue to 15-minute checks for safety. 4. We will work with treatment team and guardian to find a place for continued convalescence. (2) Alcohol abuse: (3) Complicated grief: Involuntary Hold Information 96 Hour Hold: 96 Hour Involuntary Admission: No Attestations NPU 2 Medical Necessity Statement*: Inpatient hospitalization is medically necessary and the clinically appropriate intervention at this time. We will monitor medic ations and adjust as indicated. Likely length of stay 2-4 days. Coding Level of Care Code Acute Machine Repair Person for Francia Larry
[2019-07-20 14:00] VITALS: BP 118/81; PULSE 72; RESP 20; TEMP 36.9; O2SAT 98
[2019-07-20 20:15] VITALS: BP 142/86; PULSE 76; RESP 20; TEMP 36.8; O2SAT 99
[2019-07-21 06:00] VITALS: BP 116/76; PULSE 84; RESP 18; TEMP 36.7; O2SAT 100
[2019-07-21] MEDS: fluoxetine 20 mg Capsule 40 MG PO (08:05)
[2019-07-21] MEDS: atenolol 50 mg Tablet PO (08:05)
--- NOTE | 2019-07-21 13:02 | PM.NPN ---
Subjective NPU Subjective: Interval history: Roderick presents today much unchanged. He was less irritable than yesterday. He was able to discuss the guardianship without getting really frustrated but continued to struggle with certain memories. Continues to interchange an old girlfriend with the new person that had been in his life. We will look at a picture of his home on [employer] and he has some memory of it when he looks at it, but discusses a duplex that he feels that he purchased which I assured him I am not certain that he did not purchase it but I am certain that this picture that we look that was his house. Otherwise he is eating and sleeping fine. Mental Status Exam MSE Comments: This is an overweight, white male, with adequate dress, grooming, and eye contact. No abnormal movements, except for mild psychomotor retardation. Cooperative with exam in no acute distress. Speech was more normal rate and volume. Mood described as OK; affect congruent. Thought process, organized. Thought content: patient denied any suicidal or homicidal ideation, there were no delusions reported or noted, patient denied any auditory or visual hallucinations. Attention and concentration appeared intact, and memory was unreliable with confabulation and poor recent memory, but none were formally tested. Patient is alert and oriented to person and place; orientation to place is variable. Insight and judgment are impaired. Vitals/I&O/Wt Last Vital Signs Temperature 98.1, pulse 84, respirations 18, pulse ox of 100%, blood pressure 116/76. 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 1. Continue current medication. 2. Encourage individual, group and milieu therapy. 3. Continue to 15-minute checks for safety. 4. We will work with treatment team and guardian to find a place for continued convalescence. (2) Alcohol abuse: (3) Complicated grief: Involuntary Hold Information 96 Hour Hold: 96 Hour Involuntary Admission: No Attestations NPU Medical Necessity Statement*: Inpatient hospitalization is medically necessary and the clinically appropriate intervention at this time. We will monitor medications and adjust as indicated. Likely length of stay 2-4 days. Coding Level of Care Code Acute Supervisor Lead Burning for Francia Larry
[2019-07-21 14:00] VITALS: BP 144/84; PULSE 72; RESP 18; TEMP 36.8; O2SAT 98
[2019-07-21 21:06] VITALS: BP 156/92; PULSE 72; RESP 18; TEMP 36.7; O2SAT 98
[2019-07-22 06:00] VITALS: BP 145/89; PULSE 81; RESP 17; TEMP 36.7; O2SAT 100
[2019-07-22] MEDS: fluoxetine 20 mg Capsule 40 MG PO (08:33)
[2019-07-22] MEDS: atenolol 50 mg Tablet PO (08:33)
[2019-07-22 14:00] VITALS: BP 154/91; PULSE 71; RESP 18; TEMP 37.3; O2SAT 99
--- NOTE | 2019-07-22 17:32 | P.PN_ITS ---
Subjective NPU Subjective: Interval history: Roderick presents today wondering when he can get out here. 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 However he is not angrily taking a position. We reviewed again what his guardian would be doing to assist him in navigating things moving forward. He showed me a picture of his father's obituary but this time less tearful and we discussed that his reaction is somewhat suggestive that he knows that his dad has but he is struggling with the specific memories because he talks about not remembering the etc. We also discussed the fact that we are waiting for the okay from the authorizing into the so that we can move forward with placement. We talked about the fact that there could be a temporary injunction of sorts but we were hoping for a final decision. Mental Status Exam MSE Comments: This is an overweight, white male, with adequate dress, grooming, and eye contact. No abnormal movements, except for mild psychomotor retardation. Cooperative with exam in no acute distress. Speech was more normal rate and volume. Mood described as frustrated; affect congruent. Thought process, organized. Thought content: patient denied any suicidal or homicidal ideation, there were no delusions reported or noted, patient denied any auditory or visual hallucinations. Attention and concentration appeared intact, and shen ry was unreliable with confabulation and poor recent memory, but none were formally tested. Patient is alert and oriented to person and place; orientation to place is variable. Insight and judgment are impaired. Vitals/I&O/Wt Last Vital Signs Temperature 98.1, pulse 81, respirations 17, pulse ox 100%, blood pressure 145/89. 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 1. Continue current medication. 2. Encourage individual, group and milieu therapy. 3. Continue to 15-minute checks for safety. 4. We will work with treatment team and guardian to find a place for continued convalescence. (2) Alcohol abuse: (3) Complicated grief: Involuntary Hold Information 96 Hour Hold: 96 Hour Involuntary Admission: No Attestations NPU Medical Necessity Statement*: Inpatient hospitalization is medically necessary and the clinically appropriate intervention at this time. We will monitor medications and adjust as indicated. Likely length of stay 3-5 days. Coding Level of Care Code Acute Chemical Maker for Francia Larry
[2019-07-22] MEDS: trazodone 50 mg Tablet PO (20:44)
[2019-07-22 21:39] VITALS: BP 170/97; PULSE 74; RESP 18; TEMP 37.1; O2SAT 98
--- NOTE | 2019-07-23 00:17 | PC.NURSE ---
Pt requested prn for sleep at bedtime. Medicated with trazodone 50mgs po per prn order. has appeared appeared to be resting comfortably with eyes closed.
[2019-07-23 06:00] VITALS: BP 122/75; PULSE 77; RESP 18; TEMP 36.8; O2SAT 100
[2019-07-23] MEDS: atenolol 50 mg Tablet PO (08:47)
[2019-07-23] MEDS: fluoxetine 20 mg Capsule 40 MG PO (08:47)
[2019-07-23 14:00] VITALS: BP 138/85; PULSE 73; RESP 18; TEMP 37.7; O2SAT 99
--- NOTE | 2019-07-23 14:36 | PM.NPN ---
Subjective NPU Subjective: Interval history: Roderick presented today reporting that he is doing all right. He continues to advance in the sense that conversation with him is riddled with a normal fyof-nag-ucle that healthy conversations have. He understands that he is not remembering things. He is interested in knowing what he does not know. But it is still very frustrating for him. We discussed the hopefulness on the treatment team's part that we would be able to resolve things next week and he would be able to move onto his next phase of recovery/convalescence. We discussed the challenges that we are facing in that regard and we did are normal review of questions he had about who was and alive, his finances and things of that nature. No focus on illness today. Medications: Reviewed: Yes Mental Status Exam MSE Comments: This is an overweight, white male, with adequate dress, grooming, and eye contact. No abnormal movements, except for mild psychomotor retardation. Cooperative with exam in no acute distress. Speech was more normal rate and volume. Mood described as alright; affect congruent. Thought process, organized. Thought content: patient denied any suicidal or homicidal ideation, there were no delusions reported or noted, patient denied any auditory or visual hallucinations. Attention and concentration appeared intact, and memory was unreliable with confabulation and poor recent memory, but none were formally tested. Patient is alert and oriented to person and place; orientation to place is variable. Insight and judgment are impaired. Vitals/I&O/Wt Last Vital Signs Temp 98.7 F 07/23/19 21:37 Pulse 71 07/23/19 21:37 Resp 20 H 07/23/19 21:37 BP 153/93 07/23/19 21:37 Pulse Ox 100 07/23/19 21:37 07/23/19 07/23/19 07/24/19 14:59 22:59 06:59 Intake Total 480 / 480 Output Total 200 / 200 Balance 280 / 280 Home Medications amlodipine 5 mg PO DAILY 04/20/19 [History Confirmed 05/30/19] runmiit-qtfjjkpcaoenm-rpcptwnz [Excedrin Migraine] 2 tab PO DAILY PRN 04/20/19 [History Confirmed 05/30/19] lisinopril 20 mg PO DAILY 04/20/19 [History Confirmed 05/30/19] metformin 1,000 mg PO BID 04/20/19 [History Confirmed 05/30/19] Active Medications Acetaminophen (Tylenol) 325 - 650 mg PO Q4H PRN PRN Reason: MILD PAIN OR INCREASE TEMP Last Admin: 07/19/19 20:17 Dose: 650 mg Documented by: Atenolol (Tenormin) 50 mg PO DAILY [facility] Last Admin: 07/23/19 08:47 Dose: 50 mg Documented by: Fluoxetine HCl (Prozac) 40 mg PO DAILY [facility] Last Admin: 07/23/19 08:47 Dose: 40 mg Documented by: Trazodone HCl (Desyrel) 50 mg PO BEDTIME PRN PRN Reason: SLEEP Last Admin: 07/23/19 20:29 Dose: 50 mg Documented by: Data NPU : 06/18/19 06:43 06/18/19 06:43 A&P Additional A&P Information (1) Wernicke-Korsakoff syndrome (alcoholic): This is a 53-year-old white male with Warnicke Korsakoff syndrome who presents with some slight improvement continuing with his short-term memory continuing to work with the treatment team and his guardian to find placement while he continues to try to improve enough to regain his independence. 1. Continue current medication. 2. Encourage individual, group and milieu therapy. 3. Continue to 15-minute checks for safety. 4. We will work with treatment team and guardian to find a place for continued convalescence. (2) Alcohol abuse: (3) Complicated grief: Involuntary Hold Information 96 Hour Hold: 96 Hour Involuntary Admission: No Attestations NPU Medical Necessity Statement*: Inpatient hospitalization is medically necessary and the clinically appropriate intervention at this time. We will monitor medications and adjust as indicated. Likely length of stay 2-4 days. Coding Level of Care Code Acute Physical Optics Teacher for Francia Larry
[2019-07-23] MEDS: trazodone 50 mg Tablet PO (20:29)
[2019-07-23 21:37] VITALS: BP 153/93; PULSE 71; RESP 20; TEMP 37.1; O2SAT 100
--- NOTE | 2019-07-23 22:18 | PC.NURSE ---
Pt up to desk requesting medication for sleep at bedtime. Medicated with trazodone 50mgs po per prn order. Pt noted to be resting comfortably with eyes closed 30 minute after receiving. Respirations even and unlabored
[2019-07-24 05:53] VITALS: BP 123/80; PULSE 76; RESP 18; TEMP 37.2; O2SAT 100
[2019-07-24] MEDS: atenolol 50 mg Tablet PO (08:25)
[2019-07-24] MEDS: fluoxetine 20 mg Capsule 40 MG PO (08:25)
--- NOTE | 2019-07-24 11:15 | PM.NPN ---
Subjective NPU Subjective: Interval history: The patient presents today reporting that he is doing okay. We continued to discuss the elements we generally discuss. He continues to remember this fiction writer, continues to struggle with memories of who his current girlfriend is, and actually remembering his house and where he lives. We discussed the fact that we are hopeful that we will get some responses back tomorrow that will let us know when he will be able to go on to the next place, as he usually does ask why he could not just go home and we discussed again concerns about his overall safety given his memory deficits and he was not very resistant to that today, though he would prefer going home. We discussed that was the ultimate goal if he continues to show improvement in his ability to make new memories. Mental Status Exam MSE Comments: This is an overweight, versus obese, white male, with adequate dress, grooming, and eye contact. No abnormal movements except for mild psychomotor retardation. Cooperative with exam in no acute distress. Speech was slightly decreased rate and volume. Mood described as okay; affect congruent. Thought process, organized. Thought content: patient denied any suicidal or homicidal ideation, there were no delusions reported or noted, patient denied any auditory or visual hallucinations. Attention and concentration appeared intact but were not formally tested. Memory is unreliable with confabulation present and significant disturbance of short-term memory. Alert and oriented to person and place. He is still unclear about exactly why he is here. Insight and judgment are impaired. Vitals/I&O/Wt Last Vital Signs Temp 99.0 F 07/24/19 05:53 Pulse 77 07/24/19 05:53 Resp 18 07/24/19 05:53 BP 123/80 07/24/19 05:53 Pulse Ox 100 07/24/19 05:53 07/24/19 07/25/19 07/25/19 22:59 06:59 14:59 Intake Total 480 / 480 Output Total 200 / 200 Balance 280 / 280 Weight last 48 hrs Weight 94.71 kg Data NPU : 06/18/19 06:43 06/18/19 06:43 A&P Additional A&P Information (1) Wernicke-Korsakoff syndrome (alcoholic): This is a 53-year-old white male with Warnicke Korsakoff syndrome who presents with some slight improvement continuing with his short-term memory continuing to work with the treatment team and his guardian to find placement while he continues to try to improve enough to regain his independence. 1. Continue current medication. 2. Encourage individual, group and milieu therapy. 3. Continue to 15-minute checks for safety. 4. We will work with treatment team and guardian to find a place for continued convalescence. (2) Alcohol abuse: (3) Complicated grief: Involuntary Hold Information 96 Hour Hold: 96 Hour Involuntary Admission: No Attestations NPU Medical Necessity Statement*: Inpatient hospitalization is medically necessary and the clinically appropriate intervention at this time. We will monitor medications and adjust as indicated. Likely length of stay 2-4 days. Coding Level of Care Code Acute Inhalation Therapy Aides Teacher for Francia Larry
[2019-07-24 14:00] VITALS: BP 125/82; PULSE 72; RESP 18; TEMP 37.2; O2SAT 96
[2019-07-24] MEDS: acetaminophen 325 mg Tablet PO (20:26)
[2019-07-24] MEDS: trazodone 50 mg Tablet PO (20:27)
--- NOTE | 2019-07-24 20:27 | PC.NURSE ---
Pt given prn meds tylenol and trazodone at this time.
[2019-07-24 21:04] VITALS: BP 156/88; PULSE 69; RESP 23; TEMP 37.1; O2SAT 99
[2019-07-25 06:00] VITALS: BP 113/85; PULSE 78; RESP 20; TEMP 36.6; O2SAT 100
[2019-07-25] MEDS: atenolol 50 mg Tablet PO (08:34)
[2019-07-25] MEDS: fluoxetine 20 mg Capsule 40 MG PO (08:34)
[2019-07-25 14:00] VITALS: BP 143/79; PULSE 70; RESP 18; TEMP 37.1; O2SAT 100
--- NOTE | 2019-07-25 17:34 | P.PN_ITS ---
Subjective NPU Subjective: Interval history: Roderick presents today continuing to be challenged by the idea that he has a guardian and why he can not just go home. We continued to discuss the process by which we would approach getting him out of the hospital. We discussed the fact that there were a couple of options that seem fairly viable that we are waiting to hear back on, but the challenge continues to be COVID-19 and the impact it is having on agencies we depend upon to make the next move in his independence, or at least hopeful return to independence. Today he focused a lot on why his sister or brother could not just take over that role and he stay with them for a period of time. We reminded him that did, in fact, get discussed and neither of them, at this point, have stepped up, and it is unclear of whether his brother is even healthy enough to play a role. We again reviewed how he even got in this situation, questions about his money, and how this process will end up affecting his money and the things that he owns, and things of that nature. Today was the first day that he was actually able to recall his address, but he still recalls it as a duplex, for some reason, and no t the home that he lives in, and he believes that is was rented out. Mental Status Exam MSE Comments: This is an overweight, white male, with adequate dress, grooming, and eye contact. No abnormal movements, except for mild psychomotor retardation. Cooperative with exam in no acute distress. Speech was normal rate and volume. Mood described as okay; affect irritable at times. Thought process, organized. Thought content: patient denied any suicidal or homicidal ideation, there were no delusions reported or noted, patient denied any auditory or visual hallucinations. Attention and concentration appeared intact, and memory was unreliable with continued difficulties with forming new memories and difficulty more with recent memories, but none were formally tested. He is alert and oriented times three. Insight and judgment are improving. Vitals/I&O/Wt Last Vital Signs Temp 98.5 F 07/25/19 22:00 Pulse 70 07/25/19 22:00 Resp 20 H 07/25/19 22:00 BP 132/82 07/25/19 22:00 Pulse Ox 98 07/25/19 22:00 Weight last 48 hrs Weight 94.71 kg Home Medications amlodipine 5 mg PO DAILY 04/20/19 [History Confirmed 05/30/19] dgnivue-hkehcactiiwna-ekiaapzs [Excedrin Migraine] 2 tab PO DAILY PRN 04/20/19 [History Confirmed 05/30/19] lisinopril 20 mg PO DAILY 04/20/19 [History Confirmed 05/30/19] metformin 1,000 mg PO BID 04/20/19 [History Confirmed 05/30/19] Active Medications Acetaminophen (Tylenol) 325 - 650 mg PO Q4H PRN PRN Reason: MILD PAIN OR INCREASE TEMP Last Admin: 07/25/19 21:22 Dose: 650 mg Documented by: Atenolol (Tenormin) 50 mg PO DAILY [facility] Last Admin: 07/25/19 08:34 Dose: 50 mg Documented by: Fluoxetine HCl (Prozac) 40 mg PO DAILY [facility] Last Admin: 07/25/19 08:34 Dose: 40 mg Documented by: Trazodone HCl (Desyrel) 50 mg PO BEDTIME PRN PRN Reason: SLEEP Last Admin: 07/25/19 21:23 Dose: 50 mg Documented by: Data NPU : 06/18/19 06:43 06/18/19 06:43 A&P Additional A&P Information (1) Wernicke-Korsakoff syndrome (alcoholic): This is a 53-year-old white male with Warnicke Korsakoff syndrome who presents with some slight improvement continuing with his short-term memory continuing to work with the treatment team and his guardian to find placement while he continues to try to improve enough to regain his independence. 1. Continue current medication. 2. Encourage individual, group and milieu therapy. 3. Continue to 15-minute checks for safety. 4. We will work with treatment team and guardian to find a place for continued convalescence. (2) Alcohol abuse: (3) Complicated grief: Involuntary Hold Information 96 Hour Hold: 96 Hour Involuntary Admission: No Attestations NPU Medical Necessity Statement*: Inpatient hospitalization is medically necessary and the clinically appropriate intervention at this time. We will monitor medications and adjust as indicated. Likely length of stay 2-4 days. Coding Level of Care Code Acute Sustainable Design Consultant for Francia Larry
[2019-07-25] MEDS: acetaminophen 325 mg Tablet PO ×2 (18:09→21:22)
[2019-07-25] MEDS: trazodone 50 mg Tablet PO (21:23)
--- NOTE | 2019-07-25 21:24 | PC.NURSE ---
pt given tylenol and trazodone per request.
[2019-07-25 22:00] VITALS: BP 132/82; PULSE 70; RESP 20; TEMP 36.9; O2SAT 98
[2019-07-26 06:00] VITALS: BP 102/71; PULSE 77; RESP 20; TEMP 36.6; O2SAT 100
[2019-07-26] MEDS: atenolol 50 mg Tablet PO (08:59)
[2019-07-26] MEDS: fluoxetine 20 mg Capsule 40 MG PO (08:59)
--- NOTE | 2019-07-26 11:47 | PM.NPN ---
Subjective NPU Subjective: Interval history: Roderick presents today reporting that he is doing fine. He continues to be somewhat resistant to the circumstance from the standpoint that he really is struggling with why he has to go somewhere other than his home. He is doing better in regards to the situation regarding his father, although I think that is, in part, because he now keeps a paper next to his bedside that is the obituary of his father, so it is something that is being more and more reminiscent for him. He does endorse that he is feeling like he would like to get out, and we discussed the fact that the place he will be going to will probably have more freedom than our unit, and he looks forward to that. He was again able to identify the address to his street. He is having some improvement in signs of ability to have some new memories, but it is clear that wherever he goes is going to have to work at making sure that they do activities and have things that are salient in his room and in his treatment, for things that really trigger his memory. I still believe that photos from events like the , and things like that, would be beneficial. Mental Status Exam MSE Comments: This is a well-nourished, well-developed, white male, with adequate dress, limited grooming, and adequate eye contact. No abnormal movements. Cooperative with exam in no acute distress. Speech was more spontaneous and normal rate and volume. Mood described as okay; affect congruent. Thought process, organized. Thought content: patient denied any suicidal or homicidal ideation, there were no delusions reported or noted, patient denied any auditory or visual hallucinations. Attention and concentration appeared intact, and memory was unreliable with continued confabulation, but none were formally tested. He is alert and oriented times three. Insight and judgment are good. Vitals/I&O/Wt Last Vital Signs Temp 99.2 F 07/26/19 20:55 Pulse 78 07/26/19 20:55 Resp 23 H 07/26/19 20:55 BP 123/73 07/26/19 20:55 Pulse Ox 97 07/26/19 20:55 Data NPU : 06/18/19 06:43 06/18/19 06:43 A&P Additional A&P Information (1) Wernicke-Korsakoff syndrome (alcoholic): This is a 53-year-old white male with Warnicke Korsakoff syndrome who presents with some slight improvement continuing with his short-term memory continuing to work with the treatment team and his guardian to find placement while he continues to try to improve enough to regain his independence. 1. Continue current medication. 2. Encourage individual, group and milieu therapy. 3. Continue to 15-minute checks for safety. 4. We will work with treatment team and guardian to find a place for continued convalescence. (2) Alcohol abuse: (3) Complicated grief: Involuntary Hold Information 96 Hour Hold: 96 Hour Involuntary Admission: No Attestations NPU Medical Necessity Statement*: Inpatient hospitalization is medically necessary and the clinically appropriate intervention at this time. We will monitor medications and adjust as indicated. Likely length of stay 2-4 days. Coding Level of Care Code Acute Customer Data Technician for Francia Larry
[2019-07-26 14:00] VITALS: BP 110/74; PULSE 72; RESP 18; TEMP 37.1; O2SAT 99
[2019-07-26 20:55] VITALS: BP 123/73; PULSE 78; RESP 23; TEMP 37.3; O2SAT 97
[2019-07-26] MEDS: acetaminophen 325 mg Tablet PO (20:57)
[2019-07-26] MEDS: trazodone 50 mg Tablet PO (20:57)
--- NOTE | 2019-07-26 20:59 | PC.NURSE ---
pt given prn tylenol and trazodone at this time per pt request.
[2019-07-27 06:00] VITALS: BP 115/79; PULSE 83; RESP 20; TEMP 36.6; O2SAT 99
[2019-07-27] MEDS: fluoxetine 20 mg Capsule 40 MG PO (08:09)
[2019-07-27] MEDS: atenolol 50 mg Tablet PO (08:09)
[2019-07-27 14:00] VITALS: BP 130/56; PULSE 76; RESP 18; TEMP 36.8; O2SAT 97
--- NOTE | 2019-07-27 15:56 | P.PN_ITS ---
Subjective NPU Subjective: Interval history: The patient presents today reporting that he is doing okay. We continued to discuss the elements we generally discuss. He continues to remember this appeals writer, continues to struggle with memories of who his current girlfriend is, and continually remembering his house and address, but not the kind of house it is thinking it a duplex. We discussed the fact that we are hopeful that we will get some responses back tomorrow. He wonders where his family is as a possible guardianship with them Mental Status Exam MSE Comments: This is a slightly overweight, white male, with adequate dress, limited grooming, and adequate eye contact. No abnormal movements. Cooperative with exam in no acute distress. Speech was normal rate and volume. Mood described as alright; affect congruent. Thought process, organized. Thought content: patient denied any suicidal or homicidal ideation, there were no delusions reported or noted, patient denied any auditory or visual cesario lucinations. Attention and concentration appeared intact, and memory was unreliable, but none were formally tested. Alert and oriented times three. Insight and judgment are limited but improving. Vitals/I&O/Wt Last Vital Signs Temp 98.4 F 07/27/19 21:23 Pulse 74 07/27/19 21:23 Resp 17 07/27/19 21:23 BP 143/86 07/27/19 21:23 Pulse Ox 98 07/27/19 21:23 Data NPU : 06/18/19 06:43 06/18/19 06:43 A&P Additional A&P Information (1) Wernicke-Korsakoff syndrome (alcoholic): This is a 53-year-old white male with Warnicke Korsakoff syndrome who presents with some slight improvement continuing with his short-term memory continuing to work with the treatment team and his guardian to find placement while he continues to try to improve enough to regain his independence. 1. Continue current medication. 2. Encourage individual, group and milieu therapy. 3. Continue to 15-minute checks for safety. 4. We will work with treatment team and guardian to find a place for continued convalescence. (2) Alcohol abuse: (3) Complicated grief: Involuntary Hold Information 96 Hour Hold: 96 Hour Involuntary Admission: No Attestations NPU Medical Necessity Statement*: Inpatient hospitalization is medically necessary and the clinically appropriate intervention at this time. We will monitor medications and adjust as indicated. Likely length of stay 1-3 days. Coding Level of Care Code Acute Stock Transfer Clerk for Francia Larry
[2019-07-27] MEDS: trazodone 50 mg Tablet PO (20:38)
--- NOTE | 2019-07-27 21:07 | PC.NURSE ---
PRN TRAZODONE PT REQUESTING SLEEP AID. TRAZODONE 50 MG PO. WILL MONITOR FOR MEDICATION EFFECTIVENESS.
[2019-07-27 21:23] VITALS: BP 143/86; PULSE 74; RESP 17; TEMP 36.9; O2SAT 98
[2019-07-28 06:00] VITALS: BP 128/84; PULSE 87; RESP 17; TEMP 36.6; O2SAT 99
[2019-07-28] MEDS: atenolol 50 mg Tablet PO (08:02)
[2019-07-28] MEDS: fluoxetine 20 mg Capsule 40 MG PO (08:02)
[2019-07-28 14:00] VITALS: BP 111/73; PULSE 73; RESP 20; TEMP 37.1; O2SAT 99
--- NOTE | 2019-07-28 15:11 | PM.NPN ---
Subjective NPU Subjective: Interval history: Roderick presented today reporting that he is accepting that he is going to this place, but he wanted to know about the place. I could not give him that information and told him he needed to talk to Antoni about that specific piece of information. He once again was interested in what happened to the money from his father?s . Talked to him about some of the bad choices that he made during that time; he did buy a home and a vehicle, but he was not working and was drinking a lot, during that time. He was asking why he is having these memory problems and we once again reviewed what Wernicke Korsakoff syndrome is, and why he is struggling with his memories the way he is. We got some good news during the day, which is that he is going to be able to go to the facility tomorrow. We talked to him about that being a significant possibility, but we now know that he will be able to go. Mental Status Exam MSE Comments: This is a slightly overweight, white male, with adequate dress, limited grooming, and adequate eye contact. No abnormal movements. Cooperative with exam in no acute distress. Speech was normal rate and volume. Mood described as alright; affect congruent. Thought process, organized. Thought content: patient denied any suicidal or homicidal ideation, there were no delusions reported or noted, patient denied any auditory or visual hallucinations. Attention and concentration appeared intact, and memory was unreliable, but none were formally tested. Alert and oriented times three. Insight and judgment are limited but improving, with some impairment that has made it so that he needs to have a guardian. Vitals/I&O/Wt Last Vital Signs Temp 98.8 F 07/28/19 14:00 Pulse 73 07/28/19 14:00 Resp 20 H 07/28/19 14:00 BP 111/73 07/28/19 14:00 Pulse Ox 99 07/28/19 14:00 Data NPU : 06/18/19 06:43 06/18/19 06:43 A&P Additional A&P Information (1) Wernicke-Korsakoff syndrome (alcoholic): This is a 53-year-old white male with Warnicke Korsakoff syndrome who presents with some slight improvement continuing with his short-term memory continuing to work with the treatment team and his guardian to find placement while he continues to try to improve enough to regain his independence. 1. Continue current medication. 2. Encourage individual, group and milieu therapy. 3. Continue to 15-minute checks for safety. (2) Alcohol abuse: (3) Complicated grief: Involuntary Hold Information 96 Hour Hold: 96 Hour Involuntary Admission: No Attestations NPU Medical Necessity Statement*: Inpatient hospitalization is medically necessary and the clinically appropriate intervention at this time. We will monitor medications and adjust as indicated. Plan for d/c tomorrow Coding Level of Care Code Acute Road Production General Manager for Francia Larry
[2019-07-28] MEDS: trazodone 50 mg Tablet PO (20:42)
[2019-07-28 21:59] VITALS: BP 156/90; PULSE 67; RESP 18; TEMP 36.6; O2SAT 99
[2019-07-29 06:00] VITALS: BP 115/83; PULSE 75; RESP 16; TEMP 36.6; O2SAT 100
[2019-07-29] MEDS: atenolol 50 mg Tablet PO (08:13)
[2019-07-29] MEDS: fluoxetine 20 mg Capsule 40 MG PO (08:13)
--- NOTE | 2019-07-29 12:26 | PM.NDC ---
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 He is profoundly depressed, and Roderick overwhelmed. I believe this to be complications of his grief, most notably expressed with his alcoholic drinking, which he minimizes. Having come to know him, and I doubt CBT or rehab can be helpful in light of his short-term memory deficit. Reason for Visit Reason for Visit: Reason For Visit: DEHYDRATION, ETOH Brief History: Psych Consult HPI History of Present Illness Roderick French is a 53 year old male Who was admitted following his second presentation in one month in a state of confusion. According to records, He presented on 04/07/2019:: Chief Complaint: DEPRESSED and (stress, confusion, fall). This started several days ago. (53 yo male presents with increased stress from of parents. pt states he has been more confused lately. pt has had diarrhea. pt has had a fall yesterday but states its due to neuropathy. pt denies any other symptoms at this time.). No blood alcohol level or urine drug screen was done at the time. The patient has experienced situational problems (many deaths in the family). He has not exhibited a behavior change, was not found wandering and is compliant with medication. Has been depressed but eating or sleeping. No anxiety, anger, unusual behavior, paranoia or delusions. No suicidal thoughts, self-injury inflicted or hallucinations. Course of Care: Reviewed findings with the patient. He does not want to stay he is not an immediate danger to himself or others he is awake and alert. He is somewhat confused but he states this is due to stress. I do not have enough to keep him on a 96-hour hold. I do think he should get further evaluation from neurology including potentially an MRI of the head. If he has any worsening or changes she should return. We will have case management make an arrangement to see neurology. he presented on 04/20/2019: HPI narrative: This is a 53-year-old male with a past medical history of hypertension, type 2 diabetes mellitus who presents to the emergency room due to complaints of confusion. Patient states that he is here in the ER as he does not feel well, his parents a year ago, and he misses them a lot. Patient states that his mom and dad passed roughly a year ago, and since then he is just not been feeling well, feels down, depressed, denies loss of interest, denies guilty feelings, denies lack of energy, denies flight of ideas, denies changes in appetite denies homicidal ideation, denies suicidal ideation, denies guns being at home. Patient denies fevers, chills, nausea, vomiting, lightheadedness, dizziness, blurry vision, headaches, chest pain, palpitations, shortness of breath, wheezing, abdominal pain, diarrhea, dysuria, hematuria. 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 Patient states that he is , has a , lives not too far for [facility]. Patient states that he really wants to go home, does not know why he is here. I spoke to patient's over the phone, patient's states that for the past year since his parents passing, he is not been taking care of himself, has not been eating and drinking well, does not take care of himself, has not been working for the last year, he drinks whiskey daily, smokes daily, has trouble walking at times, has trouble ambulating him. Patient's states that she cannot take care of him anymore. And attempt was made to admit him but he left AGAINST MEDICAL ADVICE. He again presented on 05/11/2019: HPI narrative: 53 y/o male presents to the ED with complaint of AMS. Pt has been drinking this evening and his friend called EMS to get him some help. Pt smells stongly of ETOH but states he has only had a few sips. Pt has been under increased stress and has been unable to cope with the passing of his father. Pts is a chronic alcoholic and EMS suspects he is as well. There were empty whiskey bottles all over the residence. Pts father passed about a year ago but he believes it was today or yesterday. Pt also believes Fredi is still the president. He is on hospital day 3 on the medical unit being treated for hyponatremian, Hypertension, and type II diabetes. Progression of pertinent labs over his admission: Laboratory Tests 05/11/19 05/13/19 06:05 05:05 Sodium 128 L 135 L Potassium 4.2 3.9 Glucose 228 H [address]: IMPRESSION: 1. No acute intracranial hemorrhage or mass effect. 2. Changes of microvascular disease, and small old right lacunar infarct. 3. No definite acute infarct by CT, see above. 4. Other findings discussed above. On interview, the patient states that he is in the hospital because he has the flu. He says they haven't done anything for him because he still has the flu. He says as soon as he gets rid of the flu that he'll go home. He says that otherwise he is in good medical health. When asked about his alcohol intake, he says yes I drink. who doesn't? He says that he is not working. He feels that it is a problem. He has never had problems from that he has never had any URIs. Adversely impacted his employment, his income, or his social life.He did report that he had a DUI loss long ago . Review of public record does indicate that he had a DUI in 1993. He does not estimate how much he drinks or purchases. His answers are all approximate. By his report, he has never seen a psychiatrist before. He is never been a psychiatric unit before. However he does admit to being depressed. When asked about that, he states that he misses his mother and father. They were the best mother and father anybody could ever want. He tells a story where mother had a disabling chronic illness and father took care of her. At one point he refers to them as though that they have both but later he talks about his father being alive and living in [place]. He tells a family history that is linear beginning in the [employer] and he widely moving to see more when he is in sixth grade. Father was a builder and he literally built half of [employer]. He truly was a truly great man. 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 He says that he has enough work to keep him financially stable but his work is sporadic because of it being a job oriented task. He is actively employed. He has never been . He has a one son in [place] who he seldom sees. He reports himself as being frequently sad and blue. He describes himself as being depressed. He denies ever having suicidal or homicidal thoughts because that would be against the Bible. He does not attend bahai. He admits that he is sad and blue troubled by thoughts of his parents. He ruminates over frequently. Discussed signs and symptoms of clinical depression and medications that might help with that. He acknowledged that that was true and that in the past he has been treated for depression successfully with Xanax and Valium. He had has no history of auditory or visual hallucinations. He denies that he is socially isolated but cannot name any close friends and that his car broke down in the middle night he would call a tow truck rather than calling a friend because What would that do. He can name no activities which bring him Enjoyment. He says that he never has free time because he works such long hours. But later also states that his work is very sporadic. He reports family psychiatric history is negative. Mental status exam: The patient is encountered in his hospital bed. He is slumped over to the side. He is in no apparent physical distress. He keeps picking at his head and saying that he has a tick up there. When examined, he has what appears to be a healing scar from his constant picking. There is no tic. However he referred to there being a tick There are multiple occasions. Eye contact is good. There is no attention to internal stimuli. There is no indication of auditory or visual hallucinations. His affect is flat almost becoming tearful at times. His mood is depressed. He denies suicidal or homicidal ideation. His speech is of normal rate and rhythm and easily understood. His information is internally consistent and generally logical. However we have no way of corroborating the information that he provides. He is oriented to person place and time and situation. I am unable to assess his memory. I have no corroborating information. It is generally linear and internally consistent. However it is noteworthy that he insists that he is in the hospital because he has the flu. Eye contact is good. Psychomotoric activity is unremarkable. His manner is interpersonally engaged to the point where he wants this physician to stay and talk to him and is quite despondent when the physician. He is willing to come to the psychiatric unit primarily because he feels like he needs to talk about things that are going on in his life. However he is not an imminent risk to self or others. Hospital Course Hospital Course Roderick presented to the emergency room with confusion, psychosis amnesia and was admitted to the neuro psych unit. He very slowly acclimated to the individual group and milieu therapies provided mostly secondary to the sequela of his Warnicke Korsakoff syndrome. He was put on antidepressants but continued to struggle with grief as he was reliving the loss of his parents as his memory would not allow him to recall them being then he would come to know that they were and often grieves as it was the first time he had ever heard information. He started showing signs of the ability to make new memories in the last month or so that he was in the hospital. He started being able to recall the doctor treating him, towards the very end he remembered his address but these were fleeting advancements at times. Guardianship papers were filed and accepted at least on a temporary basis as we move forward hopeful he regains his faculties but aware that the likelihood is that he will have some residual deficits. The question remained how extensive those deficits would be and whether his improvement with allow for an independent existence. During the hospitalization he had routine laboratory studies which were within normal limits except for a few outliers. Additionally there was a general medical evaluation which was also within normal limits and revealed no new acute processes except for his amnestic process. Discharge Summary At the time of discharge he denied any lethality and was absent psychosis. Mood and anxiety were well managed and he endorsed a plan to avoid all drugs of abuse and to follow-up with the recommended post hospital services, though his guardian will be in charge of those efforts. He was evaluated and deemed to be absent lethality and had received the maximum benefit from an inpatient hospitalization, so was discharged. Involuntary Hold Information 96 Hour Hold: 96 Hour Involuntary Admission: No Mental Status Exam MSE Comments: This is a slightly overweight, white male, with adequate dress, grooming, and eye contact. No abnormal movements. Cooperative with exam in no acute distress. Speech was normal rate and volume. Mood described as pretty good; affect congruent. Thought process, organized. Thought content: patient denied any suicidal or homicidal ideation, there were no delusions reported or noted, patient denied any auditory or visual hallucinations. Attention and concentration appeared intact, and memory was unreliable with ongoing memory loss but some signs of ability to make some new memories, but none were formally tested. Alert and oriented times three. Insight and judgment are limited but improving. Discharge Data Data Completed and Pending: Completed Studies During Hospitalization Category Date Time Status CT chest w con* 7 1260 Routine Cat Scan 05/11/19 14:[address] head wo con* 7 0450 Urgent Cat Scan 05/10/19 23:14 Completed XR chest 1V fred ble [id number] Routine Exams 05/19/19 16:41 Completed XR chest 1V fred ble [id number] Stat Exams 05/10/19 23:14 [place] [id number] Routin e Exams 05/12/19 16:12 Completed MR head wo/w con [id number] Routine MRI 05/13/19 08:00 Completed Vitals: Last Vital Signs Temp 97.9 F 07/29/19 06:00 Pulse 75 07/29/19 06:00 Resp 16 07/29/19 06:00 BP 115/83 07/29/19 06:00 Pulse Ox 100 07/29/19 06:00 Discharge Plan Discharge Condition: Stable Prescriptions: New folic acid 1 mg Tablet 1 mg PO DAILY 30 Days Qty: 30 RF: 1 Thera 400 mcg Tablet 1 tab PO DAILY 30 Days Qty: 30 RF: 1 fluoxetine 40 mg capsule 40 mg PO DAILY 30 Days Qty: 30 RF: 1 trazodone 100 mg tablet 100 mg PO BEDTIME PRN (Reason: Sleep) 30 Days Qty: 30 RF: 1 atenolol 50 mg Tablet 50 mg PO DAILY 30 Days Qty: 30 RF: 1 Continued Excedrin Migraine 250-250-65 mg Tablet 2 tab PO DAILY PRN (Reason: Headache) RF: 0 Discontinued lisinopril 20 mg tablet 20 mg PO DAILY RF: 0 amlodipine 5 mg tablet 5 mg PO DAILY RF: 0 metformin 1,000 mg Tablet 1,000 mg PO BID RF: 0 Discharge Orders: Discharge Order (Routine); Ordered 07/29/19 Ordered By: Junior Arroyo Referrals: Rory Law MD [Primary Care Provider] - Discharge Diet: Diabetic Discharge Activity: Resume usual activity Activity Restrictions/Additional Instructions: You will be going to [facility] [address] [place] [address] Discharge Date/Time: 07/29/19 13:11 Discharge Attestations NPU Time Spent in Discharge Care*: less than 30 min Specific Discharge Activities: Specific discharge activities: educating patient, discussing with nurse case management/social workers/dc planners, documenting/other paperwork and evaluating patient/reviewing data Coding Level of Care Code Acute Packing Line Worker for g Fwd Diagnoses Wernicke-Korsakoff syndrome (alcoholic) F10.96 Alcohol abuse F10.10 Complicated grief F43.29
[2019-07-29 12:29] VITALS: BP 115/83; PULSE 75; RESP 16; TEMP 36.6; O2SAT 100
== END 2019-07-29 13:11 | disposition home or self-care (01) | DRG 897 ==
LOC: ER 05-11 02:23 → MEDSURG 05-11 02:24 → NP 05-14 10:35
PROVIDERS: Family Medicine; Psychiatry & Neurology Psychiatry; Student in an Organized Health Care Education/Training Program; Admitting Provider Family Medicine; Emergency Provider Emergency Medicine; Family Provider Family Medicine; PCP Family Medicine; Visit Provider Psychiatry & Neurology Psychiatry
DX: F10.229 Alcohol dependence with intoxication, unspecified (principal); S22.42XA Multiple fractures of ribs, left side, initial encounter for closed fracture; E87.1 Hypo-osmolality and hyponatremia; E51.2 Wernicke's encephalopathy; N39.0 Urinary tract infection, site not specified; F10.239 Alcohol dependence with withdrawal, unspecified; F17.210 Nicotine dependence, cigarettes, uncomplicated; I10 Essential (primary) hypertension; F32.9 Major depressive disorder, single episode, unspecified; F20.9 Schizophrenia, unspecified; W19.XXXA Unspecified fall, initial encounter; E11.42 Type 2 diabetes mellitus with diabetic polyneuropathy; F43.21 Adjustment disorder with depressed mood; Z79.84 Long term (current) use of oral hypoglycemic drugs
CPT/HCPCS: 12345; 36415; 36416; 36600; 70030; 70450; 70553; 71045; 71260; 80048; 80053; 80306; 80307; 81001; 81003; 82009; 82140; 82550; 82607; 82746; 82803; 82947; 82962; 83090; 83605; 83690; 83735; 83880; 84100; 84425; 84439; 84443; 84481; 85025; 85610; 86141; 86592; 87804; 87806; 94640; 96360; 96361; 96372; 96374; 97161; 99284; A9579; G0378; J1650; J1815; J2060; J2405; J2930; J3411; J7030; J7799; Q9967